=== PATIENT | female | born 1995 | race Caucasian/White ===

== ENCOUNTER 2023-04-12 12:22 | Outpatient (OUT) | payer OTHER, SELFPAY ==
[2023-04-12 13:41] LABS: Glucose 1 Hour 122 mg/dL
== END 2023-04-12 12:23 ==
LOC: LAB 12:27
PROVIDERS: Visit Provider Obstetrics & Gynecology
DX: Z13.1 Encounter for screening for diabetes mellitus (principal)
CPT/HCPCS: 36415; 82950

== ENCOUNTER 2023-05-11 09:24 | Outpatient (OUT) | payer OTHER, SELFPAY ==
--- NOTE | 2023-05-11 10:13 | US_ITS ---
[address] [address] Patient Name: BERNADINE DEAN MRN: [id number] date: 1995 Sex: F Assigned Patient Location: US Current Patient Location: US Accession/Order Number: [id number] Exam Date: 05/11/2023 10:15 Report Date: 05/11/2023 16:38 At the request of: MIKAYLA TRAN Procedure: US OB anatomy EXAMINATION: US OB anatomy, US OB cervical length HISTORY: Second Trimester Z34.92 COMPARISON: No relevant comparison available. TECHNIQUE: Transabdominal sonographic examination was performed for obstetrical and evaluation. FINDINGS: Number: 1 Heart Rate: 135.7 bpm H.B. /min Amniotic Fluid Volume: Subjectively normal Placental Location: POSTERIOR , grade 0, placental edge 0.4 cm from cervical os Cervix Length: 5.5 cm, closed position: Breech presentation, variable lie Normal anatomy: Lateral ventricles, cerebellum, posterior fossa, nose/lips, orbits, four-chamber heart, RVOT, LVOT, diaphragm, stomach, kidneys, abdominal cord insertion, bladder, umbilical cord arteries, three-vessel cord, spine, extremities BIOMETRY: BPD: 4.5 cm 19 weeks 4 days , 15% HC: 17.0 cm 19 weeks 4 days, 8% AC: 14.8 cm 20 weeks 1 days, 28% FL: 3.4 cm 20 weeks 4 days , 42% EFW:340.4 grams; 12 oz, 27% FL/AC: 22.8 FL/BPD: 74.8 HC/AC: 1.1 GESTATIONAL AGE: Age by EDC: 20 weeks 4 days MARITZA by EDC: 09/24/23 Age by current US: 20 weeks 0 days MARITZA by current US: 09/28/23 IMPRESSION: Marginal placenta previa Otherwise normal anatomy scan *Reference: [facility] Practice Guideline for the performance of Obstetric Ultrasound Examinations, August 12, 2007. Electronically authenticated by: GARLAND HEATH Date: 05/11/2023 16:38
--- NOTE | 2023-05-11 10:13 | US_ITS ---
[address] [address] Patient Name: BERNADINE DEAN MRN: [id number] date: 1995 Sex: F Assigned Patient Location: US Current Patient Location: US Accession/Order Number: [id number] Exam Date: 05/11/2023 10:15 Report Date: 05/11/2023 16:38 At the request of: MIKAYLA TRAN Procedure: US OB cervical length EXAMINATION: US OB anatomy, US OB cervical length HISTORY: Second Trimester Z34.92 COMPARISON: No relevant comparison available. TECHNIQUE: Transabdominal sonographic examination was performed for obstetrical and evaluation. FINDINGS: Number: 1 Heart Rate: 135.7 bpm H.B. /min Amniotic Fluid Volume: Subjectively normal Placental Location: POSTERIOR , grade 0, placental edge 0.4 cm from cervical os Cervix Length: 5.5 cm, closed position: Breech presentation, variable lie Normal anatomy: Lateral ventricles, cerebellum, posterior fossa, nose/lips, orbits, four-chamber heart, RVOT, LVOT, diaphragm, stomach, kidneys, abdominal cord insertion, bladder, umbilical cord arteries, three-vessel cord, spine, extremities BIOMETRY: BPD: 4.5 cm 19 weeks 4 days , 15% HC: 17.0 cm 19 weeks 4 days, 8% AC: 14.8 cm 20 weeks 1 days, 28% FL: 3.4 cm 20 weeks 4 days , 42% EFW:340.4 grams; 12 oz, 27% FL/AC: 22.8 FL/BPD: 74.8 HC/AC: 1.1 GESTATIONAL AGE: Age by EDC: 20 weeks 4 days MARITZA by EDC: 09/24/23 Age by current US: 20 weeks 0 days MARITZA by current US: 09/28/23 IMPRESSION: Marginal placenta previa Otherwise normal anatomy scan *Reference: [facility] Practice Guideline for the performance of Obstetric Ultrasound Examinations, August 12, 2007. Electronically authenticated by: GARLAND HEATH Date: 05/11/2023 16:38
[2023-05-13 00:06] LABS: AFP Value 34.7 ng/mL (.); Gest. Age on Collection Date 20.4 weeks (.); Gestat. Age Based On Ultrasound (.); Insulin Dep Diabetes No (.); Maternal Age At EDD 27.4 yr (.); OSBR Risk 1 IN 10000 (.); Results Report (.)
== END 2023-05-11 09:25 | disposition home or self-care (01) ==
LOC: US 09:24
PROVIDERS: Visit Provider Physician Assistant
DX: O44.22 Partial placenta previa NOS or without hemorrhage, second trimester (principal); Z3A.20 20 weeks gestation of pregnancy
CPT/HCPCS: 36415; 76805; 76817; 82105

== ENCOUNTER 2023-06-14 16:56 | Emergency (ER) | payer OTHER, SELFPAY ==
[2023-06-14 17:01] VITALS: BP 150/82; PULSE 100; RESP 20; TEMP 37.2; O2SAT 98; BMI 43.9
--- NOTE | 2023-06-14 17:10 | ED_ITS ---
HPI - General Adult General Chief complaint: Weakness Stated complaint: Hypotension, N/V, 25-wks : ER per [facility]BC Time Seen by Provider: 06/14/23 17:07 Source: patient Mode of arrival: walk-in Limitations: no limitations History of Present Illness HPI narrative: [age] year old female who is about 25 weeks presents for feeling dizzy. She's been having nausea and vomiting for the past two days with some diarrhea. No vaginal bleeding. She checked her blood pressure and it was low.symptoms started two days ago. No fever cough chest pain or shortness of breath. Related Data Home Medications Medication Instructions Recorded Confirmed aspirin 81 mg capsule 81 mg PO DAILY 06/14/23 06/14/23 folic acid 20 mg capsule 20 mg PO DAILY 06/14/23 06/14/23 Allergies Allergy/AdvReac Type Severity Reaction Status Date / Time No Known Drug Allergies Allergy Verified 06/14/23 17:03 Review of Systems ROS Narrative A ten point review of systems is negative except as noted above. Exam Narrative Exam Narrative: Nurses note and vital signs reviewed and patient is not hypoxic. General: The patient appears well and in no apparent distress. Patient is resting comfortably on cart. Skin: Warm, dry, no pallor noted. There is no rash noted. Head: Normocephalic, atraumatic Eye: Normal conjunctiva, no drainage Ears, Nose, Mouth, and Throat: oral mucosa is moist. Cardiovascular: Regular Rate and Rhythm Respiratory: Patient is in no distress, no accessory muscle use, lungs are clear to auscultation, no wheezing, rales or rhonchi Back: non-tender GI: no tenderness to palpation, no masses appreciated. No rebound, guarding, or rigidity noted. Musculoskeletal: The patient has no evidence of calf tenderness, no pitting edema, symmetrical pulses noted bilaterally Neurological: A&O, normal speech Psychiatric: Cooperative Constitutional Vital Signs, click to edit/add: Last Vital Signs Temp 98.9 F 06/14/23 17:01 Pulse 100 H 06/14/23 17:01 Resp 20 06/14/23 17:01 BP 150/82 H 06/14/23 17:01 Pulse Ox 98 06/14/23 17:01 O2 Del Method Room Air 06/14/23 17:01 Course Vital Signs Vital signs: Vital Signs Temperature 98.9 F 06/14/23 17:01 Pulse Rate 100 H 06/14/23 17:01 Respiratory Rate 20 06/14/23 17:01 Blood Pressure 150/82 H 06/14/23 17:01 Pulse Oximetry 98 06/14/23 17:01 Oxygen Delivery Method Room Air 06/14/23 17:01 Temperature 98.9 F 06/14/23 17:01 Pulse Rate 100 H 06/14/23 17:01 Respiratory Rate 20 06/14/23 17:01 Blood Pressure 150/82 H 06/14/23 17:01 Pulse Oximetry 98 06/14/23 17:01 Oxygen Delivery Method Room Air 06/14/23 17:01 Medical Decision Making MDM Narrative Medical decision making narrative: Blood work is essentially normal. BUN is 2.0. She was given IV fluids and seems to be feeling improved social be discharged home. Treatment diagnosis and follow-up were discussed with the patient. Differential Diagnosis Differential Diagnosis: bacterial gastroenteritis, viral gastroenteritis Lab Data Lab results reviewed: Yes I reviewed the patient's lab results Labs: Lab Results 06/14/23 Range/Units 17:20 WBC 9.3 (4.0-11.0) 10^3/uL RBC 3.77 L (4.20-5.40) 10^6/uL Hgb 11.0 L (12.0-16.0) g/dL Hct 32.9 L (36.0-48.0) % MCV 87.3 (81.0-99.0) fL MCH 29.2 (26.7-34.0) pg MCHC 33.4 (29.9-35.2) g/dL RDW 13.6 (11.0-15.0) % Plt Count 205 (150-450) 10^3/uL MPV 10.5 (9.5-13.5) fL Neut % (Auto) 84.8 H (43.0-75.0) % Lymph % (Auto) 10.5 L (20.5-60.0) % [place] % (Auto) 3.9 (1.7-12.0) % Eos % (Auto) 0.2 L (0.9-7.0) % Baso % (Auto) 0.1 L (0.2-2.0) % Neut # (Auto) 7.8 H (1.4-6.5) 10^3/uL Lymph # (Auto) 1.0 L (1.2-3.8) 10^3/uL [place] # (Auto) 0.4 (0.3-0.8) 10^3/uL Eos # (Auto) 0.0 (0.0-0.7) 10^3/uL Baso # (Auto) 0.0 (0.0-0.1) 10^3/uL Abs Immat Gran (auto) 0.05 H (0.00-0.03) 10^3/uL Imm/Tot Granulo (auto) 0.5 (0.0-0.5) % Sodium 133 L (136-145) mmol/L Potassium 3.7 (3.5-5.1) mmol/L Chloride 103 (98-107) mmol/L Carbon Dioxide 20.9 L (21.0-32.0) mmol/L Anion Gap 12.8 BUN 2.0 L (7.0-18.0) mg/dL Creatinine 0.41 L (0.55-1.02) mg/dL Est GFR ( Amer) >60 (>=60) Est GFR (Non-Af Amer) >60 (>=60) BUN/Creatinine Ratio 4.9 Glucose 102 (74-106) mg/dL Calcium 8.8 (8.5-10.1) mg/dL Urine Color Lt. yellow (YELLOW) Urine Clarity Clear (CLEAR) Urine pH 6.5 (5.0-9.0) Ur Specific [place] <=1.005 A (1.005-1.025) Urine Protein Negative (NEG/TRACE) mg/dL Urine Glucose (UA) Negative (NEGATIVE) mg/dL Urine Ketones Negative (NEGATIVE) mg/dL Urine Occult Blood Negative (NEGATIVE) Urine Nitrite Negative (NEGATIVE) Urine Bilirubin Negative (NEGATIVE) Urine Urobilinogen 0.2 (0.2-1.0) EU/dL Ur Leukocyte Esterase Negative (NEGATIVE) Discharge Plan Discharge Chief Complaint: Weakness Clinical Impression: Nausea vomiting and diarrhea Patient Disposition: Home, Self-Care Time of Disposition Decision: 18:27 Condition: Good Mode of Transportation: Private Vehicle Prescriptions / Home Meds: No Action aspirin 81 mg capsule 81 mg PO DAILY folic acid 20 mg capsule 20 mg PO DAILY Instructions: Nausea and Vomiting in (ED), Gastroenteritis (ED), Acute Nausea and Vomiting (DC) Stand Alone Forms: Portal Instructions Referrals: Physician,Non-Staff, MD [Primary Care Provider] - 1 week
[2023-06-14] MEDS: 0.9 % SODIUM CHLORIDE 1,000 ML 1000 ML IV (17:24)
[2023-06-14] MEDS: ONDANSETRON PF 4 MG/2 ML VIAL IV (17:24)
[2023-06-14 17:36] LABS: Bilirubin Urine NEGATIVE (NEGATIVE); Blood Urine NEGATIVE (NEGATIVE); Clarity Urine CLEAR (CLEAR); Color Urine LT. YELLOW (YELLOW); Glucose Urine UA NEGATIVE (NEGATIVE); Ketones Urine NEGATIVE (NEGATIVE); Leukocyte Esterase Urine NEGATIVE (NEGATIVE); Nitrite Urine NEGATIVE (NEGATIVE); Protein Urine NEGATIVE (NEG/TRACE); Specific Gravity Urine <=1.005 (1.005-1.025); Urine Microscopic Indicated NO; Urobilinogen Urine 0.2 EU/dL (0.2-1.0); pH Urine 6.5 (5.0-9.0)
[2023-06-14 17:37] LABS: Basophils Percent Auto 0.1 % (0.2-2.0); Eosinophils Percent Auto 0.2 % (0.9-7.0); Hematocrit 32.9 % (36.0-48.0); Immature Granulocytes Abs Auto 0.05 10^3/uL (0.00-0.03); Immature Granulocytes Pct Auto 0.5 % (0.0-0.5); Lymphocytes Percent Auto 10.5 % (20.5-60.0); Mean Corpuscular HGB Conc 33.4 g/dL (29.9-35.2); Mean Corpuscular Hemoglobin 29.2 pg (26.7-34.0); Mean Corpuscular Volume 87.3 fL (81.0-99.0); Mean Platelet Volume 10.5 fL (9.5-13.5); Monocytes Absolute Auto 0.4 10^3/uL (0.3-0.8); Monocytes Percent Auto 3.9 % (1.7-12.0); Neutrophils Absolute Auto 7.8 10^3/uL (1.4-6.5); Neutrophils Percent Auto 84.8 % (43.0-75.0); Platelet Count 205 10^3/uL (150-450); Red Blood Count 3.77 10^6/uL (4.20-5.40); Red Cell Distribution Width 13.6 % (11.0-15.0); White Blood Count 9.3 10^3/uL (4.0-11.0)
[2023-06-14 17:40] LABS: Anion Gap 12.8; BUN Creatinine Ratio 4.9; Calcium 8.8 mg/dL (8.5-10.1); Carbon Dioxide 20.9 mmol/L (21.0-32.0); Chloride 103 mmol/L (98-107); Estimated GFR (African America >60 (>=60); Estimated GFR (Non-African Ame >60 (>=60); Glucose 102 mg/dL (74-106); Potassium 3.7 mmol/L (3.5-5.1); Sodium 133 mmol/L (136-145)
== END 2023-06-14 18:43 | disposition home or self-care (01) ==
PROVIDERS: Emergency Provider Emergency Medicine
DX: O26.892 Other specified pregnancy related conditions, second trimester (principal); R11.2 Nausea with vomiting, unspecified; R19.7 Diarrhea, unspecified; Z3A.25 25 weeks gestation of pregnancy; Z79.82 Long term (current) use of aspirin; Z79.899 Other long term (current) drug therapy
CPT/HCPCS: 36415; 80048; 81003; 85025; 96361; 96374; 99285

== ENCOUNTER 2023-06-20 08:21 | Outpatient (OUT) | payer OTHER, SELFPAY ==
--- NOTE | 2023-06-20 | US_ITS ---
[place] [id number] Patient Name: BERNADINE DEAN MRN: [id number] date: 1995 Sex: F Assigned Patient Location: US Current Patient Location: LAB Accession/Order Number: [id number] Exam Date: 06/20/2023 08:27 Report Date: 06/20/2023 15:28 At the request of: ARMIN MARTINEZ Procedure: US OB cervical length EXAMINATION: US OB placenta, US OB cervical length HISTORY: MARGINAL PREVIA COMPARISON: Ultrasound OB anatomy 05/11/2023 FINDINGS: PLACENTA: Posterior with lower margin 5.4 cm from os. CERVIX LENGTH: 4.8 cm; closed. HEART RATE: 144 bpm OTHER: None. GA: 26 weeks 1 day MARITZA: 09/25/2023 US/US OB cervical length IMPRESSION: 1. Single live intrauterine . 2. Posterior placenta which is no longer low-lying. Electronically authenticated by: ANT PHILLIPS Date: 06/20/2023 15:28
--- NOTE | 2023-06-20 | US_ITS ---
[place] [id number] Patient Name: BERNADINE DEAN MRN: [id number] date: 1995 Sex: F Assigned Patient Location: US Current Patient Location: LAB Accession/Order Number: [id number] Exam Date: 06/20/2023 08:27 Report Date: 06/20/2023 15:28 At the request of: ARMIN MARTINEZ Procedure: US OB placenta EXAMINATION: US OB placenta, US OB cervical length HISTORY: MARGINAL PREVIA COMPARISON: Ultrasound OB anatomy 05/11/2023 FINDINGS: PLACENTA: Posterior with lower margin 5.4 cm from os. CERVIX LENGTH: 4.8 cm; closed. HEART RATE: 144 bpm OTHER: None. GA: 26 weeks 1 day MARITZA: 09/25/2023 US/US OB placenta IMPRESSION: 1. Single live intrauterine . 2. Posterior placenta which is no longer low-lying. Electronically authenticated by: ANT PHILLIPS Date: 06/20/2023 15:28
== END 2023-06-20 08:22 | disposition home or self-care (01) ==
LOC: US 08:21
PROVIDERS: Visit Provider Obstetrics & Gynecology
DX: O44.22 Partial placenta previa NOS or without hemorrhage, second trimester (principal); Z3A.26 26 weeks gestation of pregnancy
CPT/HCPCS: 36415; 76815; 76817; 82950; 85025

== ENCOUNTER 2023-06-20 09:41 | Outpatient (OUT) | payer OTHER, SELFPAY ==
[2023-06-20 10:49] LABS: Basophils Percent Auto 0.1 % (0.2-2.0); Eosinophils Absolute Auto 0.1 10^3/uL (0.0-0.7); Eosinophils Percent Auto 0.5 % (0.9-7.0); Hematocrit 33.8 % (36.0-48.0); Immature Granulocytes Abs Auto 0.05 10^3/uL (0.00-0.03); Immature Granulocytes Pct Auto 0.5 % (0.0-0.5); Lymphocytes Absolute Auto 1.6 10^3/uL (1.2-3.8); Lymphocytes Percent Auto 17.7 % (20.5-60.0); Mean Corpuscular HGB Conc 32.5 g/dL (29.9-35.2); Mean Corpuscular Hemoglobin 29.3 pg (26.7-34.0); Mean Corpuscular Volume 89.9 fL (81.0-99.0); Mean Platelet Volume 10.3 fL (9.5-13.5); Monocytes Absolute Auto 0.2 10^3/uL (0.3-0.8); Monocytes Percent Auto 2.6 % (1.7-12.0); Neutrophils Absolute Auto 7.2 10^3/uL (1.4-6.5); Neutrophils Percent Auto 78.6 % (43.0-75.0); Platelet Count 184 10^3/uL (150-450); Red Blood Count 3.76 10^6/uL (4.20-5.40); Red Cell Distribution Width 13.8 % (11.0-15.0); White Blood Count 9.1 10^3/uL (4.0-11.0)
[2023-06-20 12:35] LABS: Glucose 1 Hour 118 mg/dL
== END 2023-06-20 09:42 | disposition home or self-care (01) ==
LOC: LAB 09:42
PROVIDERS: Visit Provider Obstetrics & Gynecology
DX: Z34.92 Encounter for supervision of normal pregnancy, unspecified, second trimester (principal)
CPT/HCPCS: 36415; 82950; 85025

== ENCOUNTER 2023-07-23 08:00 | Outpatient (OUT) | payer OTHER, SELFPAY ==
--- NOTE | 2023-07-23 08:04 | US_ITS ---
[place] [id number] Patient Name: BERNADINE DEAN MRN: [facility]:[id number] date: 1995 Sex: F Assigned Patient Location: US Current Patient Location: US Accession/Order Number: [id number] Exam Date: 07/23/2023 08:04 Report Date: 07/23/2023 17:07 At the request of: ARMIN MARTINEZ Procedure: US OB growth EXAMINATION: US OB growth HISTORY: SIZE INCONSISTENT WITH DATES COMPARISON: No relevant comparison available. FINDINGS: Heart Rate: 127.0 bpm Amniotic Fluid Volume: 16.5 cm Number: 1.0 Position: Cephalic presentation, longitudinal lie Maximum Vertical Pocket: 5.6 cm cm 3.3 cm cm 3.8 cm cm 3.8 cm cm BIOMETRY: BPD: 7.9 cm cm; 31 weeks 6 days; 68% HC: 29.4 cmcm; 32 weeks 3 days, 60% AC: 26.2 cm cm; 30 weeks 3 days, 31% FL: 6.0 cm cm; 31 weeks 2 days; 48.9 % % EFW: 1678.0 grams, 3 lbs. 11 oz., 42% FL/AC: 23.0 FL/BPD: 76.0 HC/AC: 1.1 GESTATIONAL AGE: Age by EDC: 30 weeks 6 days MARITZA by EDC: 09/25/2023 Age by US: 31 weeks 4 days MARITZA by US: 09/20/2023 US/US OB growth IMPRESSION: Normal interval growth Electronically authenticated by: GARLAND HEATH Date: 07/23/2023 17:07
== END 2023-07-23 08:01 | disposition home or self-care (01) ==
LOC: US 08:01
PROVIDERS: Visit Provider Obstetrics & Gynecology
DX: O26.843 Uterine size-date discrepancy, third trimester (principal); Z3A.30 30 weeks gestation of pregnancy
CPT/HCPCS: 76816

== ENCOUNTER 2023-08-28 09:56 | Outpatient (OUT) | payer OTHER, SELFPAY ==
--- NOTE | 2023-08-28 09:57 | US_ITS ---
[address] [address] Patient Name: BERNADINE DEAN MRN: [id number] date: 1995 Sex: F Assigned Patient Location: US Current Patient Location: US Accession/Order Number: [id number] Exam Date: 08/28/2023 09:58 Report Date: 08/28/2023 12:25 At the request of: ARMIN MARTINEZ Procedure: US OB growth EXAMINATION: US OB growth HISTORY: SIZE INCONSISTENT WITH DATES COMPARISON: No relevant comparison available. FINDINGS: Heart Rate: 138.0 bpm Amniotic Fluid Volume: 20.1 cm Number: 1.0 Position: Cephalic presentation, longitudinal lie Maximum Vertical Pocket: 7.1 cm cm 4.0 cm cm 4.9 cm cm 4.1 cm cm BIOMETRY: BPD: 9.2 cm cm; 37 weeks 3 days; 90% HC: 33.5 cmcm; 38 weeks 2 days, 75% AC: 32.8 cm cm; 36 weeks 5 days, 79% FL: 7.1 cm cm; 36 weeks 3 days; 55.9 % % EFW: 3060.8 grams, 6 lbs. 12 oz., 76% FL/AC: 21.6 FL/BPD: 77.0 HC/AC: 1.0 GESTATIONAL AGE: Age by EDC: 36 weeks 0 days MARITZA by EDC: 09/25/2023 Age by US: 37 weeks 2 days MARITZA by US: 09/16/2023 US/US OB growth IMPRESSION: Normal interval growth Electronically authenticated by: GARLAND HEATH Date: 08/28/2023 12:25
== END 2023-08-28 09:57 | disposition home or self-care (01) ==
LOC: US 09:56
PROVIDERS: Visit Provider Obstetrics & Gynecology
DX: O26.843 Uterine size-date discrepancy, third trimester (principal); Z3A.36 36 weeks gestation of pregnancy
CPT/HCPCS: 76816; 87081; 87150

== ENCOUNTER 2023-08-28 20:03 | Outpatient (REF) | payer OTHER, SELFPAY | END 2023-08-28 20:04 | disposition home or self-care (01) | LOC: LAB 20:03 | PROVIDERS: Visit Provider Obstetrics & Gynecology | DX: Z34.93 Encounter for supervision of normal pregnancy, unspecified, third trimester (principal) | CPT/HCPCS: 87081; 87150 ==

== ENCOUNTER 2023-08-31 13:00 | Outpatient (OUT) | payer OTHER, SELFPAY ==
[2023-08-31 13:29] VITALS: BP 113/77; PULSE 96
[2023-08-31 13:42] LABS: Bilirubin Urine NEGATIVE (NEGATIVE); Blood Urine NEGATIVE (NEGATIVE); Clarity Urine CLEAR (CLEAR); Color Urine LT. YELLOW (YELLOW); Glucose Urine UA NEGATIVE (NEGATIVE); Ketones Urine 15 mg/dL (NEGATIVE); Leukocyte Esterase Urine NEGATIVE (NEGATIVE); Nitrite Urine NEGATIVE (NEGATIVE); Protein Urine NEGATIVE (NEG/TRACE); Urobilinogen Urine 0.2 EU/dL (0.2-1.0)
[2023-08-31 13:43] LABS: Urine Microscopic Indicated NO
[2023-08-31 13:56] VITALS: BP 120/77; PULSE 82
[2023-08-31 14:11] VITALS: BP 119/78; PULSE 85
[2023-08-31 14:26] VITALS: BP 115/70; PULSE 88
--- NOTE | 2023-08-31 14:41 | PC.NURSE ---
1310-arrives to [facility] with mom. ambulates to room 255 for assessment. Pt reports swelling in lower extremities, a 10# weight gain last week in Dr. Todd's office. Denies MALLOY, blurry vision or epigastric pain. Reports +FM, denies LOF or bleeding. To BR to change in to gown and obtain a UA. 1320-EFM initated. DTR/s 1+upper and lower. 1-2+ non pitting edema noted to lower extremities. Plan of care reviewed. Verbalizes understanding. 1420-Dr. Cuellar notified of above and VS and ua. D/c orders received and f/u as scheduled with Dr. Todd on . review s/s of pih. 1430-d/c instructions given and verbalizes understanding. d/c to home in stable condition.
== END 2023-08-31 14:52 | disposition home or self-care (01) ==
LOC: FBCO 13:03 → FBC 13:06
PROVIDERS: Visit Provider Obstetrics & Gynecology
DX: O26.899 Other specified pregnancy related conditions, unspecified trimester (principal); Z3A.00 Weeks of gestation of pregnancy not specified
CPT/HCPCS: 59025; 81003

== ENCOUNTER 2023-09-18 09:24 | Outpatient (OUT) | payer OTHER, SELFPAY ==
--- NOTE | 2023-09-18 09:17 | US_ITS ---
[place] [id number] Patient Name: BERNADINE DEAN MRN: [facility]:[id number] date: 1995 Sex: F Assigned Patient Location: [facility] Current Patient Location: [facility] Accession/Order Number: [id number] Exam Date: 09/18/2023 09:20 Report Date: 09/18/2023 10:08 At the request of: ARMIN MARTINEZ Procedure: US OB BPP wo non-stress US MORE THAN 14 WEEKS INDICATION: Scheduled for induction. COMPARISON: Obstetrical ultrasound 08/28/2023, 07/23/2023. TECHNIQUE: Grayscale, color and M-mode Doppler evaluation of the gravid uterus using transabdominal technique. FINDINGS: EGA: 39 weeks 0 days MARITZA: 09/25/2023 Single intrauterine gestation with cephalic presentation. LG: 19.8 cm, MVP: 6.9 cm FHR: 134 bpm Biophysical profile: Movement: 2 Tone: 2 Breathin Amniotic Fluid: 2 BPP score: 8/8 US/US OB BPP wo non-stress IMPRESSION: 1. Single viable intrauterine gestation with cephalic presentation. 2. Biophysical profile score 8/8 Electronically authenticated by: SHELLY MONTILLA Date: 09/18/2023 10:08
[2023-09-18 09:58] VITALS: BP 138/88; PULSE 78
[2023-09-18 10:52] VITALS: BP 136/90
== END 2023-09-18 11:05 | disposition home or self-care (01) ==
LOC: FBCO 09:25 → FBC 09:25
PROVIDERS: Visit Provider Obstetrics & Gynecology
DX: O16.3 Unspecified maternal hypertension, third trimester (principal); Z3A.39 39 weeks gestation of pregnancy
CPT/HCPCS: 76819

== ENCOUNTER 2023-09-20 19:48 | Outpatient (OUT) | payer OTHER, SELFPAY ==
[2023-09-20 20:34] VITALS: BP 126/67; PULSE 79
[2023-09-20 21:22] LABS: Creatinine Urine Random 52.57 mg/dL (20.00-300.00); Protein Creatinine Ratio Urine 0.11; Total Protein Urine Random <6.0 mg/dL (<=11.9)
[2023-09-20] MEDS: ACETAMINOPHEN 500 MG TABLET 1000 MG PO (21:29)
== END 2023-09-20 22:00 | disposition home or self-care (01) ==
LOC: FBCO 19:49 → FBC 19:53
PROVIDERS: Visit Provider Obstetrics & Gynecology
DX: O16.9 Unspecified maternal hypertension, unspecified trimester (principal); Z3A.00 Weeks of gestation of pregnancy not specified
CPT/HCPCS: 59025; 82570; 84156

== ENCOUNTER 2023-09-24 16:14 | Inpatient (IN) | payer OTHER, SELFPAY ==
[2023-09-24] VITALS (14 sets, daily range): BP systolic 115–143; BP diastolic 57–73; PULSE 70–86; RESP 16; TEMP 36.6–36.8
[2023-09-24 17:08] LABS: Hemoglobin 10.2 g/dL (12.0-16.0); Mean Corpuscular HGB Conc 32.9 g/dL (29.9-35.2); Mean Corpuscular Hemoglobin 29.1 pg (26.7-34.0); Mean Corpuscular Volume 88.6 fL (81.0-99.0); Mean Platelet Volume 11.5 fL (9.5-13.5); Platelet Count 184 10^3/uL (150-450); Red Cell Distribution Width 14.3 % (11.0-15.0); White Blood Count 9.5 10^3/uL (4.0-11.0)
[2023-09-24 17:21] LABS: Amphetamine Screen Urine NEGATIVE (NEGATIVE); Benzodiazepines Screen Urine NEGATIVE (NEGATIVE); Cannabinoid Screen Urine NEGATIVE (NEGATIVE); Cocaine Screen Urine NEGATIVE (NEGATIVE); Methamphetamines Screen Urine NEGATIVE (NEGATIVE); Opiate Screen Urine NEGATIVE (NEGATIVE); Phencyclidine Screen Urine NEGATIVE (NEGATIVE)
[2023-09-24 17:22] LABS: Barbiturates Screen Urine NEGATIVE (NEGATIVE); Buprenorphine Screen Urine NEGATIVE (NEGATIVE); Methadone Screen Urine NEGATIVE (NEGATIVE); Oxycodone Screen Urine NEGATIVE (NEGATIVE); Tricyclic Antidepressant Urine NEGATIVE (NEGATIVE)
[2023-09-24] MEDS: DINOPROSTONE 10 MG VAG INSERT.ER VAGINAL (17:24)
[2023-09-25] VITALS (73 sets, daily range): BP systolic 86–185; BP diastolic 50–111; PULSE 59–164; RESP 16–21; TEMP 36.3–37.6; O2SAT 99–100
[2023-09-25] MEDS: AMPICILLIN SODIUM 2,000 MG in 0.9 % SODIUM CHLORIDE 100 ML 200 MG IV (06:40)
[2023-09-25] MEDS: 0.9 % SODIUM CHLORIDE 1,000 ML 125 ML IV ×3 (06:40→20:23)
[2023-09-25] MEDS: OXYTOCIN/0.9 % SODIUM CHLORIDE 10 UNITS/500 ML PLAST..BAG 6 UNIT IV (06:40)
--- NOTE | 2023-09-25 07:17 | W.PC.ACHO ---
Registration Status: ADM IN Primary Language: Ukrainian Preferred Language: Ukrainian Active Medications Generic Name Dose Route Start Last Admin Trade Name Clemencia PRN Reason Stop Dose Admin Carboprost Tromethamine 250 mcg 09/24/23 16:27 Carboprost Tromethamine 250 Mcg/Ml 1 Ml Vial IM 09/26/23 16:27 Q15M PRN Bleeding Sodium Chloride 1,000 mls @ 125 mls/hr 09/24/23 16:30 09/25/23 06:40 Sodium Chloride 0.9% 1,000 Ml IV 125 mls/hr .Q8H NATASHA Administration Oxytocin/Sodium Chloride 10 units in 500 mls @ 6 mls/hr 09/25/23 06:30 09/25/23 06:40 Pitocin 10 Unit/500 Ml-Ns IV 2 milliunit/min CONT NATASHA 6 mls/hr Administration Protocol 2 MILLIUNIT/MIN Ampicillin 1,000 mg/ Sodium 50 mls @ 100 mls/hr 09/25/23 10:30 Chloride IV Q4H NATASHA Lidocaine 5 ml 09/24/23 16:27 Lidocaine Viscous 2% 15 Ml Solution TOPICAL ONCE PRN Pain Lidocaine 1 ml 09/24/23 16:27 Lidocaine Hcl 1% 200 Mg/20 Ml Mdv INJ ONCE PRN Pain Methylergonovine Maleate 0.2 mg 09/24/23 16:27 Methylergonovine Maleate 0.2 Mg/Ml Ampule IM 09/26/23 16:27 ONCE PRN Uterine Contractility/Contract Methylergonovine Maleate 0.2 mg 09/24/23 16:27 Methylergonovine Maleate 0.2 Mg Tablet PO 09/26/23 16:27 Q4H PRN Uterine Contractility/Contract Misoprostol 600 mcg 09/24/23 16:27 Misoprostol 100 Mcg Tablet PO 09/26/23 16:27 ONCE PRN Uterine Bleeding Misoprostol 800 mcg 09/24/23 16:27 Misoprostol 100 Mcg Tablet SL 09/26/23 16:27 ONCE PRN Uterine Bleeding Misoprostol 1,000 mcg 09/24/23 16:27 Misoprostol 100 Mcg Tablet MS 09/26/23 16:27 ONCE PRN Uterine Bleeding Ondansetron HCl 4 mg 09/24/23 16:27 Ondansetron Pf 4 Mg/2 Ml Vial IV Q6H PRN Nausea And Vomiting Ondansetron HCl 4 mg 09/24/23 16:27 Ondansetron 4 Mg Rapdis Tablet SL Q6H PRN Nausea And Vomiting Oxytocin 10 unit 09/24/23 16:27 Oxytocin 10 Unit/Ml Vial IM 09/26/23 16:27 ONCE PRN excessive bleeding Diet Category Date Time Status Regular Consistency Diet Diet 09/24/23 16:28 Active IV Insertion/Site Date of IV Line Insertion [ 09/24/23 Short PIV (<1.75 in) 20g right Hand] IV Insertion Time [Short PIV ( 16:54 <1.75 in) 20g right Hand] Neurology Patient orientation (short person,place,time,situation list)
--- NOTE | 2023-09-25 08:40 | PC.NURSE ---
0751 portable monitor applied, patient up to rocking chair. reports increased comfort
[2023-09-25] MEDS: AMPICILLIN SODIUM 1,000 MG in 0.9 % SODIUM CHLORIDE 50 ML 100 MG IV ×3 (10:45→18:30)
[2023-09-25] MEDS: FENTANYL CITRATE/PF 100 MCG/2 ML VIAL EPIDURAL (11:52)
[2023-09-25] MEDS: ROPIVACAINE HCL/PF 400 MG/200 ML PREMIX 6 MG EPIDURAL (11:53)
--- NOTE | 2023-09-25 19:22 | W.PC.ACHO ---
Registration Status: ADM IN Primary Language: Uruguayan Preferred Language: Uruguayan plan of care discussed with bedside report to Les DUMONT Active Medications Generic Name Dose Route Start Last Admin Trade Name Clemencia PRN Reason Stop Dose Admin Carboprost Tromethamine 250 mcg 09/24/23 16:27 Carboprost Tromethamine 250 Mcg/Ml 1 Ml Vial IM 09/26/23 16:27 Q15M PRN Bleeding Fentanyl Citrate 100 mcg 09/25/23 10:32 09/25/23 11:52 Fentanyl Citrate/Pf 100 Mcg/2 Ml Vial EPIDURAL 100 mcg ONCE PRN Administration epidural Oxytocin/Sodium Chloride 10 units in 500 mls @ 6 mls/hr 09/25/23 06:30 09/25/23 17:00 Pitocin 10 Unit/500 Ml-Ns IV 20 milliunit/min CONT NATASHA 60 mls/hr Infusion Protocol 2 MILLIUNIT/MIN Ampicillin 1,000 mg/ Sodium 50 mls @ 100 mls/hr 09/25/23 10:30 09/25/23 18:30 Chloride IV 100 mls/hr Q4H NATASHA Administration Ropivacaine/Sodium Chloride 400 mg in 200 mls @ 6 mls/hr 09/25/23 10:45 09/25/23 11:53 Naropin 0.2% 400 Mg/200 Ml Bag EPIDURAL 6 mls/hr Q24H NATASHA Administration Sodium Chloride 1,000 mls @ 125 mls/hr 09/25/23 12:20 09/25/23 12:20 Sodium Chloride 0.9% 1,000 Ml IV 125 mls/hr .Q8H NATASHA Administration Lidocaine 5 ml 09/24/23 16:27 Lidocaine Viscous 2% 15 Ml Solution TOPICAL ONCE PRN Pain Lidocaine 1 ml 09/24/23 16:27 Lidocaine Hcl 1% 200 Mg/20 Ml Mdv INJ ONCE PRN Pain Methylergonovine Maleate 0.2 mg 09/24/23 16:27 Methylergonovine Maleate 0.2 Mg/Ml Ampule IM 09/26/23 16:27 ONCE PRN Uterine Contractility/Contract Methylergonovine Maleate 0.2 mg 09/24/23 16:27 Methylergonovine Maleate 0.2 Mg Tablet PO 09/26/23 16:27 Q4H PRN Uterine Contractility/Contract Misoprostol 600 mcg 09/24/23 16:27 Misoprostol 100 Mcg Tablet PO 09/26/23 16:27 ONCE PRN Uterine Bleeding Misoprostol 800 mcg 09/24/23 16:27 Misoprostol 100 Mcg Tablet SL 09/26/23 16:27 ONCE PRN Uterine Bleeding Misoprostol 1,000 mcg 09/24/23 16:27 Misoprostol 100 Mcg Tablet FL 09/26/23 16:27 ONCE PRN Uterine Bleeding Ondansetron HCl 4 mg 09/24/23 16:27 Ondansetron Pf 4 Mg/2 Ml Vial IV Q6H PRN Nausea And Vomiting Ondansetron HCl 4 mg 09/24/23 16:27 Ondansetron 4 Mg Rapdis Tablet SL Q6H PRN Nausea And Vomiting Oxytocin 10 unit 09/24/23 16:27 Oxytocin 10 Unit/Ml Vial IM 09/26/23 16:27 ONCE PRN excessive bleeding
[2023-09-25] MEDS: OXYTOCIN/0.9 % SODIUM CHLORIDE 10 UNITS/500 ML PLAST..BAG 60 UNIT IV (19:26)
[2023-09-25] MEDS: CEFAZOLIN SODIUM/DEXTROSE,ISO 2 GM/50 ML PIGGYBACK IV (22:25)
[2023-09-25] MEDS: LACTATED RINGER'S SOLUTION 1,000 ML 50 ML IV (23:09)
--- NOTE | 2023-09-25 23:16 | P.OBPRC_ITS ---
Procedure Pre-op/Post-op diagnoses: Pre-Op/Post-Op Diagnoses Operation Date: 09/25/23 22:25 <No data on this case meets the specified criteria> Procedure: Procedures Operation Date: 09/25/23 22:25 Actual Procedure Side Surgeon p Not Applicable Freedom Todd DO Entry Level Financial Analyst: Lanny Chapman Estimated blood loss (mL): 575 Disposition: floor Anesthesia type: Epidural
--- NOTE | 2023-09-25 23:16 | PM.ONB ---
Brief Operative Note Date of procedure: 09/25/23 Pre-op diagnosis: iup at 39wks, failure to descend, failure to dilate Post-op diagnosis: same as pre-op Procedure: NAME OF PROCEDURE: [ section ] PROCEDURE: Patient was taken back to the Operating Room where she was given a spinal anesthesia with Duramorph without difficulty. She was prepped and draped in the normal sterile fashion. A Pfannenstiel skin incision was then made 2 cm above the symphysis pubis and carried down to underlying rectus fascia using a Bovie. The fascia was incised in the midline and extended laterally using Holliday scissors. Two Laron clamps were placed on the superior aspect of the fascia and dissected off the underlying rectus muscles. The same was performed on the inferior aspect as well. The muscles were then in the midline. Peritoneum was identified and entered bluntly. The peritoneum was then extended superiorly and inferiorly with good visualization of the bladder. The bladder blade was inserted. A low transverse incision was made on the patient's uterus and extended laterally digitally. The infant was then delivered atraumatically after the bladder blade was removed in the cephalic position. The cord was clamped and cut. Cord blood was obtained. The was handed off to awaiting team. The patient's placenta was spontaneously delivered. The uterus was then exteriorized. The uterus was cleared of all clots and debris. The bladder blade was reinserted. The patient's uterine incision was closed using #0 Vicryl in a running lock fashion. Excellent hemostasis was assured. The uterus was then returned to the patient's abdomen. The patient's abdomen was copiously irrigated using warm saline. Peritoneal gutters were cleared of all clots and debris. Again excellent hemostasis was assured. The patient's peritoneum was closed using 3-0 Vicryl in a running fashion. The patient's fascia was closed using #0 Vicryl in a running fashion. The patient's skin was closed using 4-0 Vicryl subcuticularly. The patient tolerated the procedure well. Sponge, lap, and needle counts were correct x2. The patient was taken to the Recovery Room in stable condition. Anesthesia: epidural Surgeon: Freedom Todd Wire Drawing Die Maker: Lanny Chapman Estimated blood loss (mL): 575 Pathology: other (placenta) Condition: stable Disposition: floor
[2023-09-26] VITALS (43 sets, daily range): BP systolic 116–159; BP diastolic 64–95; PULSE 67–150; RESP 1–40; TEMP 36.6–37.1; O2SAT 93–99
[2023-09-26] MEDS: OXYTOCIN/0.9 % SODIUM CHLORIDE 20 UNITS/1,000 ML PLAST..BAG 200 UNIT IV
[2023-09-26] MEDS: KETOROLAC TROMETHAMINE 30 MG/ML VIAL IVP ×4 (01:34→21:04)
[2023-09-26] MEDS: CEFAZOLIN SODIUM/DEXTROSE,ISO 2 GM/50 ML PIGGYBACK IV (04:30)
[2023-09-26 06:33] LABS: Basophils Percent Auto 0.2 % (0.2-2.0); Eosinophils Percent Auto 0.1 % (0.9-7.0); Hemoglobin 8.8 g/dL (12.0-16.0); Immature Granulocytes Abs Auto 0.06 10^3/uL (0.00-0.03); Immature Granulocytes Pct Auto 0.5 % (0.0-0.5); Lymphocytes Absolute Auto 1.7 10^3/uL (1.2-3.8); Lymphocytes Percent Auto 13.3 % (20.5-60.0); Mean Corpuscular HGB Conc 32.6 g/dL (29.9-35.2); Mean Corpuscular Hemoglobin 29.1 pg (26.7-34.0); Mean Corpuscular Volume 89.4 fL (81.0-99.0); Mean Platelet Volume 11.2 fL (9.5-13.5); Monocytes Absolute Auto 0.5 10^3/uL (0.3-0.8); Monocytes Percent Auto 4.2 % (1.7-12.0); Neutrophils Absolute Auto 10.3 10^3/uL (1.4-6.5); Neutrophils Percent Auto 81.7 % (43.0-75.0); Platelet Count 153 10^3/uL (150-450); Red Blood Count 3.02 10^6/uL (4.20-5.40); Red Cell Distribution Width 14.5 % (11.0-15.0); White Blood Count 12.6 10^3/uL (4.0-11.0)
--- NOTE | 2023-09-26 07:27 | W.PC.ACHO ---
Registration Status: ADM IN Primary Language: [place] Preferred Language: [place] Report given to Seun Pratt RN. Active Medications Generic Name Dose Route Start Last Admin Trade Name Freq PRN Reason Stop Dose Admin Al Hydroxide/Mg Hydroxide 2,400 mg 09/25/23 23:18 Magnesium Hydroxide 2,400 Mg/10 Ml Oral.Susp PO Q6H PRN Dyspepsia Carboprost Tromethamine 250 mcg 09/24/23 16:27 Carboprost Tromethamine 250 Mcg/Ml 1 Ml Vial IM 09/26/23 16:27 Q15M PRN Bleeding Diphenhydramine HCl 25 mg 09/25/23 23:18 Diphenhydramine Hcl 50 Mg/Ml (1ml) Vial IV 09/26/23 23:20 Q6H PRN Itching Docusate Sodium 100 mg 09/26/23 09:00 Docusate Sodium 100 Mg Capsule PO BID NATASHA Enoxaparin Sodium 40 mg 09/26/23 11:00 Enoxaparin Sodium 40 Mg/0.4 Ml Syringe SUBQ Q24H NATASHA Fentanyl Citrate 100 mcg 09/25/23 10:32 09/25/23 11:52 Fentanyl Citrate/Pf 100 Mcg/2 Ml Vial EPIDURAL 100 mcg ONCE PRN Administration epidural Oxytocin/Sodium Chloride 10 units in 500 mls @ 6 mls/hr 09/25/23 06:30 09/25/23 19:26 Pitocin 10 Unit/500 Ml-Ns IV 20 milliunit/min CONT NATASHA 60 mls/hr Administration Protocol 2 MILLIUNIT/MIN Ropivacaine/Sodium Chloride 400 mg in 200 mls @ 6 mls/hr 09/25/23 10:45 09/25/23 11:53 Naropin 0.2% 400 Mg/200 Ml Bag EPIDURAL 6 mls/hr Q24H NATASHA Administration Sodium Chloride 1,000 mls @ 125 mls/hr 09/25/23 12:20 09/25/23 20:23 Sodium Chloride 0.9% 1,000 Ml IV 125 mls/hr .Q8H NATASHA Administration Lactated Ringer's 1,000 mls @ 50 mls/hr 09/25/23 23:15 09/25/23 23:09 Lactated Ringers IV 50 mls/hr .Q20H NATASHA Administration Sodium Chloride 1,000 mls @ 125 mls/hr 09/25/23 23:30 Sodium Chloride 0.9% 1,000 Ml IV .Q8H NATASHA Cefazolin Sodium/Dextrose 2 gm in 50 mls @ 100 mls/hr 09/26/23 04:30 09/26/23 04:30 Ancef IV 100 mls/hr ONCE NATASHA Administration Ibuprofen 800 mg 09/25/23 23:18 Ibuprofen 400 Mg Tablet PO Q8H PRN Pain Ketorolac Tromethamine 30 mg 09/25/23 23:18 09/26/23 01:34 Ketorolac Tromethamine 30 Mg/Ml Vial IVP 09/27/23 23:19 30 mg Q6H PRN Administration Pain Lidocaine 5 ml 09/24/23 16:27 Lidocaine Viscous 2% 15 Ml Solution TOPICAL ONCE PRN Pain Lidocaine 1 ml 09/24/23 16:27 Lidocaine Hcl 1% 200 Mg/20 Ml Mdv INJ ONCE PRN Pain Methylergonovine Maleate 0.2 mg 09/24/23 16:27 Methylergonovine Maleate 0.2 Mg/Ml Ampule IM 09/26/23 16:27 ONCE PRN Uterine Contractility/Contract Methylergonovine Maleate 0.2 mg 09/24/23 16:27 Methylergonovine Maleate 0.2 Mg Tablet PO 09/26/23 16:27 Q4H PRN Uterine Contractility/Contract Misoprostol 600 mcg 09/24/23 16:27 Misoprostol 100 Mcg Tablet PO 09/26/23 16:27 ONCE PRN Uterine Bleeding Misoprostol 800 mcg 09/24/23 16:27 Misoprostol 100 Mcg Tablet SL 09/26/23 16:27 ONCE PRN Uterine Bleeding Misoprostol 1,000 mcg 09/24/23 16:27 Misoprostol 100 Mcg Tablet ND 09/26/23 16:27 ONCE PRN Uterine Bleeding Ondansetron HCl 4 mg 09/24/23 16:27 Ondansetron Pf 4 Mg/2 Ml Vial IV Q6H PRN Nausea And Vomiting Ondansetron HCl 4 mg 09/24/23 16:27 Ondansetron 4 Mg Rapdis Tablet SL Q6H PRN Nausea And Vomiting Ondansetron HCl 4 mg 09/25/23 23:18 Ondansetron Pf 4 Mg/2 Ml Vial IV Q6H PRN Nausea And Vomiting Ondansetron HCl 4 mg 09/25/23 23:18 Ondansetron 4 Mg Rapdis Tablet PO Q6H PRN Nausea And Vomiting Oxycodone/Acetaminophen 1 tab 09/25/23 23:18 Oxycodone Hcl/Acetaminophen 5mg/325mg PO Q4H PRN Pain Scale 4-6 Oxycodone/Acetaminophen 2 tab 09/25/23 23:18 Oxycodone Hcl/Acetaminophen 5mg/325mg PO Q4H PRN Pain Scale 7-10 Oxytocin 10 unit 09/24/23 16:27 Oxytocin 10 Unit/Ml Vial IM 09/26/23 16:27 ONCE PRN excessive bleeding Senna 17.2 mg 09/25/23 20:00 Sennosides 8.6 Mg Tablet PO QHS PRN Constipation Simethicone 80 mg 09/25/23 23:18 Simethicone 80 Mg Tab.Chew PO QID PRN Abdominal Distention Diet Category Date Time Status Regular Consistency Diet Diet 09/25/23 23:18 Active Neurology [place] coma scale total score 15 Respiratory Lung sounds [Bilateral Upper clear Lobe] Lung sounds [Bilateral Upper clear Lobe] Lung sounds [Bilateral Upper clear Lobe] Pulse Oximetry 93 Pulse Oximetry 95 Pulse Oximetry 96 Pulse Oximetry 96 Pulse Oximetry 96 Pulse Oximetry 96 Pulse Oximetry 97 Pulse Oximetry 96 Pulse Oximetry 97 Pulse Oximetry 96 Pulse Oximetry 96 Pulse Oximetry 96 Pulse Oximetry 96 Pulse Oximetry 96 Pulse Oximetry 96 Pulse Oximetry 96 Pulse Oximetry 97 Pulse Oximetry 96 Pulse Oximetry 97 Pulse Oximetry 96 Pulse Oximetry 97 Pulse Oximetry 98 Pulse Oximetry 98 Pulse Oximetry 99 Pulse Oximetry 99 Pulse Oximetry 100 Pulse Oximetry 99 Pulse Oximetry 99 Oxygen Delivery Method Room Air Oxygen Delivery Method Room Air Oxygen Delivery Method Room Air
--- NOTE | 2023-09-26 10:10 | PC.NURSE ---
0910 Discussed feeding options with patient and significant other. Patient desires to pump and feed and supplement with formula as needed. Patient expresses concern with latching baby due to latch issues overnight. Offered to assist with feeds as needed, per patient request. Reassurance and education provided. Patient will pump today, bottle feed as needed for infant comfort.
[2023-09-26] MEDS: ENOXAPARIN SODIUM 40 MG/0.4 ML SYRINGE SUBQ (12:26)
[2023-09-26] MEDS: DOCUSATE SODIUM 100 MG CAPSULE PO ×2 (12:26→21:06)
--- NOTE | 2023-09-26 20:34 | W.PC.ACHO ---
Registration Status: ADM IN Primary Language: Cypriot Preferred Language: [place]riot Report received from Cyndee DUMONT. Active Medications Generic Name Dose Route Start Last Admin Trade Name Freq PRN Reason Stop Dose Admin Al Hydroxide/Mg Hydroxide 2,400 mg 09/25/23 23:18 Magnesium Hydroxide 2,400 Mg/10 Ml Oral.Susp PO Q6H PRN Dyspepsia Carboprost Tromethamine 250 mcg 09/24/23 16:27 Carboprost Tromethamine 250 Mcg/Ml 1 Ml Vial IM 09/26/23 23:00 Q15M PRN Bleeding Diphenhydramine HCl 25 mg 09/25/23 23:18 Diphenhydramine Hcl 50 Mg/Ml (1ml) Vial IV 09/26/23 23:20 Q6H PRN Itching Docusate Sodium 100 mg 09/26/23 09:00 09/26/23 12:26 Docusate Sodium 100 Mg Capsule PO 100 mg BID NATASHA Administration Enoxaparin Sodium 40 mg 09/26/23 11:00 09/26/23 12:26 Enoxaparin Sodium 40 Mg/0.4 Ml Syringe SUBQ 40 mg Q24H NATASHA Administration Sodium Chloride 1,000 mls @ 125 mls/hr 09/25/23 12:20 09/25/23 20:23 Sodium Chloride 0.9% 1,000 Ml IV 125 mls/hr .Q8H NATASHA Administration Ibuprofen 800 mg 09/25/23 23:18 Ibuprofen 400 Mg Tablet PO Q8H PRN Pain Ketorolac Tromethamine 30 mg 09/25/23 23:18 09/26/23 14:29 Ketorolac Tromethamine 30 Mg/Ml Vial IVP 09/27/23 23:19 30 mg Q6H PRN Administration Pain Methylergonovine Maleate 0.2 mg 09/24/23 16:27 Methylergonovine Maleate 0.2 Mg/Ml Ampule IM 09/26/23 23:00 ONCE PRN Uterine Contractility/Contract Methylergonovine Maleate 0.2 mg 09/24/23 16:27 Methylergonovine Maleate 0.2 Mg Tablet PO 09/26/23 23:00 Q4H PRN Uterine Contractility/Contract Misoprostol 600 mcg 09/24/23 16:27 Misoprostol 100 Mcg Tablet PO 09/26/23 23:00 ONCE PRN Uterine Bleeding Misoprostol 800 mcg 09/24/23 16:27 Misoprostol 100 Mcg Tablet SL 09/26/23 23:00 ONCE PRN Uterine Bleeding Misoprostol 1,000 mcg 09/24/23 16:27 Misoprostol 100 Mcg Tablet NC 09/26/23 23:00 ONCE PRN Uterine Bleeding Ondansetron HCl 4 mg 09/24/23 16:27 Ondansetron Pf 4 Mg/2 Ml Vial IV Q6H PRN Nausea And Vomiting Ondansetron HCl 4 mg 09/24/23 16:27 Ondansetron 4 Mg Rapdis Tablet SL Q6H PRN Nausea And Vomiting Oxycodone/Acetaminophen 2 tab 09/25/23 23:18 Oxycodone Hcl/Acetaminophen 5mg/325mg PO Q4H PRN Pain Scale 7-10 Oxycodone/Acetaminophen 1 tab 09/26/23 07:33 Oxycodone Hcl/Acetaminophen 5mg/325mg PO Q4H PRN Pain Scale 4-6 Senna 17.2 mg 09/25/23 20:00 Sennosides 8.6 Mg Tablet PO QHS PRN Constipation Simethicone 80 mg 09/25/23 23:18 Simethicone 80 Mg Tab.Chew PO QID PRN Abdominal Distention Diet Category Date Time Status Regular Consistency Diet Diet 09/25/23 23:18 Active Neurology [place] coma scale total score 15 Respiratory Lung sounds [Bilateral Upper clear Lobe] Lung sounds [Bilateral Upper clear Lobe] Lung sounds [Bilateral Upper clear Lobe] Pulse Oximetry 98 Pulse Oximetry 98 Pulse Oximetry 98 Pulse Oximetry 99 Pulse Oximetry 98 Pulse Oximetry 97 Pulse Oximetry 93 Pulse Oximetry 95 Pulse Oximetry 96 Pulse Oximetry 96 Pulse Oximetry 96 Pulse Oximetry 96 Pulse Oximetry 97 Pulse Oximetry 96 Pulse Oximetry 97 Pulse Oximetry 96 Pulse Oximetry 96 Pulse Oximetry 96 Pulse Oximetry 96 Pulse Oximetry 96 Pulse Oximetry 96 Pulse Oximetry 96 Pulse Oximetry 97 Pulse Oximetry 96 Pulse Oximetry 97 Pulse Oximetry 96 Pulse Oximetry 97 Pulse Oximetry 98 Pulse Oximetry 98 Pulse Oximetry 99 Pulse Oximetry 99 Pulse Oximetry 100 Pulse Oximetry 99 Pulse Oximetry 99 Oxygen Delivery Method Room Air Oxygen Delivery Method Room Air Oxygen Delivery Method Room Air Oxygen Delivery Method Room Air Oxygen Delivery Method Room Air Oxygen Delivery Method Room Air Cardiology Heart Sounds Strong,Regular Renal Bladder Pattern Continent
[2023-09-27] MEDS: KETOROLAC TROMETHAMINE 30 MG/ML VIAL IVP ×3 (04:50→18:19)
[2023-09-27 04:55] VITALS: BP 130/75; PULSE 82
[2023-09-27 07:55] VITALS: BP 134/67; PULSE 85; RESP 16; TEMP 36.6
[2023-09-27] MEDS: DOCUSATE SODIUM 100 MG CAPSULE PO ×2 (08:01→21:25)
--- NOTE | 2023-09-27 08:15 | P.OBPN_ITS ---
OB - PN: Subj Subjective Patient comments: no complaints and pain well controlled [place] status: doing well Exam Constitutional Vital Signs, click to edit/add: Last Vital Signs Temp 98.3 F 09/26/23 16:56 Pulse 85 09/27/23 07:55 Resp 18 09/26/23 20:50 BP 134/67 09/27/23 07:55 Pulse Ox 98 09/26/23 16:56 O2 Del Method Room Air 09/26/23 20:50 Documenting provider has reviewed patient's vital signs: yes Common normals: no apparent distress Respiratory Common normals: normal respiratory effort and clear to auscultation bilaterally Cardio Common normals: regular rate and regular rhythm GI Common normals: Normal to inspection, nondistended, normoactive bowel sounds present Extremity Common normals: normal to inspection and no clubbing, cyanosis or edema OB - PN: A/P Plan - day: 2 Plan: routine postop care Time Spent with Patient Time: Total time spent is greater than 50% in coordination of care (as documented) at patient's floor/unit and/or counseling patient: Total time spent with greater than 50% in coordination of care (as documented) at patient's floor/unit and/or counseling patient: less than 15 minutes
[2023-09-27] MEDS: ENOXAPARIN SODIUM 40 MG/0.4 ML SYRINGE SUBQ (11:23)
[2023-09-27 16:00] VITALS: RESP 14; RESP 16; TEMP 36.8
[2023-09-27 16:01] VITALS: BP 104/50; PULSE 83
--- NOTE | 2023-09-27 19:03 | W.PC.ACHO ---
Registration Status: ADM IN Primary Language: Irish Preferred Language: Irish Active Medications Generic Name Dose Route Start Last Admin Trade Name Freq PRN Reason Stop Dose Admin Al Hydroxide/Mg Hydroxide 2,400 mg 09/25/23 23:18 Magnesium Hydroxide 2,400 Mg/10 Ml Oral.Susp PO Q6H PRN Dyspepsia Docusate Sodium 100 mg 09/26/23 09:00 09/27/23 08:01 Docusate Sodium 100 Mg Capsule PO 100 mg BID NATASHA Administration Enoxaparin Sodium 40 mg 09/26/23 11:00 09/27/23 11:23 Enoxaparin Sodium 40 Mg/0.4 Ml Syringe SUBQ 40 mg Q24H NATASHA Administration Sodium Chloride 1,000 mls @ 125 mls/hr 09/25/23 12:20 09/25/23 20:23 Sodium Chloride 0.9% 1,000 Ml IV 125 mls/hr .Q8H NATASHA Administration Ibuprofen 800 mg 09/25/23 23:18 Ibuprofen 400 Mg Tablet PO Q8H PRN Pain Ketorolac Tromethamine 30 mg 09/25/23 23:18 09/27/23 18:19 Ketorolac Tromethamine 30 Mg/Ml Vial IVP 09/27/23 23:19 30 mg Q6H PRN Administration Pain Ondansetron HCl 4 mg 09/24/23 16:27 Ondansetron Pf 4 Mg/2 Ml Vial IV Q6H PRN Nausea And Vomiting Ondansetron HCl 4 mg 09/24/23 16:27 Ondansetron 4 Mg Rapdis Tablet SL Q6H PRN Nausea And Vomiting Oxycodone/Acetaminophen 2 tab 09/25/23 23:18 Oxycodone Hcl/Acetaminophen 5mg/325mg PO Q4H PRN Pain Scale 7-10 Oxycodone/Acetaminophen 1 tab 09/26/23 07:33 Oxycodone Hcl/Acetaminophen 5mg/325mg PO Q4H PRN Pain Scale 4-6 Senna 17.2 mg 09/25/23 20:00 Sennosides 8.6 Mg Tablet PO QHS PRN Constipation Simethicone 80 mg 09/25/23 23:18 Simethicone 80 Mg Tab.Chew PO QID PRN Abdominal Distention Respiratory Oxygen Delivery Method Room Air Oxygen Delivery Method Room Air Oxygen Delivery Method Room Air Oxygen Delivery Method Room Air Oxygen Delivery Method Room Air Cardiology Heart Sounds Strong,Regular Heart Sounds Strong,Regular Bowels Bowel Pattern No Bowel Movement Bowel Pattern No Bowel Movement Renal Bladder Pattern Continent Bladder Pattern Continent Bladder Pattern Continent
[2023-09-27 23:39] VITALS: RESP 20; TEMP 37.2
[2023-09-27 23:40] VITALS: BP 137/63; PULSE 76
[2023-09-28] MEDS: IBUPROFEN 400 MG TABLET 800 MG PO (05:01)
--- NOTE | 2023-09-28 07:46 | P.OBPN_ITS ---
OB - PN: Subj Subjective Patient comments: no complaints and pain well controlled [place] status: doing well Exam Constitutional Vital Signs, click to edit/add: Last Vital Signs Temp 98.9 F 09/27/23 23:39 Pulse 76 09/27/23 23:40 Resp 20 09/27/23 23:39 BP 137/63 09/27/23 23:40 Pulse Ox 98 09/26/23 16:56 O2 Del Method Room Air 09/27/23 16:00 Documenting provider has reviewed patient's vital signs: yes Common normals: no apparent distress Respiratory Common normals: normal respiratory effort and clear to auscultation bilaterally Cardio Common normals: regular rate and regular rhythm GI Common normals: Normal to inspection, nondistended, normoactive bowel sounds present Extremity Common normals: normal to inspection and no calf tenderness OB - PN: A/P Plan - day: 3 Plan: routine postop care, discharge home and follow up 6 weeks Time Spent with Patient Time: Total time spent is greater than 50% in coordination of care (as documented) at patient's floor/unit and/or counseling patient: Total time spent with greater than 50% in coordination of care (as documented) at patient's floor/unit and/or counseling patient: less than 15 minutes
--- NOTE | 2023-09-28 07:56 | PM.OBPN ---
OB - PN: Subj Subjective Interval history: this is note for 09/26/2023 Patient comments: no complaints and pain well controlled infant status: doing well Exam Constitutional Vital Signs, click to edit/add: Last Vital Signs Temp 98.9 F 09/27/23 23:39 Pulse 76 09/27/23 23:40 Resp 20 09/27/23 23:39 BP 137/63 09/27/23 23:40 Pulse Ox 98 09/26/23 16:56 O2 Del Method Room Air 09/27/23 16:00 Documenting provider has reviewed patient's vital signs: yes Common normals: no apparent distress Respiratory Common normals: normal respiratory effort and clear to auscultation bilaterally Cardio Common normals: regular rate and regular rhythm GI Common normals: Normal to inspection, nondistended, normoactive bowel sounds present Extremity Common normals: no calf tenderness OB - PN: A/P Plan - day: 1 Plan: routine postop care Time Spent with Patient Time: Total time spent is greater than 50% in coordination of care (as documented) at patient's floor/unit and/or counseling patient: Total time spent with greater than 50% in coordination of care (as documented) at patient's floor/unit and/or counseling patient: less than 15 minutes
[2023-09-28 08:49] VITALS: BP 135/72; PULSE 77; RESP 18; TEMP 36.8
[2023-09-28] MEDS: ENOXAPARIN SODIUM 40 MG/0.4 ML SYRINGE SUBQ (08:54)
[2023-09-28] MEDS: DOCUSATE SODIUM 100 MG CAPSULE PO (08:54)
--- NOTE | 2023-10-09 | DS_ITS ---
DISCHARGE DATE: ??10/09/2023 PRIMARY DIAGNOSES: 1.? Intrauterine at 39 weeks. 2.? Failure to descend. 3.? Failure to dilate. PROCEDURE:? section. HOSPITAL COURSE:? As expected.? Please see chart for full details.? LABORATORY DATA:? Please see chart. COMPLICATIONS:? None. DISCHARGE CONDITION:? Stable. CONSULTATION:? Anesthesia. DISCHARGE INSTRUCTIONS: 1.? Diet:? Regular. 2.? Medications: a.? Percocet 5/325 one to two p.o. every 4-6 hours p.r.n. pain. b.? Motrin 800 one p.o. every 8 hours p.r.n. pain. 3.? Followup in one week. Restrictions:? Pelvic rest for 6 weeks.? No heavy lifting.? May drive when pain free and no longer on narcotics. MTDD
== END 2023-09-28 11:45 | disposition home or self-care (01) | DRG 788 ==
PROVIDERS: Admitting Provider Obstetrics & Gynecology; Visit Provider Obstetrics & Gynecology
PROC: 10D00Z1 Extraction of Products of Conception, Low, Open Approach (ICD-10-PCS; CPT 59514; principal; 2023-09-25 22:25)
DX: O99.824 Streptococcus B carrier state complicating childbirth (principal); O62.0 Primary inadequate contractions; O61.0 Failed medical induction of labor; O32.4XX0 Maternal care for high head at term, not applicable or unspecified; O99.214 Obesity complicating childbirth; E66.01 Morbid (severe) obesity due to excess calories; O99.284 Endocrine, nutritional and metabolic diseases complicating childbirth; E28.2 Polycystic ovarian syndrome; Z3A.39 39 weeks gestation of pregnancy; Z37.0 Single live birth; Z79.82 Long term (current) use of aspirin; Z79.84 Long term (current) use of oral hypoglycemic drugs; Z23 Encounter for immunization
CPT/HCPCS: 36415; 51702; 59050; 80307; 85025; 85027; 86850; 86900; 86901; 88307; 94667; 94668; 96365; 96366; 96368; 96372; 96375; 96376

== ENCOUNTER 2023-10-01 20:50 | Observation (INO) | payer OTHER, SELFPAY ==
[2023-10-01] VITALS (9 sets, daily range): BP systolic 124–176; BP diastolic 55–79; PULSE 57–63; RESP 20; TEMP 36.3
--- NOTE | 2023-10-01 21:28 | PC.NURSE ---
pt arrives after being seen in [place] [facility]. IV present and wrapped in [place] to rt hand. pt went to ER with s/s preeclampsia. Pt states she had a terrible headache that Tylenol didn't help and her left arm went numb with chest pain and pressure. Pt bilateral upper and lower reflexes +0, bilateral clonus absent. pt rates headache 1/10. BP obtained, lungs to upper anterior lobes have crackles, lungs posterior upper clear and posterior lower lobes have crackles noted. Pt denies being ill or any SOB. respirations easy at 20 pt pink warm and dry but tearful. pt does have bilateral +2 pedal edema present.
--- NOTE | 2023-10-01 21:33 | PC.NURSE ---
Dr Todd called for orders at 2114. notified of assessment findings, pt having no complaints other than headache /10 and chest pressure, pt denies any other symptoms. Notified of pts BP. Dr Todd orders Magnesium Sulfate infusion bolus 2gm, then 2gm/ hr maintenance infusion, Orders po Labetalol 200mg BID , NS infusion at 50ml/hr and IV fluids to not exceed 100ml/hr total.Repeat [facility] labs at 0600 tomorrow.
[2023-10-01] MEDS: LABETALOL HCL 200 MG TABLET PO (22:11)
[2023-10-01] MEDS: 0.9 % SODIUM CHLORIDE 1,000 ML 50 ML IV (22:39)
[2023-10-01] MEDS: MAGNESIUM SULFATE IN WATER 2 GM/50 ML PREMIX IV (22:43)
[2023-10-01] MEDS: MAGNESIUM SULFATE IN WATER 40 GM/1,000 ML IV.SOLN IV (23:00)
[2023-10-02] VITALS (13 sets, daily range): BP systolic 117–149; BP diastolic 57–71; PULSE 60–77; RESP 14–18; TEMP 36.2–36.7
--- NOTE | 2023-10-02 00:04 | PC.NURSE ---
Magnesium Infusion and assessment on Magnesium Flowsheet paper on Chart. Pt educated on use of magnesium prior to start of bolus and questions answered. pt states that she saw INVESTIGATOR FRAUD at Dr Todd's office today and was started on Keflex 500mg PO BID for incision infection. Incision area to where c/s was performed on 09/25/23 red around incision, edges approximated no drainage noted. Pts lungs clearing as patient takes deep breaths for nurse.
[2023-10-02 06:59] LABS: Basophils Percent Auto 0.2 % (0.2-2.0); Eosinophils Absolute Auto 0.1 10^3/uL (0.0-0.7); Eosinophils Percent Auto 1.1 % (0.9-7.0); Hematocrit 27.8 % (36.0-48.0); Hemoglobin 8.7 g/dL (12.0-16.0); Immature Granulocytes Abs Auto 0.04 10^3/uL (0.00-0.03); Immature Granulocytes Pct Auto 0.7 % (0.0-0.5); Lymphocytes Absolute Auto 1.9 10^3/uL (1.2-3.8); Lymphocytes Percent Auto 30.7 % (20.5-60.0); Mean Corpuscular HGB Conc 31.3 g/dL (29.9-35.2); Mean Corpuscular Hemoglobin 28.9 pg (26.7-34.0); Mean Corpuscular Volume 92.4 fL (81.0-99.0); Mean Platelet Volume 10.2 fL (9.5-13.5); Monocytes Absolute Auto 0.4 10^3/uL (0.3-0.8); Monocytes Percent Auto 6.5 % (1.7-12.0); Neutrophils Absolute Auto 3.7 10^3/uL (1.4-6.5); Neutrophils Percent Auto 60.8 % (43.0-75.0); Platelet Count 244 10^3/uL (150-450); Red Blood Count 3.01 10^6/uL (4.20-5.40); Red Cell Distribution Width 14.3 % (11.0-15.0); White Blood Count 6.2 10^3/uL (4.0-11.0)
[2023-10-02 07:06] LABS: Partial Thromboplastin Time 28.4 sec (22.3-36.2)
[2023-10-02 07:11] LABS: Alanine Aminotransferase 22 U/L (14-59); Aspartate Amino Transferase 14 U/L (15-37); Estimated GFR (African America >60 (>=60); Estimated GFR (Non-African Ame >60 (>=60)
--- NOTE | 2023-10-02 07:55 | PM.OBPN ---
OB - PN: Subj Subjective Patient comments: pain well controlled Exam Constitutional Vital Signs, click to edit/add: Last Vital Signs Temp 97.3 F L 10/01/23 21:11 Pulse 75 10/02/23 05:04 Resp 20 10/01/23 21:11 BP 134/64 10/02/23 05:04 Results Labs Labs: Short CBC 10/02/23 Range/Units 06:26 WBC 6.2 (4.0-11.0) 10^3/uL Hgb 8.7 L (12.0-16.0) g/dL Hct 27.8 L (36.0-48.0) % Plt Count 244 (150-450) 10^3/uL BMP 10/02/23 06:26 BUN 5.0 L Creatinine 0.68 Liver Function 10/02/23 Range/Units 06:26 AST 14 L (15-37) U/L ALT 22 (14-59) U/L OB - PN: A/P Time Spent with Patient Time: Total time spent is greater than 50% in coordination of care (as documented) at patient's floor/unit and/or counseling patient:
[2023-10-02] MEDS: LABETALOL HCL 200 MG TABLET PO ×2 (09:54→21:02)
--- NOTE | 2023-10-02 14:36 | PC.NURSE ---
LC into room, offers support as mom continues to pump and feed while re admitted for elevated blood pressures. Denies needs currently, supportive, baby being held and bottle fed by mom.
--- NOTE | 2023-10-02 14:55 | PM.OBPN ---
OB - PN: Subj Subjective Interval history: patient readmitted due to elevated blood pressure I assessed patient at 0800 this morning and the note is not in her chart. Progress note to follow Patient comments: no complaints Exam Constitutional Vital Signs, click to edit/add: Last Vital Signs Temp 97.2 F L 10/02/23 13:10 Pulse 77 10/02/23 13:11 Resp 14 10/02/23 13:10 BP 131/68 10/02/23 13:11 O2 Del Method Room Air 10/02/23 13:10 Documenting provider has reviewed patient's vital signs: yes Common normals: no apparent distress and oriented x3 HENMT Common normals: normocephalic Chest Common normals: inspection of chest normal Respiratory Common normals: normal respiratory effort, no use of accessory muscles and clear to auscultation bilaterally (wheeze noted on right upper base on inspiration,clears with clearing throat) Effort & inspection: able to speak in complete sentences Cardio Common normals: no JVD, regular rate, regular rhythm and no murmurs Rate: regular rate Rhythm: regular rhythm Back & Pelvis Common normals: no CVA tenderness Extremity Common normals: normal to inspection and full ROM Results Labs Labs: Short CBC 10/02/23 Range/Units 06:26 WBC 6.2 (4.0-11.0) 10^3/uL Hgb 8.7 L (12.0-16.0) g/dL Hct 27.8 L (36.0-48.0) % Plt Count 244 (150-450) 10^3/uL BMP 10/02/23 06:26 BUN 5.0 L Creatinine 0.68 Liver Function 10/02/23 Range/Units 06:26 AST 14 L (15-37) U/L ALT 22 (14-59) U/L OB - PN: A/P Assessment and Plan (1) Elevated blood pressure reading with diagnosis of hypertension: Plan updated report to Dr Todd this morning on lung sounds. No new orders Plan - day: 7 Plan: routine postop care Time Spent with Patient Time: Total time spent is greater than 50% in coordination of care (as documented) at patient's floor/unit and/or counseling patient: Total time spent with greater than 50% in coordination of care (as documented) at patient's floor/unit and/or counseling patient: less than 15 minutes
[2023-10-02] MEDS: 0.9 % SODIUM CHLORIDE 1,000 ML 50 ML IV (16:56)
[2023-10-02] MEDS: MAGNESIUM SULFATE IN WATER 40 GM/1,000 ML IV.SOLN IV (18:39)
--- NOTE | 2023-10-02 19:22 | W.PC.ACHO ---
Registration Status: ADM BOBBI Primary Language: Preferred Language: Active Medications Generic Name Dose Route Start Last Admin Trade Name Freq PRN Reason Stop Dose Admin Calcium Gluconate 1,000 mg 10/01/23 21:24 Calcium Gluconate 1,000 Mg/10 Ml Vial IVP ONCE PRN magnesium toxicity Sodium Chloride 1,000 mls @ 50 mls/hr 10/01/23 21:30 10/02/23 16:56 Sodium Chloride 0.9% 1,000 Ml IV 50 mls/hr .Q20H NATASHA Administration Magnesium Sulfate 40 gm in 1,000 mls @ 50 mls/hr 10/01/23 21:30 10/02/23 18:39 Magnesium Sulf 40 G/1,000 Ml IV 50 mls/hr Q13H NATASHA Administration Labetalol HCl 200 mg 10/02/23 10:00 10/02/23 09:54 Labetalol Hcl 200 Mg Tablet PO 200 mg BID NATASHA Administration Diet Category Date Time Status Regular Consistency Diet Diet 10/01/23 21:24 Active IV Insertion/Site Date of IV Line Insertion [ 10/01/23 Short PIV (<1.75 in) 22g left Antecubital] IV Insertion Time [Short PIV ( 22:29 <1.75 in) 22g left Antecubital ] Respiratory Oxygen Delivery Method Room Air Oxygen Delivery Method Room Air Oxygen Delivery Method Room Air
[2023-10-03 05:25] VITALS: BP 140/71; PULSE 62
[2023-10-03 05:30] VITALS: RESP 14
--- NOTE | 2023-10-03 07:25 | W.PC.ACHO ---
Registration Status: ADM BOBBI Primary Language: Preferred Language: report given to Piyush Cyr RN. Active Medications Generic Name Dose Route Start Last Admin Trade Name Freq PRN Reason Stop Dose Admin Calcium Gluconate 1,000 mg 10/01/23 21:24 Calcium Gluconate 1,000 Mg/10 Ml Vial IVP ONCE PRN magnesium toxicity Sodium Chloride 1,000 mls @ 50 mls/hr 10/01/23 21:30 10/02/23 23:00 Sodium Chloride 0.9% 1,000 Ml IV 0 mls/hr .Q20H NATASHA Infusion Magnesium Sulfate 40 gm in 1,000 mls @ 50 mls/hr 10/01/23 21:30 10/02/23 23:00 Magnesium Sulf 40 G/1,000 Ml IV 0 mls/hr Q13H NATASHA Infusion Labetalol HCl 200 mg 10/02/23 10:00 10/02/23 21:02 Labetalol Hcl 200 Mg Tablet PO 200 mg BID NATASHA Administration Respiratory Oxygen Delivery Method Room Air Oxygen Delivery Method Room Air Oxygen Delivery Method Room Air
--- NOTE | 2023-10-03 09:06 | PM.OBPN ---
OB - PN: Subj Subjective Interval history: patient readmitted due to elevated blood pressure I assessed patient at 0800 this morning and the note is not in her chart. Progress note to follow Patient comments: no complaints status: doing well Exam Constitutional Vital Signs, click to edit/add: Last Vital Signs Temp 97.4 F L 10/02/23 16:55 Pulse 62 10/03/23 05:25 Resp 14 10/03/23 05:30 BP 140/71 10/03/23 05:25 O2 Del Method Room Air 10/02/23 16:55 Documenting provider has reviewed patient's vital signs: yes Common normals: no apparent distress Respiratory Common normals: normal respiratory effort and clear to auscultation bilaterally Cardio Common normals: regular rate and regular rhythm GI Common normals: Normal to inspection, nondistended, normoactive bowel sounds present Extremity Common normals: no calf tenderness OB - PN: A/P Assessment and Plan (1) Elevated blood pressure reading with diagnosis of hypertension: Plan - day: 8 Plan: discharge home and other (fu 1wk) Comment: pt has no symptoms, precautions given, cont bp meds Time Spent with Patient Time: Total time spent is greater than 50% in coordination of care (as documented) at patient's floor/unit and/or counseling patient: Total time spent with greater than 50% in coordination of care (as documented) at patient's floor/unit and/or counseling patient: less than 15 minutes
[2023-10-03] MEDS: LABETALOL HCL 200 MG TABLET PO (09:19)
[2023-10-03 09:21] VITALS: BP 134/71; PULSE 70
== END 2023-10-03 09:45 | disposition home or self-care (01) ==
PROVIDERS: Admitting Provider Obstetrics & Gynecology; Visit Provider Obstetrics & Gynecology
DX: O16.5 Unspecified maternal hypertension, complicating the puerperium (principal)
CPT/HCPCS: 36415; 82565; 84450; 84460; 84520; 84550; 85025; 85384; 85610; 85730; 96365; 96366; 96376; G0378; G0379

== ENCOUNTER 2024-08-26 12:29 | Outpatient (OUT) | payer OTHER, SELFPAY ==
--- OUTSIDE RECORDS SUMMARY | 2024-08-26 12:39 | XMS_ITS | CCD ---
Author Organization [facility] Care Team Providers Care Sports Physiologist Name Role Phone Chey Abdi Primary Care Provider DAVID PEREZ Referring Unavailable CHEY ABDI Primary Care Unavailable DAVID PEREZ Referring Unavailable CHEY ABDI Primary Care Unavailable DAVID PEREZ Referring Unavailable CHEY ABDI Primary Care Unavailable Chey Abdi MD Primary Care Provider Unknown, Referring Provider Unavailable Unav ailable Unavailable Unavailable Chey Abdi MD Primary Care Provider Chey Abdi MD Primary Care Provider UNKNOWN, PCP Primary Care Unavailable Kim Hawthorne Attending Unavailable UNKNOWN, PCP Primary Care Unavailable Jeannie Abdi Attending Unavailable UNKNOWN, PCP Primary Care Unavailable Jeannie Abdi Attending Unavailable MD BOBBI FLOOD Attending Un available UNKNOWN, PCP Primary Care Unavailable Jeannie Abdi Attending Unavailable UNKNOWN, PCP Primary Care Unavailable Jeannie Adbi Attending Unavailable UNKNOWN, PCP Primary Care Unavailable Jeannie Abdi Referring Unavailable UNKNOWN, PCP Primary Care Unavailable Garland Sherman Attending Unavailable UNKNOWN, PCP Primary Care Unavailable MD BOBBI FLOOD Attending Un available IAN COVARRUBIAS Attending Unavailabl e UNKNOWN, PCP Primary Care Unavailable UNKNOWN, PCP Primary Care Unavailable Jeannie Abdi Attending Unavailable UNKNOWN, PCP Primary Care Unavailable Dr. Matias Proctor Attending Unava ilable UNKNOWN, PCP Primary Care Unavailable Dr. Matias Proctor Attending Unava ilable UNKNOWN, PCP Primary Care Unavailable Jeannie Abdi Attending Unavailable MICEHLLE ., DR FUNEZ Admitting Unavailable MISC, DR MCLEOD Consulting Unavailable MICHELLE ., DR FUNEZ Attending Unavailable MICHELLE ., DR FUNEZ Consulting Unavailable MICHELLE ., DR FUNEZ Consulting Unavailable REQUEST, DR NONE LISTED Primary Care Unavaila ble MICHELLE ., DR FUNEZ Attending Unavailable MICHELLE ., DR FUNEZ Admitting Unavailable MICHELLE ., DR FUNEZ Consulting Unavailable REQUEST, DR NONE LISTED Primary Care Unavaila ble MICHELLE ., DR FUNEZ Attending Unavailable MICHELLE ., DR FUNEZ Admitting Unavailable MICHELLE ., DR FUNEZ Admitting Unavailable MICHELLE ., DR FUNEZ Consulting Unavailable MICHELLE ., DR FUNEZ Attending Unavailable MICHELLE ., DR FUNEZ Admitting Unavailable MEREDITH, DR GARLAND German Consulting Unavailable MICHELLE ., DR FUNEZ Attending Unavailable MICHELLE ., DR FUNEZ Consulting Unavailable PATRICIA, CHEY Padron Primary Care Unavailable PATRICIA, JEANNIE Referring Unavailable PATRICIA, CHEY Padron Primary Care Unavailable JEANNIE ABDI Referring Unavailable PATRICIA, CHEY Padron Primary Care Unavailable AUGUSTUS SALAZAR Attending Unavailable PATRICIA, CHEY Padron Primary Care Unavailable JEANNIE ABDI Referring Unavailable MIKAYLA TRAN Attending Unavailable MICHELLE, ARMIN Attending Unavailable MICHELLE, ARMIN Attending Unavailable MICHELLE, ARMIN Attending Unavailable MICHELLE, ARMIN Attending Unavailable Medications Current Medications Medication Drug Class(es) Dates Sig (Normalized) Sig (Original) clomiPHENE citrate 50 mg oral tablet (7 sources) Estrogen Agonist/Antagonist Start: 10-04-2021 clomiPHENE (CLOMID) 50 MG tablet Indications: PCOS (polycystic ovarian syndrome) Take 3 tablets daily on days 5-9 of cycle 15 tablet 3 10/04/2021 Active Start: 08-22-2021 clomiPHENE (CL OTILIO) 50 MG tablet Indications: PCOS (polycystic ovarian syndrome) Take 3 tablets daily on days 5-9 of cycle 15 tablet 3 08/22/2021 Active Start: 08-04-2021 clomiPHENE (CL OTILIO) 50 MG tablet Indications: PCOS (polycystic ovarian syndrome) Take 2 tablets orally daily on day 5 through 9 of the cycle 10 tablet 3 08/04/2021 Active diphenhydrAMINE hydrochloride 50 mg oral capsule (9 sources) Histamine-1 Receptor Antagonist Start: 07-28-2014 take 1 capsule by mouth every six hours as needed diphenhydrAMINE (BENADRYL) 50 MG capsule Take 1 capsule by mouth every 6 hours as needed for Itching (hives) for up to 12 doses. 12 capsule 0 07/28/2014 Active esomeprazole 20 mg / naproxen 500 mg delayed release oral tablet (7 sources) Proton Pump Inhibitor, Nonsteroidal Anti-inflammatory Drug Start: 07-24-2022 naproxen-esomeprazol e 500-20 MG TBEC Indications: PCOS (polycystic ovarian syndrome) take 1 tablet before meals twice a day 60 tablet 5 07/24/2022 Active Start: 02-13-2022 naproxen-esome prazole 500-20 MG TBEC Indications: PCOS (polycystic ovarian syndrome) take 1 tablet before meals twice a day 60 tablet 0 02/13/2022 Active Start: 10-04-2021 naproxen-esome prazole 500-20 MG TBEC Indications: PCOS (polycystic ovarian syndrome) take 1 tablet before meals twice a day 60 tablet 0 10/04/2021 Active Start: 08-04-2021 naproxen-esome prazole 500-20 MG TBEC Indications: PCOS (polycystic ovarian syndrome) take 1 tablet before meals twice a day 60 tablet 0 08/04/2021 Active metFORMIN hydrochloride 500 mg oral tablet (20 sources) Biguanide Start: 09-22-2022 End: 01-20-2023 take 1 tablet by mouth three times daily metFORMIN (GLUCOPHAGE) 500 MG tablet Indications: PCOS (polycystic ovarian syndrome) Take 1 tablet by mouth three times daily 90 tablet 5 09/22/2022 01/20/2023 Active Start: 06-12-2022 take 1 tablet by luz th three times daily metFORMIN HCl ER 500 MG Oral Tablet Extended Release 24 Hour TAKE 1 TABLET 3 times daily Quantity: 0 Refills: 0 Ordered: 03-Jul-2022 Christina Adamson Start : 12-Jun-2022 Active Start: 06-12-2022 take 1 tablet by luz th once daily metFORMIN HCl ER 500 MG Oral Tablet Extended Release 24 Hour Take 1 tablet daily Quantity: 0 Refills: 0 Ordered: 12-Jun-2022 Jeannie Jimenez Start : 12-Jun-2022 Active Start: 08-04-2021 End: 02-01-2022 take 1 tablet by mouth twice daily at mealtime metFORMIN (GLUCOPHAGE) 500 MG tablet Indications: PCOS (polycystic ovarian syndrome) Take 1 tablet by mouth 2 times daily (with meals) 60 tablet 0 10/04/2021 02/01/2022 Active take 1 tablet by luz twice daily at mealtime metFORMIN (GLUCOPHAGE) 500 MG tablet Take 500 mg by mouth 2 times daily (with meals). 0 Active phentermine hydrochloride 37.5 mg oral tablet (2 sources) Sympathomimetic Amine Anorectic Start: 03-19-2020 End: 04-18-2020 take 1 tablet by mouth once daily before breakfast phentermine (ADIPEX-P) 37.5 MG tablet Indications: BMI 50.0-59.9, adult (HCC) Take 1 tablet by mouth every morning (before breakfast) for 30 days. 30 tablet 0 03/19/2020 04/18/2020 Active Completed/Discontinued Medications Medication Drug Class(es) Dates Sig (Normalized) Sig (Original) 0.5 ml choriogonadotropin david 0.5 mg/ml prefilled syringe (20 sources) Gonadotropin Start: 09-11-2022 Ovidrel 250 MCG/0.5ML Subcutaneous Injectable INJECT SUBCUTANEOUSLY DIRECTED. Quantity: 1 Refills: 2 Ordered: 15-Sep-2022 Jeannie Jimenez Start : 11-Sep-2022 Active doxycycline hyclate 100 mg oral capsule (2 sources) Tetracycline-clas s Drug Start: 07-03-2022 take 1 capsule by mouth once daily Doxycycline Hyclate 100 MG Oral Capsule TAKE 1 CAPSULE EVERY 12 HOURS DAILY. Quantity: 10 Refills: 0 Ordered: 03-Jul-2022 Christina Adamson Start : 03-Jul-2022 Active doxylamine succinate 10 mg / pyridoxine hydrochloride 10 mg delayed release oral tablet (3 sources) Start: 02-05-2023 take 1 tablet by mouth at bedtime Doxylamine-Pyridox ine 10-10 MG Oral Tablet Delayed Release TAKE 1 TABLET Bedtime one tablet daily at bedtime if no relief increase to one tablet BID if no relief increase to one table TID Quantity: 30 Refills: 0 Ordered: 05-Feb-2023 Jeannie Jimenez Start : 05-Feb-2023 Active letrozole 2.5 mg oral tablet (20 sources) Aromatase Inhibitor Start: 10-31-2021 Letrozole 2.5 MG Oral Tablet TAKE 2 TABLET Daily for cycle days 3-7 and must have negative urine test prior to starting Quantity: 10 Refills: 1 Ordered: 14-Dec-2022 Jeannie Jimenez Start : 11-Aug-2022 Active progesterone 100 mg oral capsule (20 sources) Progesterone Start: 09-11-2022 take 1 capsule by mouth twice daily Progesterone 100 MG Oral Capsule TAKE 1 CAPSULE Twice daily insert vaginally starting 3 days post IUI Quantity: 60 Refills: 2 Ordered: 13-Sep-2022 Jeannie Jimenez Start : 11-Sep-2022 Active Problems Active Problems Problem Classification Problem Date Documented Da te Episodic/Chronic Abdominal pain (1 source) Pain in female pelvis; Translations: [Pelvic pain in female] Episodic Contraceptive and procreative management (3 sources) Encounter for other procreative management; Translations: [Encounter for fertility testing] Onset: 07-03-2022 Episodic Female infertility (20 sources) Female infertility associated with anovulation; Translations: [Infertility, female, associated with anovulation] Onset: 01-01-2023 Chronic Hypertension complicating ; childbirth and the puerperium (1 source) Unspecified pre-eclampsia, complicating the puerperium; Translations: [Unspecified pre-eclampsia, complicating the puerperium] Onset: 10-01-2023 Episodic Immunizations and screening for infectious disease (20 sources) Patient encounter status; Translations: [Screening examination for venereal disease] Onset: 07-03-2022 Episodic Menstrual disorders (20 sources) Irregular periods; Translations: [Irregular menstrual cycle] Onset: 07-03-2022 Chronic Other complications of (3 sources) Nausea and vomiting; Translations: [Unspecified vomiting of , unspecified as to episode of care or not applicable] Episodic Other complications of (1 source) with inconclusive viability, not applicable or unspecified; Translations: [ w inconclusive viability, unsp] Onset: 02-05-2023 Episodic Other endocrine disorders (3 sources) Polycystic ovary syndrome; Translations: [Polycystic ovarian syndrome] Chronic Other nutritional; endocrine; and metabolic disorders (1 source) Body mass index 40+ - severely obese; Translations: [BMI 50.0-59.9, adult (HCC)] Chronic Other nutritional; endocrine; and metabolic disorders (20 sources) Severe obesity; Translations: [Morbid obesity] Chronic Other nutritional; endocrine; and metabolic disorders (1 source) Morbid (severe) obesity due to excess calories; Translations: [Morbid (severe) obesity due to excess calories] Onset: 07-03-2022 Chronic Other nutritional; endocrine; and metabolic disorders (1 source) Body mass index (BMI) 45.0-49.9, adult; Translations: [Body mass index [BMI] 45.0-49.9, adult] Onset: 06-12-2022 Chronic Other screening for suspected conditions (not mental disorders or infectious disease) (20 sources) Radiology result abnormal; Translations: [Other nonspecific (abnormal) findings on radiological and other examinations of body structure] Chronic Other screening for suspected conditions (not mental disorders or infectious disease) (8 sources) Encounter for screening for other suspected endocrine disorder; Translations: [Encounter for screening for diabetes mellitus] Onset: 07-03-2022 Episodic Unclassified (1 source) Patient encounter status; Translations: [Routine Papanicolaou smear] Past or Other Problems Problem Classification Problem Date Documented Da te Episodic/Chronic Other and delivery including normal (20 sources) Urine test positive; Translations: [ examination or test, positive result] Onset: 01-25-2023 Episodic Results Test Name Value Interpretation Reference Range Facility CBC with Diffon 10-01-2023 Abs. Basophil 0.01 k/uL Normal 0.00-0.20 [facility] Comment on above: Performed By: #### T VANESSA POE CDP #### [facility] [address] [place] [address] Boiler Room Operator: Garland Ji MD Abs.Imm.Granulocyte 0.01 k/uL Normal 0.00-0.30 [facility] Comment on above: Performed By: #### T VANESSA POE CDP #### [facility] [address] [facility] [place] [address] Boiler Room Operator: Garland Ji MD Abs.Neutrophil (Seg) 4.63 k/uL Normal 2.5-7.0 [facility] Comment on above: Performed By: #### T VANESSA POE, CDP #### [facility] [address] [place] [phone] Boiler Room Operator: Garland Ji MD Basophils/100 WBC (Bld) 0 % Normal 0-2 [facility] Comment on above: Performed By: #### Nia POE CP, CDP #### [facility] [address] [place] [phone] Boiler Room Operator: Garland Ji MD Eosinophils (Bld) [#/Vol] 0.07 10*3/uL Normal 0.00-0.40 [facility] Comment on above: Performed By: #### Nia POE CP, CDP #### [facility] [address] [place] [address] Boiler Room Operator: Garland Ji MD Eosinophils/100 WBC (Bld) 1 % Normal 0-5 [facility] Comment on above: Performed By: #### Nia POE CP, CDP #### [facility] [address] [place] [address] Boiler Room Operator: Garland Ji MD Erythrocyte distribution width (RBC) [Ratio] 14.2 % Normal 12.1-15.2 [facility] Comment on above: Performed By: #### Nia POE CP, CDP #### [facility] [address] [place] [address] Boiler Room Operator: Garland Ji MD Hematocrit (Bld) [Volume fraction] 27.3 % Low 36.0-46.0 [facility] Comment on above: Performed By: #### Nia POE CP, CDP #### [facility] [address] [place] [phone] Boiler Room Operator: Garland Ji MD Hemoglobin (Bld) [Mass/Vol] 8.9 g/dL Low 12.0-16.0 [facility] Comment on above: Performed By: #### Nia POE CP, CDP #### [facility] [address] [place] [address] Boiler Room Operator: Garland Ji MD Immature granulocytes/100 WBC (Bld) 0 % Normal 0-5 [facility] Comment on above: Performed By: #### Nia POE CP, CDP #### [facility] [address] [place] [phone] Boiler Room Operator: Garland Ji MD Lymphocytes (Bld) [#/Vol] 1.52 10*3/uL Normal 1.00-4.80 [facility] Comment on above: Performed By: #### Nia POE CP, CDP #### [facility] [address] [place] [address] Boiler Room Operator: Garland Ji MD Lymphocytes/100 WBC (Bld) 23 % Normal 15-40 [facility] Comment on above: Performed By: #### Nia POE CP, CDP #### [facility] [address] [place] [phone] Boiler Room Operator: Garland Ji MD MCH (RBC) [Entitic mass] 28.4 pg Normal 26.0-34.0 [facility] Comment on above: Performed By: #### Nia POE CP, CDP #### [facility] [address] [place] [address] Boiler Room Operator: Garland Ji MD MCHC (RBC) [Mass/Vol] 32.6 g/dL Normal 31.0-37.0 [facility] Comment on above: Performed By: #### Nia POE CP, CDP #### [facility] [address] [place] [address] Boiler Room Operator: Garland Ji MD MCV (RBC) [Entitic vol] 87.2 fL Normal 80.0-100.0 [facility] Comment on above: Performed By: #### Nia POE CP, CDP #### [facility] [address] [place] [address] Boiler Room Operator: Garland Ji MD Monocytes (Bld) [#/Vol] 0.39 10*3/uL Normal 0.00-1.00 [facility] Comment on above: Performed By: #### Nia POE CP, CDP #### [facility] [address] [place] [address] Boiler Room Operator: Garland Ji MD Monocytes/100 WBC (Bld) 6 % Normal 4-8 [facility] Comment on above: Performed By: #### Nia POE CP, CDP #### [facility] [address] [place] [address] Boiler Room Operator: Garland Ji MD Neutrophil (Seg) 70 % Normal 47-75 [facility] Comment on above: Performed By: #### Nia POE CP, CDP #### [facility] [address] [place] [address] Boiler Room Operator: Garland Ji MD Platelet mean volume (Bld) [Entitic vol] 10.5 fL Normal 6.0-12.0 [facility] Comment on above: Performed By: #### Nia POE CP, CDP #### [facility] [address] [place] [address] Boiler Room Operator: Garland Ji MD Platelets (Bld) [#/Vol] 271 10*3/uL Normal 140-450 [facility] Comment on above: Performed By: #### Nia POE CP, CDP #### [facility] [address] [place] [address] Boiler Room Operator: Garland Ji MD RBC (Bld) [#/Vol] 3.13 10*6/uL Low 4.00-5.20 [facility] Comment on above: Performed By: #### Nia POE CP, CDP #### [facility] [address] [place] [address] Boiler Room Operator: Garland Ji MD WBC (Bld) [#/Vol] 6.6 10*3/uL Normal 3.5-11.0 [facility] Comment on above: Performed By: #### T VANESSA POE CDP #### [facility] [address] [place], [place] [phone] Boiler Room Operator: Garland Ji MD CT HEAD WO CONTRASTon 2022 CT HEAD WO CONTRAST EXAMINATION: CT HEAD WO CONTRAST HISTORY: Left arm numbness and weakness COMPARISON: None. TECHNIQUE: CT examination of the head without IV contrast. Dose reduction techniques were achieved by using automated exposure control and/or adjustment of mA and/or kV according to patient size and/or use of iterative reconstruction technique. FINDINGS: Normal ventricles and sulci with no bleed, mass, midline shift or extra-axial fluid collection. The bone windows are normal. The coronal and sagittal multiplanar reconstructions show no additional abnormality. IMPRESSION: Negative. Interpreted by: Jeyson Garcia Jr., MD Signed by: Jeyson Garcia Jr., MD 10/01/23 Final result Normal [facility] Comp Metabolic Profon 2022 Albumin [Mass/Vol] 3.5 g/dL Normal 3.5-5.2 [facility] Comment on above: Performed By: #### T VANESSA POE CDP #### [facility] [address] [place], [place] [phone] Boiler Room Operator: Garland Ji MD Alkaline Phos 97 U/L Normal 35-104 [facility] Comment on above: Performed By: #### T VANESSA POE CDP #### [facility] [address] [place], [place] [phone] Boiler Room Operator: Garland Ji MD ALT [Catalytic activity/Vol] 15 U/L Normal 5-33 [facility] Comment on above: Performed By: #### T VANESSA POE CDP #### [facility] [address] [place], [place] [phone] Boiler Room Operator: Garland Ji MD Anion gap [Moles/Vol] 10 mmol/L Normal 9-17 [facility] Comment on above: Performed By: #### Nia POE CP, CDP #### [facility] [address] [place], [place] [phone] Boiler Room Operator: Garland Ji MD AST [Catalytic activity/Vol] 16 U/L Normal <32 [facility] Comment on above: Performed By: #### Nia POE CP, CDP #### [facility] [address] [place], [place] [phone] Boiler Room Operator: Garland Ji MD Bilirubin [Mass/Vol] 0.2 mg/dL Low 0.3-1.2 [facility] Comment on above: Performed By: #### Nia POE CP, CDP #### [facility] [address] [place], [place] [phone] Boiler Room Operator: Garland Ji MD BUN/CRE Ratio 13 Normal 9-20 [facility] Comment on above: Performed By: #### Nia POE CP, CDP #### [facility] [address] [place], [place] [phone] Boiler Room Operator: Garland Ji MD Calcium [Mass/Vol] 9.2 mg/dL Normal 8.6-10.4 [facility] Comment on above: Performed By: #### Nia POE CP, CDP #### [facility] [address] [place], [place] [phone] Boiler Room Operator: Garland Ji MD Chloride [Moles/Vol] 103 mmol/L Normal 98-107 [facility] Comment on above: Performed By: #### Nia POE CP, CDP #### [facility] [address] [place], [place] [phone] Boiler Room Operator: Garland Ji MD CO2 [Moles/Vol] 25 mmol/L Normal 20-31 [facility] Comment on above: Performed By: #### Nia POE CP CDP #### [facility] [address] [place], [place] [phone] Boiler Room Operator: Garland Ji MD Creatinine [Mass/Vol] 0.6 mg/dL Normal 0.5-0.9 [facility] Comment on above: Performed By: #### Nia POE CP, CDP #### [facility] [address] [place], [place] [phone] Boiler Room Operator: Garland Ji MD GFR/1.73 sq M.predicted among non-blacks MDRD (S/P/Bld) [Vol rate/Area] mL/min/{1.73_m2} Normal >60 [facility] Comment on above: Result Comment: These results are not intended for use in patients <18 years of age. eGFR results are calculated without a race factor using the 2020 CKD-EPI equation. Careful clinical correlation is recommended, particularly when comparing to results calculated using previous equations. The CKD-EPI equation is less accurate in patients with extremes of muscle mass, extra-renal metabolism of creatine, excessive creatine ingestion, or following therapy that affects renal tubular secretion. Performed By: #### Nia POE CP CDP #### [facility] [address] [place], [place] [phone] Boiler Room Operator: Garland Ji MD Glucose [Mass/Vol] 100 mg/dL High 70-99 [facility] Comment on above: Performed By: #### Nia POE CP CDP #### [facility] [address] [place], [place] [phone] Boiler Room Operator: Garland Ji MD Potassium [Moles/Vol] 3.9 mmol/L Normal 3.7-5.3 [facility] Comment on above: Performed By: #### Nia POE CP CDP #### [facility] [address] [place], [place] [phone] Boiler Room Operator: Garland Ji MD Protein [Mass/Vol] 6.4 g/dL Normal 6.4-8.3 [facility] Comment on above: Performed By: #### Nia POE CP, CDP #### [facility] [address] [place], [place] [phone] Boiler Room Operator: Garland Ji MD Sodium [Moles/Vol] 138 mmol/L Normal 135-144 [facility] Comment on above: Performed By: #### Nia POE CP, CDP #### [facility] [address] [place], [place] [phone] Boiler Room Operator: Garland Ji MD Urea nitrogen [Mass/Vol] 8 mg/dL Normal 6-20 [facility] Comment on above: Performed By: #### Nia POE CP, CDP #### [facility] [address] [place], [place] [phone] Boiler Room Operator: Garland Ji MD Troponinon 10-01-2023 Troponin, High Sens <6 Normal 0-14 [facility] Comment on above: Result Comment: High Sensitivity Troponin values cannot be compared with other Troponin methodologies. Performed By: #### Nia POE CP, CDP #### [facility] [address] [place], [place] [phone] Boiler Room Operator: Garland Ji MD Urinalysis, Routineon 2022 Bilirubin, SemiQt,Ur Negative Normal NEG [facility] Comment on above: Performed By: #### U MAINE UA #### [facility] [address] [place], [place] [phone] Boiler Room Operator: Garland Ji MD Blood, Urine TRACE Abnormal NEG [facility] Comment on above: Performed By: #### U MAINE UA #### [facility] [address] [place], [place] [phone] Boiler Room Operator: Garland Ji MD Clarity (U) Clear Normal CLEAR [facility] Comment on above: Performed By: #### U MAINE UA #### [facility] [address] [place], [place] [phone] Boiler Room Operator: Garland Ji MD Color (U) Yellow Normal YEL [facility] Comment on above: Performed By: #### U MICAO, UA #### [facility] [address] [place] [address] Boiler Room Operator: Garland Ji MD Comment Normal [facility] Comment on above: Performed By: #### U MICAO, UA #### [facility] [address] [place], [place] [phone] Boiler Room Operator: Garland Ji MD Glucose Ql (U) Negative Normal NEG [facility] Comment on above: Performed By: #### U MICAO, UA #### [facility] [address] [place], [place] [phone] Boiler Room Operator: Garland Ji MD Ketones Ql (U) Negative Normal NEG [facility] Comment on above: Performed By: #### U MICAO, UA #### [facility] [address] [place], [place] [id number] Boiler Room Operator: Garland Ji MD Leukocyte esterase Test strip Ql (U) Negative Normal NEG [facility] Comment on above: Performed By: #### U MICAO, UA #### [facility] [address] [place], [place] [phone] Boiler Room Operator: Garland Ji MD Nitrite,Ur Negative Normal NEG [facility] Comment on above: Performed By: #### U MICAO, UA #### [facility] [address] [place], [place] [phone] Boiler Room Operator: Garland Ji MD PH,Ur 6.5 Normal 5.0-8.0 [facility] Comment on above: Performed By: #### U MICAO, UA #### [facility] [address] [place], [place] [phone] Boiler Room Operator: Garland Ji MD Protein Ql (U) TRACE Abnormal NEG [facility] Comment on above: Performed By: #### U MICAO, UA #### [facility] [address] [place] [phone] Boiler Room Operator: Garland Ji MD Spec. Sumner,Ur 1.015 Normal 1.005-1.030 [facility] Comment on above: Performed By: #### U MICAO, UA #### [facility] [address] [place] [address] Boiler Room Operator: Garland Ji MD Urobilinogen,Ur Normal Normal 0.0-1.0 [facility] Comment on above: Performed By: #### U MICAO, UA #### [facility] [address] [place] [address] Boiler Room Operator: Garland Ji MD Urinalysis,Microon 3 ----- Normal [facility] Comment on above: Performed By: #### U MICAO, UA #### [facility] [address] [place], [place] [phone] Boiler Room Operator: Garland Ji MD Epithelial cells LM Ql (Urine sed) 0 TO 2 Normal [facility] Comment on above: Performed By: #### U MICAO, UA #### [facility] [address] [place] [phone] Boiler Room Operator: Garland Ji MD Urine RBC's 0 TO 2 Normal 0-2 [facility] Comment on above: Performed By: #### U MICAO, UA #### [facility] [address] [place], [place] [phone] Boiler Room Operator: Garland Ji MD Urine WBC's NONE SEEN Normal 0 [facility] Comment on above: Performed By: #### U MICAO, UA #### [facility] [address] [place] [address] Boiler Room Operator: Garland Ji MD BOX TEST SENT OUTon 03-28-20 SENT TO REF LAB 03/28/23 Normal [facility] Comment on above: Performed By: #### B OX #### [facility] [address] [place] [address] Dr. Gaye Durand BOX TEST SENT OUTon 03-15-20 SENT TO REF LAB 03/15/2023 Normal [facility] Comment on above: Performed By: #### R PRQ #### [facility] [address] [place] [address] Dr. Gaye Durand US PREG <14 WKSon 03-03-2023 US PREG <14 WKS EXAMINATION: US PREG <14 WKS HISTORY: Irregular periods COMPARISON: No relevant comparison available. FINDINGS: Ware intrauterine gestation Gestational sac: 4.06 cm, 9 weeks 3 days CRL: 4.0 cm, 10 weeks 6 days Yolk sac: 3.8 mm Heart rate: 175 bpm Cervix: Closed, 4.2 cm The ovaries are normal in appearance. Right ovarian corpus luteal cyst. Clinical age: 10 weeks 4 days Clinical MARITZA: 09/25/2023 Ultrasound age: 10 weeks 6 days Ultrasound MARITZA: 09/23/2023 IMPRESSION: Viable ware intrauterine gestation measuring 10 weeks 6 days Electronically authenticated by: GARLAND HEATH Date: 2023-03-03 13:53 Normal [facility] HEP B SURFACE ANTIGEN SCREEN on 02-27-2023 HBsAg Screen Negative Normal Negative [facility] Comment on above: Performed By: #### H BSANS #### [facility] [address] [place] [address] Dr. Gaye Durand HEPATITIS C VIRUS AB W/ REFL EX QUANTon 02-27-2023 HCV AB Non-Reactive Normal Non Reactive [facility] Comment on above: Performed By: #### H CVPCRR #### [facility] [address] [place] [address] Dr. Gaye Durand Interpretation: Comment Normal [facility] Comment on above: Result Comment: Not infected with HCV unless early or acute infection is suspected (which may be delayed in an immunocompromised individual), or other evidence exists to indicate HCV infection. Performed By: #### H CVPCRR #### [facility] [address] [place] [address] Dr. Gaye Durand HIV 1 AND 2 WITH REFLEXon HIV Screen 4th Generation wRfx Non-Reactive Normal Non Reactive [facility] Comment on above: Result Comment: HIV Negative HIV-1/HIV-2 antibodies and HIV-1 p24 antigen were NOT detected. There is no laboratory evidence of HIV infection. Performed By: #### H IV12 #### [facility] [address] [place] [address] Dr. Gaye Durand RPR QUANTon 02-27-2023 Rapid Plasma Reagin, Quant Non-Reactive Normal NonRea<1:1 [facility] Comment on above: Result Comment: Plea se Note: This test does not meet current guidelines for screening and diagnosis of syphilis. This test is intended for following treatment response in patients being treated for syphilis infection. To screen for syphilis infection, a reflex cascade that includes both RPR and a treponema-specific assay should be utilized, such as Treponema pallidum (Syphilis) Screening Antelope (107598) or Rapid Plasma Reagin (RPR) Test With Reflex to Quantitative RPR and Confirmatory Treponema pallidum Antibodies (890078). Performed By: #### R PRQ #### [facility] [address] [place] [address] Dr. Gaye Durand RUBELLA AB IGGon 02-27-2023 Rubella Antibodies, IgG 5.32 index Normal Immune >0.99 [facility] Comment on above: Result Comment: Non- immune <0.90 Equivocal 0.90 - 0.99 Immune >0.99 Performed By: #### R UBIGG #### [facility] [address] [place] [address] Dr. Gaye Durand BOX TEST SENT OUTon 02-27-20 SENT TO REF LAB 02/26/2023 Normal [facility] Comment on above: Performed By: #### B OX #### [facility] [address] [place] [address] Dr. Gaye Durand CBC AUTO DIFFon 02-26-2023 BASO # 0.0 103/ul Normal 0.0-0.1 [facility] Comment on above: Performed By: #### C BC #### [facility] [address] [place] [address] Dr. Gaye Durand Basophils/100 WBC (Bld) 0.3 % Normal 0.2-2.0 [facility] Comment on above: Performed By: #### C BC #### [facility] [address] [place] [address] Dr. Gaye Durand EO # 0.1 103/ul Normal 0.0-0.7 [facility] Comment on above: Performed By: #### C BC #### [facility] [address] [place] [address] Dr. Gaye Durand Eosinophils/100 WBC (Bld) 0.8 % Critically low 0.9-7.0 [facility] Comment on above: Performed By: #### C BC #### [facility] [address] [place] [address] Dr. Gaye Durand Erythrocyte distribution width (RBC) [Ratio] 13.3 % Normal 11.0-15.0 [facility] Comment on above: Performed By: #### C BC #### [facility] [address] [place] [address] Dr. Gaye Durand Hematocrit (Bld) [Volume fraction] 35.8 % Critically low 36.0-48.0 [facility] Comment on above: Performed By: #### C BC #### [facility] [address] [place] [address] Dr. Gaye Durand Hemoglobin (Bld) [Mass/Vol] 12.0 g/dL Normal 12.0-16.0 [facility] Comment on above: Performed By: #### C BC #### [facility] [address] [place] [address] Dr. Gaye Durand IG # 0.02 10e3/ul Normal 0.00-0.03 [facility] Comment on above: Performed By: #### C BC #### [facility] [address] [place] [address] Dr. Gaye Durand IG % 0.3 % Normal 0.0-0.5 [facility] Comment on above: Performed By: #### C BC #### [facility] [address] [place] [address] Dr. Gaye Durand LYMPH # 1.8 103/ul Normal 1.2-3.8 [facility] Comment on above: Performed By: #### C BC #### [facility] [address] [place] [address] Dr. Gaye Durand Lymphocytes/100 WBC (Bld) 24.3 % Normal 20.5-60.0 [facility] Comment on above: Performed By: #### C BC #### [facility] [address] [place] [address] Dr. Gaye Durand MANUAL DIFF REQ NO Normal [facility] Comment on above: Performed By: #### C BC #### [facility] [address] [place] [address] Dr. Gaye Durand MCH (RBC) [Entitic mass] 29.2 pg Normal 26.7-34.0 [facility] Comment on above: Performed By: #### C BC #### [facility] [address] [place] [address] Dr. Gaye Durand MCHC (RBC) [Mass/Vol] 33.5 g/dL Normal 29.9-35.2 [facility] Comment on above: Performed By: #### C BC #### [facility] [address] [place] [address] Dr. Gaye Durand MCV (RBC) [Entitic vol] 87.1 fL Normal 81.0-99.0 [facility] Comment on above: Performed By: #### C BC #### [facility] [address] [place] [address] Dr. Gaye Durand MONO # 0.3 103/ul Normal 0.3-0.8 [facility] Comment on above: Performed By: #### C BC #### [facility] [address] [place] [address] Dr. Gaye Durand Monocytes/100 WBC (Bld) 4.2 % Normal 1.7-12.0 [facility] Comment on above: Performed By: #### C BC #### [facility] [address] [place] [address] Dr. Gaye Durand NEUT # 5.2 103/ul Normal 1.4-6.5 [facility] Comment on above: Performed By: #### C BC #### [facility] [address] [place] [address] Dr. Gaye Durand Neutrophils/100 WBC (Bld) 70.1 % Normal 43.0-75.0 [facility] Comment on above: Performed By: #### C BC #### [facility] [address] [place] [address] Dr. Gaye Durand Platelet mean volume (Bld) [Entitic vol] 9.8 fL Normal 9.5-13.5 [facility] Comment on above: Performed By: #### C BC #### [facility] [address] [place] [address] Dr. Gaye Durand PLT 246 103/ul Normal 150-450 [facility] Comment on above: Performed By: #### C BC #### [facility] [address] [place] [address] Dr. Gaye Durand RBC 4.11 106/ul Critically low 4.20-5.40 [facility] Comment on above: Performed By: #### C BC #### [facility] [address] [place] [address] Dr. Gaye Durand WBC 7.4 103/ul Normal 4.0-11.0 [facility] Comment on above: Performed By: #### C BC #### [facility] [address] [place] [address] Dr. Gaye Durand CULTURE URINEon 02-26-2023 CULTURE URINE Culture Observations : MODERATE GROWTH OF MIXED GENITAL GIGI. NO POTENTIAL PATHOGENS SEEN. Normal [facility] Comment on above: Performed By: #### R PRQ #### [facility] [address] [place] [address] Dr. Gaye Durand GLYCOHEMOGLOBIN A1Con 2022 ADA RECOMMENDATION SEE BELOW Normal [facility] Comment on above: Result Comment: ADA RECOMMENDED LIMIT 4.0 - 6.0 ADA THERAPEUTIC TARGET < 7.0 ACTION SUGGESTED > 7.0 Performed By: #### A 1C #### [facility] [address] [place] [address] Dr. Gaye Durand Glucose [Mass/Vol] 100 mg/dL Normal [facility] Comment on above: Performed By: #### A 1C #### [facility] [address] [place] [address] [id number] [address] Gaye Durand HbA1c (Bld) [Mass fraction] 5.1 % Normal 4.5-6.2 [facility] Comment on above: Performed By: #### A 1C #### [facility] [address] [place] [address] Dr. Gaye Durand TSHon 02-26-2023 TSH 1.490 uIU/mL Normal 0.358-3.740 [facility] Comment on above: Performed By: #### T SH #### [facility] [address] [place] [address] Dr. Gaye Durand TYPE AND SCREENon 02-26-2023 TYPE AND SCREEN Negative Normal [facility] Comment on above: Performed By: #### R PRQ #### [facility] [address] [place] [address] Dr. Gaye Durand No Panel Informationon 02-05 Normal [facility] 310 IVF Work Phone: OB US Transvaginalon 023 OB US Transvaginal Indication ======== Inconclusive Viability ========= Ware . Number of embryos: 1 Dating ====== Conception on: 01/02/2023 Conception: IUI GA by conception 6 w + 6 d MARITZA by conception: 09/25/2023 Ultrasound examination on: 02/05/2023 GA by U/S based upon: CRL GA by U/S 6 w + 6 d MARITZA by U/S: 09/25/2023 Assigned: based on the conception date (IUI), selected on 02/05/2023 Assigned GA 6 w + 6 d Assigned MARITZA: 09/25/2023 Impression ========= Early single intrauterine with cardiac activity present. Assessment Gestational sac: visualized Location: intrauterine Yolk sac: visualized YS 2.8 mm -/- 3% Papaioannou Embryo: visualized CRL 7.3 mm 6w 6d 56% Pexsters Cardiac activity: present FHR 125 bpm Maternal Structures Uterus / Cervix Uterus: Visualized Uterus position: anteverted Cervix: Visualized Ovaries / Tubes / Adnexa Rt ovary: Visualized Rt ovary details: Normal Rt ovary D1 16.0 mm Rt ovary D2 21.5 mm Rt ovary D3 36.1 mm Rt ovary Vol 6.5 cm? Lt ovary: Visualized Lt ovary details: Normal Lt ovary D1 34.4 mm Lt ovary D2 18.6 mm Lt ovary D3 29.5 mm Lt ovary Vol 9.9 cm? Lt ovarian corpus luteum: hemorrhagic Cul de Sac / Bladder / Kidneys / Other Cul de Sac: Visualized Free fluid: No free fluid visualized Method ====== Transvaginal ultrasound examination. View: Sufficient Electronically signed by: BOBBI FLOOD MD [facility] ADVERTISING ACCOUNT REPRESENTATIVE - Office Visiton 01-11 ADVERTISING ACCOUNT REPRESENTATIVE - Office Visit Diagnoses/Problems Assessed Nausea and vomiting in (643.90) (O21.9) Orders Start: Doxylamine-Pyridoxine 10-10 MG Oral Tablet Delayed Release (Diclegis); TAKE 1 TABLET Bedtime one tablet daily at bedtime if no relief increase to one tablet BID if no relief increase to one table TID Patient Discussion/Summary Ectopic risk factor: No PGTA/PGTM: No Blood type: A+ antibody negative Reviewed results from OB ultrasound today and results reviewed with pt as follows: Conception 01/02/2023 Conception: IUI 6 w + 6 d 09/25/2023 U/S 02/05/2023 based upon CRL 6 w + 6 d 09/25/2023 Assigned dating based on the conception date (IUI), selected on 02/05/2023 6 w + 6 d 09/25/2023 Impression Early single intrauterine with cardiac activity present. Assessment Gestational sac: visualized. Location: intrauterine Yolk sac: visualized Embryo: visualized Cardiac activity: present YS 2.8 mm -/- 3% Papaioannou CRL 7.3 mm 6w 6d 56% Pexsters FHR 125 bpm Detailed discussion with patient about her scan results, , and next steps: Plan: -Reviewed medications in detail. She will continue PNV. -Reviewed supplemental progesterone, route and dose, reviewed dates of cessation 10.6 wga. -Discussed with patient any concerns and discussed establishing care with an OB. Will provide recommendations if she desires. -Advised to call with bleeding, pain or concerns. I personally spent 15 minutes with this patient in face to face discussion, more than half of which was spent in counseling regarding her condition and treatment options/plans. Provider Impressions 27 year old female conceived via Letrozole 5 mg and partner IUI for OB ultrasound to assess for viability Ectopic risk factor: No PGTA/PGTM: No Blood type: A+ antibody negative Reviewed results from OB ultrasound today and results reviewed with pt as follows: Conception 01/02/2023 Conception: IUI 6 w + 6 d 09/25/2023 U/S 02/05/2023 based upon CRL 6 w + 6 d 09/25/2023 Assigned dating based on the conception date (IUI), selected on 02/05/2023 6 w + 6 d 09/25/2023 Impression Early single intrauterine with cardiac activity present. Assessment Gestational sac: visualized. Location: intrauterine Yolk sac: visualized Embryo: visualized Cardiac activity: present YS 2.8 mm -/- 3% Papaioannou CRL 7.3 mm 6w 6d 56% Pexsters FHR 125 bpm Detailed discussion with patient about her scan results, , and next steps: Discussed nausea and vomiting in , recommend eating small meals throughout day, dirk or peppermint, motion sickness bands, reschedule PNV to nighttime. 1 Plan: -Reviewed medications in detail. She will continue PNV. -Reviewed supplemental progesterone, route and dose, reviewed dates of cessation 10.6 wga. -Discussed with patient any concerns and discussed establishing care with an OB. Will provide recommendations if she desires. -Advised to call with bleeding, pain or concerns. -Discussed nausea and vomiting in , Rx for Diclegis sent to pharmacy 1 I personally spent 15 minutes with this patient in face to face discussion, more than half of which was spent in counseling regarding her condition and treatment options/plans. Ultrasound results and Plan of care reviewed with Dr. Jas Abdi, IAN 02/05/2023 20:49 1 Amended By: Jeannie Abdi; Feb 05 2023 8:51 PM ESTChief Complaint A telephone visit (audio only) between the patient (at the originating site) and the provider (at the distant site) was utilized to provide this telehealth service. Verbal consent was requested and obtained from SANDRA VICENTE on this date, 02/05/2023 09:30 AM , for a telehealth visit. pt presents for OB ultrasound History of Present IllnessPt is a 27 year old female conceived via Letrozole 5 mg and partner IUI presenting today for OB ultrasound to assess for viability LMP 12/19/22 IUI 01/02/23 Pt denies pelvic pain or vaginal bleeding Active Problems Problems Abnormal radiograph (793.99) (R93.89) Class 3 severe obesity without serious comorbidity with body mass index (BMI) of 45.0 to 49.9 in adult, unspecified obesity type (278.01,V85.42) (E66.01,Z68.42) Encounter for blood typing (V72.86) (Z01.83) Encounter for preconception consultation (V26.49) (Z31.69) Encounter to determine viability of , single or unspecified fetus (V23.87) (O36.80X0) Female infertility associated with anovulation (628.0) (N97.0) Fertility testing (V26.21) (Z31.41) Irregular menstrual cycle (626.4) (N92.6) Nausea and vomiting in (643.90) (O21.9) Positive blood test (V72.42) (Z32.01) Positive urine test (V72.42) (Z32.01) Routine screening for STI (sexually transmitted infection) (V74.5) (Z11.3) Screening for diabetes mellitus (V77.1) (Z13.1) Screening for thyroid disorder (V77.0) (Z13.29) Social History Problems Never a (more content not included)... Normal [facility] HCG, Quanton 01-25-2023 HCG, Quant 1895 mIU/mL High <5 [facility] Comment on above: Result Comment: Non-preg premeno <=5 Postmeno <=8 Male <=3 If HCG results do not concur with clinical observations, additional testing to confirm results is recommended. Performed By: #### B HCG #### [facility] [address] [place] [address] Boiler Room Operator: Garland Ji MD HCG, Quantitative, on 01-25-2023 hCG Quant 1895 High [facility] Comment on above: Non-preg premeno <=5 Postmeno <=8 Male <=3 If HCG results do not concur with clinical observations, additional testing to confirm results is recommended. Interpretation and review of laboratory results Abnormal [facility] HCG, Quanton 01-18-2023 HCG, Quant 108 mIU/mL High <5 [facility] Comment on above: Result Comment: Non-preg premeno <=5 Postmeno <=8 Male <=3 If HCG results do not concur with clinical observations, additional testing to confirm results is recommended. Performed By: #### B HCG #### [facility] [address] [place] [address] Boiler Room Operator: Garland Ji MD HCG, Quantitative, on 01-18-2023 hCG Quant 108 High [facility] Comment on above: Non-preg premeno <=5 Postmeno <=8 Male <=3 If HCG results do not concur with clinical observations, additional testing to confirm results is recommended. Interpretation and review of laboratory results Abnormal [facility] HCG, [place]on 01-16-2023 HCG, Quant 37 mIU/mL High <5 [facility] Comment on above: Result Comment: Non-preg premeno <=5 Postmeno <=8 Male <=3 If HCG results do not concur with clinical observations, additional testing to confirm results is recommended. Performed By: #### B HCG #### [facility] [address] [place] [address] Boiler Room Operator: Garland Ji MD HCG, Quantitative, on 01-16-2023 hCG Quant 37 High [facility] Comment on above: Non-preg premeno <=5 Postmeno <=8 Male <=3 If HCG results do not concur with clinical observations, additional testing to confirm results is recommended. Interpretation and review of laboratory results Abnormal [facility] ADVERTISING ACCOUNT REPRESENTATIVE - Procedure Visiton 0 01-02-2023 ADVERTISING ACCOUNT REPRESENTATIVE - Procedure Visit Chief Complaint IUI-H Active Problems Problems Abnormal radiograph (793.99) (R93.89) Class 3 severe obesity without serious comorbidity with body mass index (BMI) of 45.0 to 49.9 in adult, unspecified obesity type (278.01,V85.42) (E66.01,Z68.42) Encounter for blood typing (V72.86) (Z01.83) Encounter for preconception consultation (V26.49) (Z31.69) Female infertility associated with anovulation (628.0) (N97.0) Fertility testing (V26.21) (Z31.41) Irregular menstrual cycle (626.4) (N92.6) Routine screening for STI (sexually transmitted infection) (V74.5) (Z11.3) Screening for diabetes mellitus (V77.1) (Z13.1) Screening for thyroid disorder (V77.0) (Z13.29) Social History 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 Progesterone 100 MG Oral Capsule (Prometrium)TAKE 1 CAPSULE Twice daily insert vaginally starting 3 days post IUI Procedure .IUI IUI Procedure note: The patient presented today for IUI. Consent signed by patient, IUI sample identified by patient, and Final Verification performed with patient via electronic system MOLDER HAND prior to insemination. All patient's questions were discussed and answered. Hot Car Charger offered to pt for intimate exam: [X] Pt Declined simulation software engineer [] Pt requested simulation software engineer; Name of simulation software engineer Patient was placed in dorsal lithotomy position and speculum was inserted into vagina. Cervical os was visualized and prepared sample was inserted into uterus. Insemination was performed without difficulty. Patient tolerated procedure well. TMS: 31.9 mil Additional notes: advised to make a follow up with Piyush Abdi CNP Patient was advised to call office if she develops fever, chills, pelvic pain, or heavy bleeding. Progesterone and post-IUI teaching completed. Will start Progesterone three days after IUI and continue twice daily. Pt will do a home test two weeks from IUI date. If home test positive, patient will continue Progesterone and call office to schedule BHCG. If home test negative, patient will discontinue Progesterone, and was advised to call office with start of menses; will proceed with another cycle if appropriate. Patient verbalized understanding of plan. 01/02/2023 Signatures Electronically signed by : ROSIBEL Nolan; Jan 02 2023 11:39AM EST (Author) Normal [facility] ESTRADIOLon 01-01-2023 ESTRADIOL 88 pg/mL Normal [facility] Comment on above: Result Comment: Estr adiol measurement is performed using the [employer] Access Estradiol Immunoassay. Estradiol testing is performed using a different test methodology at [facility] than other [facility]. Direct result comparison should only be made within the same method. REF VALUES FOLLICULAR PHASE 20-144 MID CYCLE 64-357 LUTEAL PHASE 56-214 POSTMENOPAUSE < 32 PREPUBERTY < 20 FEMALE 10-18Y 8-110 MALE 10-18Y < 20 ADULT MALE < 40 Performed By: #### D HE #### [facility] [address] [place] [address] Estradiol, Serumon 3 E2 [Mass/Vol] 88 pg/mL MG-OBGYN-Ri sman 310 IVF Work Phone: Comment on above: Estradiol measuremen t is performed using the Art[employer] Access Estradiol Immunoassay. Estradiol testing is performed using a different test methodology at [facility] than other [facility]. Direct result comparison should only be made within the same method.REF VALUESFOLLICULAR PHASE 20-144MID CYCLE 64-357LUTEAL PHASE 56-214POSTMENOPAUSE < 32PREPUBERTY < 20FEMALE 10-18Y 8-110MALE 10-18Y < 20ADULT MALE < 40 Follicle Endometrium Scanon 01-01-2023 Follicle Endometrium Scan Indication ======== Follicle Monitoring Impression ========= Follicle scan performed with measurements as detailed in report. Uterus ====== Uterus: Visualized Uterus position: anteverted Description of uterine malformations: none Myometrium: normal Endometrium: trilaminar Cervix details: normal Endometrial thickness, total 9.6 mm Right Ovary ========= Rt ovary: Visualized Rt ovarian follicle(s): Follicles identified Rt ovarian follicles other findings: Antral Follicles 10+ < 10mm Left Ovary ======== Lt ovary: Visualized Lt ovarian follicle(s): Follicles identified Lt ovarian follicle D1 25.6 mm Lt ovarian follicle D2 21.7 mm Lt ovarian follicle mean 23.6 mm Lt ovarian follicle vol 6.295 cm? Lt ovarian follicles other findings: Antral Follicles 10+ < 10mm [place] ========= Visualized. No free fluid visualized Method ====== Transvaginal ultrasound examination. View: Sufficient Electronically signed by: BOBBI FLOOD MD Normal [facility] LUTEINIZING HORMONEon 2022 LUTEINIZING HORMONE 80.8 IU/L Normal [facility] Comment on above: Result Comment: Lute inizing Hormone [LH] is performed using the Arturo Rosi Access Immunoassay. LH testing is performed using a different test methodology at [facility] than other [facility]. Direct result comparison should only be made within the same method. REF VALUES FOLLICULAR PHASE 1.5-10.0 MID-CYCLE 13.0-72.0 LUTEAL PHASE 0.5-13.0 MENOPAUSE 15.0-65.0 PREPUBERTY 0- 3.0 CHILDREN 0- 6.0 ADULT MALE 1.0- 9.0 Performed By: #### D HEMOISES #### [facility] [address] [place] [address] Luteinizing Hormone, Serumon 01-01-2023 Lutropin Qn 80.8 {IU/L} MG-OBGYN-Ri sman 310 IVF Work Phone: Comment on above: Luteinizing Hormone [LH] is performed using the Arturo Rosi Access Immunoassay. LH testing is performed using a different test methodology at [facility] than other [facility]. Direct result comparison should only be made within the same method.REF VALUESFOLLICULAR PHASE 1.5-10.0MID-CYCLE 13.0-72.0LUTEAL PHASE 0.5-13.0MENOPAUSE 15.0-65.0PREPUBERTY 0- 3.0CHILDREN 0- 6.0ADULT MALE 1.0- 9.0 No Panel Informationon 01-01 Normal [facility] Work Phone: ADVERTISING ACCOUNT REPRESENTATIVE - Procedure Visiton 1 12-28-2021 ADVERTISING ACCOUNT REPRESENTATIVE - Procedure Visit Chief Complaint patient presents for an IUI-H # 2 Active Problems Problems Abnormal radiograph (793.99) (R93.89) Class 3 severe obesity without serious comorbidity with body mass index (BMI) of 45.0 to 49.9 in adult, unspecified obesity type (278.01,V85.42) (E66.01,Z68.42) Encounter for blood typing (V72.86) (Z01.83) Encounter for preconception consultation (V26.49) (Z31.69) Female infertility associated with anovulation (628.0) (N97.0) Fertility testing (V26.21) (Z31.41) Irregular menstrual cycle (626.4) (N92.6) Routine screening for STI (sexually transmitted infection) (V74.5) (Z11.3) Screening for diabetes mellitus (V77.1) (Z13.1) Screening for thyroid disorder (V77.0) (Z13.29) Social History 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 Progesterone 100 MG Oral CapsuleTAKE 1 CAPSULE Twice daily insert vaginally starting 3 days post IUI Procedure IUI Procedure note: The patient presented today for IUI. Consent signed by patient, IUI sample identified by patient, and Final Verification performed with patient via electronic system MOLDER HAND prior to insemination. All patient's questions were discussed and answered. Hot Car Charger offered to pt for intimate exam: [X] Pt Declined simulation software engineer [] Pt requested simulation software engineer; Name of simulation software engineer Patient was placed in dorsal lithotomy position and speculum was inserted into vagina. Cervical os was visualized and prepared sample was inserted into uterus. Insemination was performed without difficulty. Patient tolerated procedure well. TMS: 11.7 million Additional notes: Patient was advised to call office if she develops fever, chills, pelvic pain, or heavy bleeding. Progesterone and post-IUI teaching completed. Will start Progesterone three days after IUI and continue twice daily. Pt will do a home test two weeks from IUI date. If home test positive, patient will continue Progesterone and call office to schedule BHCG. If home test negative, patient will discontinue Progesterone, and was advised to call office with start of menses; will proceed with another cycle if appropriate. Patient verbalized understanding of plan. Christina Leung CNP [facility] [address] [place] [address] [address] [place] [phone] - [phone] Attending Note Comments/Additional Findings: Attestation statement: I was present and readily available in the clinic during this procedure. I agree with the procedure note as seen above. Matias Proctor MD Reproductive Endocrinology and Infertility 10/27/2022 10:12 . Signatures Electronically signed by : ROSIBEL Sher; Oct 27 2022 9:46AM EST (Author) Electronically signed by : Matias Proctor MD; Oct 28 2022 10:12AM EST (Author) Normal [employer] ESTRADIOLon 10-24-2022 ESTRADIOL 77 pg/mL Normal [facility] Comment on above: Result Comment: Estr adiol measurement is performed using the Arturo [employer] Access Estradiol Immunoassay. Estradiol testing is performed using a different test methodology at [facility] than other [facility]. Direct result comparison should only be made within the same method. REF VALUES FOLLICULAR PHASE 20-144 MID CYCLE 64-357 LUTEAL PHASE 56-214 POSTMENOPAUSE < 32 PREPUBERTY < 20 FEMALE 10-18Y 8-110 MALE 10-18Y < 20 ADULT MALE < 40 Performed By: #### D LEE #### [facility] [address] [place] [address] Estradiol, Serumon E2 [Mass/Vol] 77 pg/mL MG-OBGYN-Cr ocker 206A IVF Work Phone: Comment on above: Estradiol measuremen t is performed using the [employer] Access Estradiol Immunoassay. Estradiol testing is performed using a different test methodology at [facility] than other [facility]. Direct result comparison should only be made within the same method.REF VALUESFOLLICULAR PHASE 20-144MID CYCLE 64-357LUTEAL PHASE 56-214POSTMENOPAUSE < 32PREPUBERTY < 20FEMALE 10-18Y 8-110MALE 10-18Y < 20ADULT MALE < 40 Follicle Endometrium Scanon 10-24-2022 Follicle Endometrium Scan Indication ======== Baseline Follicle Scan Impression ========= Follicle scan performed with measurements as detailed in report. Follow-up ======== Follow up for repeat assessment per clinical team Uterus ====== Uterus: Visualized Uterus position: anteverted Description of uterine malformations: none Myometrium: normal Endometrium: trilaminar Cervix details: normal Endometrial thickness, total 6.8 mm Right Ovary ========= Rt ovary: Visualized Rt ovary D1 37.8 mm Rt ovary D2 23.2 mm Rt ovary D3 21.8 mm Rt ovary Vol 10.0 cm? Rt ovarian follicle(s): Follicles identified Rt ovarian follicle D1 13.9 mm Rt ovarian follicle D2 10.0 mm Rt ovarian follicle mean 12.0 mm Rt ovarian follicle vol 0.728 cm? Rt ovarian follicles other findings: Antral Follicles, 10+ < 10mm Left Ovary ======== Lt ovary: Visualized Lt ovary D1 43.5 mm Lt ovary D2 24.4 mm Lt ovary D3 20.2 mm Lt ovary Vol 11.2 cm? Lt ovarian follicle(s): Follicles identified Lt ovarian follicle D1 19.4 mm Lt ovarian follicle D2 19.0 mm Lt ovarian follicle mean 19.2 mm Lt ovarian follicle vol 3.660 cm? Lt ovarian follicles other findings: Antral Follicles 10 < 10mm [place] ========= Visualized. No free fluid visualized Method ====== Transvaginal ultrasound examination. View: Sufficient Electronically signed by: KIM HAWTHORNE MD Normal [facility] LUTEINIZING HORMONEon 2021 LUTEINIZING HORMONE 10.8 IU/L Normal [facility] Comment on above: Result Comment: Lute inizing Hormone [LH] is performed using the Arturo Derby Access Immunoassay. LH testing is performed using a different test methodology at [facility] than other [facility]. Direct result comparison should only be made within the same method. REF VALUES FOLLICULAR PHASE 1.5-10.0 MID-CYCLE 13.0-72.0 LUTEAL PHASE 0.5-13.0 MENOPAUSE 15.0-65.0 PREPUBERTY 0- 3.0 CHILDREN 0- 6.0 ADULT MALE 1.0- 9.0 Performed By: #### T [facility] #### [facility] [address] [place] [address] Luteinizing Hormone, Serumon 10-24-2022 Lutropin Qn 10.8 {IU/L} MG-OBGYN-Cr ocker 206A IVF Work Phone: Comment on above: Luteinizing Hormone [LH] is performed using the Arturo Derby Access Immunoassay. LH testing is performed using a different test methodology at [facility] than other [facility]. Direct result comparison should only be made within the same method.REF VALUESFOLLICULAR PHASE 1.5-10.0MID-CYCLE 13.0-72.0LUTEAL PHASE 0.5-13.0MENOPAUSE 15.0-65.0PREPUBERTY 0- 3.0CHILDREN 0- 6.0ADULT MALE 1.0- 9.0 No Panel Informationon 10-24 Normal MG-OBGYN-Cr ocker 206A IVF Work Phone: ADVERTISING ACCOUNT REPRESENTATIVE - Procedure Visiton 1 11-24-2021 ADVERTISING ACCOUNT REPRESENTATIVE - Procedure Visit Chief Complaint Sandra is here for partner IUI #1 Active Problems Problems Abnormal radiograph (793.99) (R93.89) Class 3 severe obesity without serious comorbidity with body mass index (BMI) of 45.0 to 49.9 in adult, unspecified obesity type (278.01,V85.42) (E66.01,Z68.42) Encounter for blood typing (V72.86) (Z01.83) Encounter for preconception consultation (V26.49) (Z31.69) Female infertility associated with anovulation (628.0) (N97.0) Fertility testing (V26.21) (Z31.41) Irregular menstrual cycle (626.4) (N92.6) Routine screening for STI (sexually transmitted infection) (V74.5) (Z11.3) Screening for diabetes mellitus (V77.1) (Z13.1) Screening for thyroid disorder (V77.0) (Z13.29) Social History 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 Progesterone 100 MG Oral CapsuleTAKE 1 CAPSULE Twice daily insert vaginally starting 3 days post IUI Procedure IUI Procedure note: The patient presented today for IUI. Consent signed by patient, IUI sample identified by patient, and Final Verification performed with patient prior to insemination. All patient's questions were discussed and answered. See chart for full details and signed documentation. Patient was placed in dorsal lithotomy position and speculum was inserted into vagina. Cervical os was visualized and prepared sample was inserted into uterus. Insemination was performed without difficulty. Patient tolerated procedure well. TMS: 10.9 Additional notes: uncomplicated IUI, curved catheter used Patient was advised to call office if she develops fever, chills, pelvic pain, or heavy bleeding. Progesterone and post-IUI teaching completed. Will start Progesterone three days after IUI and continue twice daily. Pt will do a home test two weeks from IUI date. If home test positive, patient will continue Progesterone and call office to schedule BHCG. If home test negative, patient will discontinue Progesterone, and was advised to call office with start of menses; will proceed with another cycle if appropriate. Patient verbalized understanding of plan. Signatures Electronically signed by : Kayla Easton MD; Sep 24 2022 10:41AM EST (Author) Electronically signed by : Kim Hawthorne MD; Sep 26 2022 3:23PM EST (Author) Normal [employer] ESTRADIOLon 09-22-2022 ESTRADIOL 98 pg/mL Normal [facility] Comment on above: Result Comment: Estr adiol measurement is performed using the Arturo Derby Access Estradiol Immunoassay. Estradiol testing is performed using a different test methodology at [facility] than other [facility]. Direct result comparison should only be made within the same method. REF VALUES FOLLICULAR PHASE 20-144 MID CYCLE 64-357 LUTEAL PHASE 56-214 POSTMENOPAUSE < 32 PREPUBERTY < 20 FEMALE 10-18Y 8-110 MALE 10-18Y < 20 ADULT MALE < 40 Performed By: #### E STRA #### [facility] [address] [place] [address] Estradiol, Serumon E2 [Mass/Vol] 98 pg/mL MG-OBGYN-Cr ocker 206A IVF Work Phone: Comment on above: Estradiol measuremen t is performed using the Arturo Rosi Access Estradiol Immunoassay. Estradiol testing is performed using a different test methodology at [facility] than other [facility]. Direct result comparison should only be made within the same method.REF VALUESFOLLICULAR PHASE 20-144MID CYCLE 64-357LUTEAL PHASE 56-214POSTMENOPAUSE < 32PREPUBERTY < 20FEMALE 10-18Y 8-110MALE 10-18Y < 20ADULT MALE < 40 Follicle Endometrium Scanon 09-22-2022 Follicle Endometrium Scan Indication ======== Follicle Monitoring Impression ========= Follicle scan performed with measurements as detailed in report. Uterus ====== Uterus: Visualized Uterus position: anteverted Description of uterine malformations: none Myometrium: normal Endometrium: trilaminar Cervix details: normal Endometrial thickness, total 7.9 mm Right Ovary ========= Rt ovary: Visualized Rt ovarian follicle(s): Follicles identified Rt ovarian follicle D1 23.7 mm Rt ovarian follicle D2 17.1 mm Rt ovarian follicle mean 20.4 mm Rt ovarian follicle vol 3.609 cm? Rt ovarian follicles other findings: Antral Follicles 10+ < 10mm Left Ovary ======== Lt ovary: Visualized Lt ovarian follicle(s): Follicles identified Lt ovarian follicle D1 13.7 mm Lt ovarian follicle D2 8.2 mm Lt ovarian follicle mean 10.9 mm Lt ovarian follicle vol 0.480 cm? Lt ovarian follicles other findings: Antral Follicles 10<10mm [place] ========= Visualized. No free fluid visualized Method ====== Transvaginal ultrasound examination. View: Sufficient Electronically signed by: MATIAS PROCTOR MD Normal [facility] LUTEINIZING HORMONEon 2021 LUTEINIZING HORMONE 18.0 IU/L Normal [facility] Comment on above: Result Comment: Lute inizing Hormone [LH] is performed using the Arturo Derby Access Immunoassay. LH testing is performed using a different test methodology at [facility] than other [facility]. Direct result comparison should only be made within the same method. REF VALUES FOLLICULAR PHASE 1.5-10.0 MID-CYCLE 13.0-72.0 LUTEAL PHASE 0.5-13.0 MENOPAUSE 15.0-65.0 PREPUBERTY 0- 3.0 CHILDREN 0- 6.0 ADULT MALE 1.0- 9.0 Performed By: #### L #### [facility] [address] [place] [address] Luteinizing Hormone, Serumon 09-22-2022 Lutropin Qn 18.0 {IU/L} MG-OBGYN-Cr ocker 206A IVF Work Phone: Comment on above: Luteinizing Hormone [LH] is performed using the Arturo Derby Access Immunoassay. LH testing is performed using a different test methodology at [facility] than other [facility]. Direct result comparison should only be made within the same method.REF VALUESFOLLICULAR PHASE 1.5-10.0MID-CYCLE 13.0-72.0LUTEAL PHASE 0.5-13.0MENOPAUSE 15.0-65.0PREPUBERTY 0- 3.0CHILDREN 0- 6.0ADULT MALE 1.0- 9.0 No Panel Informationon 09-22 Normal MG-OBGYN-Cr ocker 206A IVF Work Phone: Follicle Endometrium Scanon 09-19-2022 Follicle Endometrium Scan Indication ======== Baseline Follicle Scan Impression ========= Follicle scan performed with measurements as detailed in report. Follow-up ======== Follow up for repeat assessment per clinical team Uterus ====== Uterus: Visualized Uterus position: anteverted Description of uterine malformations: none Myometrium: normal Endometrium: trilaminar Cervix details: cystic lesions identified suggesting superficial Nabothian cysts, normal Endometrial thickness, total 6.0 mm Right Ovary ========= Rt ovary: Visualized Rt ovary D1 36.1 mm Rt ovary D2 27.5 mm Rt ovary D3 26.7 mm Rt ovary Vol 13.9 cm? Rt ovarian follicle(s): Follicles identified Rt ovarian follicle D1 15.8 mm Rt ovarian follicle D2 12.9 mm Rt ovarian follicle mean 14.4 mm Rt ovarian follicle vol 1.380 cm? Rt ovarian follicles other findings: Antral Follicles 10+ < 10mm Left Ovary ======== Lt ovary: Visualized Lt ovary D1 37.2 mm Lt ovary D2 30.8 mm Lt ovary D3 22.8 mm Lt ovary Vol 13.7 cm? Lt ovarian follicle(s): Follicles identified Lt ovarian follicle D1 12.1 mm Lt ovarian follicle D2 8.4 mm Lt ovarian follicle mean 10.2 mm Lt ovarian follicle vol 0.442 cm? Lt ovarian follicle D1 12.0 mm Lt ovarian follicle D2 8.2 mm Lt ovarian follicle mean 10.1 mm Lt ovarian follicle vol 0.420 cm? Lt ovarian follicles other findings: Antral Follicles 10+ < 10mm [place] ========= Visualized. No free fluid visualized Method ====== Transvaginal ultrasound examination. View: Sufficient Electronically signed by: KIM HAWTHORNE MD Normal [facility] No Panel Informationon 09-19 Normal MG-OBGYN-Ri sman 310 IVF Work Phone: Pharm D Noteon 09-13-2022 Pharm D Note Reason For Visit Medication ordered for upcoming IUI cycle Active Problems Problems Abnormal radiograph (793.99) (R93.89) Class 3 severe obesity without serious comorbidity with body mass index (BMI) of 45.0 to 49.9 in adult, unspecified obesity type (278.01,V85.42) (E66.01,Z68.42) Encounter for blood typing (V72.86) (Z01.83) Encounter for preconception consultation (V26.49) (Z31.69) Female infertility associated with anovulation (628.0) (N97.0) Fertility testing (V26.21) (Z31.41) Irregular menstrual cycle (626.4) (N92.6) Routine screening for STI (sexually transmitted infection) (V74.5) (Z11.3) Screening for diabetes mellitus (V77.1) (Z13.1) Screening for thyroid disorder (V77.0) (Z13.29) Allergies Medication No Known Drug Allergies Recorded By: Sonu Omer; 06/12/2022 9:04:52 AM Current Meds Medication NameInstructionReason metFORMIN HCl ER 500 MG Oral Tablet Extended Release 24 HourTAKE 1 TABLET 3 times dailyClass 3 severe obesity without serious comorbidity with body mass index (BMI) of 45.0 to 49.9 in adult, unspecified obesity type Letrozole 2.5 MG Oral TabletTAKE 2 TABLET Daily for cycle days 3-7 and must have negative urine test prior to startingFemale infertility associated with anovulation Ovidrel 250 MCG/0.5ML Subcutaneous InjectableINJECT SUBCUTANEOUSLY DIRECTED.Female infertility associated with anovulation Progesterone 100 MG Oral Capsule (Prometrium)TAKE 1 CAPSULE Twice daily insert vaginally starting 3 days post IUIFemale infertility associated with anovulation Progress Note Patient is being seen by the Fertility clinic for the following: Treatment plan: Boarding pass reviewed with Bobbi Martinez RN. Pt is cleared to proceed with OI/partner IUI. Letrozole 5 mg CD 3-7 with u/s monitoring and hcg trigger and partner IUI. Patient and partner declined [employer] genetic screening waiver was signed. [facility] clearance on file. Jeannie Abdi CNP 08/11/2022 16:36 The following medications were [facility] on 09/13/22 for the above treatment: Ovidrel 250mcg/0.5mL syringe for trigger Karoline Gonsalves PharmD, [facility] Clinical Pharmacist with [facility] Current Orders Class 3 severe obesity without serious comorbidity with body mass index (BMI) of 45.0 to 49.9 in adult, unspecified obesity type Comprehensive Weight Loss Referral (Diet/exercise/meds with [facility]. Surgical counseling if needed, gateway to all programs) Evaluation and Treatment Evaluate AND Treat Requested for: 12Jun2022 Maternal Medicine Referral Evaluation and Treatment Evaluate AND Treat Requested for: 12Jun2022 Pt scheduled for virtual MFM preconception consult with Dr. Garland Sherman on Sun07/26/22 Encounter for blood typing Type and Screen; Requested for:04Jul2022; Female infertility associated with anovulation Estradiol, Serum; Requested for:19Sep2022; Luteinizing Hormone, Serum; Requested for:19Sep2022; Fertility testing Follicle Endometrium Scan; Requested for:19Sep2022; Radiologist to Determine Optimal Study : Y What are the patient's signs and symptoms? : testing Signatures Electronically signed by : Karoline Gonsalves PharmD; Sep 18 2022 12:19PM EST (Author) Normal [employer] ADVERTISING ACCOUNT REPRESENTATIVE - Office Visiton 07-13 ADVERTISING ACCOUNT REPRESENTATIVE - Office Visit Patient Discussion/Summary Partner was going to have bariatric surgery, but per pt complications arose and they were unable to proceed with surgery. Pt and partner working on weight loss together. Letrozole is used for ovulation inductions. Letrozole is NOT FDA approved for the treatment of infertility and may be associated with a higher risk of congenital defects, although this was not found in a recent large study of patients taking letrozole for unexplained infertility. Letrozole is also teratogenic and therefore patients must take a urine test and document that it is negative, prior to starting letrozole. We also discussed that there is an increased risk of multiple gestation with letrozole approximately 9-10%. PLAN - Take vitamins, vitamin D 2000 IUs daily [ ] Genetic Screen patient or Waiver, fully discussed, pt and partner declined will need to sign waiver - MFM consult, indication: BMI 48 - Weight loss consult with OFFICE SPEC -Plan: Once above complete will plan Letrozole 5 mg cd 3-7 with us monitoring hcg trigger and partner IUI with LP prometrium (if no conception within 3 cycles recommend FUV) Provider Impressions 27 year old G0 female with a previous diagnosis to PCOS and 12 months of treatment with OI meds and TIC without conception. Pt also with dysmenorrhea. Comorbidities: pt with BMI 48 Partner with normal male factor [facility] on [place] 260 million. Partner was going to have bariatric surgery, but per pt complications arose and they were unable to proceed with surgery. Pt and partner working on weight loss together. Letrozole is used for ovulation inductions. Letrozole is NOT FDA approved for the treatment of infertility and may be associated with a higher risk of congenital defects, although this was not found in a recent large study of patients taking letrozole for unexplained infertility. Letrozole is also teratogenic and therefore patients must take a urine test and document that it is negative, prior to starting letrozole. We also discussed that there is an increased risk of multiple gestation with letrozole approximately 9-10%. PLAN - Take vitamins, vitamin D 2000 IUs daily [ ] Genetic Screen patient or Waiver, fully discussed, pt and partner declined will need to sign waiver - MFM consult, indication: BMI 48 - Weight loss consult with OFFICE SPEC -Plan: Once above complete will plan Letrozole 5 mg cd 3-7 with us monitoring hcg trigger and partner IUI with LP prometrium (if no conception within 3 cycles recommend FUV) 25 minutes spent with pt with >50% time spent counseling/coordinating care Jeannie Abdi CNP 06/12/2022 22:13 Chief Complaint An interactive audio and video telecommunication system which permits real time communications between the patient (at the originating site) and provider (at the distant site) was utilized to provide this telehealth service. Verbal consent was requested and obtained from SANDRA VICENTE on this date, 07/24/2022 09:30 AM , for a telehealth visit. The patient is being seen today for a Follow Up Visit to review testing results. History of Present IllnessPatient is a 27 year old female with primary infertility presenting today for follow up visit. Diagnosis to date: primary infertility Treatment to date: Dr. David JACKSON at [facility] in [place], [place] (progesterone levels positive on letrozole negative on clomid) Clomid 100 mg x 4 cycles, pt reports was getting regular menses on this dose, with TIC without conception Letrozole 5 mg X 6 cycles, pt reports was getting regular menses on this dose, with TIC without conception Testing to date: Labs (June 2022) CBC: wnl CMP: wnl Lipid Panel: wnl TSH: 1.66 DHEAs: 233 Prolactin: 10.5 HgbA1C: 5.4% STI screening (HepB, HepC, HIV, Syphilis, Gc/chl) negative Rubella: Immune Varicella:Immune 17 OHP: 28 Testosterone: 23 Free total: 6.1 AMH: 4.71 Labs: 2019 Gc/chl neg Hgba1c 5.6 tsh 2.55 prolactin 13 OTHER: HSG (June 2022) Normal uterine contour without filling defects, bilateral tubal patency with mild loculations [employer] Pelvic Ultrasound (07/03/22) Impression Anteverted, retroflexed uterus with a trilaminar endometrial lining that measures as below. The ovaries are normal in appearance bilaterally, combined AFC > 20. Uterus Visualized. Size 77.1 mm x 43.0 mm x 42.4 mm Position: anteverted Myometrium: normal Endometrium: trilaminar. Endometrial thickness, total 7.3 mm Cervix details: normal Right Ovary Visualized. Morphology: normal. Size 38.1 mm x 26.2 mm x 22.7 mm. Vol 11.9 cm Follicle(s) Antral Follicles 10+<10mm Left Ovary Visualized. Morphology: normal. Size 33.0 mm x 20.9 mm x 20.2 mm. 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 Normal [employer] Tobacco Screening.on 022 Fall risk assessment a) No falls within the last year [facility]i sman 320 Work Phone: Last menstrual period start date 23Jun2022 [facility] sman 320 Work Phone: Tobacco use status CPHS b) No [facility]-OBGYN-Ri sman 320 Work Phone: 17-HYDROXYPROGESTERONEon 17-HYDROXYPROGESTERO NE 28 ng/dL Normal [facility] Comment on above: Result Comment: Unable to flag abnormal result(s), please refer to reference range(s) below: Adult Female Reference Ranges for 17-Hydroxyprogesterone: Pre-Menopausal Mid Follicular: 23 - 102 ng/dL Pre-Menopausal Surge: 67 - 349 ng/dL Pre-Menopausal Mid Luteal: 139 - 431 ng/dL Postmenopausal Phase: < or = 45 ng/dL Female Amador Stages: II - III Females: 18 - 220 ng/dL IV - V Females: 36 - 200 ng/dL Includes data from J Clin Endocrinol Metab. 1991;73:674-686; J Clin Endocrinol Metab. 1989;69;6371-4320; J Clin Endocrinol Metab. 1994;78:226-270. Pediatr Res 1988;23:525-529. MedLinePlus (accessed 04/27/14). This test was developed and its analytical performance characteristics have been determined by [place] It has not been cleared or approved by the U.S. Food and Drug Administration. This assay has been validated pursuant to the CLIA regulations and is used for clinical purposes. Performed By: #### 1 7OHP #### [facility] [address] TESTOST,FREE AND TOTALon TESTOSTERONE TOT.LC/MS/MS 23 ng/dL Normal 2-45 [facility] Comment on above: Result Comment: For additional information, please refer to http://education.[employer]/faq/ [email or web address] (This link is being provided for informational/ educational purposes only.) This test was developed and its analytical performance characteristics have been determined by [facility] [place], [place]. It has not been cleared or approved by the U.S. Food and Drug Administration. This assay has been validated pursuant to the CLIA regulations and is used for clinical purposes. Performed By: #### T ESFT #### [facility] [place] [id number] [place], [place] TESTOSTERONE,FREE 6.1 pg/mL Normal 0.1-6.4 [facility] Comment on above: Result Comment: This test was developed and its analytical performance characteristics have been determined by [employer] [place], [place]. It has not been cleared or approved by the U.S. Food and Drug Administration. This assay has been validated pursuant to the CLIA regulations and is used for clinical purposes. Performed By: #### T ESFT #### [facility] [address] [place], [place] ANTI MULLERIAN HORMONEon ANTI MULLERIAN HORMONE 4.71 ng/mL Normal [facility] Comment on above: Result Comment: For assays employing antibodies, the possibility exists for interference by heterophile antibodies in the samples.1 1.Lyle Gu Interferences in Immunoassays - still a threat. Clin. Chem. 2000; 46: 9075-6971. This test was developed and its performance characteristics determined by [employer]. It has not been cleared or approved by the Food and Drug Administration. Reference Range: Females 26 - 30y: 1.03 - 11.10 Median 4.20 AMH concentrations of >= 1.06 ng/mL is correlated with a better response to ovarian stimulation, produced more retrievable oocytes and higher odds of live according to Gleicher et al. Fertility and Sterility. 2010: 94:7549-2000. The current AMH test method correlates with the study method with a slope of 0.94. Females at risk of ovarian hyperstimulation syndrome or polycystic ovarian syndrome (PCOS) may exhibit elevated serum AMH concentrations. AMH levels from PCOS patients may be 2 to 5 fold higher than age-appropriate reference interval values. Granulosa cell tumors of the ovary may secrete AMH along with other tumor markers. Elevated AMH is not specific for malignancy, and the assay should not be used exclusively to diagnose or exclude an AMH-secreting ovarian tumor. Performed By: #### D HEAS #### [facility] [address] [place] [address] Lab Reportson 07-05-2022 Lab Reports [id number] Normal [facility] GC + CHLAMYDIA BY AMPLIFIED DETECTIONon 07-04-2022 CHLAMYDIA TRACH.,AMPLIFIED Negative Normal Negative [facility] Comment on above: Result Comment: The APTIMA Combo 2 assay is FDA-approved for Chlamydia trachomatis and Neisseria gonorrhoeae testing on female endocervical and vaginal swabs, ThinPrep liquid pap samples, male urine samples and urethral swabs. Performance characteristics for Chlamydia trachomatis and Neisseria gonorrhoeae testing on specific alj-ECE-maimasdu sample types (female urine samples) have been validated by [facility]. This laboratory is certified by CLIA to perform high complexity testing. Samples from all other sites are not validated for this method. Performed By: #### G [facility] #### [facility] [address] [place] [address] N.GONORRHEA,AMPLIFIE D Negative Normal Negative [facility] Comment on above: Result Comment: The APTIMA Combo 2 assay is FDA-approved for Chlamydia trachomatis and Neisseria gonorrhoeae testing on female endocervical and vaginal swabs, ThinPrep liquid pap samples, male urine samples and urethral swabs. Performance characteristics for Chlamydia trachomatis and Neisseria gonorrhoeae testing on specific snz-PYD-oqxjsunb sample types (female urine samples) have been validated by [facility]. This laboratory is certified by CLIA to perform high complexity testing. Samples from all other sites are not validated for this method. Performed By: #### G [facility] #### [facility] [address] [place] [address] HEMOGLOBIN A1Con 07-04-2022 Glucose [Mass/Vol] 108 mg/dL Normal [facility] Comment on above: Performed By: #### Murray [facility] #### [facility] [address] [place] [address] HbA1c (Bld) [Mass fraction] 5.4 % Normal [facility] Comment on above: Result Comment: Diag nosis of Diabetes-Adults Non-Diabetic: < or = 5.6% Increased risk for developing diabetes: 5.7-6.4% Diagnostic of diabetes: > or = 6.5% . Monitoring of Diabetes Age (y) Therapeutic Goal (%) Adults: >18 <7.0 Pediatrics: 13-18 <7.5 7-12 <8.0 0- 6 7.5-8.5 Canadian Diabetes Association. Diabetes Care 33(S1), Nov 2009. Performed By: #### D HEAS #### [facility] [address] [place] [address] HEPATITIS B SURFACE AGon HEP.B SURFACE AG Non-Reactive Normal NONREACTIVE [facility] Comment on above: Result Comment: Biot in interference may cause falsely decreased results. Patients taking a Biotin dose of up to 5 mg/day should refrain from taking Biotin for 24 hours before sample collection. Providers may contact their local laboratory for further information. Performed By: #### H BSAG #### [facility] [address] [place] [address] HEPATITIS C ABon 07-04-2022 HEPATITIS C AB Non-Reactive Normal NONREACTIVE [facility] Comment on above: Result Comment: Resu lts from patients taking biotin supplements or receiving high-dose biotin therapy should be interpreted with caution due to possible interference with this test. Providers may contact their local laboratory for further information. Performed By: #### T CECES #### [facility] [address] [place] [address] HIV 1/2 ANTIGEN/ANTIBODY SCR EEN WITH REFLEX TO CONFIRMATIONon 07-04-2022 HIV 1/2 AG/AB SCREEN Non-Reactive Normal NONREACTIVE [facility] Comment on above: Result Comment: HIV Ag/Ab screen is performed using the Siemens InSkin MediallCommitChange HIV Ag/Ab Combo assay which detects the presence of HIV p24 antigen as well as antibodies to HIV-1 (Group M and O) and HIV-2. . No laboratory evidence of HIV infection. If acute HIV infection is suspected, consider testing for HIV RNA by PCR (viral load). Performed By: #### T HYDS #### [facility] [address] [place] [address] RUBELLA IGG ABon 07-04-2022 RUBELLA IGG AB Positive Normal [facility] Comment on above: Result Comment: INTE RPRETATIVE COMMENT NEGATIVE: No IgG antibodies specific to Rubella detected. It is likely that the patient has not had a previous exposure to Rubella through infection or vaccination. Alternatively, the patient may have been exposed to Rubella but a failure to respond may indicate immunodeficiency. EQUIVOCAL:Equivocal results; obtain additional sample for retesting. POSITIVE: IgG antibody to Rubella detected. This may indicate that the patient was exposed to Rubella through infection or vaccination. The interpretation of serological tests should take into account the immunological status of the patient. Test results for patients, including immunocompromised patients, neonates, and pediatric patients, reflect their capacity to respond immunologically to the virus as well as their exposure to the pathogen. Patients treated with IVIG may demonstrate altered results in serological assays. Performed By: #### T [facility] #### [facility] [address] [place] [address] SYPHILIS SCREENING WITH REFL EXon 07-04-2022 SYPHILIS TOTAL AB Non-Reactive Normal NONREACTIVE [facility] Comment on above: Result Comment: No s ignificant level of Treponema pallidum antibody detected. Repeat testing in 2 to 4 weeks may be considered if early infection or incubating syphilis infection is suspected. Performed By: #### D HEAS #### [facility] [address] [place] [address] TYPE AND SCREENon 07-04-2022 ABO/Rh Positive [facility] Arm Band Number HIDE [facility] [employer] Expiration Date 07/07/2022,2359 [facility] VARICELLA ZOSTER IGG ABon VARICELLA ZOSTER IGG AB Positive Normal NEGATIVE [facility] Comment on above: Result Comment: INTE RPRETATIVE COMMENT NEGATIVE: No IgG antibodies specific to VZV detected. It is likely that the patient has not had a previous exposure to VZV through infection or vaccination. Alternatively, the patient may have been exposed to VZV but a failure to respond may indicate immunodeficiency. EQUIVOCAL:Equivocal results; obtain additional sample for retesting. POSITIVE: IgG antibody to VZV detected. This may indicate that the patient was exposed to VZV through infection or vaccination. The interpretation of serological tests should take into account the immunological status of the patient. Test results for patients, including immunocompromised patients, neonates, and pediatric patients, reflect their capacity to respond immunologically to the virus as well as their exposure to the pathogen. Patients treated with IVIG may demonstrate altered results in serological assays. Performed By: #### V ARZG #### [facility] [address] [place] [address] 17-Hydroxyprogesterone, Seru mon 07-03-2022 17-Hydroxyprogestero ne [Mass/Vol] 28 ng/dL [facility]OB[facility]-Ri sman 320 Work Phone: Comment on above: Unable to flag a bnormal result(s), please refer to reference range(s) below: Adult Female Reference Ranges for 17-Hydroxyprogesterone: Pre-Menopausal Mid Follicular: 23 - 102 ng/dL Pre-Menopausal Surge: 67 - 349 ng/dL Pre-Menopausal Mid Luteal: 139 - 431 ng/dL Postmenopausal Phase: < or = 45 ng/dL Female Amador Stages: II - III Females: 18 - 220 ng/dL IV - V Females: 36 - 200 ng/dL Includes data from J Clin Endocrinol Metab. 1991;73:674-686; J Clin Endocrinol Metab. 1989;69;5804-1066; J Clin Endocrinol Metab. 1994;78:226-270. Pediatr Res 1988;23:525-529. MedLinePlus (accessed 04/27/14). This test was developed and its analytical performancecharacteristics have been determined by [employer] [place], [place]. It hasnot been cleared or approved by the U.S. Food and DrugAdministration. This assay has been validated pursuantto the CLIA regulations and is used for clinicalpurposes. CBCon 07-03-2022 Erythrocyte distribution width (RBC) [Ratio] 12.8 % Normal 11.5 - 14.5 [facility] Comment on above: Performed By: #### D HEAS #### [facility] [address] [place] [address] Hematocrit (Bld) [Volume fraction] 37.8 % Normal 36.0 - 46.0 [facility] Comment on above: Performed By: #### D HEAS #### [facility] [address] [place] [address] Hemoglobin (Bld) [Mass/Vol] 12.8 g/dL Normal 12.0 - 16.0 [facility] Comment on above: Performed By: #### D HEAS #### [facility] [address] [place] [address] MCHC (RBC) [Mass/Vol] 33.9 g/dL Normal 32.0 - 36.0 [facility] Comment on above: Performed By: #### Murray HOWARD #### [facility] [address] [place] [address] MCV (RBC) [Entitic vol] 86 fL Normal 80 - 100 [facility] Comment on above: Performed By: #### Murray HOWARD #### [facility] [address] [place] [address] Platelets (Bld) [#/Vol] 283 10*3/uL Normal 150 - 450 [facility] Comment on above: Performed By: #### Murray HOWARD #### [facility] [address] [place] [address] RBC 4.41 x10E12/L Normal 4.00 - 5.20 [facility] Comment on above: Performed By: #### Murray HOWARD #### [facility] [address] [place] [address] WBC (Bld) [#/Vol] 7.5 10*3/uL Normal 4.4 - 11.3 [facility] Comment on above: Performed By: #### Murray HOWARD #### [facility] [address] [place] [address] COMPREHENSIVE PANELon 2021 Albumin [Mass/Vol] 4.7 g/dL Normal 3.4 - 5.0 [facility] Comment on above: Performed By: #### Murray HOWARD #### [facility] [address] [place] [address] ALP [Catalytic activity/Vol] 46 U/L Normal 33 - 110 [facility] Comment on above: Performed By: #### Murray HOWARD #### [facility] [address] [place] [address] ALT [Catalytic activity/Vol] 28 U/L Normal 7 - 45 [facility] Comment on above: Result Comment: Michelle ents treated with Sulfasalazine may generate falsely decreased results for ALT. Performed By: #### Murray HOWARD #### [facility] [address] [place] [address] Anion gap [Moles/Vol] 13 mmol/L Normal 10 - 20 [facility] Comment on above: Performed By: #### Murray HOWARD #### [facility] [address] [place] [address] AST [Catalytic activity/Vol] 18 U/L Normal 9 - 39 [facility] Comment on above: Performed By: #### Murray HOWARD #### [facility] [address] [place] [address] Bilirubin [Mass/Vol] 0.4 mg/dL Normal 0.0 - 1.2 [facility] Comment on above: Performed By: #### Murray HOWARD #### [facility] [address] [place] [address] Calcium [Mass/Vol] 9.5 mg/dL Normal 8.6 - 10.3 [facility] Comment on above: Performed By: #### Murray HOWARD #### [facility] [address] [place] [address] Chloride [Moles/Vol] 103 mmol/L Normal 98 - 107 [facility] Comment on above: Performed By: #### Murray HOWARD #### [facility] [address] [place] [address] Creatinine [Mass/Vol] 0.62 mg/dL Normal 0.50 - 1.05 [facility] Comment on above: Performed By: #### Murray HOWARD #### [facility] [address] [place] [address] eGFR FEMALE >90 Normal >90 [facility] Comment on above: Result Comment: CALC ULATIONS OF ESTIMATED GFR ARE PERFORMED USING THE 2020 CKD-EPI STUDY REFIT EQUATION WITHOUT THE RACE VARIABLE FOR THE IDMS-TRACEABLE CREATININE METHODS. https://jasn.asnjournals.org/content/early//ASN.4365459 988 Performed By: #### Murray HOWARD #### [facility] [address] [place] [address] Glucose [Mass/Vol] 82 mg/dL Normal 74 - 99 [facility] Comment on above: Performed By: #### Murray HOWARD #### [facility] [address] [place] [address] HCO3 (Bld) [Moles/Vol] 25 mmol/L Normal 21 - 32 [facility] Comment on above: Performed By: #### Murray HOWARD #### [facility] [address] [place] [address] Potassium [Moles/Vol] 3.9 mmol/L Normal 3.5 - 5.3 [facility] Comment on above: Performed By: #### Murray HOWARD #### [facility] [address] [place] [address] Protein [Mass/Vol] 7.5 g/dL Normal 6.4 - 8.2 [facility] Comment on above: Performed By: #### Murray HOWARD #### [facility] [address] [place] [address] Sodium [Moles/Vol] 137 mmol/L Normal 136 - 145 [facility] Comment on above: Performed By: #### Murray HOWARD #### [facility] [address] [place] [address] Urea nitrogen [Mass/Vol] 11 mg/dL Normal 6 - 23 [facility] Comment on above: Performed By: #### Murray HOWARD #### [facility] [address] [place] [address] DHEA SULFATEon 07-03-2022 DHEA SULFATE 233 ug/dL Normal 65 - 395 [facility] Comment on above: Result Comment: [facility] SOLANO-BASED REFERENCE RANGES: PUBERTAL (AMADOR) STAGE MALE FEMALE I 5 - 265 5 - 125 II 15 - 380 15 - 150 III 60 - 505 20 - 535 IV 65 - 560 35 - 485 V 165 - 500 75 - 530 Biotin interference may cause falsely elevated results. Patients taking a Biotin dose of up to 5 mg/day should refrain from taking Biotin for 24 hours before sample collection. Providers may contact their local laboratory for further information. Performed By: #### Murray HOWARD #### [facility] [address] [place], [place] Lab Specimen Source Normal [facility] Comment on above: Performed By: #### D HEAS #### [facility] [address] [place], [place] Performed By: #### H BSAG #### [facility] [address] [place], [place] Performed By: #### T [facility]ENTER[facility] #### [facility] [address] [place] [id number] DHEA Sulfate, Serumon 2021 DHEA-S [Mass/Vol] 233 ug/dL 65 - 395 MG-OBGY N-Ri sman 310 IVF Work Phone: Comment on above: SOURCE: [facility] ED REFERENCE RANGES: PUBERTAL (AMADOR) STAGE MALE FEMALE I 5 - 265 5 - 125 II 15 - 380 15 - 150 III 60 - 505 20 - 535 IV 65 - 560 35 - 485 V 165 - 500 75 - 530 Biotin interference may cause falsely elevated results. Patients taking a Biotin dose of up to 5 mg/day should refrain from taking Biotin for 24 hours before sample collection. Providers may contact their local laboratoryfor further information. GC + CHLAMYDIA BY AMPLIFIED DETECTIONon 07-03-2022 Lab Specimen Source Urine Normal [facility] Comment on above: Performed By: #### G CCHA #### [facility] [address] [place], [place] GC + Chlamydia By Amplified Detectionon 07-03-2022 C. trachomatis rRNA RONALD+probe Ql (Unsp spec) Negative Negative [facility]-OB[facility]N-Ri sman 310 IVF Work Phone: Comment on above: The APTIMA Combo 2 a ssay is FDA-approved for Chlamydia trachomatis and Neisseria gonorrhoeae testing on female endocervical and vaginal swabs, ThinPrep liquid pap samples, male urine samples and urethral swabs. Performance characteristics for Chlamydia trachomatis and Neisseria gonorrhoeae testing on specific vwt-UPB-hnnzahen sample types (female urine samples) have been validated by [facility]. This laboratory is certified by CLIA to perform high complexity testing. Samples from all other sites are not validated for this method. N. gonorrhoeae rRNA RONALD+probe Ql (Unsp spec) Negative Negative MG-OBGYN-Ri sman 310 IVF Work Phone: Comment on above: SOURCE: Urine The AP DANIELE Combo 2 assay is FDA-approved for Chlamydia trachomatis and Neisseria gonorrhoeae testing on female endocervical and vaginal swabs, ThinPrep liquid pap samples, male urine samples and urethral swabs. Performance characteristics for Chlamydia trachomatis and Neisseria gonorrhoeae testing on specific zzn-PAX-ilxpiouk sample types (female urine samples) have been validated by [facility]. This laboratory is certified by CLIA to perform high complexity testing. Samples from all other sites are not validated for this method. HIV 1/2 ANTIGEN/ANTIBODY SCR EEN WITH REFLEX TO CONFIRMATIONon 07-03-2022 HIV 1+2 Ab Qn (S) Non-Reactive See Below MG-CHILD CARE GIVER-Ri sman 310 IVF Work Phone: Comment on above: SOURCE: Reference Ra nge: NONREACTIVE HIV Ag/Ab screen is performed using the Siemens InSkin MediallCommitChange HIV Ag/Ab Combo assay which detects the presence of HIV p24 antigen as well as antibodies to HIV-1 (Group M and O) and HIV-2..No laboratory evidence of HIV infection. If acute HIV infection is suspected, consider testing for HIV RNA by PCR (viral load). Hemoglobin A1Con 07-03-2022 Glucose [Mass/Vol] 108 mg/dL MG-OBG YN-Ri sman 310 IVF Work Phone: HbA1c (Bld) [Mass fraction] 5.4 % [facility] Work Phone: Comment on above: Diagnosis of Diabete s-Adults Non-Diabetic: < or = 5.6% Increased risk for developing diabetes: 5.7-6.4% Diagnostic of diabetes: > or = 6.5%. Monitoring of Diabetes Age (y) Therapeutic Goal (%) Adults: >18 <7.0 Pediatrics: 13-18 <7.5 7-12 <8.0 0- 6 7.5-8.5 [employer]. Diabetes Care 33(S1), Nov 2009. Hepatitis B Surface Antigeno n 07-03-2022 Hepatitis B Surface Antigen Non-Reactive See Below Nathan Diaz IV[facility] Work Phone: Comment on above: SOURCE: Reference Ra nge: NONREACTIVE Biotin interference may cause falsely decreased results. Patients taking a Biotin dose of up to 5 mg/day should refrain from taking Biotin for 24 hours before sample collection. Providers may contact their local laboratory for further information. SOURCE: Reference Ra nge: NONREACTIVE Results from patients taking biotin supplements or receiving high-dose biotin therapy should be interpreted with caution due to possible interference with this test. Providers may contact their local laboratory for further information. LIPID PANEL (CORONARY RISK 2 )on 07-03-2022 Cholesterol [Mass/Vol] 145 mg/dL Normal 0 - 199 [facility] Comment on above: Result Comment: . AGE DESIRABLE BORDERLINE HIGH HIGH 0-19 Y 0 - 169 170 - 199 >/= 200 20-24 Y 0 - 189 190 - 224 >/= 225 >24 Y 0 - 199 200 - 239 >/= 240 All ranges are based on fasting samples. Specific therapeutic targets will vary based on patient-specific cardiac risk. . Pediatric guidelines reference:Pediatrics 2011, 128(S5). Adult guidelines reference: NCEP ATPIII Guidelines, MICHAEL 2001, 258:2486-97 . Venipuncture immediately after or during the administration of Metamizole may lead to falsely low results. Testing should be performed immediately prior to Metamizole dosing. Performed By: #### L IPID #### [facility] [address] [place] [address] Cholesterol in HDL [Mass/Vol] 46.2 mg/dL Normal [facility] Comment on above: Result Comment: . AGE VERY LOW LOW NORMAL HIGH 0-19 Y < 35 < 40 40-45 ---- 20-24 Y ---- < 40 >45 ---- >24 Y ---- < 40 40-60 >60 . Performed By: #### L IPID #### [facility] [address] [place] [address] Cholesterol in LDL [Mass/Vol] 70 mg/dL Normal 0 - 99 [facility] Comment on above: Result Comment: . NEAR BORD AGE DESIRABLE OPTIMAL HIGH HIGH VERY HIGH 0-19 Y 0 - 109 --- 110-129 >/= 130 ---- 20-24 Y 0 - 119 --- 120-159 >/= 160 ---- >24 Y 0 - 99 100-129 130-159 160-189 >/=190 . Performed By: #### L IPID #### [facility] [address] [place] [address] Cholesterol in VLDL [Mass/Vol] 29 mg/dL Normal 0 - 40 [facility] Comment on above: Performed By: #### L IPID #### [facility] [address] [place] [address] Cholesterol.total/Ch olesterol in HDL [Mass ratio] 3.1 {ratio} Normal [facility] Comment on above: Result Comment: REF VALUES DESIRABLE < 3.4 HIGH RISK > 5.0 Performed By: #### L IPID #### [facility] [address] [place] [address] Triglyceride [Mass/Vol] 144 mg/dL Normal 0 - 149 [facility] Comment on above: Result Comment: . AGE DESIRABLE BORDERLINE HIGH HIGH VERY HIGH 0 D-90 D 19 - 174 ---- ---- ---- 91 D- 9 Y 0 - 74 75 - 99 >/= 100 ---- 10-19 Y 0 - 89 90 - 129 >/= 130 ---- 20-24 Y 0 - 114 115 - 149 >/= 150 ---- >24 Y 0 - 149 150 - 199 200- 499 >/= 500 . Venipuncture immediately after or during the administration of Metamizole may lead to falsely low results. Testing should be performed immediately prior to Metamizole dosing. Performed By: #### L IPID #### [facility] [address] [place] [address] Laboratory - Blood bankon ABO group Nom (Bld) Canceled [facility]-CHILD CARE GIVER-Ri sman 310 IVF Work Phone: Comment on above: NO PHLEB ID NOTIFIED BOBBI DUMONT AT DR SLAUGHTER OFFICE, 07/04/2022 09:19 Blood group antibody screen Ql Canceled [facility]OB[facility]N-[facility] sman 310 IVF Work Phone: [phone] Comment on above: NO PHLEB ID NOTIFIED BOBBI DUMONT AT DR SLAUGHTER OFFICE, 07/04/2022 09:19 Rh immune globulin screen (Bld) [Interp] Canceled [facility] sman 310 IVF Work Phone: [phone] Comment on above: NO PHLEB ID NOTIFIED BOBBI DUMONT AT DR SLAUGHTER OFFICE, 07/04/2022 09:19 Laboratory - Chemistry and C hemistry - challengeon 07-03-2022 Albumin BCP dye [Mass/Vol] 4.7 g/dL 3.4 - 5.0 [facility]an 310 IVF Work Phone: [phone] ALP [Catalytic activity/Vol] 46 U/L 33 - 110 [facility] 310 IVF Work Phone: [phone] ALT With P-5'-P [Catalytic activity/Vol] 28 U/L 7 - 45 [facility] 310 IVF Work Phone: [phone] Comment on above: Patients treated wit h Sulfasalazine may generate falsely decreased results for ALT. Anion gap [Moles/Vol] 13 mmol/L 10 - 20 [facility] 310 IVF Work Phone: [phone] AST With P-5'-P [Catalytic activity/Vol] 18 U/L 9 - 39 [facility] sman 310 IVF Work Phone: [phone] Bilirubin [Mass/Vol] 0.4 mg/dL 0.0 - 1.2 MG-O BGYN-Ri sman 310 IVF Work Phone: [phone] Calcium [Mass/Vol] 9.5 mg/dL 8.6 - 10.3 MG-OBG YN-Ri sman 310 IVF Work Phone: [phone] Chloride [Moles/Vol] 103 mmol/L 98 - 107 MG-O BGYN-Ri sman 310 IVF Work Phone: [phone] CO2 [Moles/Vol] 25 mmol/L 21 - 32 MG-OBGYN- Ri sman 310 IVF Work Phone: [phone] Creatinine [Mass/Vol] 0.62 mg/dL See Below [facility]OB[facility]N-[facility]i sman 310 IVF Work Phone: [phone] Comment on above: Reference Range: 0.5 0 - 1.05 Glucose [Mass/Vol] 82 mg/dL 74 - 99 [facility]OBG YN-Ri sman 310 IVF Work Phone: [phone] Mullerian inhibiting substance [Mass/Vol] 4.71 ng/mL [facility]-OBGYN-Ri sman 320 Work Phone: [phone] Comment on above: For assays employing antibodies, the possibility exists forinterference by heterophile antibodies in the samples.11.Lyle Gu Interferences in Immunoassays - still a threat. Clin. Chem. 2000; 46: 5301-6261.This test was developed and its performance characteristicsdetermined by [employer]. It has not been cleared or approvedby the Food and Drug Administration.Reference Range:Females 26 - 30y: 1.03 - 11.10Median 4.20AMH concentrations of >= 1.06 ng/mL is correlated with abetter response to ovarian stimulation, produced moreretrievable oocytes and higher odds of live accordingto Helener et al. Fertility and Sterility. 2010:94:1289-6426. The current AMH test method correlates withthe study method with a slope of 0.94.Females at risk of ovarian hyperstimulation syndrome orpolycystic ovarian syndrome (PCOS) may exhibit elevatedserum AMH concentrations. AMH levels from PCOS patientsmay be 2 to 5 fold higher than age-appropriate referenceinterval values.Granulosa cell tumors of the ovary may secrete AMH alongwith other tumor markers. Elevated AMH is not specific formalignancy, and the assay should not be used exclusively todiagnose or exclude an AMH-secreting ovarian tumor. Potassium [Moles/Vol] 3.9 mmol/L 3.5 - 5.3 [facility]OB[facility]N-[facility]i sman 310 IVF Work Phone: [phone] Protein [Mass/Vol] 7.5 g/dL 6.4 - 8.2 [facility] Work Phone: [phone] Sodium [Moles/Vol] 137 mmol/L 136 - 145 [facility]-OBG YN-Ri sman 310 IVF Work Phone: Testosterone [Mass/Vol] 23 ng/dL 2-45 [facility]OB[facility]N-[facility]i sman 320 Work Phone: Comment on above: For additional infor jung, please refer tohttp://education.[employer]/faq/TotalTestosteroneLCMS [email or web address](This link is being provided for informational/educational purposes only.) This test was developed and its analytical performancecharacteristics have been determined by [facility] [place], [place]. It hasnot been cleared or approved by the U.S. Food and DrugAdministration. This assay has been validated pursuantto the CLIA regulations and is used for clinicalpurposes. Testosterone Free [Mass/Vol] 6.1 pg/mL 0.1-6.4 [facility]-OBGYN-Ri sman 320 Work Phone: Comment on above: This test was develo ped and its analytical performancecharacteristics have been determined by [facility] [place], [place]. It hasnot been cleared or approved by the U.S. Food and DrugAdministration. This assay has been validated pursuantto the CLIA regulations and is used for clinicalpurposes. TSH Qn 1.66 m[IU]/L See Below [facility]OBGYN-Ri sman 310 IVF Work Phone: Comment on above: Reference Range: 0.4 4 - 3.98 TSH testing is performed using different testing methodology at [facility] than at other [facility]. Direct result comparisons should only be made within the same method. Urea nitrogen [Mass/Vol] 11 mg/dL 6 - 23 [facility]OBGYN-Ri sman 310 IVF Work Phone: Laboratory - Hematology and Cell countson 07-03-2022 Erythrocyte distribution width (RBC) [Ratio] 12.8 % See Below [facility]OBGYN-Ri sman 310 IVF Work Phone: Comment on above: Reference Range: 11. 5 - 14.5 Hematocrit (Bld) [Volume fraction] 37.8 % See Below [facility]OBGYN-Ri sman 310 IVF Work Phone: [phone] Comment on above: Reference Range: 36. 0 - 46.0 Hemoglobin (Bld) [Mass/Vol] 12.8 g/dL See Below [facility]-OBGYN-Ri sman 310 IVF Work Phone: [phone] Comment on above: Reference Range: 12. 0 - 16.0 MCHC (RBC) [Mass/Vol] 33.9 g/dL See Below [facility]OBGYN-Ri sman 310 IVF Work Phone: [phone] Comment on above: Reference Range: 32. 0 - 36.0 MCV (RBC) [Entitic vol] 86 fL 80 - 100 [facility]OB[facility]N-[facility]i sman 310 IVF Work Phone: [phone] Platelets (Bld) [#/Vol] 283 10*3/uL 150 - 450 [facility]OBGYN-Ri sman 310 IVF Work Phone: [phone] RBC (Bld) [#/Vol] 4.41 {x10E12/L} See Below MG -OBGYN-Ri sman 310 IVF Work Phone: [phone] Comment on above: Reference Range: 4.0 0 - 5.20 WBC (Bld) [#/Vol] 7.5 10*3/uL 4.4 - 11.3 MG-OBG YN-Ri sman 310 IVF Work Phone: [phone] Lipid Panelon 07-03-2022 Cholesterol [Mass/Vol] 145 mg/dL 0 - 199 [facility]N-[facility] sman 310 IVF Work Phone: [phone] Comment on above: . AGE DESIRABLE BORD JENNIFER HIGH HIGH 0-19 Y 0 - 169 170 - 199 >/= 200 20-24 Y 0 - 189 190 - 224 >/= 225 >24 Y 0 - 199 200 - 239 >/= 240 All ranges are based on fasting samples. Specific therapeutic targets will vary based on patient-specific cardiac risk.. Pediatric guidelines reference:Pediatrics 2011, 128(S5). Adult guidelines reference: NCEP ATPIII Guidelines, MICHAEL 2001, 258:2486-97. Venipuncture immediately after or during the administration of Metamizole may lead to falsely low results. Testing should be performed immediately prior to Metamizole dosing. Cholesterol in HDL [Mass/Vol] 46.2 mg/dL MG-OBGYN-Ri sman 310 IVF Work Phone: Comment on above: . AGE VERY LOW LOW N ORMAL HIGH 0-19 Y < 35 < 40 40-45 ---- 20- 24 Y ---- < 40 >45 ---- >24 Y ---- < 40 40-60 >60. Cholesterol in LDL [Mass/Vol] 70 mg/dL 0 - 99 [facility]OB[facility]N-Ri sman 310 IVF Work Phone: Comment on above: . NEAR BORD AGE PJ RABLE OPTIMAL HIGH HIGH VERY HIGH 0-19 Y 0 - 109 --- 110-129 >/= 130 ---- 20-24 Y 0 - 119 --- 120-159 >/= 160 ---- >24 Y 0 - 99 100-129 130-159 160-189 >/=190. Cholesterol.total/Ch olesterol in HDL [Mass ratio] 3.1 {ratio} [facility]-OBGYN-Ri sman 310 IVF Work Phone: Comment on above: REF VALUESDESIRABLE < 3.4HIGH RISK > 5.0 Triglyceride [Mass/Vol] 144 mg/dL 0 - 149 [facility]OBGYN-Ri sman 310 IVF Work Phone: Comment on above: . AGE DESIRABLE BORD JENNIFER HIGH HIGH VERY HIGH 0 D-90 D 19 - 174 ---- ---- ----91 D- 9 Y 0 - 74 75 - 99 >/= 100 ---- 10-19 Y 0 - 89 90 - 129 >/= 130 ---- 20-24 Y 0 - 114 115 - 149 >/= 150 ---- >24 Y 0 - 149 150 - 199 200- 499 >/= 500. Venipuncture immediately after or during the administration of Metamizole may lead to falsely low results. Testing should be performed immediately prior to Metamizole dosing. Lipid Panel 29 mg/dL 0 - 40 [facility]OBGYN-Ri sman 310 IVF Work Phone: No Panel Informationon 07-03 Please click on the link to view the study images Normal MG-OBGYN-Ri sman 310 IVF Work Phone: >90 >90 MG-OBGYN-Ri sman 310 IVF Work Phone: Comment on above: CALCULATIONS OF BOLIVAR MATED GFR ARE PERFORMED USING THE 2020 CKD-EPI STUDY REFIT EQUATION WITHOUT THE RACE VARIABLE FOR THE IDMS-TRACEABLE CREATININE METHODS.https://jasn.asnjournals.org/content/early/ASN .0875434052 ADVERTISING ACCOUNT REPRESENTATIVE - Procedure Visiton 0 07-03-2022 ADVERTISING ACCOUNT REPRESENTATIVE - Procedure Visit Diagnoses/Problems Abnormal radiograph (793.99) (R93.89) Orders Abnormal radiograph Start: Doxycycline Hyclate 100 MG Oral Capsule; TAKE 1 CAPSULE EVERY 12 HOURS DAILY Patient Discussion/Summary Findings: Uterus - normal contour without filling defects Tubes- bilateral patency with normal architecture. Mild loculation midsection noted bilaterally with free spill bilaterally into pelvis [] No further follow up required [X] Further follow up required - chart forwarded to primary DR. Esthela MONSALVE Images reviewed by DR. Proctor The patient was counseled re the above findings and shown pictures at the time of the exam. Patient to start Doxycycline 100 mg 1 BID x 5 days due to fluid loculation noted bilateral right/left tubes per Dr. Proctor. Juanita Leung CNP Reproductive Endocrinology and Infertility 07-03-2022 @ 1413 Provider Impressions Findings: Normal SIS Uterus - normal contour without filling defects Tubes- bilateral patency with normal architecture. Mild loculation midsection noted bilaterally with free spill bilaterally into pelvis [X] No further follow up required [] Further follow up required - chart forwarded to primary DR. Esthela MONSALVE Images reviewed by DR. Proctor The patient was counseled re the above findings and shown pictures at the time of the exam. Patient to start Doxycycline 100 mg 1 BID x 5 days due to fluid loculation noted bilateral right/left tubes per Dr. Proctor. Juanita Leung [facility] Reproductive Endocrinology and Infertility 07-03-2022 @ 1413 Chief Complaint patient presents for an HSG Active Problems Problems Class 3 severe obesity without serious comorbidity with body mass index (BMI) of 45.0 to 49.9 in adult, unspecified obesity type (278.01,V85.42) (E66.01,Z68.42) Encounter for blood typing (V72.86) (Z01.83) Encounter for preconception consultation (V26.49) (Z31.69) Fertility testing (V26.21) (Z31.41) Irregular menstrual cycle (626.4) (N92.6) Routine screening for STI (sexually transmitted infection) (V74.5) (Z11.3) Screening for diabetes mellitus (V77.1) (Z13.1) Screening for thyroid disorder (V77.0) (Z13.29) Social History Problems 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 Procedural time out Done in room where procedure done: YES Done just before starting procedure: YES All members of procedural team involved in time-out: YES Active communication used: YES All team members agreed on procedure: YES Patient correctly identified by two identifiers: YES Correct side and site identified YES All needed special equipment/instruments available: YES Prior to the start of the procedure a time out was taken and the following were verified: the identity of the patient using two patient identifiers. Urine test was performed and was negative. Risks, benefits, and alternatives of the procedure were explained to the patient and informed consent was obtained. The patient was placed in the dorsal lithotomy position and a sterile speculum was placed in the vagina. The cervix was sterilized with Betadine x 3. The anterior lip of the cervix was grasped with a single-tooth tenaculum. The acorn cannula was then placed in the cervix and secured to the tenaculum. The patient was positioned and images were taken with fluoroscopy as dye was inserted through the cannula. All instruments were then removed. The patient tolerated the procedure well and was discharged home the same day without complications. Findings: Uterus - normal contour without filling defects Tubes- bilateral patency with normal architecture. Mild loculation midsection noted bilaterally with free spill bilaterally into pelvis [X] No further follow up required [] Further follow up required - chart forwarded to primary MD, DR. Proctor Images reviewed by DR. Proctor The patient was counseled re the above findings and shown pictures at the time of the exam. Patient to start Doxycycline 100 mg 1 BID x 5 days due to fluid loculation noted bilateral right/left tubes per Dr. Proctor. Juanita Leung CNP Reproductive Endocrinology and Infertility 07-03-2022 @ 1413 Attending Note Attendee role: I saw and evaluated the patient. I personally obtained the gomes and critical portions of the history and physical exam or was physically present for gomes and critical portions performed by the trainee. I reviewed the trainee's documentation and discussed the patient with the trainee. I agree with the trainee's medical decision making, as documented on the trainee's note. Procedure Note Attestation I supervised the entire procedure . (more content not included)... [facility] PROGESTERONEon 07-03-2022 PROGESTERONE 0.4 ng/mL Normal [facility] Comment on above: Result Comment: Prog esterone is performed using the [employer] Access Immunoassay. Progesterone testing is performed using a different test methodology at [facility] than other [facility]. Direct result comparison should only be made within the same method. REF VALUES MALE <0.2-0.8 FOLLICULAR PHASE <0.2-1.5 LUTEAL PHASE 7.4-15.4 POSTMENOPAUSAL <0.2-0.2 1ST TRIMESTER 12.0-84.0 2ND TRIMESTER 10.2-58.8 3RD TRIMESTER 46.5-160 Performed By: #### T HYDS #### [facility] [address] [place] [address] PROLACTINon 07-03-2022 PROLACTIN 10.5 ug/L Normal 3.0 - 20.0 [facility] Comment on above: Performed By: #### D HEAS #### [facility] [address] [place] [address] Progesterone, Serumon 2021 Progesterone [Mass/Vol] 0.4 ng/mL MG-OBGYN-Ri sman 310 IVF Work Phone: Comment on above: Progesterone is perf ormed using the [employer] Access Immunoassay. Progesterone testing is performed using a different test methodology at [facility] than other [facility]. Direct result comparison should only be made within the same method.REF VALUESMALE <0.2-0.8 FOLLICULAR PHASE <0.2-1.5 LUTEAL PHASE 7.4-15.4 POSTMENOPAUSAL <0.2-0.2 1ST TRIMESTER 12.0-84.0 2ND TRIMESTER 10.2-58.8 3RD TRIMESTER 46.5-160 Prolactin, Serumon 2 Prolactin [Mass/Vol] 10.5 ug/L 3.0 - 20.0 MG-O BGYN-Ri sman 310 IVF Work Phone: Comment on above: SOURCE: Rubella IgG Antibodyon 07-03 Rubella virus IgG IA Ql Positive [facility]-OBGYN-Ri sman 310 IVF Work Phone: Comment on above: INTERPRETATIVE COMME NT NEGATIVE: No IgG antibodies specific to Rubella detected. It is likely that the patient has not had a previous exposure to Rubella through infection or vaccination. Alternatively, the patient may have been exposed to Rubella but a failure to respond may indicate immunodeficiency. EQUIVOCAL:Equivocal results; obtain additional sample for retesting. POSITIVE: IgG antibody to Rubella detected. This may indicate that the patient was exposed to Rubella through infection or vaccination.The interpretation of serological tests should take into accountthe immunological status of the patient. Test results forpatients, including immunocompromised patients, neonates, andpediatric patients, reflect their capacity to respondimmunologically to the virus as well as their exposure to thepathogen. Patients treated with IVIG may demonstrate alteredresults in serological assays. SYPHILIS SCREENING WITH REFL EXon 07-03-2022 T. pallidum IgG+IgM IA Ql (S) Non-Reactive See Below [facility]N-[facility]i sman 310 IVF Work Phone: Comment on above: SOURCE: Reference Ra nge: NONREACTIVENo significant level of Treponema pallidum antibody detected. Repeat testing in 2 to 4 weeks may be considered if early infection or incubating syphilis infection is suspected. TSH WITH REFLEX TO FREE T4 I F ABNORMALon 07-03-2022 TSH Qn 1.66 m[IU]/L Normal 0.44 - 3.98 [facility] Comment on above: Result Comment: TSH testing is performed using different testing methodology at [facility] than at other [facility]. Direct result comparisons should only be made within the same method. Performed By: #### T EMMETT #### [facility] [address] [place] [address] TYPE + SCREENon 07-03-2022 ABO TYPE Canceled Normal [facility] Comment on above: Order Comment: NO PH LEB ID NOTIFIED BOBBI DUMONT AT DR SLAUGHTER OFFICE, 07/04/2022 09:19TEST TYPE + SCREEN WAS CANCELLED, 07/03/2022 21:17 no phleb id. Result Comment: NO P HLEB ID NOTIFIED BOBBI DUMONT AT DR SLAUGHTER OFFICE, 07/04/2022 09:19 Performed By: #### D LEE #### [facility] [address] [place] [address] RH TYPE Canceled Normal [facility] Comment on above: Order Comment: NO PH LEB ID NOTIFIED BOBBI DUMONT AT DR SLAUGHTER OFFICE, 07/04/2022 09:19TEST TYPE + SCREEN WAS CANCELLED, 07/03/2022 21:17 no phleb id. Result Comment: NO P HLEB ID NOTIFIED BOBBI DUMONT AT DR SLAUGHTER OFFICE, 07/04/2022 09:19 Performed By: #### D HEAS #### [facility] [address] [place] [address] Varicella Zoster IgG Antibod yon 07-03-2022 VZV IgG IA Ql (S) Positive NEGATIVE MG-OBGY N-Ri sman 310 IVF Work Phone: Comment on above: INTERPRETATIVE COMME NT NEGATIVE: No IgG antibodies specific to VZV detected. It is likely that the patient has not had a previous exposure to VZV through infection or vaccination. Alternatively, the patient may have been exposed to VZV but a failure to respond may indicate immunodeficiency. EQUIVOCAL:Equivocal results; obtain additional sample for retesting. POSITIVE: IgG antibody to VZV detected. This may indicate that the patient was exposed to VZV through infection or vaccination.The interpretation of serological tests should take into accountthe immunological status of the patient. Test results forpatients, including immunocompromised patients, neonates, andpediatric patients, reflect their capacity to respondimmunologically to the virus as well as their exposure to thepathogen. Patients treated with IVIG may demonstrate alteredresults in serological assays. ADVERTISING ACCOUNT REPRESENTATIVE - Office Visiton 08-0 ADVERTISING ACCOUNT REPRESENTATIVE - Office Visit Diagnoses/Problems Assessed Routine screening for STI (sexually transmitted infection) (V74.5) (Z11.3) Irregular menstrual cycle (626.4) (N92.6) Screening for thyroid disorder (V77.0) (Z13.29) Fertility testing (V26.21) (Z31.41) Encounter for preconception consultation (V26.49) (Z31.69) Encounter for blood typing (V72.86) (Z01.83) Screening for diabetes mellitus (V77.1) (Z13.1) Class 3 severe obesity without serious comorbidity with body mass index (BMI) of 45.0 to 49.9 in adult, unspecified obesity type (278.01,V85.42) (E66.01,Z68.42) Orders Complete Blood Count; Status:Active; Requested for:[id number]; Comprehensive Metabolic Panel; Status:Active; Requested for:[id number]; Lipid Panel; Status:Active; Requested for:[id number]; Type and Screen; Status:Active; Requested for:[id number]; Rubella IgG Antibody; Status:Active; Requested for:[id number]; Varicella Zoster IgG Antibody; Status:Active; Requested for:[id number]; Anti Mullerian Hormone; Status:Active; Requested for:[id number]; Xray Hysterosalpingogram; Status:Hold For - Scheduling; Requested for:[id number]; Radiologist to Determine Optimal Study : Y What are the patient's signs and symptoms? : fertility testing r/o PCOS IO Ultrasound, pelvic complete; Status:Hold For - Scheduling; Requested for:[id number]; Radiologist to Determine Optimal Study : Y What are the patient's signs and symptoms? : fertility testing r/o PCOS Progesterone, Serum; Status:Active; Requested for:[id number]; 17-Hydroxyprogesterone, Serum; Status:Active; Requested for:[id number]; DHEA Sulfate, Serum; Status:Active; Requested for:[id number]; Prolactin, Serum; Status:Active; Requested for:[id number]; Testosterone Free + Total; Status:Active; Requested for:12Jun2022; GC + Chlamydia By Amplified Detection; Status:Active; Requested for:12Jun2022; Hepatitis B Surface Antigen; Status:Active; Requested for:12Jun2022; Hepatitis C Antibody Test; Status:Active; Requested for:12Jun2022; HIV 1/2 ANTIGEN/ANTIBODY SCREEN WITH REFLEX TO CONFIRMATION; Status:Active; Requested for:12Jun2022; SYPHILIS SCREENING WITH REFLEX; Status:Active; Requested for:12Jun2022; Hemoglobin A1C; Status:Active; Requested for:12Jun2022; TSH WITH REFLEX TO FREE T4 IF ABNORMAL; Status:Active; Requested for:12Jun2022; Tobacco Use Screening; Status:Complete; Done: 12Jun2022 Patient Discussion/Summary Partner is scheduled to have bariatric surgery next week, Partner prefers to have SA prior to surgery next week r/t hx of testosterone use would like to know now if he needs consult with Dr. Renee. Discussed with pt that while her partner is recovering from bariatric surgery it could be a good opportunity for her to seek treatment with our Comprehensive weight loss team, pt agreeable. We discussed causes of infertility including hormonal, egg quality issues, structural problems such as endometriosis, adhesions, or tubal problems, uterine factors such as polyps or fibroids, and sperm issues. Reviewed evaluation of such as well. We discussed methods for achieving in some detail including superovulation and IVF. We discussed the impact of obesity on fertility and outcomes, including increased risk of miscarriage, gestational diabetes, preeclampsia, IUGR, and still . We discussed the importance of weight loss for optimizing fertility and outcomes. PLAN IMAGING [X ] Pelvic US with antral follicle count [X ] HSG: call with next period to schedule LABS [X] AMH [X] TSH [X] Prolactin [X ] Testosterone, DHEAS, 17 OHP, progesterone [X ] HgA1C [X] CBC, CMP, Lipid Panel PRECONCEPTION [X ] Preconceptual screening including Rubella,Varicella, Blood type, STD screening [ ] Genetic Screen patient or Waiver, fully discussed pt declined today but may consider if her insurance covers PARTNER [X ] Semen analysis, STD screening [ ] Genetic Screen partner or Waiver, fully discussed pt declined today but may consider if her insurance covers FOLLOW UP [X ] MFM consult, indication: BMI 48 [X] Weight loss consult with OFFICE SPEC [X] New infertility/PCOS packet [X ] Engaged MD modules [X] Treatment authorization provided to patient [X ] Take vitamins, vitamin D 2000 IUs daily Provider Impressions 27 year old G0 female with a previous diagnosis to PCOS and 12 months of treatment with OI meds and TIC without conception. Pt also with dysmenorrhea. Comorbidities: pt with BMI 48 Partner is scheduled to have bariatric surgery next week, no male evaluation to date, history of testosterone use > 1 year ago. Partner is scheduled to have bariatric surgery next week, Partner prefers to have SA prior to surgery next week r/t hx of testosterone use would like to know now if he needs consult with Dr. Renee. Discussed with pt that while her partner is recovering from bariatric surgery it could be a good opportunity for her to seek treatment with our Comprehensive weight loss team, pt ag (more content not included)... Normal [employer] Tobacco Screening.on Fall risk assessment a) No falls within the last year MG-OBGYN-Ri sman 320 Work Phone: Last menstrual period start date [id number] [facility]-OBGYN-Ri sman 320 Work Phone: Tobacco use status CPHS b) No MG-OBGYN-Ri sman 320 Work Phone: Progesteroneon 10-23-2021 Progesterone 3.76 ng/mL [employer] Comment on above: FEMALE (healthy): Follicular phase 0.06-0.89 Ovulation phase 0.12-12.00 Luteal phase 1.83-23.90 Postmenopausal <0.13 [employer] Progesteroneon 09-21-2021 Progesterone 4.48 ng/mL [employer] Comment on above: FEMALE (healthy): Follicular phase 0.06-0.89 Ovulation phase 0.12-12.00 Luteal phase 1.83-23.90 Postmenopausal <0.13 [employer] Family Medicine Video Visit - Telehealthon 09-08-2021 Family Medicine Video Visit - Telehealth Chief Complaint pt having video visit via amwell c/o nasal congestion, prod cough of white phlegm, itchy throat, minor SOB. sx's started 09/05/21. denies fevers, kent's or chills, no loss of taste or smell, n/v/d. tested pos for covid 09/06/21. History of Present Illness Patient presents for a telehealth video visit. Generally very good health but was exposed to her grandfather who tested positive for Covid in the last couple days. She has had mild symptoms of nasal congestion cough with white phlegm scratchy throat for about 4 days. She tested +09/06. 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 Her is home quarantine also but he is asymptomatic. He had the disease process last fall. She has mild shortness of breath with walking around but feels this is more related to her obesity. Not having any vomiting or diarrhea minimal headache no taste or smell disturbance. She does use Metformin for polycystic ovaries. Does not have any hypertension Review of Systems ROS - Provider Constitutional: no fever, chills,sweats or weakness. HEENT: See HPI Respiratory: See HPI. Cough is worse at night Cardiovascular: no palpitations,edema,syncope or chest pain. Gastrointestinal: no nausea/vomiting, diarrhea/bowel change. no acute reflux or anorexia Genitourinary: Deferred. Endocrinologic: No acute weight change Neuropsych: Negligible headache Musculoskeletal: Denies arthralgias or myalgias Integumentary: Denies any rash Physical Exam Vitals & Measurements HT: 170.0 cm HT: 170 cm WT: 129.9 kg WT: 129.9 kg BMI: 44.95 Constitutional: Nontoxic appearance. Well-groomed adequately hydrated HEENT: Grossly normal hearing. Conjunctive are clear. Reports no palpable adenopathy in the neck. Oropharynx appears pink and moist. Moderate nasal congestion Cardiothoracic: No cyanosis. Respiratory: Does have a harsh dry cough no respiratory distress no conversational dyspnea Abdomen/GI: Overweight Genitourinary: Deferred Musculoskeletal: Well-developed. Moving all limbs ambulatory in the house Neurologic: No acute neurologic deficits or tremors Integument: Skin is pale no visible rash Psychiatric: Pleasant cooperative insightful Assessment/Plan 1. COVID-19 viremia (U07.1: COVID-19) We discussed anticipated course. She has negligible risk factors other than obesity. Suggesting lying prone to coughing secretions. Suggest baby aspirin as well as vitamin D 1000 units daily. She should maintain fluids activity to tolerance, continue quarantine for 10 days. Needs first to seek emergent care including acute shortness of breath or chest pain reviewed. 2. Shortness of breath (R06.02: Shortness of breath) See problem #1 3. Cough (R05: Cough) See problem #1 4. Morbid obesity (E66.01: Morbid (severe) obesity due to excess calories) Calorie restriction along with routine aerobic exercises discussed in order to avoid hypertension, osteoarthritis, metabolic syndrome and/or worsening of chronic underlying disease states. 5. BMI 40.0-44.9, adult (Z68.41: Body mass index [BMI] 40.0-44.9, adult) See #4 Patient or Guardian reported vitals: Temp: _ Wt: _ Ht: _ BP: _ HR: _ Sp02: _See the flowsheet This visit was conducted via two-way, real-time interactive video communications from my office using [employer] due to the restrictions of the COVID-19 pandemic. No physical exam was conducted other than those areas of the body visible to telecommunications with the patient located at [address] [place] [address] [address] [place] [phone], with spouse in attendance. If it is determined that the patient should be evaluated in the clinic, the patient will be directed to the appropriate clinic or venue. The patient or their guardian verbally consented to this visit. Total time spent preparing the chart, conducting the encounter with the patient and family, and time spent documenting, reviewing, and ordering tests was 10 minutes. Follow-up No qualifying data available Patient Education COVID-19 Frequently Asked Questions Problem List/Past Medical History Ongoing Blood pressure elevated without history of HTN BMI 40.0-44.9, adult Cough COVID-19 viremia High risk medication use Morbid obesity PCOS (polycystic ovarian syndrome) Shortness of breath Historical Migraines Procedure/Surgical History Tonsillectomy and adenoidectomy. Medications clomiPHENE, See Instructions metformin 500 mg Tab, 500 mg= 1 tab(s), Oral, BID Allergies No Known Allergies Social History Alcohol - Denies Alcohol Use, 07/29/2014 Substance Abuse - Denies Substance Abuse, 07/29/2014 Tobacco - Denies Tobacco Use, 07/29/2014 Never (less than 100 in lifetime) Tobacco Use:. Never Smokeless Tobacco Use:., 09/08/2021 Family History Alcoholism: Father. Asthma: Brother. Migraine: Mother and Brother. Immunizations Vaccine Date Status Comments influenza virus vaccine, inactivated - Not Given Patient Refuses SARS-CoV-2 (COVID-19) Ad26 vaccine - Not Given (more content not included)... Normal [facility] Comment on above: Result Comment: Elec tronically Signed By: PATRICIA MONSALVE, Chey\.br\Date and Time Signed: 09/08/21 17:24 EDT ProgesteroneOrdered By: Olamide Perez on 08-18-2021 Progesterone 2.71 ng/mL [employer] Phone: Comment on above: FEMALE (healthy): Follicular phase 0.06-0.89 Ovulation phase 0.12-12.00 Luteal phase 1.83-23.90 Postmenopausal <0.13 [employer] Phone: Progesteroneon 08-23-2020 Progesterone 5.78 ng/mL [facility] Comment on above: Result Comment: FEMALE (healthy): Follicular phase 0.06-0.89 Ovulation phase 0.12-12.00 Luteal phase 1.83-23.90 Postmenopausal <0.13 Performed By: #### P ANICETO #### [employer] [address] [place], [place] [id number] Boiler Room Operator: Tyron Golden MD Chlamydia/GC DNA, TPon 03-23 Chlamydia Probe, TP Negative Normal NEG [facility] Comment on above: Result Comment: CHLA MYDIA TRACHOMATIS DNA not detected by nucleic acid amplification. This test is intended for medical purposes only and is not valid for the evaluation of suspected sexual abuse or for other forensic purposes. In certain contexts, culture may be required to meet applicable laws and regulations for diagnosis of C. trachomatis and N. gonorrhoeae infections. Per 2014 CDC recommendations, this test does not include confirmation of positive results by an alternative nucleic acid target. Performed By: #### C YTCGP #### [employer] [address] [place], [place] [id number] Boiler Room Operator: Tyron Golden MD Gonorrhea Probe, TP Negative Normal NEG [facility] Comment on above: Result Comment: NEIS SERIA GONORRHOEAE DNA not detected by nucleic acid amplification. This test is intended for medical purposes only and is not valid for the evaluation of suspected sexual abuse or for other forensic purposes. In certain contexts, culture may be required to meet applicable laws and regulations for diagnosis of C. trachomatis and N. gonorrhoeae infections. Per 2014 CDC recommendations, this test does not include confirmation of positive results by an alternative nucleic acid target. Performed By: #### C YTCGP #### [employer] [address] [place] [address] [phone] Boiler Room Operator: Tyron Golden MD Cytologyon 03-19-2020 Cytology (NOTE) INTERPRETATION Cervical material, (ThinPrep vial, Imaging-assisted review): Specimen Adequacy: Satisfactory for evaluation. - Endocervical/transformation zone component present. Descriptive Diagnosis: Negative for intraepithelial lesion or malignancy. Reactive cellular changes associated with inflammation. Door To Door Selling Distributor: DEAN Samson M.D. Electronically Signed Out rdd/03/23/2020 Source: 1: Cervical material, (ThinPrep vial, Imaging-assisted review) Clinical History Z12.4 Encounter for screening for malignant neoplasm of cervix High Risk HPV DNA testing is requested if the diagnosis is ASC-US LMP: 11/19/2019 GYNECOLOGIC CYTOLOGY REPORT Patient Name: SANDRA BYRD [facility] Rec: [id number] Path Number: [id number] [facility] ANATOMIC PATHOLOGY [address] [place] [address]. [place], [place] [address] Normal [facility] Comment on above: Performed By: #### P PPVP #### [employer] [address] [place] [address] [id number] Boiler Room Operator: Tyron Golden MD Follicle Stim. Hormon 2019 Follicle Stim. Horm 6.0 U/L Normal 1.7-21.5 [facility] Comment on above: Result Comment: Refe rence Range: Male: 1.5-12.4 Ovulating Female: Follicular Phase 3.5-12.5 Ovulation Phase 4.7-21.5 Luteal Phase 1.7-7.7 Postmenopausal Female: 25.8-134.8 Performed By: #### G LYHGB #### [address] [place], [place] [phone] Boiler Room Operator: Bridger Samson MD #### FSH, LH, PROL #### [place] [address] [place], [place] [id number] Boiler Room Operator: Tyron Golden MD Follicle Stimulating Hormone on 03-19-2020 FSH 6 U/L 1.7 - 21.5 U/L [place], [place] Comment on above: Reference Range: Male: 1.5-12.4 Ovulating Female: Follicular Phase 3.5-12.5 Ovulation Phase 4.7-21.5 Luteal Phase 1.7-7.7 Postmenopausal Female: 25.8-134.8 Hemoglobin A1Con 03-19-2020 HbA1c (Bld) [Mass fraction] 5.6 % Normal 4.8-5.9 [facility] Comment on above: Performed By: #### G LYHGB #### [address] [place] [id number] Boiler Room Operator: Bridger Samson MD #### FSH, LH, PROL #### [place] [place], [place] [id number] Boiler Room Operator: Tyron Golden MD HbA1c (Bld) [Mass fraction] 114 mg/dL Normal [facility] Comment on above: Result Comment: The ADA and AACC recommend providing the estimated average glucose result to permit better patient understanding of their HBA1c result. Performed By: #### G LYHGB #### [address] [place] [address] Boiler Room Operator: Bridger Samson MD #### FSH, LH, PROL #### [facility] [address] [place], [place] [phone] Boiler Room Operator: Tyron Golden MD Glucose [Mass/Vol] 114 mg/dL [place], [place] Comment on above: The ADA and AACC rec ommend providing the estimated average glucose result to permit better patient understanding of their HBA1c result. HbA1c (Bld) [Mass fraction] 5.6 % 4.8 - 5.9 % [place], [place] Luteinizing Hormoneon 2019 Luteinizing Hormone 12.4 U/L Normal 1.0-95.6 [facility] Comment on above: Result Comment: Refe rence Range: Male: 1.7-8.6 Ovulating Female: Follicular Phase 2.4-12.6 Ovulation Phase 14.0-95.6 Luteal Phase 1.0-11.4 Postmenopausal Female: 7.7-58.5 Performed By: #### G LYHGB #### [address] [place] [address] Boiler Room Operator: Bridger Samson MD #### FSH, LH, PROL #### [facility] [address] [place] [address] Boiler Room Operator: Tyron Golden MD LH 12.4 U/L 1 - 95.6 U/L [place], [place] Comment on above: Reference Range: Male: 1.7-8.6 Ovulating Female: Follicular Phase 2.4-12.6 Ovulation Phase 14.0-95.6 Luteal Phase 1.0-11.4 Postmenopausal Female: 7.7-58.5 Prolactinon 03-19-2020 Prolactin 13.01 ug/L Normal 4.79-23.30 [facility] Comment on above: Result Comment: The presence of macroprolactin may cause interference in female patients with various endocrinological diseases or during . Performed By: #### G LYHGB #### [facility] [place] [facility] [address] [place] [address] [place] [address] Boiler Room Operator: Bridger Samson MD #### FSH, LH, PROL #### [facility] [address] [place] [address] Boiler Room Operator: Tyron Golden MD Prolactin 13.01 ug/L 4.79 - 23.3 ug/L [place], [place] Comment on above: The presence of macr oprolactin may cause interference in female patients with various endocrinological diseases or during . TSH w/reflex to FT4on 2019 TSH Qn 2.55 m[IU]/L Normal 0.30-5.00 [facility] Comment on above: Performed By: #### T SHX #### [facility] [place] [facility] [address] [place] [address] Boiler Room Operator: Bridger Samson MD TSH with Reflexon 03-19-2020 TSH Qn 2.55 m[IU]/L [facility] [place], [place] Vital Signs Date Time Vital Sign Value Performing Clinician Lunai magy 07-24-2022 09:29-0400 Body height 170.18 cm Referring Provider Unknown UY-CXPEV-Ucpsrk 320 Work Phone: 07-24-2022 09:29-0400 Body mass index (BMI) [Ratio] 48.08 kg/m2 Referring Provider Unknown YH-DQSBR-Bulfvu 320 Work Phone: 07-24-2022 09:29-0400 Body surface area Derived from formula 2.43 m2 Referring Provider Unknown DR-NYLNF-Mffvyv 320 Work Phone: 07-24-2022 09:29-0400 Body weight 139.26 kg Referring Provider Unknown IF-RILNI-Yoxijt 320 Work Phone: 07-24-2022 09:29-0400 0 1 Referring Provider Unknown TP-GEOGO-Xuhxoc 320 Work Phone: Comment on above: GRAV PARA [employer] 06-12-2022 09:05-0400 Body height 170.18 cm Referring Provider Unknown WC-XSKTI-Hpvujb 320 Work Phone: 06-12-2022 09:05-0400 Body mass index (BMI) [Ratio] 48.08 kg/m2 Referring Provider Unknown YW-XPSSW-Aiiwsj 320 Work Phone: 06-12-2022 09:05-0400 Body surface area Derived from formula 2.43 m2 Referring Provider Unknown GK-JMNAR-Unhyxg 320 Work Phone: 06-12-2022 09:05-0400 Body weight 139.26 kg Referring Provider Unknown MU-OMJXV-Ihywim 320 Work Phone: 06-12-2022 09:05-0400 Diastolic blood pressure 83 mm[Hg] Referring Provider Unknown SH-PKUWN-Kygfvn 320 Work Phone: 06-12-2022 09:05-0400 Heart rate 76 /min Referring Provider Unknown CL-AOPME-Wisojc 320 Work Phone: 06-12-2022 09:05-0400 Systolic blood pressure 141 mm[Hg] Referring Provider Unknown UL-WKDKM-Wbfwns 320 Work Phone: 06-12-2022 09:05-0400 0 1 Referring Provider Unknown FB-RPPQM-Wuabcg 320 Work Phone: Comment on above: GRAV PARA [employer] Encounters Encounter Date Encounter Type Care Provider Facility Start: 11-06-2023 End: 11-06-2023 ambulatory ARMIN MARTINEZ Not Available Start: 10-15-2023 End: 10-15-2023 ambulatory ARMIN MARTINEZ Not Available Start: 10-08-2023 End: 10-08-2023 ambulatory ARMIN MARTINEZ Not Available Start: 10-01-2023 End: 10-01-2023 Emergency department patient visit [facility] Start: 10-01-2023 End: 10-01-2023 ambulatory MIKAYLA TRAN Not Available Start: 09-24-2023 End: 09-24-2023 ambulatory ARMIN MARTINEZ Not Available Start: 03-28-2023 End: 03-28-[address] ARMIN MARTINEZ . Facility:[facility] Start: 03-28-2023 End: 03-29-[address] ARMIN MARTINEZ . Facility:[facility] Start: 03-15-2023 End: 03-16-[address] ARMIN MARTINEZ . Facility:[facility] Start: 03-03-2023 End: 03-04-[address] ARMIN MARTINEZ . Facility:[facility] Start: 02-26-2023 End: 02-27-[address] ARMIN MARTINEZ . Facility:[facility] Start: 02-05-2023 Office outpatient vi sit 10 minutes Referring Provider Unknown BY-APJZV-Dacznu 310 IVF Work Phone: Start: 02-05-2023 Patient encounter procedure Referring Provider Unknown PB-EWSHM-Uniqqd 310 IVF Work Phone: Start: 02-05-2023 ambulatory PCP UNKNOWN Facility:[facility]an Arnold Start: 02-05-2023 ambulatory PCP UNKNOWN Facility:1 [id number] Start: 01-25-2023 AUDIT Referring Prov ider Unknown DF-VCICM-Mogqhhh 206A IVF Work Phone: Start: 01-25-2023 End: 01-26-2023 ambulatory [facility] Start: 01-25-2023 End: 01-25-2023 Subsequent hospital visit by physician Chey Abdi MD Work Phone: [facility] Start: 01-18-2023 Image Encounter Referring Prov ider Unknown PD-LFKSP-Jlfvxm 310 IVF Work Phone: Start: 01-18-2023 End: 01-19-2023 ambulatory [facility] Start: 01-18-2023 End: 01-18-2023 Subsequent hospital visit by physician Chey Abdi MD Work Phone: [facility] Start: 01-16-2023 End: 01-17-2023 [facility] Start: 01-16-2023 AUDIT Referring Prov ider Unknown ME-MJICK-Kwncme 310 IVF Work Phone: Start: 01-16-2023 End: 01-16-2023 Subsequent hospital visit by physician Chey Abdi MD Work Phone: [facility] Start: 01-02-2023 ambulatory [facility] KYLIE SANTY Fa cility:[id number] Start: 01-02-2023 INSEMIN, Provider: Elvi Covarrubias, Status: Pen, Time: 10:45 AM Referring Provider Unknown GX-YQYMA-Cetxzg 310 IVF Work Phone: Start: 01-02-2023 Patient encounter procedure Referring Provider Unknown LL-FOOPP-Zawftg 310 IVF Work Phone: Start: 01-01-2023 ambulatory PCP UNKNOWN Facility:[facility] Start: 01-01-2023 Patient encounter procedure Referring Provider Unknown UT-NUFFC-Lozchc 310 IVF Work Phone: Start: 12-14-2022 AUDIT Referring Prov ider Unknown YV-CYXRI-Ytumvgh 206A IVF Work Phone: Start: 10-27-2022 Patient encounter procedure Referring Provider Unknown FF-HXXRT-Acygew 310 IVF Work Phone: Start: 10-27-2022 ambulatory PCP UNKNOWN Facility:1 5344 Start: 10-24-2022 ambulatory PCP UNKNOWN Facility:[facility] Start: 10-24-2022 Patient encounter procedure Referring Provider Unknown MZ-RYJGE-Hlmlxlh 206A IVF Work Phone: Start: 10-16-2022 AUDIT Referring Prov ider Unknown GG-YQFEO-Jjolncu 206A IVF Work Phone: Start: 09-25-2022 Chart Update Referring Prov ider Unknown JZ-ESZDN-Kttwcgg 206A IVF Work Phone: Start: 09-24-2022 INSEMIN, Provider: ADRI SAMPSON, Status: Pen, Time: 10:00 AM Referring Provider Unknown RM-CRMEQ-Gzopryr 206A IVF Work Phone: Start: 09-24-2022 Patient encounter procedure Referring Provider Unknown KQ-GEUGG-Bkevcf 310 IVF Work Phone: Start: 09-24-2022 ambulatory PCP UNKNOWN Facility:1 5344 Start: 09-22-2022 ambulatory PCP UNKNOWN Facility:[facility] Start: 09-22-2022 Patient encounter procedure Referring Provider Unknown MT-JOKPV-Ywdrvpr 206A IVF Work Phone: Start: 09-19-2022 Chart Update Referring Prov ider Unknown UV-DROHQ-Cipmkw 310 IVF Work Phone: Start: 09-19-2022 ambulatory Jeannie Brown Facility:[facility] Start: 09-19-2022 Patient encounter procedure Referring Provider Unknown XX-ASYQB-Oevztzz 206A IVF Work Phone: Start: 09-15-2022 AUDIT Referring Prov ider Unknown GD-GYBHA-Hqdeqxk 206A IVF Work Phone: Start: 08-11-2022 Chart Update Referring Prov ider Unknown VV-SHCIG-Juyngln 206A IVF Work Phone: Start: 07-26-2022 Phys/qhp telephone evaluation 21-30 min Referring Provider Unknown FY-TCKEB-Yivywxw 1200 Work Phone: Start: 07-26-2022 CRISTINA, Provider : Garland Sherman, Status: Pen, Time: 2:00 PM Referring Provider Unknown DA-QTVSU-Hfhnne 320 Work Phone: Start: 07-26-2022 ambulatory [facility] Facility:U Start: 07-24-2022 Office outpatient vi sit 15 minutes Referring Provider Unknown PE-GXUAG-Odfignq 206A IVF Work Phone: Start: 07-24-2022 Patient encounter procedure Referring Provider Unknown NL-GHFNF-Gzzylr 320 Work Phone: Start: 07-24-2022 [facility] Facility:[facility] Arnold Start: 07-04-2022 End: 07-04-2022 Subsequent hospital visit by physician Chey Abdi MD Work Phone: [facility] Start: 07-04-2022 AUDIT Referring Prov ider Unknown TS-PHTEB-Biesob 310 IVF Work Phone: Start: 07-03-2022 Patient encounter procedure Referring Provider Unknown AS-ELJVD-Ovgbqq 310 IVF Work Phone: Start: 07-03-2022 ambulatory PCP UNKNOWN Facility:1 5344 Start: 06-12-2022 Encounter for blood typing MD BOBBI FLOOD [facility] Start: 06-12-2022 AUDIT Referring Prov ider Unknown [facility] Work Phone: Start: 06-12-2022 Patient encounter procedure Referring Provider Unknown ZZ-OHRNK-Lvqejz 320 Work Phone: Start: 06-12-2022 ambulatory MD BOBBI FLOOD Facility:[facility] Rowan Zhenger Start: 10-23-2021 End: 10-23-2021 Subsequent hospital visit by physician Chey Abdi MD Work Phone: [facility] Comment on above: PCOS (polycystic ova juliane syndrome) Start: 09-21-2021 End: 09-21-2021 Subsequent hospital visit by physician Chey Abdi MD Work Phone: [facility] Comment on above: PCOS (polycystic ova juliane syndrome) Start: 08-18-2021 End: 08-18-2021 Subsequent hospital visit by physician Chey Abdi MD Work Phone: [facility] Comment on above: PCOS (polycystic ova juliane syndrome) Start: 08-23-2020 End: 08-24-2020 Patient encounter procedure [facility] Start: 03-19-2020 End: 03-20-2020 Patient encounter procedure [facility] Start: 03-19-2020 End: 03-19-2020 Patient encounter procedure [facility] Start: 03-19-2020 End: 03-19-2020 Subsequent hospital visit by physician Chey Abdi [facility] Start: 03-19-2020 End: 03-19-2020 [facility] Comment on above: BMI 50.0-59.9, adult (HCC); Pelvic pain in female; Routine Papanicolaou smear Patient encounter status Referri ng Provider Unknown [id number] Work Phone: Procedures Date Procedure Procedure Detail Performing Clinician Start: 01-25-2023 Gonadotropin chorion ic quantitative Jeannie Abdi [facility] [employer] Work Phone: Start: 01-18-2023 Gonadotropin chorion ic quantitative Jeannie Abdi [employer] [facility] [employer] Work Phone: Start: 01-16-2023 Gonadotropin chorion ic quantitative Jeannie Abdi [employer] [facility] [employer] Work Phone: Start: 07-04-2022 Antibody screen Remigio Abdi MD Work Phone: Start: 07-04-2022 Blood typing serologic abo Chey Abdi MD Work Phone: Start: 07-03-2022 Antibody screen PCP UN[facility] NOWN Comment on above: Order Comment: NO PH LEB ID NOTIFIED BOBBI DUMONT AT DR SLAUGHTER OFFICE, 07/04/2022 09:19TEST TYPE + SCREEN WAS CANCELLED, 07/03/2022 21:17 no phleb id. Result Comment: NO P HLEB ID NOTIFIED BOBBI DUMONT AT DR SLAUGHTER OFFICE, 07/04/2022 09:19 Performed By: #### D LEE #### [facility] [address] [place] [address] Start: 10-23-2021 Assay of progesterone W vivienne Perez MD Work Phone: Start: 09-21-2021 Assay of progesterone W vivienne Perez MD Work Phone: Start: 08-18-2021 Assay of progesterone W vivienne Perez MD Work Phone: Start: 08-23-2020 Assay of progesterone Charmaine PEREZ Start: 03-19-2020 Iaad ia chlamydia trachomatis DAVID PEREZ Start: 03-19-2020 Screen pap by oseas vasquez md supv DAVID PEREZ Start: 03-19-2020 Assay of prolactin OLAMIDE PEREZ Start: 03-19-2020 Assay of thyroid stimulating hormone tsh DAVID PEREZ Start: 03-19-2020 Gonadotropin follicl e stimulating hormone DAVID PEREZ Start: 03-19-2020 Gonadotropin luteini zing hormone DAVID PEREZ Start: 03-19-2020 Hemoglobin glycosyla carol a1c DAVID PEREZ Start: 03-19-2020 Assay of prolactin Joel jesus Perez Work Phone: Start: 03-19-2020 Assay of thyroid stimulating hormone tsh David Perez Work Phone: Start: 03-19-2020 Gonadotropin follicl e stimulating hormone David Perez Work Phone: Start: 03-19-2020 Gonadotropin luteini zing hormone David Perez Work Phone: Start: 03-19-2020 Hemoglobin glycosyla carol a1c David Perez Work Phone: Start: 03-19-2020 Microscopic observat ion [Identifier] in Cervix by Cyto stain Chey Abdi MD Work Phone: Plan of Treatment Date Care Activity Detail Author Start: 10-22-2027 DTaP/Tdap/Td vaccine (7 - Td or Tdap) DTaP/Tdap/Td vaccine (7 - Td or Tdap) [facility] Start: 03-19-2023 Screening for malign ant neoplasm of cervix Pap smear [facility] Start: 02-05-2023 EUSEBIA, Provider : Jeannie Abdi, Status: Pen, Time: 9:30 AM ABDIAZIZFUVKIMBERLEYE, Provider: Jeannie Abdi, Status: Pen, Time: 9:30 AM [id number] 310 IVF Work Phone: Start: 02-05-2023 ULTRASOUND, Provider : RENETTA IVF RDMS FOREST 1,[facility], Status: Pen, Time: 9:10 AM ULTRASOUND, Provider: OBGYKathleen IVF RDMS FOREST 1,[facility] O[facility], Status: Pen, Time: 9:10 AM [id number] 310 IVF Work Phone: Start: 10-27-2022 INSEMIN, Provider: Christina Leung, Status: Pen, Time: 9:00 AM INSEMIN, Provider: Christina Leung, Status: Pen, Time: 9:00 AM [id number] 206A IVF Work Phone: Start: 10-24-2022 ULTRALAB, Provider: OBGYKathleen IVF RDMS FOREST 1,[facility], Status: Pen, Time: 7:40 AM ULTRALAB, Provider: OBGYKathleen IVF RDMS FOREST 1,[facility] OBG[facility], Status: Pen, Time: 7:40 AM [id number] 206A IVF Work Phone: Start: 09-22-2022 ULTRALAB, Provider: OBGYN IVF RDMS FOREST 1,[facility] O[facility], Status: Pen, Time: 8:00 AM ULTRALAB, Provider: OBGYN IVF RDMS FOREST 1,[facility] OBG[facility], Status: Pen, Time: 8:00 AM [id number] [id number] IVF Work Phone: Start: 09-19-2022 ULTRALAB, Provider: OBGYN IVF RDMS FOREST 1,[facility] OBG[facility], Status: Pen, Time: 7:10 AM ULTRALAB, Provider: OBGYN IVF RDMS FOREST 1,[facility] OBG[facility], Status: Pen, Time: 7:10 AM [id number] 206A IVF Work Phone: Start: 07-24-2022 VIRFUVHOME, Provider : Jeannie Abdi, Status: Pen, Time: 9:30 AM VIRFUVHOME, Provider: Jeannie Abdi, Status: Pen, Time: 9:30 AM [id number] Work Phone: Start: 07-13-2022 Influenza vaccination Flu vaccine (# 1) [facility] Start: 06-12-2022 Influenza vaccination Flu vaccine (# 1) [facility] Start: 07-13-2021 Influenza vaccination Flu vaccine (# 1) [facility] Start: 07-13-2020 Influenza vaccination Flu vacc ine (Season Ended) [place], [place] Start: 04-15-2020 End: 04-15-2020 Office Visit 04/15/2020 Office Visit Obstetrics and Gynecology Blanca Hess, [facility] - CN [address] [place] [address] [facility] Start: 2017 Screening for malign ant neoplasm of cervix Cervical cancer screen [place], [place] Start: 2015 DTaP/Tdap/Td vaccine (1 - Tdap) DTaP/Tdap/Td vaccine (1 - Tdap) [place], [place] Start: 2014 Hepatitis C screening Hepatitis C sc reen [facility] Start: 2012 Screening for Chlamy rosi trachomatis Chlamydia screen [place], [place] Start: 2011 HIV screening HIV screen [facility] Start: 2008 COVID-19 Vaccine (1) COVID-19 Vaccin e (1) [facility] Start: 2008 Depression Screen Depression Screen [facility] Start: 2007 HPV vaccine (1 - 2-d ose series) HPV vaccine (1 - 2-dose series) [place], [place] Start: 1997 Varicella vaccine (1 of 2 - 2-dose childhood series) Varicella vaccine (1 of 2 - 2-dose childhood series) [facility] Start: 1996 COVID-19 Vaccine (#1) COVID-19 Vacci ne (#1) [facility] Start: 1996 Hepatitis C [facility] End: 03-19-2020 C.trachomatis N.gonorrhoeae DNA, Thin Prep C.trachomatis N.gonorrhoeae DNA, Thin Prep Microbiology Routine Pelvic pain in female 1 Occurrences starting 03/19/2020 until 03/19/2020 [place], [place] Comment on above: 1 Occurrences starti ng 03/19/2020 until 03/19/2020 C.trachomatis N.gonorrhoeae DNA, Thin Prep C.trachomatis N.gonorrhoeae DNA, Thin Prep Microbiology Routine Pelvic pain in female 03/19/2020 11:49 AM EDT [place], [place] End: 03-19-2020 Cytopathology procedure, preparation of smear, genital source PAP SMEAR Lab Routine Routine Papanicolaou smear 1 Occurrences starting 03/19/2020 until 03/19/2020 [place], [place] Comment on above: 1 Occurrences starti ng 03/19/2020 until 03/19/2020 Payers Date Payer Category Payer Unknown [employer] [address] xxxxxxxx 2019-Present [phone] [address] [place] [address] xxxxxxxx [id number] 1996 Unknown [id number] 2.16840.1.883146.3.579.2.173 1996 Unknown [id number] 2.16.840.1.894679.3.579.2.173 1996 Unknown [id number] 2.16840.1.615584.3.579.2.173 1996 Unknown [id number] 2.16840.1.096808.3.579.2.356 1996 Unknown [id number] 2.840.1.372175.3.579.2. 1996 Unknown [id number] 2.840.1.586386.3.579.2. 1996 Unknown [id number] 2.840.1.448514.3.579.2. 1996 Unknown [id number] 2.840.1.982625.3.579.2. 1996 Unknown [id number] 2.840.1.401053.3.579.2. 1996 Unknown [id number] 2.840.1.822797.3.579.2. 1996 Unknown [id number] 2.840.1.460583.3.579.2.356 1996 Unknown [id number] 2.840.1.470151.3.579.2. 1996 Unknown [id number] 2.840.1.601478.3.579.2. 1996 Unknown [id number] 2.16840.1.538315.3.579.2.356 1996 Unknown [id number] 2.16840.1.747821.3.579.2.356 1996 Unknown [id number] 2.16.840.1.295112.3.579.2.356 1996 Unknown [id number] 2.16.840.1.643877.3.579.2.593 1996 Unknown [id number] 2.16.840.1.600617.3.579.2.593 1996 Unknown [id number] 2.16.840.1.352702.3.579.2.593 1996 Unknown [id number] 2.16.840.1.713193.3.579.2.593 1996 Unknown [id number] 2.16.840.1.395946.3.579.2.593 1996 Unknown [id number] 2.16.840.1.654476.3.579.2.174 1996 Unknown [id number] 2.16.840.1.099988.3.579.2.174 1996 Unknown [id number] 2.16.840.1.612597.3.579.2.174 1996 Unknown [id number] 2.16.840.1.871089.3.579.2.174 1996 Unknown [id number] 2.16.840.1.409532.3.579.2.1259 1996 Unknown [id number] 2.16.840.1.711097.3.579.2.1259 1996 Unknown [id number] 2.16.840.1.456525.3.579.2.1259 1996 Unknown [id number] 2.16.840.1.215556.3.579.2.1259 1996 Unknown [id number] 2.16.840.1.732312.3.579.2.1259 1959 Unknown [id number] Unknown Unknown Social History Date Type Detail Facility Start: 07-28-2014 End: 03-19-2020 Tobacco smoking status NHIS Never smoker [facility] Start: 03-19-2020 End: 10-31-2021 Alcohol intake Current non-drinker of alcohol (finding) [employer] MEYOVANNY Sex Assigned At Not on file [employer] [facility] [place] Start: 03-19-2020 End: 08-04-2021 Tobacco use and exposure Never used [employer] Start: 1996 Sex Assigned At Female M Zaarly Work Phone: [id number] Work Phone: 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 on above: Nurse; Clinical Notes 07-26-2021 to 12-19-2022 Note Date & Type Note Facility 12-19-2022 History of Present illness Narrative Pt is a 27 year old female conceived via Letrozole 5 mg and partner IUI presenting today for OB ultrasound to assess for viabilityLMP 12/19/22IUI 01/02/23Pt denies pelvic pain or vaginal bleeding [id number] IVF Work Phone: 07-26-2022 Note Diagnoses/Problems Assessed Encounter for preconception consultation (V26.49) (Z31.69) Class 3 severe obesity without serious comorbidity with body mass index (BMI) of 45.0 to 49.9 in adult, unspecified obesity type (278.01,V85.42) (E66.01,Z68.42) Provider Impressions The range of obstetric complications associated with obesity were reviewed, including gestational diabetes, pre-eclampsia and macrosomia. Both early and standard screening for gestational diabetes would be needed. Implications and treatment of gestational diabetes should it occur was reviewed. I reviewed the use of metformin in , including transplacental passage. The optimal route of delivery in obese women is vaginal, and obesity alone is not an indication for a , though the risk of surgical delivery is increased both secondary to increased weight and potentially impaired myometrial function. Should a be necessary there are increased surgical risks including wound complications. Obesity is also associated with a small increase in the risk of congenital anomalies, the detection of which can be impaired secondary to technical limitations of ultrasound secondary to increased maternal weight. In a future ultrasounds for biometry would be recommended at 30 and 36 weeks and weekly NSTs after 36 weeks. Thank you for the opportunity to participate in your patient?s care. A total of 60 minutes was spent on this consultation of which greater than 50% was [id number] counseling. There is no contraindication to conception at this time. We would be available as needed in a future though follow up consultation in would not be mandated secondary to BMI alone. Please feel free to contact us regarding any questions or concerns. Sincerely, Garland Sherman MD, MS Maternal Medicine Chief Complaint An interactive audio and video telecommunication system which permits real time communications between the patient (at the originating site) and provider (at the distant site) was utilized to provide this telehealth service. Preconception consultation requested by Jeannie Patricia for BMI >40 History of Present IllnessDear Mrs. Abdi, We had the opportunity to see your patient Matt Vicente in the office of Maternal Medicine on July 26, 2021. As you are aware she is a 27 year old G0 seeking preconception consultation secondary to BMI >40 and PCOS. She had no complaints at the time of her visit today. This consultation was conducted virtually. Mrs. Vicente denies any significant past medical history with the exception of PCOS, infertility and obesity. Specifically she denies hypertension and TIIDM and her recent HgA1c was 5.4%. She denies CHTN or TIIDM in primary family members. Her PCOS is managed by metformin. Her partner is undergoing bariatric surgery though she has decided to not peruse this option herself. She is attempting weight loss through non medical and surgical options at this time. Active Problems Problems Abnormal radiograph (793.99) (R93.89) Class 3 severe obesity without serious comorbidity with body mass index (BMI) of 45.0 to 49.9 in adult, unspecified obesity type (278.01,V85.42) (E66.01,Z68.42) Encounter for blood typing (V72.86) (Z01.83) Encounter for preconception consultation (V26.49) (Z31.69) Fertility testing (V26.21) (Z31.41) Irregular menstrual cycle (626.4) (N92.6) Routine screening for STI (sexually transmitted infection) (V74.5) (Z11.3) Screening for diabetes mellitus (V77.1) (Z13.1) Screening for thyroid disorder (V77.0) (Z13.29) Social History Problems 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 Allergies Medication No Known Drug Allergies Recorded By: Sonu Omer; 06/12/2022 9:04:52 AM Current Meds Medication NameInstruction metFORMIN HCl ER 500 MG Oral Tablet Extended Release 24 HourTAKE 1 TABLET 3 times daily Signatures Electronically signed by : Garland Sherman MD; Aug 06 2022 2:57PM EST (Author) [employer] 07-24-2022 Chief complaint Narrative - Reported An interactive audio and video telecommunication system which permits real time communications between the patient (at the originating site) and provider (at the distant site) was utilized to provide this telehealth service.Verbal consent was requested and obtained from SANDRA VICENTE on this date, 07/24/2022 09:30 AM , for a telehealth visit.The patient is being seen today for a Follow Up Visit to review testing results. Kiet 320 Work Phone: 07-24-2022 Chief complaint Narrative - Reported An interactive audio and video telecommunication system which permits real time communications between the patient (at the originating site) and provider (at the distant site) was utilized to provide this telehealth service.Verbal consent was requested and obtained from SANDRA VICENTE on this date, 07/24/2022 09:30 AM , for a telehealth visit.The patient is being seen today for a Follow Up Visit to review testing results. Dilia 206A IVF Work Phone: 09-08-2021 Note Infectious Disease COVID-19 Frequently Asked Questions COVID-19 (coronavirus disease) is an infection that is caused by a large family of viruses. Some viruses cause illness in people and others cause illness in animals like camels, cats, and bats. In some cases, the viruses that cause illness in animals can spread to humans. Where did the coronavirus come from? In October 2019, [place] told the World Health Organization (WHO) of several cases of lung disease (human respiratory illness). These cases were linked to an open seafood and livestock market in the [facility]. The link to the seafood and livestock market suggests that the virus may have spread from animals to humans. However, since that first outbreak in October, the virus has also been shown to spread from person to person. What is the name of the disease and the virus? Disease name Early on, this disease was called novel coronavirus. This is because scientists determined that the disease was caused by a new (novel) respiratory virus. The World Health Organization (WHO) has now named the disease COVID-19, or coronavirus disease. Virus name The virus that causes the disease is called severe acute respiratory syndrome coronavirus 2 (SARS-CoV-2). More information on disease and virus naming World Health Organization (WHO): www.who.int/emergencies/diseases/no hbo-yjhpnqlqaht-7209/technical-guid ance/nzkfsm-lww-tbhijvvpwds-disease -(covid-2019)-maw-ypn-obkrv-that-ca uses-it Who is at risk for complications from coronavirus disease? Some people may be at higher risk for complications from coronavirus disease. This includes older adults and people who have chronic diseases, such as heart disease, diabetes, and lung disease. If you are at higher risk for complications, take these extra precautions: ? Avoid close contact with people who are sick or have a fever or cough. Stay at least 3?6 ft (1?2 m) away from them, if possible. ? Wash your hands often with soap and water for at least 20 seconds. ? Avoid touching your face, mouth, nose, or eyes. ? Keep supplies on hand at home, such as food, medicine, and cleaning supplies. ? Stay home as much as possible. ? Avoid social gatherings and travel. How does coronavirus disease spread? The virus that causes coronavirus disease spreads easily from person to person (is contagious). There are also cases of community-spread disease. This means the disease has spread to: ? People who have no known contact with other infected people. ? People who have not traveled to areas where there are known cases. It appears to spread from one person to another through droplets from coughing or sneezing. Can I get the virus from touching surfaces or objects? There is still a lot that we do not know about the virus that causes coronavirus disease. Scientists are basing a lot of information on what they know about similar viruses, such as: ? Viruses cannot generally survive on surfaces for long. They need a human body (host) to survive. ? It is more likely that the virus is spread by close contact with people who are sick (direct contact), such as through: ? Shaking hands or hugging. ? Breathing in respiratory droplets that travel through the air. This can happen when an infected person coughs or sneezes on or near other people. ? It is less likely that the virus is spread when a person touches a surface or object that has the virus on it (indirect contact). The virus may be able to enter the body if the person touches a surface or object and then touches his or her face, eyes, nose, or mouth. Can a person spread the virus without having symptoms of the disease? It may be possible for the virus to spread before a person has symptoms of the disease, but this is most likely not the main way the virus is spreading. It is more likely for the virus to spread by being in close contact with people who are sick and breathing in the respiratory droplets of a sick person's cough or sneeze. What are the symptoms of coronavirus disease? Symptoms vary from person to person and can range from mild to severe. Symptoms may include: ? Fever. ? Cough. ? Tiredness, weakness, or fatigue. ? Fast breathing or feeling short of breath. These symptoms can appear anywhere from 2 to 14 days after you have been exposed to the virus. If you develop symptoms, call your health care provider. People with severe symptoms may need hospital care. If I am exposed to the virus, how long does it take before symptoms start? Symptoms of coronavirus disease may appear anywhere from 2 to 14 days after a person has been exposed to the virus. If you develop symptoms, call your health care provider. Should I be tested for this virus? Your health care provider will decide whether to test you based on your symptoms, history of exposure, and your risk factors. How does a health care provider test for this virus? Health care providers will collect samples to send for testing. Samples may in (more content not included)... [facility] 08-12-2021 History of Present illness Narrative New Patient FertilityReferred by[facility] , Jonel Olmos DATE OF COVID VACCINE: not vaccinated, had COVID in August 2021, fully discussed not interested in vaccinationHistory of present illness: Patient is a 27 year old female who presents withPRIOR EVALUATION / TREATMENTDr. David JACKSON at [facility] in [place], [place] (progesterone levels positive on letrozole negative on clomidClomid 100 mg x 4 cycles, pt reports was getting regular menses on this dose, with TIC without conceptionLetrozole 5 mg X 6 cycles, pt reports was getting regular menses on this dose, with TIC without conceptionLabs: 2020Gc/chl mahTqlz8c 5.6tsh 2.55prolactin 13PAP neg (reviewed results on pts electronic health komal today)RELATIONSHIP STATUS: August 2021OB Hx: G0,P0GYN HISTORY:History of STI or PID: NoLast pap smear: 2019; NormalHistory of abnormal paps: NoMammogram: No, N/ACoitus: 1 x/fertile weekPelvic pain: NoPain with intercourse, bowel movements or full bladder: pain with bowel movements when on menses otherwise noneMENSTRUAL HISTORY:LMP: 05/21/2022Menarche: 13 years oldContraception: Nexplanon and BC pills, has not used any contraception x 6 yearsCycle length: Very Irregular, pt was amenorrheic for 3 years, menses became more regular this past year on clomid/letrozole, Q30-34 daysBleeding length: 2-4 daysHeavy bleeding: No, AverageDysmenorrhea: Yes, moderate cramping on 2nd day of menses, ibuprofen/tylenol and heating pads do help someENDOCRINE/INFERTILITY HISTORY:Duration of infertility: 22 monthsCoital Activity/week: 0-1x/weekNipple Discharge: NoVision changes / headaches: yes, does get chronic headaches once per month sometimes with tunnel vision, no neurology work up to dateExcess hair growth: hairs on jawline and on middle of chestAcne/oily skin: Acne on jaw lineRecent weight change: NoExercise: NoPMH: PCOS; diagnosed in 2018MEDICATION: Metformin 500 mg ER PO dailyPSH: Tonsillectomy with Adenoidectomy: 2000 (no complications with anesthesia)PSYCH HISTORY: noneSOCIAL HISTORY: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 [employer]Smoking: NoAlcohol: social once per monthDrug use: NoPARTNER HISTORY:Name- Jonel Guillen- 12/20/1980Occupation- Maintenance ([employer])Prior fertility history: 2 children in other relationship (15 years old and 16 years old)PMH: history of AFib, history of 4 cardiac ablations, no pacemaker in place, OBESITY, History of testosterone use in 2016PSH: Cardioverted x3 in 2014, Heart ablation x 4 in 2016, Broken leg, Gastric Bypass scheduled for one week from today, Tonsillectomy and adenoidectomy in childhoodSmoking: NoAlcohol Use: social, once a yearDrug Use: NoMedications: none prescriptionInjuries /STDs: NoSA: NoneFAMILY HISTORY:Cancer history: Mother with history of Endometrial Cancer hysterectomy was curative Age 30GENETIC HISTORY:Ethnic Background:Patient: CaucasianPartner: CaucasianGenetic Disease in Family: NoBirth Defects in Family: nephew with ADHD, Schizophrenia, high functioning Autism (pt report sister had heroin drug use during )Genetic screening performed previously: [place] [facility] [address] Work Phone: 08-12-2021 History of Present illness Narrative New Patient FertilityRef[facility] , Jonel Olmos DATE OF COVID VACCINE: not vaccinated, had COVID in August 2021, fully discussed not interested in vaccination, discussed recommendation for vaccination and increased risks of being unvaccinated in pregnancyHistory of present illness: Patient is a 27 year old female who presents with primary infertility.PRIOR EVALUATION / TREATMENTDr. David JACKSON at [facility] in [place], [place] (progesterone levels positive on letrozole negative on clomid)Clomid 100 mg x 4 cycles, pt reports was getting regular menses on this dose, with TIC without conceptionLetrozole 5 mg X 6 cycles, pt reports was getting regular menses on this dose, with TIC without conceptionLabs: 2020Gc/chl tjuJyxw7k 5.6tsh 2.55prolactin 13PAP neg (reviewed results on pts electronic health komal today)RELATIONSHIP STATUS: August 2021OB Hx: G0,P0GYN HISTORY:History of STI or PID: NoLast pap smear: 2019; NormalHistory of abnormal paps: NoMammogram: No, N/ACoitus: 1 x/fertile weekPelvic pain: NoPain with intercourse, bowel movements or full bladder: pain with bowel movements when on menses otherwise noneMENSTRUAL HISTORY:LMP: 05/21/2022Menarche: 13 years oldContraception: Nexplanon and BC pills, has not used any contraception x 6 yearsCycle length: Very Irregular, pt was amenorrheic for 3 years, menses became more regular this past year on clomid/letrozole, Q30-34 daysBleeding length: 2-4 daysHeavy bleeding: No, AverageDysmenorrhea: Yes, moderate cramping on 2nd day of menses, ibuprofen/tylenol and heating pads do help someENDOCRINE/INFERTILITY HISTORY:Duration of infertility: 22 monthsCoital Activity/week: 0-1x/weekNipple Discharge: NoVision changes / headaches: yes, does get chronic headaches once per month sometimes with tunnel vision, no neurology work up to dateExcess hair growth: hairs on jawline and on middle of chestAcne/oily skin: Acne on jaw lineRecent weight change: NoExercise: NoPMH: PCOS; diagnosed in 2018MEDICATION: Metformin 500 mg ER PO dailyPSH: Tonsillectomy with Adenoidectomy: 2000 (no complications with anesthesia)PSYCH HISTORY: noneSOCIAL HISTORY: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 [facility]Smoking: NoAlcohol: social once per monthDrug use: NoPARTNER HISTORY:Name- Jonel Guillen- 12/20/1980Occupation- Maintenance ([employer])Prior fertility history: 2 children in other relationship (15 years old and 16 years old)PMH: history of AFib, history of 4 cardiac ablations, no pacemaker in place, OBESITY, History of testosterone use in 2016PSH: Cardioverted x3 in 2015, Heart ablation x 4 in 2016, Broken leg, Gastric Bypass scheduled for one week from today, Tonsillectomy and adenoidectomy in childhoodSmoking: NoAlcohol Use: social, once a yearDrug Use: NoMedications: none prescriptionInjuries /STDs: NoSA: NoneFAMILY HISTORY:Cancer history: Mother with history of Endometrial Cancer hysterectomy was curative Age 30GENETIC HISTORY:Ethnic Background:Patient: CaucasianPartner: CaucasianGenetic Disease in Family: NoBirth Defects in Family: nephew with ADHD, Schizophrenia, high functioning Autism (pt report sister had heroin drug use during )Genetic screening performed previously: No [id number] IVF Work Phone: 07-26-2021 History of Present illness Narrative Dear Mrs. Abdi,We had the opportunity to see your patient Matt Vicente in the office of Maternal Medicine on July 26, 2021. As you are aware she is a 27 year old G0 seeking preconception consultation secondary to BMI >40 and PCOS. She had no complaints at the time of her visit today. This consultation was conducted virtually.Mrs. Vicente denies any significant past medical history with the exception of PCOS, infertility and obesity. Specifically she denies hypertension and TIIDM and her recent HgA1c was 5.4%. She denies CHTN or TIIDM in primary family members. Her PCOS is managed by metformin. Her partner is undergoing bariatric surgery though she has decided to not peruse this option herself. She is attempting weight loss through non medical and surgical options at this time. [id number] 1200 Work Phone: Chief complaint Narrative - Reported The patient is being seen today for New Patient fertility Consultation. [id number] 320 Work Phone: Chief complaint Narrative - Reported The patient is being seen today for New Patient fertility Consultation. [id number] 206A IVF Work Phone: Chief complaint Narrative - Reported An interactive audio and video telecommunication system which permits real time communications between the patient (at the originating site) and provider (at the distant site) was utilized to provide this telehealth service.Preconception consultation requested by Jeannie Abdi for BMI >40 [id number] 1200 Work Phone: Evaluation note Diagnosis PCOS (polycystic ovarian syndrome) Polycystic ovaries documented in this encounter [employer] Phone: evaluation note* Diagnosis PCOS (polycystic ovarian syndrome) Polycystic ovaries documented in this encounter [employer] Phone: History of Present illness Narrative* Patient is a 27 year old female with primary infertility presenting today for follow up visit. * Diagnosis to date: primary infertility * Treatment to date: * Dr. David JACKSON at [facility] in [place], [place] (progesterone levels positive on letrozole negative on clomid) * Clomid 100 mg x 4 cycles, pt reports was getting regular menses on this dose, with TIC without conception * Letrozole 5 mg X 6 cycles, pt reports was getting regular menses on this dose, with TIC without conception * Testing to date: * Labs (June 2022) * CBC: wnl * CMP: wnl * Lipid Panel: wnl * TSH: 1.66 * DHEAs: 233 * Prolactin: 10.5 * HgbA1C: 5.4% * STI screening (HepB, HepC, HIV, Syphilis, Gc/chl) negative * Rubella: Immune * Varicella:Immune * 17 OHP: 28 * Testosterone: 23 Free total: 6.1 * AMH: 4.71 * Labs: 2019 * Gc/chl neg * Hgba1c 5.6 * tsh 2.55 * prolactin 13 * OTHER: * HSG (June 2022) * Normal uterine contour without filling defects, bilateral tubal patency with mild loculations * [employer]ENT[employer]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 * The ovaries are normal in appearance bilaterally, combined AFC > 20. * Uterus Visualized. Size 77.1 mm x 43.0 mm x 42.4 mm * Position: anteverted * Myometrium: normal * Endometrium: trilaminar. Endometrial thickness, total 7.3 mm * Cervix details: normal * Right Ovary Visualized. Morphology: normal. Size 38.1 mm x 26.2 mm x 22.7 mm. Vol 11.9 cm * Follicle(s) Antral Follicles 10+<10mm * Left Ovary Visualized. Morphology: normal. Size 33.0 mm x 20.9 mm x 20.2 mm. 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[employer]) * Prior fertility history: 2 children in other relationship (15 years old and 16 years old) * PMH: history of AFib, history of 4 cardiac ablations, no pacemaker in place, OBESITY, History of testosterone use in 2016 * PSH: Cardioverted x3 in 2015, Heart ablation x 4 in 2016, Broken leg, Gastric Bypass scheduled for one week from today, Tonsillectomy and adenoidectomy in childhood * Smoking: No * Alcohol Use: social, once a year * Drug Use: No * Medications: none prescription * Injuries /STDs: No * SA: June 2022 * Volume (ml)2.6= 1.5 ml * Concentration (mill/ml)171.60= 15 mill/ml * Total Motility (%) *58%= 40% * Progressive Motility (%)55%= 32% * Non-progressive Motility (%)4% * Total Sperm Number (mill)446.16=39mill * Total Motile Sperm Number (mill)260.49 * Round Cells (mill)2.4=5mill * WBCNEG< 1 mill/ml; 1 mill/ml * Recovery rate (%) * Morphology * % Normal4.8%=4% [id number] 206A IVF Work Phone: Assessments Diagnosis BMI 50.0-59.9, adult (HCC) Body Mass Index 50.0-59.9, adult Pelvic pain in female Unspecified symptom associated with female genital organs Routine Papanicolaou smear Screening for malignant neoplasm of the cervix Advance Directives No Advanced Directives Records FoundDocuments on File Type Date Recorded Patient Relay Telegrapher Expl anation Advance Directives and Living Will Power of Piggery Worker Documents on File Type Date Recorded Patient Relay Telegrapher Expl anation ACP-Advance Directive ACP-Power of Piggery Worker Summary Purpose Family History No Family History Records FoundNo Family History Records FoundNo Family History Records FoundNo Family History Records FoundNo Family History Records FoundNo Family History Records FoundNo Family History Records Found Chief Complaint patient presents for an HSGKylie is here for partner IUI #1Kylie is here for partner IUI #1patient presents for an IUI-H # 2patient presents for an IUI-H # 2 IUI-H* A telephone visit (audio only) between the patient (at the originating site) and the provider (at the distant site) was utilized to provide this telehealth service. * Verbal consent was requested and obtained from SANDRA VICENTE on this date, 02/05/2023 09:30 AM , for a telehealth visit. * pt presents for OB ultrasound Additional Source Comments INFORMATION SOURCE (unrecogn ized section and content) DATE CREATED AUTHOR 08/24/2020 [facility] DATE CREATED AUTHOR AUTHOR'S ORGANIZ ATION 07/08/2022 Ankur Beck [facility] DATE CREATED AUTHOR AUTHOR'S ORGANIZ ATION 02/08/2023 [facility] DATE CREATED AUTHOR AUTHOR'S ORGANIZ ATION 02/17/2023 [facility] DATE CREATED AUTHOR AUTHOR'S ORGANIZ ATION 03/29/2023 [facility] DATE CREATED AUTHOR AUTHOR'S ORGANIZ ATION 10/03/2023 [facility] DATE CREATED AUTHOR AUTHOR'S ORGANIZ ATION 11/08/2023 [facility] Specialists EPIC Care Teams (unrecognized sec tion and content) Sports Physiologist Relationship Specialty Start Date End Date Chey Abdi MD PCP - General 07/28/14 Sports Physiologist Relationship Specialty Start Date End Date Chey Abdi MD PCP - General 07/28/14 Sports Physiologist Relationship Specialty Start Date End Date Chey Abdi MD PCP - General 07/28/14 FOR RECORDS PERTAINING TO PATIENTS WHO ARE OR HAVE BEEN ENROLLED IN A CHEMICAL DEPENDENCY/SUBSTANCEABUSE PROGRAM, SOME INFORMATION MAY BE OMITTED. This clinical summary was aggregated from multiple sources. Caution should be exercised in using it in the provision of clinical care. This summary normalizes information from multiple sources, and as a consequence, information in this document may materially change the coding, format and clinical context of patient data. In addition, data may be omitted in some cases. CLINICAL DECISIONS SHOULD BE BASED ON THE PRIMARY CLINICAL RECORDS. [employer] provides no warranty or guarantee of the accuracy or completeness of information in this document.
[2024-08-26 12:48] LABS: Basophils Percent Auto 0.4 % (0.2-2.0); Eosinophils Absolute Auto 0.1 10^3/uL (0.0-0.7); Eosinophils Percent Auto 1.8 % (0.9-7.0); Hematocrit 37.7 % (36.0-48.0); Hemoglobin 12.3 g/dL (12.0-16.0); Immature Granulocytes Abs Auto 0.02 10^3/uL (0.00-0.03); Immature Granulocytes Pct Auto 0.3 % (0.0-0.5); Lymphocytes Absolute Auto 2.2 10^3/uL (1.2-3.8); Lymphocytes Percent Auto 30.7 % (20.5-60.0); Mean Corpuscular HGB Conc 32.6 g/dL (29.9-35.2); Mean Corpuscular Hemoglobin 28.8 pg (26.7-34.0); Mean Corpuscular Volume 88.3 fL (81.0-99.0); Mean Platelet Volume 9.8 fL (9.5-13.5); Monocytes Absolute Auto 0.4 10^3/uL (0.3-0.8); Neutrophils Absolute Auto 4.4 10^3/uL (1.4-6.5); Neutrophils Percent Auto 60.8 % (43.0-75.0); Platelet Count 249 10^3/uL (150-450); Red Blood Count 4.27 10^6/uL (4.20-5.40); Red Cell Distribution Width 13.3 % (11.0-15.0); White Blood Count 7.2 10^3/uL (4.0-11.0)
[2024-08-26 13:07] LABS: Estimated Average Glucose 111 mg/dL; Glycohemoglobin A1C 5.5 % (4.5-6.2)
[2024-08-26 15:18] LABS: Thyroid Stimulating Hormone 1.478 uIU/mL (0.358-3.740)
[2024-08-26 15:26] LABS: HCG Quantitative <1 mIU/mL
[2024-08-27 04:07] LABS: FSH 6.6 mIU/mL (.); Luteinizing Hormone(LH) 14.7 mIU/mL (.); Prolactin 13.7 ng/mL (4.8-33.4)
[2024-08-30 03:21] LABS: DHEA, Serum 565 ng/dL (31-701)
== END 2024-08-26 12:30 | disposition home or self-care (01) ==
LOC: LAB 12:31
PROVIDERS: Visit Provider Obstetrics & Gynecology
DX: E28.2 Polycystic ovarian syndrome (principal); N91.2 Amenorrhea, unspecified
CPT/HCPCS: 36415; 82626; 82627; 83001; 83002; 83036; 84146; 84436; 84443; 84702; 85025

== ENCOUNTER 2024-09-03 10:58 | Outpatient (OUT) | payer OTHER, SELFPAY ==
--- NOTE | 2024-09-03 11:00 | US_ITS ---
The [address] [address] Patient Name: BERNADINE DEAN MRN: [id number] date: 1995 Sex: F Assigned Patient Location: US Current Patient Location: US Accession/Order Number: [id number] Exam Date: 09/03/2024 11:01 Report Date: 09/03/2024 11:36 At the request of: ARMIN MARTINEZ Procedure: US pelvis w/ transvaginal EXAMINATION: US pelvis w/ transvaginal HISTORY: Polycystic Ovarian Syndrome COMPARISON: No relevant comparison available. TECHNIQUE: Transabdominal and/or transvaginal sonographic examination was performed as indicated by examination type. FINDINGS: UTERUS: Normal size and appearance. Uterus size: 8.9 x 3.3 x 4.7 cm ENDOMETRIUM: Normal homogeneous appearance. Endometrial thickness: 8 mm RIGHT OVARY: Normal size and appearance. Duplex Doppler demonstrates normal waveform and flow; resistive index 0.6. Ovary size: 2.9 x 3.4 x 1.5 cm LEFT OVARY: Not seen. CUL-DE-SAC: Unremarkable. No significant free fluid. BLADDER: Unremarkable. OTHER: None. US/US pelvis w/ transvaginal IMPRESSION: 1. Normal appearance of right ovary. Left ovary was not seen. No findings within right ovary to suggest polycystic ovarian syndrome. Electronically authenticated by: ANT PHILLIPS Date: 09/03/2024 11:36
--- OUTSIDE RECORDS SUMMARY | 2024-09-03 11:16 | XMS_ITS | CCD ---
Author Organization [facility] Care Team Providers Care Podiatric Technician Name Role Phone Chey Gomez Primary Care Provider DAVID PEREZ Referring Unavailable CHEY GOMEZ Primary Care Unavailable DAVID PEREZ Referring Unavailable CHEY GOMEZ Primary Care Unavailable DAVID PEREZ Referring Unavailable CHEY GOMEZ Primary Care Unavailable Chey Gomez MD Primary Care Provider [phone]( [phone] Unknown, Referring Provider Unavailable Unav ailable Unavailable Unavailable Chey Gomez MD Primary Care Provider Chey Gomez MD Primary Care Provider UNKNOWN, PCP Primary Care Unavailable Kim Hawthorne Attending Unavailable UNKNOWN, PCP Primary Care Unavailable Jeannie Gomez Attending Unavailable UNKNOWN, PCP Primary Care Unavailable Jeannie Gomez Attending Unavailable MD BOBBI FLOOD Attending Un available UNKNOWN, PCP Primary Care Unavailable Jeannie Gomez Attending Unavailable UNKNOWN, PCP Primary Care Unavailable Jeannie Gomez Attending Unavailable UNKNOWN, PCP Primary Care Unavailable Jeannie Gomez Referring Unavailable UNKNOWN, PCP Primary Care Unavailable Garland Sherman Attending Unavailable UNKNOWN, PCP Primary Care Unavailable MD BOBBI FLOOD Attending Un available IAN COVARRUBIAS Attending Unavailabl e UNKNOWN, PCP Primary Care Unavailable UNKNOWN, PCP Primary Care Unavailable Jeannie Gomez Attending Unavailable UNKNOWN, PCP Primary Care Unavailable Dr. Matias Proctor Attending Unava ilable UNKNOWN, PCP Primary Care Unavailable Dr. Matias Proctor Attending Unava ilable UNKNOWN, PCP Primary Care Unavailable Jeannie Gomez Attending Unavailable PEREZ Mcdowell, DR FUNEZ Admitting Unavailable MISC, DR MCLEOD Consulting Unavailable PEREZ ., DR FUNEZ Attending Unavailable PEREZ ., DR FUNEZ Consulting Unavailable PEREZ ., DR FUNEZ Consulting Unavailable REQUEST, DR NONE LISTED Primary Care Unavaila ble PEREZ ., DR FUNEZ Attending Unavailable PEREZ ., DR FUNEZ Admitting Unavailable PEREZ ., DR FUNEZ Consulting Unavailable REQUEST, DR NONE LISTED Primary Care Unavaila ble PEREZ ., DR FUNEZ Attending Unavailable PEREZ ., DR FUNEZ Admitting Unavailable PEREZ ., DR FUNEZ Admitting Unavailable PEREZ ., DR FUNEZ Consulting Unavailable PEREZ ., DR FUNEZ Attending Unavailable PEREZ ., DR FUNEZ Admitting Unavailable LEBANON, DR GARLAND German Consulting Unavailable PEREZ ., DR FUNEZ Attending Unavailable PEREZ ., DR FUNEZ Consulting Unavailable PATRICIA, CHEY Padron Primary Care Unavailable PATRICIA, JEANNIE Referring Unavailable PATRICIA, CHEY Padron Primary Care Unavailable PATRICIA, JEANNIE Referring Unavailable PATRICIA, CHEY Padron Primary Care Unavailable AUGUSTUS SALAZAR Attending Unavailable PATRICIA, CHEY Padron Primary Care Unavailable PATRICIA, JEANNIE Referring Unavailable MIKAYLA TRAN Attending Unavailable PEREZ, FREEDOM Attending Unavailable PEREZ, FREEDOM Attending Unavailable PEREZ, FREEDOM Attending Unavailable PEREZ, FREEDOM Attending Unavailable PEREZ, FREEDOM Attending Unavailable Unavailable Primary Care Provider Unavailabl e Medications Current Medications Medication Drug Class(es) Dates [...] a day 60 tablet 0 08/04/2021 Active medroxyPROGESTERone acetate 10 mg oral tablet (3 sources) Progestin Start: 08-26-2024 End: 08-26-2025 take 1 tablet by mouth once daily medroxyPROGESTERone (Provera) 10 MG tablet Indications: Amenorrhea Take 1 tablet (10 mg) by mouth Daily Take 1 tablet by mouth daily for 7 days beginning on day 16 of the menstrual cycle. 14 tablet 3 08/26/2024 08/26/2025 Active metFORMIN hydrochloride 500 mg oral tablet [...] 02/01/2022 Active take 1 tablet by luz th twice daily at mealtime metFORMIN (GLUCOPHAGE) 500 [...] Drug Class(es) Dates Sig (Normalized) Sig (Original) cholecalciferol 0.025 mg oral tablet (3 sources) Vitamin D End: 08-26-2024 take 1 tablet by mouth in the morning cholecalciferol (Vitamin D3) 25 MCG (1000 UT) tablet Take 1 tablet by mouth in the morning. 08/26/2024 Discontinued 0.5 ml choriogonadotropin david 0.5 mg/ml prefilled [...] take 1 tablet by mouth at bedtime Doxylamine-Pyridoxi ne 10-10 MG Oral Tablet Delayed Release TAKE 1 TABLET Bedtime one tablet daily at bedtime if no relief increase to one tablet BID if no relief increase to one table TID Quantity: 30 Refills: 0 Ordered: 05-Feb-2023 Jeannie Jimenez Start : 05-Feb-2023 Active folic acid 0.8 mg oral capsule (3 sources) End: 08-26-2024 take 1 capsule by mouth in the morning Folic Acid 0.8 MG capsule Take 1 capsule by mouth in the morning. 08/26/2024 Discontinued ibuprofen 800 mg oral tablet (3 sources) Nonsteroidal Anti-inflammatory Drug Start: 09-27-2023 End: 08-26-2024 ibuprofen 800 MG tablet Take by mouth 09/27/2023 08/26/2024 Discontinued labetalol hydrochloride 200 mg oral tablet (3 sources) beta-Adrenergic Eulalia Start: 10-03-2023 End: 08-26-2024 take 1 tablet by mouth in the morning labetalol (Normodyne) 200 MG tablet Take 1 tablet by mouth in the morning and 1 tablet before bedtime. 10/03/2023 08/26/2024 Discontinued letrozole 2.5 mg oral tablet (20 sources) Aromatase Inhibitor Start: 10-31-2021 Letrozole 2.5 MG Oral Tablet TAKE 2 TABLET Daily for cycle days 3-7 and must have negative urine test prior to starting Quantity: 10 Refills: 1 Ordered: 14-Dec-2022 Jeannie Jimenez Start : 11-Aug-2022 Active Vit-Fe Fumarate-FA ( 1+1 PO) (3 sources) End: 08-26-2024 Vit-Fe Fumarate-FA ( 1+1 PO) 08/26/2024 Discontinued Vit-Fe Fumarate-FA ( 1+1 PO) Active progesterone 100 mg oral capsule (20 sources) Progesterone Start: 09-11-2022 take 1 capsule by mouth twice daily Progesterone 100 MG Oral Capsule TAKE 1 CAPSULE Twice daily insert vaginally starting 3 days post IUI Quantity: 60 Refills: 2 Ordered: 13-Sep-2022 Patricia ROSIBELJeannie Start : 11-Sep-2022 Active Problems Active Problems [...] unsp] Onset: 02-05-2023 Episodic Other endocrine disorders (9 sources) Polycystic ovary syndrome; Translations: [Polycystic ovarian syndrome] Onset: 06-14-2023 Chronic Other nutritional; endocrine; and metabolic disorders (1 source) Body mass index 40+ - severely obese; Translations: [BMI 50.0-59.9, adult ([facility])] Chronic Other nutritional; endocrine; and metabolic disorders [...] Patient encounter status; Translations: [Routine Papanicolaou smear] Unclassified (4 sources) OB Reminders Onset: 05-12-2023 05-12-2023 Past or Other Problems Problem Classification Problem Date Documented Da te Episodic/Chronic Other and delivery including normal (20 sources) Urine test positive; Translations: [ examination or test, positive result] Onset: 01-25-2023 Episodic Results Test Name Value Interpretation Reference Range Facility ALL CBC WITH AUTO DIFFon BASOPHILS ABSOLUTE AUTO 0 [facility] Basophils/100 WBC (Bld) 0.4 % 0.2 - 2.0 % [facility] Eosinophils/100 WBC (Bld) 1.8 % 0.9 - 7.0 % [facility] Erythrocyte distribution width (RBC) [Ratio] 13.3 % 11.0 - 15.0 % [facility] Hematocrit (Bld) [Volume fraction] 37.7 % 36.0 - 48.0 % [facility] Hemoglobin (Bld) [Mass/Vol] 12.3 g/dL 12.0 - 16.0 g/dL [facility] IMMATURE GRANULOCYTES ABS AUTO 0.02 [facility] Immature granulocytes/100 WBC (Bld) 0.3 % 0.0 - 0.5 % [facility] LYMPHOCYTES ABSOLUTE AUTO 2.2 [facility] Lymphocytes/100 WBC (Bld) 30.7 % 20.5 - 60.0 % [facility] MCH (RBC) [Entitic mass] 28.8 pg 26.7 - 34.0 pg [facility] MCHC (RBC) [Mass/Vol] 32.6 g/dL 29.9 - 35.2 g/dL [facility] MCV (RBC) [Entitic vol] 88.3 fL 81.0 - 99.0 fL [facility] MONOCYTES ABSOLUTE AUTO 0.4 [facility] Monocytes/100 WBC (Bld) 6 % 1.7 - 12.0 % [facility] NEUTROPHILS ABSOLUTE AUTO 4.4 [facility] Neutrophils/100 WBC (Bld) 60.8 % 43.0 - 75.0 % [facility] Platelet mean volume (Bld) [Entitic vol] 9.8 fL 9.5 - 13.5 fL [facility] EO # 0.1 [facility] TB PLT 249 [facility] RBC 4.27 [facility] WBC 7.2 [facility] HCG ( test) Ql (U)o n 08-26-2024 Interpretation and review of laboratory results Normal [facility] Preg Test, Ur Negative [facility] CBC with Diffon 10-01-2023 Abs. Basophil 0.01 k/uL Normal 0.00-0.20 [facility] Comment on above: Performed By: #### T VANESSA POE CDP #### [facility] [address] [place] [address] Medical I D Sales: Garland Ji MD Abs.Imm.Granulocyte 0.01 k/uL Normal 0.00-0.30 [facility] Comment on above: Performed By: #### Nia POE CP, CDP #### [facility] [address] [place] [address] Medical I D Sales: Garland Ji MD Abs.Neutrophil (Seg) 4.63 k/uL Normal 2.5-7.0 [facility] Comment on above: Performed By: #### Nia POE CP, CDP #### [facility] [address] [place] [address] Medical I D Sales: Garland Ji MD Basophils/100 WBC (Bld) 0 % Normal 0-2 [facility] Comment on above: Performed By: #### Nia POE CP, CDP #### [facility] [address] [place] [address] Medical I D Sales: Garland Ji MD Eosinophils (Bld) [#/Vol] 0.07 10*3/uL Normal 0.00-0.40 [facility] Comment on above: Performed By: #### Nia POE CP, CDP #### [facility] [address] [place], [place] [id number] Medical I D Sales: Garland Ji MD Eosinophils/100 WBC (Bld) 1 % Normal 0-5 [facility] Comment on above: Performed By: #### Nia POE CP, CDP #### [facility] [address] [place] [address] Medical I D Sales: Garland Ji MD Erythrocyte distribution width (RBC) [Ratio] 14.2 % Normal 12.1-15.2 [facility] Comment on above: Performed By: #### Nia POE CP, CDP #### [facility] [address] [place] [address] Medical I D Sales: Garland Ji MD Hematocrit (Bld) [Volume fraction] 27.3 % Low 36.0-46.0 [facility] Comment on above: Performed By: #### Nia POE CP, CDP #### [facility] [address] [place] [address] Medical I D Sales: Garland Ji MD Hemoglobin (Bld) [Mass/Vol] 8.9 g/dL Low 12.0-16.0 [facility] Comment on above: Performed By: #### Nia POE CP, CDP #### [facility] [address] [place] [id number] Medical I D Sales: Garland Ji MD Immature granulocytes/100 WBC (Bld) 0 % Normal 0-5 [facility] Comment on above: Performed By: #### Nia POE CP, CDP #### [facility] [address] [place] [address] Medical I D Sales: Garland Ji MD Lymphocytes (Bld) [#/Vol] 1.52 10*3/uL Normal 1.00-4.80 [facility] Comment on above: Performed By: #### Nia POE CP, CDP #### [facility] [address] [place] [address] Medical I D Sales: Garland Ji MD Lymphocytes/100 WBC (Bld) 23 % Normal 15-40 [facility] Comment on above: Performed By: #### Nia POE CP, CDP #### [facility] [address] [place] [address] Medical I D Sales: Garland Ji MD MCH (RBC) [Entitic mass] 28.4 pg Normal 26.0-34.0 [facility] Comment on above: Performed By: #### Nia POE CP, CDP #### [facility] [address] [place] [address] Medical I D Sales: Garland Ji MD MCHC (RBC) [Mass/Vol] 32.6 g/dL Normal 31.0-37.0 [facility] Comment on above: Performed By: #### Nia POE CP, CDP #### [facility] [address] [place] [address] Medical I D Sales: Garland Ji MD MCV (RBC) [Entitic vol] 87.2 fL Normal 80.0-100.0 [facility] Comment on above: Performed By: #### Nia POE CP, CDP #### [facility] [address] [place] [address] Medical I D Sales: Garland Ji MD Monocytes (Bld) [#/Vol] 0.39 10*3/uL Normal 0.00-1.00 [facility] Comment on above: Performed By: #### Nia POE CP, CDP #### [facility] [address] [place] [address] Medical I D Sales: Garland Ji MD Monocytes/100 WBC (Bld) 6 % Normal 4-8 [facility] Comment on above: Performed By: #### Nia POE CP, CDP #### [facility] [address] [place] [address] ([phone] Medical I D Sales: Garland Ji MD Neutrophil (Seg) 70 % Normal 47-75 [facility] Comment on above: Performed By: #### Nia POE CP, CDP #### [facility] [address] [place], [place] [phone] ([phone] Medical I D Sales: Garland Ji MD Platelet mean volume (Bld) [Entitic vol] 10.5 fL Normal 6.0-12.0 [facility] Comment on above: Performed By: #### Nia POE CP, CDP #### [facility] [address] [place] [address] ([phone] Medical I D Sales: Garland Ji MD Platelets (Bld) [#/Vol] 271 10*3/uL Normal 140-450 [facility] Comment on above: Performed By: #### Nia POE CP, CDP #### [facility] [address] [place] [address] (553) Medical I D Sales: Garland Ji MD RBC (Bld) [#/Vol] 3.13 10*6/uL Low 4.00-5.20 [facility] Comment on above: Performed By: #### Nia POE CP, CDP #### [facility] [address] [place] [address] (721) Medical I D Sales: Garland Ji MD WBC (Bld) [#/Vol] 6.6 10*3/uL Normal 3.5-11.0 [facility] Comment on above: Performed By: #### Nia POE CP, CDP #### [facility] [address] [place] [address] (935) Medical I D Sales: Garland Ji MD CT HEAD WO CONTRASTon [...] Garcia Jr., MD 10/01/23 Final result Normal [facility] Comp Metabolic Profon 2022 Albumin [Mass/Vol] 3.5 g/dL Normal 3.5-5.2 [facility] Comment on above: Performed By: #### T VANESSA POE, CDP #### [facility] [address] [place] [address] Medical I D Sales: Garland Ji MD Alkaline Phos 97 U/L Normal 35-104 [facility] Comment on above: Performed By: #### T VANESSA POE CDP #### [facility] [address] [place] [address] Medical I D Sales: Garland Ji MD ALT [Catalytic activity/Vol] 15 U/L Normal 5-33 [facility] Comment on above: Performed By: #### Nia POE CP, CDP #### [facility] [address] [place] [address] Medical I D Sales: Garland Ji MD Anion gap [Moles/Vol] 10 mmol/L Normal 9-17 [facility] Comment on above: Performed By: #### Nia POE CP, CDP #### [facility] [address] [place], [place] [id number] Medical I D Sales: Garland Ji MD AST [Catalytic activity/Vol] 16 U/L Normal <32 [facility] Comment on above: Performed By: #### T VANESSA POE, CDP #### [facility] [address] [place] [address] Medical I D Sales: Garland Ji MD Bilirubin [Mass/Vol] 0.2 mg/dL Low 0.3-1.2 [facility] Comment on above: Performed By: #### T VANESSA POE, CDP #### [facility] [address] [place] [address] Medical I D Sales: Garland Ji MD BUN/CRE Ratio 13 Normal 9-20 [facility] Comment on above: Performed By: #### T VANESSA POE, CDP #### [facility] [address] [place] [address] Medical I D Sales: Garland Ji MD Calcium [Mass/Vol] 9.2 mg/dL Normal 8.6-10.4 [facility] Comment on above: Performed By: #### Nia POE CP, CDP #### [facility] [address] [place] [address] Medical I D Sales: Garland Ji MD Chloride [Moles/Vol] 103 mmol/L Normal 98-107 [facility] Comment on above: Performed By: #### Nia POE CP, CDP #### [facility] [address] [place] [address] Medical I D Sales: Garland Ji MD CO2 [Moles/Vol] 25 mmol/L Normal 20-31 [facility] Comment on above: Performed By: #### T VANESSA POE, CDP #### [facility] [address] [place], [place] [id number] Medical I D Sales: Garland Ji MD Creatinine [Mass/Vol] 0.6 mg/dL Normal 0.5-0.9 [facility] Comment on above: Performed By: #### T VANESSA POE, CDP #### [facility] [address] [place] [address] Medical I D Sales: Garland Ji MD GFR/1.73 sq M.predicted among non-blacks MDRD (S/P/Bld) [Vol rate/Area] mL/min/{1.73_m2} Normal >60 [facility] Comment on above: Result Comment: These results [...] affects renal tubular secretion. Performed By: #### T VANESSA POE, CDP #### [facility] [address] [place] [address] Medical I D Sales: Garland Ji MD Glucose [Mass/Vol] 100 mg/dL High 70-99 [facility] Comment on above: Performed By: #### Nia POE CP CDP #### [facility] [address] [place] [address] Medical I D Sales: Garland Ji MD Potassium [Moles/Vol] 3.9 mmol/L Normal 3.7-5.3 [facility] Comment on above: Performed By: #### Nia POE CP CDP #### [facility] [address] [place] [address] Medical I D Sales: Garland Ji MD Protein [Mass/Vol] 6.4 g/dL Normal 6.4-8.3 [facility] Comment on above: Performed By: #### Nia POE CP CDP #### [facility] [address] [place] [address] Medical I D Sales: Garland Ji MD Sodium [Moles/Vol] 138 mmol/L Normal 135-144 [facility] Comment on above: Performed By: #### Nia POE CP, CDP #### [facility] [address] [place], [place] [phone] Medical I D Sales: Garland Ji MD Urea nitrogen [Mass/Vol] 8 mg/dL Normal 6-20 [facility] Comment on above: Performed By: #### Nia POE CP, CDP #### [facility] [address] [place], [place] [id number] Medical I D Sales: Garland Ji MD Troponinon 10-01-2023 Troponin, High Sens <6 Normal 0-14 [facility] Comment on above: Result Comment: High Sensitivity Troponin values cannot be compared with other Troponin methodologies. Performed By: #### Nia POE CP, CDP #### [facility] [address] [place], [place] [id number] Medical I D Sales: Garland Ji MD Urinalysis, Routineon 2022 Bilirubin, SemiQt,Ur Negative Normal NEG [facility] Comment on above: Performed By: #### U MICAO, UA #### [facility] [address] [place], [place] [id number] Medical I D Sales: Garland Ji MD Blood, Urine TRACE Abnormal NEG [facility] Comment on above: Performed By: #### U MICAO, UA #### [facility] [address] [place], [place] [id number] Medical I D Sales: Garland Ji MD Clarity (U) Clear Normal CLEAR [facility] Comment on above: Performed By: #### U MICAO, UA #### [facility] [address] [facility] [place] [id number] Medical I D Sales: Garland Ji MD Color (U) Yellow Normal YEL [facility] Comment on above: Performed By: #### U MICAO, UA #### [facility] [address] [place], [place] [id number] Medical I D Sales: Garland Ji MD Comment Normal [facility] Comment on above: Performed By: #### U MICAO, UA #### [facility] [address] [place] [address] Medical I D Sales: Garland Ji MD Glucose Ql (U) Negative Normal NEG [facility] Comment on above: Performed By: #### U MICAO, UA #### [facility] [address] [place] [address] Medical I D Sales: Garland Ji MD Ketones Ql (U) Negative Normal NEG [facility] Comment on above: Performed By: #### U MICAO, UA #### [facility] [address] [place] [address] Medical I D Sales: Garland Ji MD Leukocyte esterase Test strip Ql (U) Negative Normal NEG [facility] Comment on above: Performed By: #### U BASHIRO, UA #### [facility] [address] [place] [address] Medical I D Sales: Garland Ji MD Nitrite,Ur Negative Normal NEG [facility] Comment on above: Performed By: #### U BASHIRO, UA #### [facility] [address] [place] [address] Medical I D Sales: Garland Ji MD PH,Ur 6.5 Normal 5.0-8.0 [facility] Comment on above: Performed By: #### U MICAO, UA #### [facility] [address] [place] [address] Medical I D Sales: Garland Ji MD Protein Ql (U) TRACE Abnormal NEG [facility] Comment on above: Performed By: #### U MICAO, UA #### [facility] [address] [place] [address] Medical I D Sales: Garland Ji MD Spec. [place],Ur 1.015 Normal 1.005-1.030 [facility] Comment on above: Performed By: #### U MICAO, UA #### [facility] [address] [place], [place] [id number] Medical I D Sales: Garland Ji MD Urobilinogen,Ur Normal Normal 0.0-1.0 [facility] Comment on above: Performed By: #### U MAINE UA #### [facility] [address] [place] [address] Medical I D Sales: Garland Ji MD Urinalysis,Microon 3 ----- Normal [facility] Comment on above: Performed By: #### Ludivina GROVE UA #### [facility] [address] [place], [place] [id number] Medical I D Sales: Garland Ji MD Epithelial cells LM Ql (Urine sed) 0 TO 2 Normal [facility] Comment on above: Performed By: #### Ludivina GROVE UA #### [facility] [address] [place], [place] [id number] Medical I D Sales: Garland Ji MD Urine RBC's 0 TO 2 Normal 0-2 [facility] Comment on above: Performed By: #### Ludivina GROVE UA #### [facility] [address] [place], [place] [id number] Medical I D Sales: Garland Ji MD Urine WBC's NONE SEEN Normal 0 [facility] Comment on above: Performed By: #### U MAINE UA #### [facility] [address] [place], [place] [phone] Medical I D Sales: Garland Ji MD BOX TEST SENT OUTon 03-28-20 SENT TO REF LAB 03/28/23 [facility] Comment on above: Performed By: #### B OX #### [facility] [address] [place] [address] [address] Gaye Durand BOX TEST SENT OUTon 03-15-20 SENT TO REF LAB 03/15/2023 [facility] Comment on above: Performed By: #### R PRQ #### [facility] [address] [place] [address] Dr. Gaye Durand US PREG <14 WKSon [...] by: GARLAND HEATH Date: 2023-03-03 13:53 Normal [facility] HEP B SURFACE ANTIGEN SCREEN on 02-27-2023 HBsAg Screen Negative Normal Negative [facility] Comment on above: Performed By: #### H BSANS #### [facility] [address] [place] [address] Dr. Gaye Durand HEPATITIS C VIRUS AB W/ REFL EX QUANTon 02-27-2023 HCV AB Non-Reactive Normal Non Reactive [facility] Comment on above: Performed By: #### H CVPCRR #### [facility] [address] [place] [address] Dr. Gaye Durand Interpretation: Comment Normal [facility] Comment on above: Result Comment: Not infected with HCV unless early or acute infection is suspected (which may be delayed in an immunocompromised individual), or other evidence exists to indicate HCV infection. Performed By: #### H CVPCRR #### [facility] [address] [place] [address] Dr. Gaye Durand HIV 1 AND 2 WITH REFLEXon HIV Screen 4th Generation wRfx Non-Reactive Normal Non Reactive [facility] Comment on above: Result Comment: HIV Negative HIV-1/HIV-2 antibodies and HIV-1 p24 antigen were NOT detected. There is no laboratory evidence of HIV infection. Performed By: #### H IV12 #### [facility] [address] [place] [address] Dr. Gaye Durand RPR QUANTon 02-27-2023 Rapid Plasma Reagin, Quant Non-Reactive Normal NonRea<1:1 [facility] Comment on above: Result Comment: Stephon griffiths Note: This test does not meet current guidelines for screening and diagnosis of syphilis. This test is intended for following treatment response in patients being treated for syphilis infection. To screen for syphilis infection, a reflex cascade that includes both RPR and a treponema-specific assay should be utilized, such as Treponema pallidum (Syphilis) Screening [place] (824022) or Rapid Plasma Reagin (RPR) Test With Reflex to Quantitative RPR and Confirmatory Treponema pallidum Antibodies (847032). Performed By: #### R PRQ #### [facility] [address] [place] [address] Dr. Gaye Durand RUBELLA AB IGGon 02-27-2023 Rubella Antibodies, IgG 5.32 index Normal Immune >0.99 [facility] Comment on above: Result Comment: Non- immune <0.90 Equivocal 0.90 - 0.99 Immune >0.99 Performed By: #### R UBIGG #### [facility] [facility] [address] [place] [address] Dr. Gaye Durand BOX TEST SENT OUTon 02-27-20 23 SENT TO REF LAB 02/26/2023 Normal [facility] Comment on above: Performed By: #### B OX #### [facility] [address] [place] [address] Dr. Gaye Durand CBC AUTO DIFFon 02-26-2023 BASO # 0.0 103/ul Normal 0.0-0.1 [facility] Comment on above: Performed By: #### C BC #### [facility] [address] [place] [address] Dr. Gaye Durand Basophils/100 WBC (Bld) 0.3 % Normal 0.2-2.0 [facility] Comment on above: Performed By: #### C BC #### [facility] [address] [place] [address] Dr. Gaye Durand EO # 0.1 103/ul Normal 0.0-0.7 [facility] Comment on above: Performed By: #### C BC #### [facility] [address] [place] [address] Dr. Gaye Durand Eosinophils/100 WBC (Bld) 0.8 % Critically low 0.9-7.0 [facility] Comment on above: Performed By: #### C BC #### [facility] [address] [place] [address] Dr. Gaye Durand Erythrocyte distribution width (RBC) [Ratio] 13.3 % Normal 11.0-15.0 [facility] Comment on above: Performed By: #### C BC #### [facility] [address] [place] [address] Dr. Gaye Durand Hematocrit (Bld) [Volume fraction] 35.8 % Critically low 36.0-48.0 [facility] Comment on above: Performed By: #### C BC #### [facility] [address] [place] [address] Dr. Gaye Durand Hemoglobin (Bld) [Mass/Vol] 12.0 g/dL Normal 12.0-16.0 [facility] Comment on above: Performed By: #### C BC #### [facility] [address] [place] [address] Dr. Gaye Durand IG # 0.02 10e3/ul Normal 0.00-0.03 [facility] Comment on above: Performed By: #### C BC #### [facility] [address] [place] [address] Dr. Gaye Durand IG % 0.3 % Normal 0.0-0.5 [facility] Comment on above: Performed By: #### C BC #### [facility] [address] [place] [address] Dr. Gaye Durand LYMPH # 1.8 103/ul Normal 1.2-3.8 [facility] Comment on above: Performed By: #### C BC #### [facility] [address] [place] [address] Dr. Gaye Durand Lymphocytes/100 WBC (Bld) 24.3 % Normal 20.5-60.0 [facility] Comment on above: Performed By: #### C BC #### [facility] [address] [place] [address] Dr. Gaye Durand MANUAL DIFF REQ NO Normal [facility] Comment on above: Performed By: #### C BC #### [facility] [address] [place] [address] Dr. Gaye Durand MCH (RBC) [Entitic mass] 29.2 pg Normal 26.7-34.0 [facility] Comment on above: Performed By: #### C BC #### [facility] [address] [place] [address] Dr. Gaye Durand MCHC (RBC) [Mass/Vol] 33.5 g/dL Normal 29.9-35.2 [facility] Comment on above: Performed By: #### C BC #### [facility] [address] [place] [address] Dr. Gaye Durand MCV (RBC) [Entitic vol] 87.1 fL Normal 81.0-99.0 [facility] Comment on above: Performed By: #### C BC #### [facility] [address] [place] [address] Dr. Gaye Durand MONO # 0.3 103/ul Normal 0.3-0.8 [facility] Comment on above: Performed By: #### C BC #### [facility] [address] [place] [address] Dr. Gaye Durand Monocytes/100 WBC (Bld) 4.2 % Normal 1.7-12.0 [facility] Comment on above: Performed By: #### C BC #### [facility] [address] [place] [address] Dr. Gaye Durand NEUT # 5.2 103/ul Normal 1.4-6.5 [facility] Comment on above: Performed By: #### C BC #### [facility] [address] [place] [address] Dr. Gaye Durand Neutrophils/100 WBC (Bld) 70.1 % Normal 43.0-75.0 [facility] Comment on above: Performed By: #### C BC #### [facility] [address] [address] [address] Gaye Durand Platelet mean volume (Bld) [Entitic vol] 9.8 fL Normal 9.5-13.5 [facility] Comment on above: Performed By: #### C BC #### [facility] [address] [address] [address] Gaye Durand PLT 246 103/ul Normal 150-450 [facility] Comment on above: Performed By: #### C BC #### [facility] [address] [address] [address] Gaye Durand RBC 4.11 106/ul Critically low 4.20-5.40 [facility] Comment on above: Performed By: #### C BC #### [facility] [address] [place] [address] Dr. Gaye Durand WBC 7.4 103/ul Normal 4.0-11.0 [facility] Comment on above: Performed By: #### C BC #### [facility] [address] [place] [address] Dr. Gaye Durand CULTURE URINEon 02-26-2023 CULTURE URINE Culture Observations : MODERATE GROWTH OF MIXED GENITAL GIGI. NO POTENTIAL PATHOGENS SEEN. Normal [facility] Comment on above: Performed By: #### R PRQ #### [facility] [address] [place] [address] Dr. Gaye Durand GLYCOHEMOGLOBIN A1Con 2022 ADA RECOMMENDATION SEE BELOW Normal [facility] Comment on above: Result Comment: ADA RECOMMENDED LIMIT 4.0 - 6.0 ADA THERAPEUTIC TARGET < 7.0 ACTION SUGGESTED > 7.0 Performed By: #### A 1C #### [facility] [address] [place] [address] Dr. Gaye Durand Glucose [Mass/Vol] 100 mg/dL Normal [facility] Comment on above: Performed By: #### A 1C #### [facility] [address] [place] [address] Dr. Gaye Durand HbA1c (Bld) [Mass fraction] 5.1 % Normal 4.5-6.2 [facility] Comment on above: Performed By: #### A 1C #### [facility] [address] [address] [address] Gaye Durand TSHon 02-26-2023 TSH 1.490 uIU/mL Normal 0.358-3.740 [facility] Comment on above: Performed By: #### T SH #### [facility] [address] [address] [address] Gaye Durand TYPE AND SCREENon 02-26-2023 TYPE AND SCREEN Negative Normal [facility] Comment on above: Performed By: #### R PRQ #### [facility] [address] [place] [address] Dr. Gaye Durand No Panel Informationon 02-05 [...] Electronically signed by: BOBBI FLOOD MD Normal [facility] OYSTER FISHERMAN - Office Visiton 01-11 OYSTER FISHERMAN - Office Visit Diagnoses/Problems Assessed Nausea and [...] Plan of care reviewed with Dr. Jas Gomez CNP 02/05/2023 20:49 1 Amended By: Jeannie Gomez; Feb 05 2023 8:51 PM ESTChief Complaint A telephone visit (audio only) between the patient (at the originating site) and the provider (at the distant site) was utilized to provide this telehealth service. Verbal consent was requested and obtained from SANDRA DEAN on this date, 02/05/2023 09:30 AM , [...] Never a (more content not included)... Normal [facility] HCG, [place] 01-25-2023 HCG, Quant 1895 mIU/mL High <5 [facility] Comment on above: Result Comment: Non-preg premeno <=5 Postmeno <=8 Male <=3 If HCG results do not concur with clinical observations, additional testing to confirm results is recommended. Performed By: #### B HCG #### [facility] [address] [place] [address] Medical I D Sales: Garland Ji MD HCG, Quantitative, on 01-25-2023 hCG Quant 1895 High [facility] Comment on above: Non-preg premeno <=5 Postmeno <=8 Male <=3 If HCG results do not concur with clinical observations, additional testing to confirm results is recommended. Interpretation and review of laboratory results Abnormal [facility] HCG, [place] 01-18-2023 HCG, Quant 108 mIU/mL High <5 [facility] Comment on above: Result Comment: Non-preg premeno <=5 Postmeno <=8 Male <=3 If HCG results do not concur with clinical observations, additional testing to confirm results is recommended. Performed By: #### B HCG #### [facility] [address] [place] [address] Medical I D Sales: Garland Ji MD HCG, Quantitative, on 01-18-2023 hCG Quant 108 High [facility]INF [facility] Comment on above: Non-preg premeno <=5 Postmeno <=8 Male <=3 If HCG results do not concur with clinical observations, additional testing to confirm results is recommended. Interpretation and review of laboratory results Abnormal [facility] HCG, Quanton 01-16-2023 HCG, Quant 37 mIU/mL High <5 [facility] Comment on above: Result Comment: Non-preg premeno <=5 Postmeno <=8 Male <=3 If HCG results do not concur with clinical observations, additional testing to confirm results is recommended. Performed By: #### B HCG #### [facility] [address] [place] [address] Medical I D Sales: Garland Ji MD HCG, Quantitative, on 01-16-2023 hCG Quant 37 High [facility]INF [facility] Comment on above: Non-preg premeno <=5 Postmeno <=8 Male <=3 If HCG results do not concur with clinical observations, additional testing to confirm results is recommended. Interpretation and review of laboratory results Abnormal [facility] OYSTER FISHERMAN - Procedure Visiton 0 01-02-2023 OYSTER FISHERMAN - Procedure Visit Chief Complaint IUI-H Active [...] Verification performed with patient via electronic system DIRECTOR TALENT prior to insemination. All patient's questions were discussed and answered. Sample Box Maker offered to pt for intimate exam: [X] Pt Declined commercial instructor supervisor [] Pt requested commercial instructor supervisor; Name of commercial instructor supervisor Patient was placed in dorsal lithotomy position and speculum was inserted into vagina. Cervical os was visualized and prepared sample was inserted into uterus. Insemination was performed without difficulty. Patient tolerated procedure well. TMS: 31.9 mil Additional notes: advised to make a follow up with Piyush Gomez CNP Patient was advised to call office [...] plan. 01/02/2023 Signatures Electronically signed by : Elvi Covarrubias APRN-IAN; Jan 02 2023 11:39AM EST (Author) Normal [facility] ESTRADIOLon 01-01-2023 ESTRADIOL 88 pg/mL Normal [facility] Comment on above: Result Comment: Estr adiol measurement is performed using the [facility] Access Estradiol Immunoassay. Estradiol testing is performed using a different test methodology at [facility] than other [facility]. Direct result comparison should only be made within the same method. REF VALUES FOLLICULAR PHASE 20-144 MID CYCLE 64-357 LUTEAL PHASE 56-214 POSTMENOPAUSE < 32 PREPUBERTY < 20 FEMALE 10-18Y 8-110 MALE 10-18Y < 20 ADULT MALE < 40 Performed By: #### D HE #### [facility] [address] [place] [address] Estradiol, Serumon 3 E2 [Mass/Vol] 88 pg/mL [facility]OB[facility]-Ri sman 310 IVF Work Phone: Comment on above: Estradiol measuremen t is performed using the [employer] [place] Access Estradiol Immunoassay. Estradiol testing is performed using a different test methodology at [facility] than other [facility]. Direct result comparison should only be [...] Electronically signed by: BOBBI FLOOD MD Normal [facility] LUTEINIZING HORMONEon 2022 LUTEINIZING HORMONE 80.8 IU/L Normal [facility] Comment on above: Result Comment: Lute inizing Hormone [LH] is performed using the [facility] Access Immunoassay. LH testing is performed using a different test methodology at [facility] than [facility]. Direct result comparison should only be made within the same method. REF VALUES FOLLICULAR PHASE 1.5-10.0 MID-CYCLE 13.0-72.0 LUTEAL PHASE 0.5-13.0 MENOPAUSE 15.0-65.0 PREPUBERTY 0- 3.0 CHILDREN 0- 6.0 ADULT MALE 1.0- 9.0 Performed By: #### D [facility] #### [facility] [address] [address] Luteinizing Hormone, Serumon 01-01-2023 Lutropin Qn 80.8 {IU/L} [facility]an 310 IVF Work Phone: Comment on above: Luteinizing Hormone [LH] is performed using the [employer] [place] Access Immunoassay. LH testing is performed using a different test methodology at [facility] than [facility]. Direct result comparison should only be made within the same method.REF VALUESFOLLICULAR PHASE 1.5-10.0MID-CYCLE 13.0-72.0LUTEAL PHASE 0.5-13.0MENOPAUSE 15.0-65.0PREPUBERTY 0- 3.0CHILDREN 0- 6.0ADULT MALE 1.0- 9.0 No Panel Informationon 01-01 Normal [facility] 310 IVF Work Phone: OYSTER FISHERMAN - Procedure Visiton 1 12-28-2021 OYSTER FISHERMAN - Procedure Visit Chief Complaint patient presents [...] Verification performed with patient via electronic system DIRECTOR TALENT prior to insemination. All patient's questions were discussed and answered. Sample Box Maker offered to pt for intimate exam: [X] Pt Declined commercial instructor supervisor [] Pt requested commercial instructor supervisor; Name of commercial instructor supervisor Patient was placed in dorsal lithotomy position [...] of plan. Christina Leung CNP [facility] [address] [place] [address] [address] [place] [phone] Attending Note Comments/Additional Findings: Attestation statement: I [...] [facility] ESTRADIOLon 10-24-2022 ESTRADIOL 77 pg/mL Normal [facility] Comment on above: Result Comment: Estr adiol measurement is performed using the [employer] Access Estradiol Immunoassay. Estradiol testing is performed using a different test methodology at [facility] than other [facility]. Direct result comparison should only be made within the same method. REF VALUES FOLLICULAR PHASE 20-144 MID CYCLE 64-357 LUTEAL PHASE 56-214 POSTMENOPAUSE < 32 PREPUBERTY < 20 FEMALE 10-18Y 8-110 MALE 10-18Y < 20 ADULT MALE < 40 Performed By: #### D HE #### [facility] [address] [address] Estradiol, Serumon E2 [Mass/Vol] 77 pg/mL -Venkat colmenares 206A IVF Work Phone: Comment on above: Estradiol measuremen t is performed using the [employer] [place] Access Estradiol Immunoassay. Estradiol testing is performed using a different test methodology at [facility] than other [facility]. Direct result comparison should only be made [...] Electronically signed by: KIM HAWTHORNE MD Normal [facility] LUTEINIZING HORMONEon 2021 LUTEINIZING HORMONE 10.8 IU/L Normal [facility] Comment on above: Result Comment: Lute inizing Hormone [LH] is performed using the [employer] [place] Access Immunoassay. LH testing is performed using a different test methodology at [facility] than other [facility]. Direct result comparison should only be made within the same method. REF VALUES FOLLICULAR PHASE 1.5-10.0 MID-CYCLE 13.0-72.0 LUTEAL PHASE 0.5-13.0 MENOPAUSE 15.0-65.0 PREPUBERTY 0- 3.0 CHILDREN 0- 6.0 ADULT MALE 1.0- 9.0 Performed By: #### T [facility] #### [facility] [address] [place] [address] Luteinizing Hormone, Serumon 10-24-2022 Lutropin Qn 10.8 {IU/L} [facility]OBGYN-Cr ocker 206A IVF Work Phone: Comment on above: Luteinizing Hormone [LH] is performed using the [employer] Access Immunoassay. LH testing is performed using a different test methodology at [facility] than other [facility]. Direct result comparison should only be made within the same method.REF VALUESFOLLICULAR PHASE 1.5-10.0MID-CYCLE 13.0-72.0LUTEAL PHASE 0.5-13.0MENOPAUSE 15.0-65.0PREPUBERTY 0- 3.0CHILDREN 0- 6.0ADULT MALE 1.0- 9.0 No Panel Informationon 10-24 Normal [facility] 206A IVF Work Phone: OYSTER FISHERMAN - Procedure Visiton 1 11-24-2021 OYSTER FISHERMAN - Procedure Visit Chief Complaint Sandra is [...] [facility]works ESTRADIOLon 09-22-2022 ESTRADIOL 98 pg/mL Normal [facility] Comment on above: Result Comment: Estr adiol measurement is performed using the [facility] Access Estradiol Immunoassay. Estradiol testing is performed using a different test methodology at [facility] than other [facility]. Direct result comparison should only be made within the same method. REF VALUES FOLLICULAR PHASE 20-144 MID CYCLE 64-357 LUTEAL PHASE 56-214 POSTMENOPAUSE < 32 PREPUBERTY < 20 FEMALE 10-18Y 8-110 MALE 10-18Y < 20 ADULT MALE < 40 Performed By: #### E [facility] #### [facility] [address] [place] [address] Estradiol, Serumon E2 [Mass/Vol] 98 pg/mL [facility]OBGYN-Cr [facility]cker 206A IVF Work Phone: Comment on above: Estradiol measuremen t is performed using the [employer] Access Estradiol Immunoassay. Estradiol testing is performed using a different test methodology at [facility] than other [facility]. Direct result comparison should only be [...] Electronically signed by: MATIAS PROCTOR MD Normal [facility] LUTEINIZING HORMONEon 2021 LUTEINIZING HORMONE 18.0 IU/L Normal [facility] Comment on above: Result Comment: Lute inizing Hormone [LH] is performed using the [employer] Access Immunoassay. LH testing is performed using a different test methodology at [facility] than other [facility]. Direct result comparison should only be made within the same method. REF VALUES FOLLICULAR PHASE 1.5-10.0 MID-CYCLE 13.0-72.0 LUTEAL PHASE 0.5-13.0 MENOPAUSE 15.0-65.0 PREPUBERTY 0- 3.0 CHILDREN 0- 6.0 ADULT MALE 1.0- 9.0 Performed By: #### L H #### [facility] [address] [place] [address] Luteinizing Hormone, Serumon 09-22-2022 Lutropin Qn 18.0 {IU/L} [facility]OB[facility]-Cr [facility] 206A IVF Work Phone: Comment on above: Luteinizing Hormone [LH] is performed using the [employer] Access Immunoassay. LH testing is performed using a different test methodology at [facility] than other [facility]. Direct result comparison should only be [...] Electronically signed by: KIM HAWTHORNE MD Normal [facility] No Panel Informationon 09-19 Normal [facility]OB[facility]-Ri sman [...] and partner IUI. Patient and partner declined [employer] genetic screening waiver was signed. [facility] clearance on file. Jeannie Gomez CNP 08/11/2022 16:36 The [facility]22 for the above treatment: Ovidrel 250mcg/0.5mL syringe for trigger Karoline Gonsalves, BradenD, [facility] Clinical Pharmacist with [facility] Current Orders [...] for blood typing Type and Screen; Requested for:[id number]; Female infertility associated with anovulation Estradiol, Serum; Requested for:19Sep2022; Luteinizing Hormone, Serum; Requested for:19Sep2022; Fertility testing Follicle Endometrium Scan; Requested for:19Sep2022; Radiologist to Determine Optimal Study : Y What are the patient's signs and symptoms? : testing Signatures Electronically signed by : Karoline Gonsalves PharmD; Sep 18 2022 12:19PM EST (Author) Normal [facility] OYSTER FISHERMAN - Office Visiton 07-13 OYSTER FISHERMAN - Office Visit Patient Discussion/Summary Partner was [...] BMI 48 - Weight loss consult with [employer] PERFORMANCE ENGINEER -Plan: Once above complete will plan Letrozole [...] BMI 48 - Weight loss consult with [employer] PERFORMANCE ENGINEER -Plan: Once above complete will plan Letrozole 5 mg cd 3-7 with us monitoring hcg trigger and partner IUI with LP prometrium (if no conception within 3 cycles recommend FUV) 25 minutes spent with pt with >50% time spent counseling/coordinating care Jeannie Gomez CNP 06/12/2022 22:13 Chief Complaint An interactive audio and video telecommunication system which permits real time communications between the patient (at the originating site) and provider (at the distant site) was utilized to provide this telehealth service. Verbal consent was requested and obtained from SANDRA DEAN on this date, 07/24/2022 09:30 AM , for a telehealth visit. The patient is being seen today for a Follow Up Visit to review testing results. History of Present IllnessPatient is a 27 year old female with primary infertility presenting today for follow up visit. Diagnosis to date: primary infertility Treatment to date: Dr. 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 Normal [employer] Tobacco Screening.on 022 Fall risk assessment a) No falls within the last year [facility]Ri sman 320 Work Phone: Last menstrual period start date [id number] [facility]-OBGYN-Ri sman 320 Work Phone: Tobacco use status CPHS b) No [facility]-OBGYN-Ri sman 320 Work Phone: 17-HYDROXYPROGESTERONEon 17-HYDROXYPROGESTERO NE 28 ng/dL Normal [facility] Comment on above: Result Comment: Unable to [...] Endocrinol Metab. 1991;73:674-686; J Clin Endocrinol Metab. 1989;69;9456-0857; J Clin Endocrinol Metab. 1994;78:226-270. Pediatr Res 1988;23:525-529. Med[employer]Plus (accessed 04/27/14). This test was developed and its analytical performance characteristics have been determined by [employer] [facility] [place], [place]. It has not been cleared or approved by the U.S. Food and Drug Administration. This assay has been validated pursuant to the CLIA regulations and is used for clinical purposes. Performed By: #### 1 7OHP #### [employer] [address] TESTOST,FREE AND TOTALon TESTOSTERONE TOT.LC/MS/MS 23 ng/dL Normal 2-45 [facility] Comment on above: Result Comment: For additional information, please refer to http://education.Wallflower/faq/ TganaOitycsdnjapnSMPITIHMX530 (This link is being provided for informational/ educational purposes only.) This test was developed and its analytical performance characteristics have been determined by [employer] [place], [place]. It has not been cleared or approved by the U.S. Food and Drug Administration. This assay has been validated pursuant to the CLIA regulations and is used for clinical purposes. Performed By: #### T ESFT #### [employer] [place] [id number] [place], [place] TESTOSTERONE,FREE 6.1 pg/mL Normal 0.1-6.4 [facility] Comment on above: Result Comment: This test was developed and its analytical performance characteristics have been determined by [employer] [place], [place]. It has not been cleared or approved by the U.S. Food and Drug Administration. This assay has been validated pursuant to the CLIA regulations and is used for clinical purposes. Performed By: #### T ESFT #### [employer] [place] [address] [place] [address] ANTI MULLERIAN HORMONEon ANTI MULLERIAN HORMONE 4.71 ng/mL Normal [facility] Comment on above: Result Comment: For assays employing antibodies, the possibility exists for interference by heterophile antibodies in the samples.1 1.Lyle Gu Interferences in Immunoassays - still a threat. Clin. Chem. 2000; 46: 2393-6466. This test was developed and its performance characteristics determined by [employer]. It has not been cleared or approved by the Food and Drug Administration. Reference Range: Females 26 - 30y: 1.03 - 11.10 Median 4.20 AMH concentrations of >= 1.06 ng/mL is correlated with a better response to ovarian stimulation, produced more retrievable oocytes and higher odds of live according to Kip et al. Fertility and Sterility. 2010: 94:1053-1287. The current AMH test method correlates with [...] AMH-secreting ovarian tumor. Performed By: #### D MOISES #### [facility] [address] [address] Lab Reportson 07-05-2022 Lab Reports [id number] Normal [facility] GC + CHLAMYDIA BY AMPLIFIED DETECTIONon 07-04-2022 CHLAMYDIA TRACH.,AMPLIFIED Negative Normal Negative [facility] Comment on above: Result Comment: The APTIMA Combo 2 assay is FDA-approved for Chlamydia trachomatis and Neisseria gonorrhoeae testing on female endocervical and vaginal swabs, ThinPrep liquid pap samples, male urine samples and urethral swabs. Performance characteristics for Chlamydia trachomatis and Neisseria gonorrhoeae testing on specific wih-GJD-abycoyla sample types (female urine samples) have been validated by [facility]. This laboratory is certified by CLIA to perform high complexity testing. Samples from all other sites are not validated for this method. Performed By: #### [facility] #### [facility] [address] [place] [address] N.GONORRHEA,AMPLIFIE D Negative Normal Negative [facility] Comment on above: Result Comment: The APTIMA Combo 2 assay is FDA-approved for Chlamydia trachomatis and Neisseria gonorrhoeae testing on female endocervical and vaginal swabs, ThinPrep liquid pap samples, male urine samples and urethral swabs. Performance characteristics for Chlamydia trachomatis and Neisseria gonorrhoeae testing on specific apd-GDS-rutcjkct sample types (female urine samples) have been validated by [facility]. This laboratory is certified by CLIA to perform high complexity testing. Samples from all other sites are not validated for this method. Performed By: #### [facility] #### [facility] [address] [place] [address] HEMOGLOBIN A1Con 07-04-2022 Glucose [Mass/Vol] 108 mg/dL Normal [facility] Comment on above: Performed By: #### D [facility] #### [facility] [address] [place] [address] HbA1c (Bld) [Mass fraction] 5.4 % Normal [facility] Comment on above: Result Comment: Diag nosis of Diabetes-Adults Non-Diabetic: < or = 5.6% Increased risk for developing diabetes: 5.7-6.4% Diagnostic of diabetes: > or = 6.5% . Monitoring of Diabetes Age (y) Therapeutic Goal (%) Adults: >18 <7.0 Pediatrics: 13-18 <7.5 7-12 <8.0 0- 6 7.5-8.5 [place] [employer]. Diabetes Care 33(S1), Nov 2009. Performed By: #### D AS #### [facility] [address] [place] [address] HEPATITIS B SURFACE AGon HEP.B SURFACE AG Non-Reactive Normal NONREACTIVE [facility] Comment on above: Result Comment: Biot in interference may cause falsely decreased results. Patients taking a Biotin dose of up to 5 mg/day should refrain from taking Biotin for 24 hours before sample collection. Providers may contact their local laboratory for further information. Performed By: #### H BSAG #### [facility] [address] [place] [id number] HEPATITIS C ABon 07-04-2022 HEPATITIS C AB Non-Reactive Normal NONREACTIVE [facility] Comment on above: Result Comment: Resu lts from patients taking biotin supplements or receiving high-dose biotin therapy should be interpreted with caution due to possible interference with this test. Providers may contact their local laboratory for further information. Performed By: #### T HYDS #### [facility] [address] [place] [address] HIV 1/2 ANTIGEN/ANTIBODY SCR EEN WITH REFLEX TO CONFIRMATIONon 07-04-2022 HIV 1/2 AG/AB SCREEN Non-Reactive Normal NONREACTIVE U [facility] Comment on above: Result Comment: HIV Ag/Ab screen is performed using the [employer] / T[employer] HIV Ag/Ab Combo assay which detects the presence of HIV p24 antigen as well as antibodies to HIV-1 (Group M and O) and HIV-2. . No laboratory evidence of HIV infection. If acute HIV infection is suspected, consider testing for HIV RNA by PCR (viral load). Performed By: #### T HYDS #### [facility] [address] [place] [address] RUBELLA IGG ABon 07-04-2022 RUBELLA IGG AB Positive Normal [facility] Comment on above: Result Comment: INTE RPRETATIVE [...] in serological assays. Performed By: #### T HYDS #### [facility] [address] [place] [address] SYPHILIS SCREENING WITH REFL EXon 07-04-2022 SYPHILIS TOTAL AB Non-Reactive Normal NONREACTIVE [facility] Comment on above: Result Comment: No s ignificant level of Treponema pallidum antibody detected. Repeat testing in 2 to 4 weeks may be considered if early infection or incubating syphilis infection is suspected. Performed By: #### D HEAS #### [facility] [address] [place] [address] TYPE AND SCREENon 07-04-2022 ABO/Rh Positive [facility] [employer] Arm Band Number HIDE [facility] [employer] Expiration Date 07/07/2022,2358 [facility] [employer] VARICELLA ZOSTER IGG ABon VARICELLA ZOSTER IGG AB Positive Normal NEGATIVE [facility] Comment on above: Result Comment: INTE RPRETATIVE [...] Performed By: #### V ARZG #### [facility] [address] [place] [address] 17-Hydroxyprogesterone, Seru mon 07-03-2022 17-Hydroxyprogestero ne [Mass/Vol] [...] Endocrinol Metab. 1991;73:674-686; J Clin Endocrinol Metab. 1989;69;8401-8308; J Clin Endocrinol Metab. 1994;78:226-270. Pediatr Res 1988;23:525-529. MedLinePlus (accessed 04/27/14). This test was developed and its analytical performancecharacteristics have been determined by [employer] [place], [place]. It hasnot been cleared or approved by the U.S. Food and DrugAdministration. This assay has been validated pursuantto the CLIA regulations and is used for clinicalpurposes. CBCon 07-03-2022 Erythrocyte distribution width (RBC) [Ratio] 12.8 % Normal 11.5 - 14.5 [facility] Comment on above: Performed By: #### Murray HOWARD #### [facility] [address] [place] [address] Hematocrit (Bld) [Volume fraction] 37.8 % Normal 36.0 - 46.0 [facility] Comment on above: Performed By: #### Murray HOWARD #### [facility] [address] [place] [address] Hemoglobin (Bld) [Mass/Vol] 12.8 g/dL Normal 12.0 - 16.0 [facility] Comment on above: Performed By: #### Murray HOWARD #### [facility] [address] [place] [address] MCHC (RBC) [Mass/Vol] 33.9 g/dL Normal 32.0 - 36.0 [facility] Comment on above: Performed By: #### Murray HOWARD #### [facility] [address] [place] [address] MCV (RBC) [Entitic vol] 86 fL Normal 80 - 100 [facility] Comment on above: Performed By: ###Laura HOWARD #### [facility] [address] [place] [address] Platelets (Bld) [#/Vol] 283 10*3/uL Normal 150 - 450 [facility] Comment on above: Performed By: #### Murray HOWARD #### [facility] [address] [place] [address] RBC 4.41 x10E12/L Normal 4.00 - 5.20 [facility] Comment on above: Performed By: #### Murray HOWARD #### [facility] [address] [place] [address] WBC (Bld) [#/Vol] 7.5 10*3/uL Normal 4.4 - 11.3 [facility] Comment on above: Performed By: #### Murray HOWARD #### [facility] [address] [place] [address] COMPREHENSIVE PANELon 2021 Albumin [Mass/Vol] 4.7 g/dL Normal 3.4 - 5.0 [facility] Comment on above: Performed By: #### Murray HOWARD #### [facility] [address] [place] [address] ALP [Catalytic activity/Vol] 46 U/L Normal 33 - 110 [facility] Comment on above: Performed By: ###Laura HOWARD #### [facility] [address] [place] [address] ALT [Catalytic activity/Vol] 28 U/L Normal 7 - 45 [facility] Comment on above: Result Comment: Michelle ents treated with Sulfasalazine may generate falsely decreased results for ALT. Performed By: ###Laura HOWARD #### [facility] [address] [place] [address] Anion gap [Moles/Vol] 13 mmol/L Normal 10 - 20 [facility] Comment on above: Performed By: #### Murray HOWARD #### [facility] [address] [place] [address] AST [Catalytic activity/Vol] 18 U/L Normal 9 - 39 [facility] Comment on above: Performed By: ###Laura HOWARD #### [facility] [address] [place] [address] Bilirubin [Mass/Vol] 0.4 mg/dL Normal 0.0 - 1.2 [facility] Comment on above: Performed By: #### Murray HOWARD #### [facility] [address] [place] [address] Calcium [Mass/Vol] 9.5 mg/dL Normal 8.6 - 10.3 [facility] Comment on above: Performed By: #### Murray HOWARD #### [facility] [address] [place] [address] Chloride [Moles/Vol] 103 mmol/L Normal 98 - 107 [facility] Comment on above: Performed By: #### Murray HOWARD #### [facility] [address] [place] [address] Creatinine [Mass/Vol] 0.62 mg/dL Normal 0.50 - 1.05 [facility] Comment on above: Performed By: #### Murray HOWARD #### [facility] [address] [place] [address] eGFR FEMALE >90 Normal >90 [facility] Comment on above: Result Comment: CALC ULATIONS OF ESTIMATED GFR ARE PERFORMED USING THE 2020 CKD-EPI STUDY REFIT EQUATION WITHOUT THE RACE VARIABLE FOR THE IDMS-TRACEABLE CREATININE METHODS. https://jasn.asnjournals.org/content/early/ASN.1019129 988 Performed By: #### Murray HOWARD #### [facility] [address] [place] [address] Glucose [Mass/Vol] 82 mg/dL Normal 74 - 99 [facility] Comment on above: Performed By: #### Murray HOWARD #### [facility] [address] [place] [address] HCO3 (Bld) [Moles/Vol] 25 mmol/L Normal 21 - 32 [facility] Comment on above: Performed By: #### Murray HOWARD #### [facility] [address] [place] [address] Potassium [Moles/Vol] 3.9 mmol/L Normal 3.5 - 5.3 [facility] Comment on above: Performed By: #### Murray HOWARD #### [facility] [address] [place] Protein [Mass/Vol] 7.5 g/dL Normal 6.4 - 8.2 [facility] Comment on above: Performed By: #### Murray HOWARD #### [facility] [address] [place] Sodium [Moles/Vol] 137 mmol/L Normal 136 - 145 [facility] Comment on above: Performed By: #### Murray HOWARD #### [facility] [address] [place] Urea nitrogen [Mass/Vol] 11 mg/dL Normal 6 - 23 [facility] Comment on above: Performed By: #### Murray HOWARD #### [facility] [address] [place] DHEA SULFATEon 07-03-2022 DHEA SULFATE 233 ug/dL Normal 65 - 395 [facility] Comment on above: Result Comment: MATU RITY-BASED REFERENCE RANGES: PUBERTAL (AMAODR) STAGE MALE FEMALE I 5 - 265 [...] information. Performed By: #### Murray HOWARD #### [facility] [address] [place] Lab Specimen Source Normal [facility] Comment on above: Performed By: ###Laura HOWARD #### [facility] [address] [place] Performed By: #### H BSAG #### [facility] [address] [place] Performed By: ###Laura CHRISTINE #### [facility] [address] [place] [id number] DHEA Sulfate, Serumon 2021 DHEA-S [Mass/Vol] 233 ug/dL 65 - 395 MG-OBGY N-Ri sman 310 IVF Work Phone: Comment on above: SOURCE: [facility] REFERENCE RANGES: PUBERTAL (AMADOR) STAGE [...] DETECTIONon 07-03-2022 Lab Specimen Source Urine Normal [facility] Comment on above: Performed By: #### [facility] #### [facility] [address] [address] GC + Chlamydia By Amplified Detectionon 07-03-2022 [...] trachomatis and Neisseria gonorrhoeae testing on specific zhf-RPW-wvgadcld sample types (female urine samples) have been validated by [facility]. This laboratory is certified by CLIA [...] trachomatis and Neisseria gonorrhoeae testing on specific kzi-IFI-kzgcbpxw sample types (female urine samples) have been validated by [facility]. This laboratory is certified by CLIA to perform high complexity testing. Samples from all other sites are not validated for this method. HIV 1/2 ANTIGEN/ANTIBODY SCR EEN WITH REFLEX TO CONFIRMATIONon 07-03-2022 HIV 1+2 Ab Qn (S) Non-Reactive See Below MG-SUPERVISOR RECLAMATION-Ri sman 310 IVF Work Phone: Comment on above: SOURCE: Reference Ra nge: NONREACTIVE HIV Ag/Ab screen is performed using the [employer] HIV Ag/Ab Combo assay which detects the [...] HbA1c (Bld) [Mass fraction] 5.4 % MG-OBGYN-Ri Independan 310 IVF Work Phone: Comment on above: Diagnosis of Diabete s-Adults Non-Diabetic: < or = 5.6% Increased risk for developing diabetes: 5.7-6.4% Diagnostic of diabetes: > or = 6.5%. Monitoring of Diabetes Age (y) Therapeutic Goal (%) Adults: >18 <7.0 Pediatrics: 13-18 <7.5 7-12 <8.0 0- 6 7.5-8.5 [employer]. Diabetes Care 33(S1), Nov 2009. Hepatitis B Surface Antigeno n 07-03-2022 Hepatitis B Surface Antigen Non-Reactive See Below MG-OBGYN-Ri sman 310 IVF Work Phone: Comment on above: SOURCE: Reference Ra nge: NONREACTIVE Biotin interference may cause falsely decreased results. Patients taking a Biotin dose of up to 5 mg/day should refrain from taking Biotin for 24 hours before sample collection. Providers may contact their local laboratory for further information. SOURCE: Reference Ra marcose: NONREACTIVE Results from patients taking biotin supplements or receiving high-dose biotin therapy should be interpreted with caution due to possible interference with this test. Providers may contact their local laboratory for further information. LIPID PANEL (CORONARY RISK 2 )on 07-03-2022 Cholesterol [Mass/Vol] 145 mg/dL Normal 0 - 199 [facility] Comment on above: Result Comment: . AGE [...] dosing. Performed By: #### L IPID #### [facility] [address] [place] [address] Cholesterol in HDL [Mass/Vol] 46.2 mg/dL Normal [facility] Comment on above: Result Comment: . AGE VERY LOW LOW NORMAL HIGH 0-19 Y < 35 < 40 40-45 ---- 20-24 Y ---- < 40 >45 ---- >24 Y ---- < 40 40-60 >60 . Performed By: #### L IPID #### [facility] [address] [place] [address] Cholesterol in LDL [Mass/Vol] 70 mg/dL Normal 0 - 99 [facility] Comment on above: Result Comment: . NEAR BORD AGE DESIRABLE OPTIMAL HIGH HIGH VERY HIGH 0-19 Y 0 - 109 --- 110-129 >/= 130 ---- 20-24 Y 0 - 119 --- 120-159 >/= 160 ---- >24 Y 0 - 99 100-129 130-159 160-189 >/=190 . Performed By: #### L IPID #### [facility] [address] [place] [address] Cholesterol in VLDL [Mass/Vol] 29 mg/dL Normal 0 - 40 [facility] Comment on above: Performed By: #### L IPID #### [facility] [address] [place] [address] Cholesterol.total/Ch olesterol in HDL [Mass ratio] 3.1 {ratio} Normal [facility] Comment on above: Result Comment: REF VALUES DESIRABLE < 3.4 HIGH RISK > 5.0 Performed By: #### L IPID #### [facility] [address] [place] [address] Triglyceride [Mass/Vol] 144 mg/dL Normal 0 - 149 [facility] Comment on above: Result Comment: . AGE [...] dosing. Performed By: #### L IPID #### [facility] [address] [place] [address] Laboratory - Blood bankon ABO group Nom (Bld) Canceled MG-SUPERVISOR RECLAMATION-Ri sman 310 IVF Work Phone: Comment on above: NO PHLEB ID NOTIFIED BOBBI DUMONT AT DR SLAUGHTER OFFICE, 07/04/2022 09:19 Blood group antibody screen Ql Canceled MG-OBGYN-Ri sman 310 IVF Work Phone: Comment on above: NO PHLEB ID NOTIFIED BOBBI DUMONT AT DR SLAUGHTER OFFICE, 07/04/2022 09:19 Rh immune globulin screen (Bld) [Interp] Canceled MG-OBGYN-Ri sman 310 IVF Work Phone: Comment on above: NO PHLEB ID NOTIFIED BOBBI DUMONT AT DR SLAUGHTER OFFICE, 07/04/2022 09:19 Laboratory - Chemistry and C hemistry - challengeon 07-03-2022 Albumin BCP dye [Mass/Vol] 4.7 g/dL 3.4 - 5.0 MG-OBGYN-Ri sman [address] IVF Work Phone: [phone] ALP [Catalytic activity/Vol] 46 U/L 33 - 110 [facility]-Ri sman 310 IVF Work Phone: [phone] ALT With P-5'-P [Catalytic activity/Vol] 28 U/L 7 - 45 [facility]-OB[facility]N-Ri sman 310 IVF Work Phone: [phone] Comment on above: Patients treated wit h Sulfasalazine may generate falsely decreased results for ALT. Anion gap [Moles/Vol] 13 mmol/L 10 - 20 [facility]-OBGYN-Ri sman 310 IVF Work Phone: [phone] AST With P-5'-P [Catalytic activity/Vol] 18 U/L 9 - 39 MG-OBGYN-Ri sman 310 IVF Work Phone: [phone] Bilirubin [Mass/Vol] 0.4 mg/dL 0.0 - 1.2 MG-O BGYN-Ri sman 310 IVF Work Phone: [phone] Calcium [Mass/Vol] 9.5 mg/dL 8.6 - 10.3 MG-OBG YN-Ri sman 310 IVF Work Phone: [phone] Chloride [Moles/Vol] 103 mmol/L 98 - 107 MG-O BGYN-Ri sman 310 IVF Work Phone: [phone] CO2 [Moles/Vol] 25 mmol/L 21 - 32 MG-OBGYN- Ri sman 310 IVF Work Phone: [phone] Creatinine [Mass/Vol] 0.62 mg/dL See Below MG-OBGYN-Ri sman 310 IVF Work Phone: [phone] Comment on above: Reference Range: 0.5 0 - 1.05 Glucose [Mass/Vol] 82 mg/dL 74 - 99 MG-OBG YN-Ri sman 310 IVF Work Phone: [phone] Mullerian inhibiting substance [Mass/Vol] 4.71 ng/mL MG-OBGYN-Ri sman 320 Work Phone: [phone] Comment on above: For assays employing antibodies, the possibility exists forinterference by heterophile antibodies in the samples.11.Lyle Gu Interferences in Immunoassays - still a threat. Clin. Chem. 2000; 46: 2502-3328.This test was developed and its performance characteristicsdetermined by [employer]. It has not been cleared or approvedby the Food and Drug Administration.Reference Range:Females 26 - 30y: 1.03 - 11.10Median 4.20AMH concentrations of >= 1.06 ng/mL is correlated with abetter response to ovarian stimulation, produced moreretrievable oocytes and higher odds of live accordingto Kip summers al. Fertility and Sterility. 2010:94:3585-3159. The current AMH test method correlates withthe [...] 5.3 MG-OBGYN-Ri sman 310 IVF Work Phone: [phone] Protein [Mass/Vol] 7.5 g/dL 6.4 - 8.2 MG-OBG YN-Ri sman 310 IVF Work Phone: [phone] Sodium [Moles/Vol] 137 mmol/L 136 - 145 MG-OBG YN-Ri sman 310 IVF Work Phone: [phone] Testosterone [Mass/Vol] 23 ng/dL 2-45 MG-OBGYN-Ri sman 320 Work Phone: [phone] Comment on above: For additional infor jung, please refer tohttp://education.Wallflower/faq/TotalTestosteroneMS [email or web address](This link is being provided for informational/educational purposes only.) This test was developed and its analytical performancecharacteristics have been determined by [employer] [place], [place]. It hasnot been cleared or approved by the U.S. Food and DrugAdministration. This assay has been validated pursuantto the CLIA regulations and is used for clinicalpurposes. Testosterone Free [Mass/Vol] 6.1 pg/mL 0.1-6.4 MG-OBGYN-Ri sman 320 Work Phone: Comment on above: This test was develo ped and its analytical performancecharacteristics have been determined by [facility] [facility] [place] It hasnot been cleared or approved by the U.S. Food and DrugAdministration. This assay has been validated pursuantto the CLIA regulations and is used for clinicalpurposes. TSH Qn 1.66 m[IU]/L See Below MG-OBGYN-Ri sman 310 IVF Work Phone: Comment on above: Reference Range: 0.4 4 - 3.98 TSH testing is performed using different testing methodology at [facility] than at other [facility]. Direct result comparisons should only be [...] Work Phone: Comment on above: Reference Range: 36. 0 - 46.0 Hemoglobin (Bld) [Mass/Vol] 12.8 g/dL See Below MG-OBGYN-Ri sman 310 IVF Work Phone: Comment on above: Reference Range: 12. 0 - 16.0 MCHC (RBC) [Mass/Vol] 33.9 g/dL See Below MG-OBGYN-Ri sman 310 IVF Work Phone: [phone] Comment on above: Reference Range: 32. 0 - 36.0 MCV (RBC) [Entitic vol] 86 fL 80 - 100 MG-OBGYN-Ri sman 310 IVF Work Phone: [phone] Platelets (Bld) [#/Vol] 283 10*3/uL 150 - 450 MG-OBGYN-Ri sman 310 IVF Work Phone: [phone] RBC (Bld) [#/Vol] 4.41 {x10E12/L} See Below MG -OBGYN-Ri sman 310 IVF Work Phone: [phone] Comment on above: Reference Range: 4.0 0 - 5.20 WBC (Bld) [#/Vol] 7.5 10*3/uL 4.4 - 11.3 MG-OBG YN-Ri sman 310 IVF Work Phone: [phone] Lipid Panelon 07-03-2022 Cholesterol [Mass/Vol] 145 mg/dL 0 - 199 MG-OBGYN-Ri sman 310 IVF Work Phone: [phone] Comment on above: . AGE DESIRABLE BORD [...] mg/dL MG-OBGYN-Ri sman 310 IVF Work Phone: [phone] Comment on above: . AGE VERY LOW [...] THE RACE VARIABLE FOR THE IDMS-TRACEABLE CREATININE METHODS.https://jasn.asnjournals.org/content//ASN .6200702738 OYSTER FISHERMAN - Procedure Visiton 0 07-03-2022 OYSTER FISHERMAN - Procedure Visit Diagnoses/Problems Abnormal radiograph (793.99) [...] bilateral right/left tubes per Dr. Proctor. Juanita Leung, IAN Reproductive Endocrinology and Infertility 07-03-2022 @ 1413 [...] bilateral right/left tubes per Dr. Proctor. Juanita Leung, [facility] Reproductive Endocrinology and Infertility 07-03-2022 @ 1413 [...] up required - chart forwarded to primary MDDR. Proctor Images reviewed by DR. Proctor The [...] procedure . (more content not included)... Normal [employer] PROGESTERONEon 07-03-2022 PROGESTERONE 0.4 ng/mL Normal [facility] Comment on above: Result Comment: Prog esterone is performed using the [facility] Access Immunoassay. Progesterone testing is performed using a different test methodology at [facility] than [facility]. Direct result comparison should only be made within the same method. REF VALUES MALE <0.2-0.8 FOLLICULAR PHASE <0.2-1.5 LUTEAL PHASE 7.4-15.4 POSTMENOPAUSAL <0.2-0.2 1ST TRIMESTER 12.0-84.0 2ND TRIMESTER 10.2-58.8 3RD TRIMESTER 46.5-160 Performed By: #### T HYDS #### [facility] [address] [place] [address] PROLACTINon 07-03-2022 PROLACTIN 10.5 ug/L Normal 3.0 - 20.0 [facility] Comment on above: Performed By: #### D HE #### [facility] [address] [address] Progesterone, Serumon 2021 Progesterone [Mass/Vol] 0.4 ng/mL MG-OBGYN-Ri sman 310 IVF Work Phone: Comment on above: Progesterone is perf ormed using the [facility] Access Immunoassay. Progesterone testing is performed using a different test methodology at [facility] than other [facility]. Direct result comparison should only be [...] IA Ql (S) Non-Reactive See Below [facility] Work Phone: Comment on above: SOURCE: Reference Ra nge: NONREACTIVENo significant level of Treponema pallidum antibody detected. Repeat testing in 2 to 4 weeks may be considered if early infection or incubating syphilis infection is suspected. TSH WITH REFLEX TO FREE T4 I F ABNORMALon 07-03-2022 TSH Qn 1.66 m[IU]/L Normal 0.44 - 3.98 [facility] Comment on above: Result Comment: TSH testing is performed using different testing methodology at [facility] than at other [facility]. Direct result comparisons should only be made within the same method. Performed By: #### T EMMETT #### [facility] [address] [place] [address] TYPE + SCREENon 07-03-2022 ABO TYPE Canceled Normal [facility] Comment on above: Order Comment: NO PH LEB ID NOTIFIED BOBBI DUMONT AT DR SLAUGHTER OFFICE, 07/04/2022 09:19TEST TYPE + SCREEN WAS CANCELLED, 07/03/2022 21:17 no phleb id. Result Comment: NO P HLEB ID NOTIFIED BOBBI DUMONT AT DR SLAUGHTER OFFICE, 07/04/2022 09:19 Performed By: #### D HEAS #### [facility] [id number] [place] [address] RH TYPE Canceled Normal [facility] Comment on above: Order Comment: NO PH LEB ID NOTIFIED BOBBI DUMONT AT DR SLAUGHTER OFFICE, 07/04/2022 09:19TEST TYPE + SCREEN WAS CANCELLED, 07/03/2022 21:17 no phleb id. Result Comment: NO P HLEB ID NOTIFIED BOBBI DUMONT AT DR SLAUGHTER OFFICE, 07/04/2022 09:19 Performed By: #### D HEAS #### [facility] [address] [place] [address] Varicella Zoster IgG Antibod yon 07-03-2022 VZV [...] IVIG may demonstrate alteredresults in serological assays. OYSTER FISHERMAN - Office Visiton OYSTER FISHERMAN - Office Visit Diagnoses/Problems Assessed Routine screening [...] (E66.01,Z68.42) Orders Complete Blood Count; Status:Active; Requested for:12Jun2022; Comprehensive Metabolic Panel; Status:Active; Requested for:12Jun2022; Lipid Panel; Status:Active; Requested for:12Jun2022; Type and Screen; Status:Active; Requested for:12Jun2022; Rubella IgG Antibody; Status:Active; Requested for:12Jun2022; Varicella Zoster IgG Antibody; Status:Active; Requested for:12Jun2022; Anti Mullerian Hormone; Status:Active; Requested for:12Jun2022; Xray Hysterosalpingogram; Status:Hold For - Scheduling; Requested for:12Jun2022; Radiologist to Determine Optimal Study : Y What are the patient's signs and symptoms? : fertility testing r/o PCOS IO Ultrasound, pelvic complete; Status:Hold For - Scheduling; Requested for:12Jun2022; Radiologist to Determine Optimal Study : Y What are the patient's signs and symptoms? : fertility testing r/o PCOS Progesterone, Serum; Status:Active; Requested for:12Jun2022; 17-Hydroxyprogesterone, Serum; Status:Active; Requested for:12Jun2022; DHEA Sulfate, Serum; Status:Active; Requested for:12Jun2022; Prolactin, Serum; Status:Active; Requested for:12Jun2022; Testosterone Free + Total; Status:Active; Requested for:12Jun2022; [...] BMI 48 [X] Weight loss consult with [employer] ENGINEER [X] New infertility/PCOS packet [X ] Engaged [...] pt ag (more content not included)... Normal [employer] Tobacco Screening.on 022 Fall risk assessment a) No falls within the last year MG-OBGYN-Ri sman 320 Work Phone: Last menstrual period start date [id number] MG-OBGYN-Ri sman 320 Work Phone: Tobacco use status CPHS b) No MG-OBGYN-Ri sman 320 Work Phone: Progesteroneon 10-23-2021 Progesterone 3.76 ng/mL [employer] Comment on above: FEMALE (healthy): Follicular phase 0.06-0.89 Ovulation phase 0.12-12.00 Luteal phase 1.83-23.90 Postmenopausal <0.13 [employer] Progesteroneon 09-21-2021 Progesterone 4.48 ng/mL [employer] Comment on above: FEMALE (healthy): Follicular phase 0.06-0.89 Ovulation phase 0.12-12.00 Luteal phase 1.83-23.90 Postmenopausal <0.13 [employer] Family Medicine Video Visit - Telehealthon 09-08-2021 Family Medicine Video Visit - Telehealth Chief Complaint pt having video [facility] c/o nasal congestion, prod cough of white [...] She tested +09/06. She works in the [employer]-way system and is now quarantined for 10 [...] interactive video communications from my office using [employer] due to the restrictions of the COVID-19 pandemic. No physical exam was conducted other than those areas of the body visible to telecommunications with the patient located at [address] [place] [address] [address] [place] [phone], with spouse in attendance. If it is [...] Not Given (more content not included)... Normal [facility] Comment on above: Result Comment: Elec tronically Signed By: PATRICIA MONSALVE, Chey\.br\Date and Time Signed: 09/08/21 17:24 EDT ProgesteroneOrdered By: Gaviota Perez on 08-18-2021 Progesterone 2.71 ng/mL [employer] Phone: Comment on above: FEMALE (healthy): Follicular phase 0.06-0.89 Ovulation phase 0.12-12.00 Luteal phase 1.83-23.90 Postmenopausal <0.13 [employer] Phone: Progesteroneon 08-23-2020 Progesterone 5.78 ng/mL Normal [facility] [place] [facility] Comment on above: Result Comment: FEMALE (healthy): Follicular phase 0.06-0.89 Ovulation phase 0.12-12.00 Luteal phase 1.83-23.90 Postmenopausal <0.13 Performed By: #### P ANICETO #### [employer] [address] [place] [address] [id number] Medical I D Sales: Tyron Golden MD [facility] Pro[facility], TP Negative Normal NEG [facility] [place] [facility] Comment on above: Result Comment: CHLA [...] target. Performed By: #### C YTCGP #### [employer] [address] [place] [address] [id number] Medical I D Sales: Tyron Golden MD Gonorrhea Probe, TP Negative Normal NEG [facility] [place] [facility] Comment on above: Result Comment: NEIS [...] target. Performed By: #### C YTCGP #### [employer] [address] [place] [address] [id number] Medical I D Sales: Tyron Golden MD Cytologyon 03-19-2020 Cytology (NOTE) INTERPRETATION Cervical material, (ThinPrep vial, Imaging-assisted review): Specimen Adequacy: Satisfactory for evaluation. - Endocervical/transformation zone component present. Descriptive Diagnosis: Negative for intraepithelial lesion or malignancy. Reactive cellular changes associated with inflammation. Stringed Instrument Repairer: DEAN Samson M.D. Electronically Signed Out rdd/03/23/2020 Source: 1: Cervical material, (ThinPrep vial, Imaging-assisted review) Clinical History Z12.4 Encounter for screening for malignant neoplasm of cervix High Risk HPV DNA testing is requested if the diagnosis is ASC-US LMP: 11/19/2019 GYNECOLOGIC CYTOLOGY REPORT Patient Name: SANDRA BYRD [facility] Rec: [id number] Path Number: [id number] [facility] CONSULTING PATHOLOGISTS [facility] ANATOMIC PATHOLOGY [address] [place] [address]. [place], [place] [address] Normal [facility] Comment on above: Performed By: #### P PPVP #### [facility] [address] [place], [place] [phone] Medical I D Sales: Tyron Golden MD Follicle Stim. Hormon 2019 Follicle Stim. Horm 6.0 U/L Normal 1.7-21.5 [facility] Comment on above: Result Comment: Refe rence Range: Male: 1.5-12.4 Ovulating Female: Follicular Phase 3.5-12.5 Ovulation Phase 4.7-21.5 Luteal Phase 1.7-7.7 Postmenopausal Female: 25.8-134.8 Performed By: #### G LYHGB #### [facility] [address] [place] [address] Medical I D Sales: Bridger Samson MD #### FSH, LH, PROL #### [facility] [employer] [address] [place], [place] [phone] Medical I D Sales: Tyron Golden MD Follicle Stimulating Hormone on 03-19-2020 FSH 6 U/L 1.7 - 21.5 U/L [place], [place] Comment on above: Reference Range: Male: 1.5-12.4 Ovulating Female: Follicular Phase 3.5-12.5 Ovulation Phase 4.7-21.5 Luteal Phase 1.7-7.7 Postmenopausal Female: 25.8-134.8 Hemoglobin A1Con 03-19-2020 HbA1c (Bld) [Mass fraction] 5.6 % Normal 4.8-5.9 [facility] Comment on above: Performed By: #### G LYHGB #### [facility] [address] [place] [address] [address] [place], [place] [id number] Medical I D Sales: Bridger Samson MD #### FSH, LH, PROL #### [facility] [employer] [address] [place], [place] [phone] Medical I D Sales: Tyron Golden MD HbA1c (Bld) [Mass fraction] 114 mg/dL Normal [facility] Comment on above: Result Comment: The ADA and AACC recommend providing the estimated average glucose result to permit better patient understanding of their HBA1c result. Performed By: #### G LYHGB #### [facility] [address] [place], [place] [phone] Medical I D Sales: Bridger Samson MD #### FSH, LH, PROL #### [facility] [address] [place], [place] [phone] Medical I D Sales: Tyron Golden MD Glucose [Mass/Vol] 114 mg/dL [place], [place] Comment on above: The ADA and AACC rec ommend providing the estimated average glucose result to permit better patient understanding of their HBA1c result. HbA1c (Bld) [Mass fraction] 5.6 % 4.8 - 5.9 % [place], [place] Luteinizing Hormoneon 2019 Luteinizing Hormone 12.4 U/L Normal 1.0-95.6 [facility] Comment on above: Result Comment: Refe rence Range: Male: 1.7-8.6 Ovulating Female: Follicular Phase 2.4-12.6 Ovulation Phase 14.0-95.6 Luteal Phase 1.0-11.4 Postmenopausal Female: 7.7-58.5 Performed By: #### G LYHGB #### [facility] [address] [place] [address] Medical I D Sales: Bridger Samson MD #### FSH, LH, PROL #### [facility] [address] [place], [place] [phone] Medical I D Sales: Tyron Golden MD LH 12.4 U/L 1 - 95.6 U/L [place], [place] Comment on above: Reference Range: Male: 1.7-8.6 Ovulating Female: Follicular Phase 2.4-12.6 Ovulation Phase 14.0-95.6 Luteal Phase 1.0-11.4 Postmenopausal Female: 7.7-58.5 Prolactinon 03-19-2020 Prolactin 13.01 ug/L Normal 4.79-23.30 [facility] [place] [facility] Comment on above: Result Comment: The presence of macroprolactin may cause interference in female patients with various endocrinological diseases or during . Performed By: #### G LYHGB #### [facility] [address] [place] [address] [place] [address] Medical I D Sales: Bridger Samson MD #### FSH, LH, PROL #### [facility] [id number] [place], [place] [id number] Medical I D Sales: Tyron Golden MD Prolactin 13.01 ug/L 4.79 - 23.3 ug/L [place], [place] Comment on above: The presence of macr oprolactin may cause interference in female patients with various endocrinological diseases or during . TSH w/reflex to FT4on 2019 TSH Qn 2.55 m[IU]/L Normal 0.30-5.00 [facility] [place] [facility] Comment on above: Performed By: #### T SHX #### [facility] [address] [place] [address] Medical I D Sales: Bridger Samson MD TSH with Reflexon 03-19-2020 TSH Qn 2.55 m[IU]/L [place], [place] Vital Signs Date Time Vital Sign Value Performing Clinician Facility 08-26-2024 11:57-0400 Body mass index (BMI) [Ratio] 46.74 kg/m2 Freedom Perez DO Work Phone: [facility] 08-26-2024 11:57-0400 Body weight 135.35 kg Freedom Perez DO Work Phone: [facility] 08-26-2024 11:57-0400 Diastolic blood pressure 80 mm[Hg] Freedom Perez DO Work Phone: [facility] 08-26-2024 11:57-0400 Systolic blood pressure 138 mm[Hg] Freedom Perez DO Work Phone: [facility] 07-24-2022 09:29-0400 Body height 170.18 cm Referring Provider Unknown MG-UYWYU-Ntlcnk 320 Work Phone: 07-24-2022 09:29-0400 Body mass index (BMI) [Ratio] 48.08 kg/m2 Referring Provider Unknown TB-CATGE-Nfuhde 320 Work Phone: 07-24-2022 09:29-0400 Body surface area Derived from formula 2.43 m2 Referring Provider Unknown YC-CKTLU-Ruqzjs 320 Work Phone: 07-24-2022 09:29-0400 Body weight 139.26 kg Referring Provider Unknown VE-VUQCU-Szfwsz 320 Work Phone: 07-24-2022 09:29-0400 0 1 Referring Provider Unknown WS-GBLKJ-Xsetiy 320 Work Phone: Comment on above: GRAV PARA [employer] 06-12-2022 09:05-0400 Body height 170.18 cm Referring Provider Unknown PA-ALJJD-Miaxlv 320 Work Phone: 06-12-2022 09:05-0400 Body mass index (BMI) [Ratio] 48.08 kg/m2 Referring Provider Unknown DA-TKQKN-Udgtkm 320 Work Phone: 06-12-2022 09:05-0400 Body surface area Derived from formula 2.43 m2 Referring Provider Unknown PS-GHINI-Wvwxfw 320 Work Phone: 06-12-2022 09:05-0400 Body weight 139.26 kg Referring Provider Unknown ZU-NWDQH-Gteqvq 320 Work Phone: 06-12-2022 09:05-0400 Diastolic blood pressure 83 mm[Hg] Referring Provider Unknown MW-EGFPE-Hnswji 320 Work Phone: 06-12-2022 09:05-0400 Heart rate 76 /min Referring Provider Unknown QX-HMSAG-Isfxrg 320 Work Phone: 06-12-2022 09:05-0400 Systolic blood pressure 141 mm[Hg] Referring Provider Unknown PY-YRXTY-Pidmvp 320 Work Phone: 06-12-2022 09:05-0400 0 1 Referring Provider Unknown AK-EQGVP-Lmplis 320 Work Phone: Comment on above: GRAV PARA [employer] Encounters Encounter Date Encounter Type Care Provider Facility Start: 08-26-2024 End: 08-26-2024 Bamboo flowsheet Freedom Perez DO Work Phone: [facility] Start: 08-26-2024 End: 08-26-2024 Bamboo flowsheet Freedom Perez DO Work Phone: [facility] Start: 08-26-2024 End: 08-26-2024 Clinisync Result Encounter Freedom Perez DO Work Phone: [facility] External Department Unsolicited Start: 08-26-2024 End: 08-26-2024 ambulatory FREEDOM PEREZ Not Available Start: 08-26-2024 End: 08-26-2024 Office outpatient visit 15 minutes Freedom Perez DO Work Phone: [facility] Comment on above: Amenorrhea; PCOS (polycystic ovarian syndrome) Start: 11-06-2023 End: 11-06-2023 ambulatory FREEDOM PEREZ Not Available Start: 10-15-2023 End: 10-15-2023 ambulatory FREEDOM PEREZ Not Available Start: 10-08-2023 End: 10-08-2023 ambulatory FREEDOM TODD Not Available Start: 10-01-2023 End: 10-01-2023 Emergency department patient visit CHEY GOMEZ [facility] Start: 10-01-2023 End: 10-01-2023 ambulatory MIKAYLA TRAN Not Available Start: 09-24-2023 End: 09-24-2023 ambulatory FREEDOM TODD Not Available Start: 03-28-2023 End: 03-28-[address] FREEDOM TODD . Facility:[facility] Start: 03-28-2023 End: 03-29-[address] FREEDOM TODD . Facility:[facility] Start: 03-15-2023 End: 03-16-[address] FREEDOM TODD . Facility: Start: 03-03-2023 End: 03-04-[address] FREEDOM TODD . Facility: Start: 02-26-2023 End: 02-27-[address] FREEDOM TODD . Facility: Start: 02-05-2023 Office outpatient vi sit 10 minutes Referring Provider Unknown MM-HULXO-Fxrfkr 310 IVF Work Phone: Start: 02-05-2023 Patient encounter procedure Referring Provider Unknown QL-SLIMM-Adhpgz 310 IVF Work Phone: Start: 02-05-2023 ambulatory PCP UNKNOWN Facility:[facility] [place] Start: 02-05-2023 ambulatory PCP UNKNOWN Facility:1 5344 Start: 01-25-2023 AUDIT Referring Prov ider Unknown AG-FFHIH-Unodtlz 206A IVF Work Phone: Start: 01-25-2023 End: 01-26-2023 ambulatory CHEY Padron PATRICIA [facility] Start: 01-25-2023 End: 01-25-2023 Subsequent hospital visit by physician Chey Gomez MD Work Phone: [facility] Start: 01-18-2023 Image Encounter Referring Prov ider Unknown SF-YWEGQ-Zdhvya 310 IVF Work Phone: Start: 01-18-2023 End: 01-19-2023 ambulatory [facility]OMEZ [facility] Start: 01-18-2023 End: 01-18-2023 Subsequent hospital visit by physician Chey Gomez MD Work Phone: [facility] Start: 01-16-2023 End: 01-17-2023 ambulatory CHEY Mares [facility] Start: 01-16-2023 AUDIT Referring Prov ider Unknown EW-NWVOJ-Oynhiv 310 IVF Work Phone: Start: 01-16-2023 End: 01-16-2023 Subsequent hospital visit by physician Chey Gomez MD Work Phone: [facility] Start: 01-02-2023 ambulatory YACHT MASTER ELVI COVARRUBIAS Fa cility:[id number] Start: 01-02-2023 INSEMIN, Provider: Elvi Covarrubias, Status: Pen, Time: 10:45 AM Referring Provider Unknown CI-UUPDG-Jqzqmr 310 IVF Work Phone: Start: 01-02-2023 Patient encounter procedure Referring Provider Unknown FD-VEHNI-Brudlz 310 IVF Work Phone: Start: 01-01-2023 ambulatory PCP UNKNOWN Facility:[facility] Start: 01-01-2023 Patient encounter procedure Referring Provider Unknown FA-DZMOA-Nhnzxd 310 IVF Work Phone: Start: 12-14-2022 AUDIT Referring Prov ider Unknown CT-FVRVU-Manocjh 206A IVF Work Phone: Start: 10-27-2022 Patient encounter procedure Referring Provider Unknown MK-GTRMX-Adiffk 310 IVF Work Phone: Start: 10-27-2022 ambulatory PCP UNKNOWN Facility:1 5344 Start: 10-24-2022 ambulatory PCP UNKNOWN Facility:[facility] Start: 10-24-2022 Patient encounter procedure Referring Provider Unknown PN-XZCPL-Zyxhdmr 206A IVF Work Phone: Start: 10-16-2022 AUDIT Referring Prov ider Unknown WN-MRHLL-Vzwfsnc 206A IVF Work Phone: Start: 09-25-2022 Chart Update Referring Prov ider Unknown LR-WDHFH-Iixrapb 206A IVF Work Phone: Start: 09-24-2022 INSEMIN, Provider: Liu BOSWELL NURSE ADRI SOTOMAYOR, Status: Pen, Time: 10:00 AM Referring Provider Unknown PA-JWTPQ-Itkpzgy 206A IVF Work Phone: Start: 09-24-2022 Patient encounter procedure Referring Provider Unknown TC-YGBKC-Fckokn 310 IVF Work Phone: Start: 09-24-2022 ambulatory PCP UNKNOWN Facility: [id number] Start: 09-22-2022 ambulatory PCP UNKNOWN Facility:[facility] Start: 09-22-2022 Patient encounter procedure Referring Provider Unknown KJ-KSATI-Yavvhap 206A IVF Work Phone: Start: 09-19-2022 Chart Update Referring Prov ider Unknown KV-HUOJA-Xmexhx 310 IVF Work Phone: Start: 09-19-2022 ambulatory [facility] Facility:[facility] Start: 09-19-2022 Patient encounter procedure Referring Provider Unknown VC-LBWMX-Sdmoxsk 206A IVF Work Phone: Start: 09-15-2022 AUDIT Referring Prov ider Unknown MK-RZKSL-Tiffewb 206A IVF Work Phone: Start: 08-11-2022 Chart Update Referring Prov ider Unknown NK-NPJYH-Tjmezwk 206A IVF Work Phone: Start: 07-26-2022 Phys/qhp telephone evaluation 21-30 min Referring Provider Unknown YO-PXCPT-Lidvoqr 1200 Work Phone: Start: 07-26-2022 CRISTINA, Provider : Garland Sherman, Status: Leo, Time: 2:00 PM Referring Provider Unknown OP-EGPCK-Dpgdyy 320 Work Phone: Start: 07-26-2022 ambulatory [facility] Facility:U Start: 07-24-2022 Office outpatient vi sit 15 minutes Referring Provider Unknown DH-TRDOJ-Ocaitsy 206A IVF Work Phone: Start: 07-24-2022 Patient encounter procedure Referring Provider Unknown YE-EEGUQ-Lcfojn 320 Work Phone: Start: 07-24-2022 ambulatory [facility] Facility:[facility] Start: 07-04-2022 End: 07-04-2022 Subsequent hospital visit by physician Chey Gomez MD Work Phone: [facility] Start: 07-04-2022 AUDIT Referring Prov ider Unknown DU-ZSITP-Oavgzd 310 IVF Work Phone: Start: 07-03-2022 Patient encounter procedure Referring Provider Unknown HS-YMVQI-Hnyfdy 310 IVF Work Phone: Start: 07-03-2022 ambulatory PCP UNKNOWN Facility:1 5344 Start: 06-12-2022 Encounter for blood typing MD BOBBI FLOOD [facility] Start: 06-12-2022 AUDIT Referring Prov ider Unknown [facility] Work Phone: Start: 06-12-2022 Patient encounter procedure Referring Provider Unknown DY-YEGSP-Wycqkg 320 Work Phone: Start: 06-12-2022 ambulatory MD BOBBI FLOOD Facility:[facility] Start: 10-23-2021 End: 10-23-2021 Subsequent hospital visit by physician Chey Gomez MD Work Phone: [facility] Comment on above: PCOS (polycystic ova juliane syndrome) Start: 09-21-2021 End: 09-21-2021 Subsequent hospital visit by physician Chey Gomez MD Work Phone: [facility] Comment on above: PCOS (polycystic ova juliane syndrome) Start: 08-18-2021 End: 08-18-2021 Subsequent hospital visit by physician Chey Gomez MD Work Phone: [facility] Comment on above: PCOS (polycystic ova juliane syndrome) Start: 08-23-2020 End: 08-24-2020 Patient encounter procedure [facility] Start: 03-19-2020 End: 03-20-2020 Patient encounter procedure [facility] Start: 03-19-2020 End: 03-19-2020 Patient encounter procedure [facility] Start: 03-19-2020 End: 03-19-2020 Subsequent hospital visit by physician Chey Gomez [facility] Start: 03-19-2020 End: 03-19-2020 [facility] Comment on above: BMI 50.0-59.9, adult (HCC); Pelvic pain in female; Routine Papanicolaou smear Patient encounter status Referring Provider Unknown [employer] 320 Work Phone: Procedures Date Procedure Procedure Detail Performing Clinician Start: 08-26-2024 ALL CBC WITH AUTO DIFF Freedom Perez DO Work Phone: Start: 08-26-2024 Urine test visual color cmprsn meths Freedom Perez DO Work Phone: Start: 01-25-2023 Gonadotropin chorion ic quantitative Jeannie Gomez CONE EXAMINER - YACHT MASTER Work Phone: Start: 01-18-2023 Gonadotropin chorion ic quantitative Jeannie Gomez CONE EXAMINER - YACHT MASTER Work Phone: Start: 01-16-2023 Gonadotropin chorion ic quantitative Jeannie Gomez CONE EXAMINER - YACHT MASTER Work Phone: Start: 07-04-2022 Antibody screen Remigio Gomez MD Work Phone: Start: 07-04-2022 Blood typing serologic abo Chey Gomez MD Work Phone: Start: 07-03-2022 Antibody screen PCP UNK NOWN Comment on above: Order Comment: NO PH LEB ID NOTIFIED BOBBI DUMONT AT DR SLAUGHTER OFFICE, 07/04/2022 09:19TEST TYPE + SCREEN WAS CANCELLED, 07/03/2022 21:17 no phleb id. Result Comment: NO P HLEB ID NOTIFIED BOBBI DUMONT AT DR SLAUGHTER OFFICE, 07/04/2022 09:19 Performed By: #### D MOISES #### [facility] [address] [place], [place] [id number] Start: 10-23-2021 Assay of progesterone W vivienne Perez MD Work Phone: Start: 09-21-2021 Assay of progesterone W vivienne Perez MD Work Phone: Start: 08-18-2021 Assay of progesterone W vivienne Perez MD Work Phone: Start: 08-23-2020 Assay of progesterone W VIVIENNE PEREZ Start: 03-19-2020 Iaad ia chlamydia trachomatis DAVIDJANICE PEREZ Start: 03-19-2020 Screen pap by oseas vasquez md supv DAVID PEREZ Start: 03-19-2020 Assay of prolactin EMMANUELL JESUS PEREZ Start: 03-19-2020 Assay of thyroid stimulating hormone tsh DAVIDJANICE PEREZ Start: 03-19-2020 Gonadotropin follicl e stimulating hormone DAVID JUAN MANUELBrittney Start: 03-19-2020 Gonadotropin luteini zing hormone DAVID ALVESBrittney Start: 03-19-2020 Hemoglobin glycosyla carol a1c DAVID ALVESBrittney Start: 03-19-2020 Assay of prolactin Emmanuell jesus Alvesbrittney Work Phone: Start: 03-19-2020 Assay of thyroid stimulating hormone tsh David Perez Work Phone: Start: 03-19-2020 Gonadotropin follicl e stimulating hormone David Perez Work Phone: Start: 03-19-2020 Gonadotropin luteini zing hormone David Perez Work Phone: Start: 03-19-2020 Hemoglobin glycosyla carol a1c David Perez Work Phone: Start: 03-19-2020 Microscopic observat ion [Identifier] in Cervix by Cyto stain Chey Gomez MD Work Phone: Plan of Treatment Date Care Activity Detail Author Start: 10-22-2027 DTaP/Tdap/Td vaccine (7 - Td or Tdap) DTaP/Tdap/Td vaccine (7 - Td or Tdap) [facility] Start: 08-26-2024 End: 08-26-2025 DHEA DHEA Lab Routine PCOS (polycystic ovarian syndrome) Expected: 08/26/2024 (Approximate), Expires: 08/26/2025 [facility] Comment on above: Expected: 08/26/2024 (Approximate), Expires: 08/26/2025 Start: 08-26-2024 End: 08-26-2025 US for US PELVIS-TRANSVAG IF INDICATED Imaging Routine PCOS (polycystic ovarian syndrome) Expected: 08/26/2024 (Approximate), Expires: 08/26/2025 [facility] Comment on above: Expected: 08/26/2024 (Approximate), Expires: 08/26/2025 Start: 03-19-2023 Screening for malign ant neoplasm of cervix Pap smear [facility] Start: 02-05-2023 EUSEBIA, Provider : Jeannie Gomez, Status: Pen, Time: 9:30 AM VIRFUVHOME, Provider: Jeannie Gomez, Status: Pen, Time: 9:30 AM [id number] 310 IVF Work Phone: Start: 02-05-2023 ULTRASOUND, Provider : RENETTA IVF RDMS [facility], Status: Pen, Time: 9:10 AM ULTRASOUND, Provider: OBGYKathleen IVF RDMS FOREST 1,[facility] O[facility], Status: Pen, Time: 9:10 AM [id number] 310 IVF Work Phone: Start: 10-27-2022 INSEMIN, Provider: Christina Leung, Status: Pen, Time: 9:00 AM INSEMIN, Provider: Christina Leung, Status: Pen, Time: 9:00 AM [id number] 206A IVF Work Phone: Start: 10-24-2022 ULTRALAB, Provider: OBGYKathleen IVF RDMS [facility] 1,[facility], Status: Pen, Time: 7:40 AM ULTRALAB, Provider: OBGYKathleen IVF RDMS FOR[facility] 1,[facility] OBG[facility], Status: Pen, Time: 7:40 AM [id number] 206A IVF Work Phone: Start: 09-22-2022 ULTRALAB, Provider: OBGYN IVF RDMS FOR[facility] 1,[facility] OBG[facility], Status: Pen, Time: 8:00 AM ULTRALAB, Provider: OBGYN IVF RDMS FOREST 1,[facility] OBG[facility], Status: Pen, Time: 8:00 AM [id number] 206A IVF Work Phone: Start: 09-19-2022 ULTRALAB, Provider: OBGYN IVF RDMS FOREST 1,[facility] OBG[facility], Status: Pen, Time: 7:10 AM ULTRALAB, Provider: OBGYN IVF RDMS FOREST 1,[facility] OBGYN, Status: Pen, Time: 7:10 AM [id number] [id number] IVF Work Phone: Start: 07-24-2022 VIRFUVHOME, Provider : Jeannie Gomez, Status: Pen, Time: 9:30 AM VIRFUVHOME, Provider: Jeannie Gomez, Status: Pen, Time: 9:30 AM [id number] 320 Work Phone: Start: 07-13-2022 Influenza vaccination Flu vaccine (# 1) [facility] Start: 06-12-2022 Influenza vaccination Flu vaccine (# 1) [facility] Start: 07-13-2021 Influenza vaccination Flu vaccine (# 1) [facility] Start: 07-13-2020 Influenza vaccination Flu vacc ine (Season Ended) [place], [place] Start: 04-15-2020 End: 04-15-2020 Office Visit 04/15/2020 Office Visit Obstetrics and Gynecology Blanca Hess, CONE EXAMINER - CN [address] [place], [place] [id number] [facility] Start: 2017 Screening for malign ant neoplasm of cervix Cervical cancer screen [place], [place] Start: 2015 DTaP/Tdap/Td vaccine (1 - Tdap) DTaP/Tdap/Td vaccine (1 - Tdap) [place] Start: 2014 Hepatitis C screening Hepatitis C sc reen [facility] Start: 2012 Screening for Chlamy rosi trachomatis Chlamydia screen [place], [place] Start: 2011 HIV screening HIV screen [facility] Start: 2008 COVID-19 Vaccine (1) COVID-19 Vaccin e (1) [facility] Start: 2008 Depression Screen Depression Screen [facility] Start: 2007 HPV vaccine (1 - 2-d ose series) HPV vaccine (1 - 2-dose series) [place], [place] Start: 1997 Varicella vaccine (1 of 2 - 2-dose childhood series) Varicella vaccine (1 of 2 - 2-dose childhood series) [facility] Start: 1996 COVID-19 Vaccine (#1) COVID-19 Vacci ne (#1) [facility] Start: 1996 Hepatitis C screening Hepatitis C [facility] End: 03-19-2020 C.trachomatis N.gonorrhoeae DNA, Thin Prep C.trachomatis N.gonorrhoeae DNA, Thin Prep Microbiology Routine Pelvic pain in female 1 Occurrences starting 03/19/2020 until 03/19/2020 [place], [place] Comment on above: 1 Occurrences starti ng 03/19/2020 until 03/19/2020 C.trachomatis N.gonorrhoeae DNA, Thin Prep C.trachomatis N.gonorrhoeae DNA, Thin Prep Microbiology Routine Pelvic pain in female 03/19/2020 11:49 AM EDT [place], [place] CBC W Auto Different ial panel - Blood CBC and differential Lab Routine PCOS (polycystic ovarian syndrome) Ordered: 08/26/2024 [facility] Comment on above: Ordered: 08/26/2024 End: 03-19-2020 Cytopathology procedure, preparation of smear, genital source PAP SMEAR Lab Routine Routine Papanicolaou smear 1 Occurrences starting 03/19/2020 until 03/19/2020 [place] Comment on above: 1 Occurrences starti ng 03/19/2020 until 03/19/2020 DHEA-sulfate DHEA-sulfate Lab Routine PCOS (polycystic ovarian syndrome) Ordered: 08/26/2024 [facility] Comment on above: Ordered: 08/26/2024 Follicle stimulating hormone Follicle stimulating hormone Lab Routine PCOS (polycystic ovarian syndrome) Ordered: 08/26/2024 [facility] Comment on above: Ordered: 08/26/2024 hCG, quantitative, hCG, quantitative, Lab Routine PCOS (polycystic ovarian syndrome) Ordered: 08/26/2024 [facility] Work Phone: Comment on above: Ordered: 08/26/2024 Hemoglobin A1c/Hemoglobin.total in Blood Hemoglobin A1c Lab Routine Amenorrhea Ordered: 08/26/2024 [facility] Comment on above: Ordered: 08/26/2024 Luteinizing hormone Luteinizing hormone Lab Routine PCOS (polycystic ovarian syndrome) Ordered: 08/26/2024 [facility] Comment on above: Ordered: 08/26/2024 Prolactin Prolactin Lab Ro utine Amenorrhea Ordered: 08/26/2024 [facility] Comment on above: Ordered: 08/26/2024 Thyrotropin [Units/volume] in Serum or Plasma TSH Lab Routine PCOS (polycystic ovarian syndrome) Ordered: 08/26/2024 [facility] Comment on above: Ordered: 08/26/2024 Thyroxine (T4) free [Mass/volume] in Serum or Plasma T4, free Lab Routine PCOS (polycystic ovarian syndrome) Ordered: 08/26/2024 [facility] Comment on above: Ordered: 08/26/2024 Payers Date Payer Category Payer Private Health Insurance [employer] [id number] 2019 Unknown [employer] [address] xxxxxxxx 2019-Present [phone] [address] [place] [address] xxxxxxxx [id number] 1996 Unknown [id number] 2.16840.1.899392.3.579. 2.173 1996 Unknown [id number] 2.16840.1.156004.3.579. 2.173 1996 Unknown [id number] 2.16840.1.223213.3.579. 2.173 1996 Unknown [id number] 2.16840.1.617584.3.579. 2.356 1996 Unknown [id number] 2.840.1.647910.3.579. 2.356 1996 Unknown [id number] 2.16840.1.902887.3.579. 2.356 1996 Unknown [id number] 2.840.1.018428.3.579. 2.356 1996 Unknown [id number] 2.16840.1.646102.3.579. 2.356 1996 Unknown [id number] 2.840.1.894545.3.579. 2.356 1996 Unknown [id number] 2.840.1.200070.3.579. 2.356 1996 Unknown [id number] 2.840.1.183258.3.579. 2.356 1996 Unknown [id number] 2.16840.1.499523.3.579. 2.356 1996 Unknown [id number] 2.16840.1.290182.3.579. 2.356 1996 Unknown [id number] 2.16840.1.381870.3.579. 2.356 1996 Unknown [id number] 2.16840.1.798471.3.579. 2.356 1996 Unknown [id number] 2.16.840.1.033089.3.579. 2.356 1996 Unknown [id number] 2.16.840.1.413389.3.579. 2.593 1996 Unknown [id number] 2.16.840.1.083875.3.579. 2.593 1996 Unknown [id number] 2.16.840.1.968790.3.579. 2.593 1996 Unknown [id number] 2.16.840.1.517403.3.579. 2.593 1996 Unknown [id number] 2.16.840.1.956960.3.579. 2.593 1996 Unknown [id number] 2.16.840.1.357673.3.579. 2.174 1996 Unknown [id number] 2.16.840.1.185351.3.579. 2.174 1996 Unknown [id number] 2.16.840.1.696245.3.579. 2.174 1996 Unknown [id number] 2.16.840.1.226344.3.579. 2.174 1996 Unknown [id number] 2.16.840.1.908113.3.579. 2.1259 1996 Unknown [id number] 2.16.840.1.710961.3.579. 2.1259 1996 Unknown [id number] 2.16.840.1.737731.3.579. 2.1259 1996 Unknown [id number] 2.16.840.1.692790.3.579. 2.1259 1996 Unknown [id number] 2.16.840.1.585579.3.579. 2.1259 1996 Unknown [id number] 2.16.840.1.514319.3.579. 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 female who presents for Amenorrhea Patient presents today for Fertility Follow Up appointment. MEDICATIONS No current outpatient medications ALLERGIES No Known Allergies PROBLEMS Active Ambulatory Problems Diagnosis Date Noted PCOS (polycystic ovarian syndrome) 06/14/2023 Resolved Ambulatory Problems Diagnosis Date Noted No Resolved Ambulatory Problems Past Medical History: Diagnosis Date Infertility, female 01/02/2023 HISTORY PAST MEDICAL HISTORY SOCIAL HISTORY Past Medical History: Diagnosis Date Infertility, female 01/02/2023 IUI PCOS (polycystic ovarian syndrome) Social History Tobacco Use Smoking status: Not on file Smokeless tobacco: Not on file Substance Use Topics Alcohol use: Not on file Drug use: Not on file FAMILY HISTORY Family History Family history unknown: Yes SURGICAL HISTORY Past Surgical History: Procedure Laterality Date SECTION, LOW TRANSVERSE 09/25/2023 REVIEW OF SYSTEMS Review of Systems: Review of Systems Constitutional: Negative. HENT: Negative. Eyes: Negative. Respiratory: Negative. Cardiovascular: Negative. Gastrointestinal: Negative. Genitourinary: Negative. Musculoskeletal: Negative. Skin: Negative. Neurological: Negative. All other systems reviewed and are negative. Hematological: Negative. Endocrine: Negative. Allergic/Immunologic: Negative. OBJECTIVE Objective: Physical Exam Constitutional: Appearance: Normal appearance. She is well-developed. Cardiovascular: Rate and Rhythm: Normal rate and regular rhythm. Pulmonary: Effort: Pulmonary effort is normal. Breath sounds: Normal breath sounds. Abdominal: General: Bowel sounds are normal. There is no distension. Palpations: Abdomen is soft. Tenderness: There is no abdominal tenderness. There is no guarding or rebound. Musculoskeletal: General: No swelling. Normal range of motion. Right lower leg: No edema. Left lower leg: No edema. Neurological: Mental Status: She is alert and oriented to person, place, and time. Skin: General: Skin is warm and dry. Psychiatric: Mood and Affect: Mood normal. Behavior: Behavior normal. Vitals and nursing note reviewed. Exam conducted with a commercial instructor supervisor present. Vitals: Estimated body mass index is 46.74 kg/m as calculated from the following: Height as of 10/15/23: 5' 7 . Weight as of this encounter: 298 lb 6.4 oz. BP: 138/80 No LMP recorded. ASSESSMENT & PLAN ICD-10-CM 1. Amenorrhea N91.2 Patient presents today to discuss fertility. Patient was given a standing lab order and ultrasound to have obtained. Patient was instructed to call the office once menstrual cycle begins so femara can be called into patients pharmacy. Patient has been instructed to take Femara on days 3-7 of cycle. On day 21 of cycle patient is to have progesterone labs drawn. Patient was advised to have intercourse on days 12, 14, 16, 18, and 20 of cycle. We will do three rounds of Femara and if patient has not conceived by then, we will perform HSG. Patient has voiced understanding and will call our office for any further questions/concerns. Orders Placed This Encounter Procedures US PELVIS-TRANSVAG IF INDICATED hCG, quantitative, TSH T4, free CBC and differential Follicle stimulating hormone Luteinizing hormone Hemoglobin A1c DHEA-sulfate DHEA Prolactin Follow Up: As needed Documented by Anabel Van LPN on behalf of: Freedom Todd DO documented in this encounter [facility] 12-19-2022 History of Present illness Narrative Pt is a 27 year old female conceived via Letrozole 5 mg and partner IUI presenting today for OB ultrasound to assess for viabilityLMP 12/19/22IUI 01/02/23Pt denies pelvic pain or vaginal bleeding [id number] 310 IVF Work Phone: 07-26-2022 Note Diagnoses/Problems [...] consultation of which greater than 50% was iytp-mb-gppk counseling. There is no contraindication to conception [...] telehealth service. Preconception consultation requested by Jeannie Gomez for BMI >40 History of Present IllnessDear Mrs. Brown, We had the opportunity to see your patient Matt Dean in the office of Maternal Medicine on July 26, 2021. As you are aware she is a 27 year old G0 seeking preconception consultation secondary to BMI >40 and PCOS. She had no complaints at the time of her visit today. This consultation was conducted virtually. Mrs. Dean denies any significant past medical history with [...] MD; Aug 06 2022 2:57PM EST (Author) [facility] 07-24-2022 Chief complaint Narrative - Reported An interactive audio and video telecommunication system which permits real time communications between the patient (at the originating site) and provider (at the distant site) was utilized to provide this telehealth service.Verbal consent was requested and obtained from SANDRA DIANNE on this date, 07/24/2022 09:30 AM , [...] consent was requested and obtained from SANDRA PRADHANCHRISTINE on this date, 07/24/2022 09:30 AM , [...] the coronavirus come from? In October 2019, [place] told the World Health Organization (WHO) of several cases of lung disease (human respiratory illness). These cases were linked to an open seafood and livestock market in the city of [facility]. The link to the seafood and [...] virus naming World Health Organization (WHO): www.who.int/emergencies/diseases/no cqe-spytnfzecwr-2479/technical-guid ance/suuwop-niu-wlkttfyjqop-disease -(covid-2019)-yql-eiy-eohcp-that-fl uses-it Who is at risk for complications [...] Samples may in (more content not included)... [facility] 08-12-2021 History of Present illness Narrative New Patient FertilityRef[facility] , Jonel Olmos DATE OF COVID VACCINE: not vaccinated, had COVID in August 2021, fully discussed not interested in vaccinationHistory of present illness: Patient is a 27 year old female who presents withPRIOR EVALUATION / TREATMENTDr. 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: , Jonel Olmos DATE OF COVID VACCINE: not vaccinated, had COVID in August 2021, fully discussed not interested in vaccination, discussed recommendation for vaccination and increased risks of being unvaccinated in pregnancyHistory of present illness: Patient is a 27 year old female who presents with primary infertility.PRIOR EVALUATION / TREATMENTDrJeremias JACKSON at [facility] in [place], [place] (progesterone levels positive on letrozole negative on clomid)Clomid 100 mg x 4 cycles, pt reports was getting regular menses on this dose, with TIC without conceptionLetrozole 5 mg X 6 cycles, pt reports was getting regular menses on this dose, with TIC without conceptionLabs: 2020Gc/chl [id number] 5.6tsh 2.55prolactin 13PAP neg (reviewed results on [...] complications with anesthesia)PSYCH HISTORY: noneSOCIAL HISTORY: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 at [employer] HospitalSmoking: NoAlcohol: social once per monthDrug use: NoPARTNER HISTORY:Name- Jonel Guillen- 12/20/1980Occupation- Maintenance ([employer])Prior fertility history: 2 children in other relationship (15 years old and 16 years old)PMH: history of AFib, history of 4 cardiac ablations, no pacemaker in place, OBESITY, History of testosterone use in 2016PSH: Cardioverted x3 in 2014, Heart ablation x 4 in 2015, Broken leg, Gastric Bypass scheduled for one [...] use during )Genetic screening performed previously: [facility] Work Phone: 07-26-2021 History of Present illness Narrative Dear Mrs. Gomez,We had the opportunity to see your patient Matt Dean in the office of Maternal Medicine on July 26, 2021. As you are aware she is a 27 year old G0 seeking preconception consultation secondary to BMI >40 and PCOS. She had no complaints at the time of her visit today. This consultation was conducted virtually.Mrs. Dean denies any significant past medical history with [...] medical and surgical options at this time. [id number] 1200 Work Phone: Chief complaint Narrative - Reported The patient is being seen today for New Patient fertility Consultation. [id number] 320 Work Phone: Chief complaint Narrative - Reported The patient is being seen today for New Patient fertility Consultation. [id number] 206A IVF Work Phone: Chief complaint Narrative - Reported An interactive audio and video telecommunication system which permits real time communications between the patient (at the originating site) and provider (at the distant site) was utilized to provide this telehealth service.Preconception consultation requested by Jeannie Gomez for BMI >40 [id number] 1200 Work Phone: Evaluation note Diagnosis PCOS (polycystic ovarian syndrome) Polycystic ovaries documented in this encounter [facility] Phone: evaluation note* Diagnosis PCOS (polycystic ovarian syndrome) Polycystic ovaries documented in this encounter [facility] Phone: evaluation note* Diagnosis Amenorrhea Absence of menstruation PCOS (polycystic ovarian syndrome) Polycystic ovaries [facility]* Patient is a 27 year old female with primary infertility presenting today for follow up visit. * Diagnosis to date: primary infertility * Treatment to date: * Dr. 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[employer]) * Prior fertility history: 2 children in other relationship (15 years old and 16 years old) * PMH: history of AFib, history of 4 cardiac ablations, no pacemaker in place, OBESITY, History of testosterone use in 2016 * PSH: Cardioverted x3 in 2014, Heart ablation x [...] rate (%) * Morphology * % Normal4.8%=4% Dilia 206A IVF Work Phone: Assessments Diagnosis BMI 50.0-59.9, adult (HCC) Body Mass Index 50.0-59.9, adult Pelvic pain in female Unspecified symptom associated with female genital organs Routine Papanicolaou smear Screening for malignant neoplasm of the cervix Advance Directives Documents on File Type Date Recorded Patient Draw Operator Expl anation Advance Directives and Living Will Power of Hair Spring Winder Documents on File Type Date Recorded Patient Draw Operator Expl anation ACP-Advance Directive ACP-Power of Hair Spring Winder Summary Purpose Family History No Family History [...] consent was requested and obtained from SANDRA DEAN on this date, 02/05/2023 09:30 AM , for a telehealth visit. * pt presents for OB ultrasound Additional Source Comments INFORMATION SOURCE (unrecogn ized section and content) DATE CREATED AUTHOR 08/24/2020 [facility] DATE CREATED AUTHOR AUTHOR'S ORGANIZ ATION 07/08/2022 Ankur Beck [facility] DATE CREATED AUTHOR AUTHOR'S ORGANIZ ATION 02/08/2023 [employer] DATE CREATED AUTHOR AUTHOR'S ORGANIZ ATION 02/17/2023 [facility] DATE CREATED AUTHOR AUTHOR'S ORGANIZ ATION 03/29/2023 [facility] DATE CREATED AUTHOR AUTHOR'S ORGANIZ ATION 10/03/2023 [facility] DATE CREATED AUTHOR AUTHOR'S ORGANIZ ATION 08/28/2024 [facility] Specialists EPIC Care Teams (unrecognized sec tion and content) Podiatric Technician Relationship Specialty Start Date End Date Chey Gomez MD PCP - General 07/28/14 Podiatric Technician Relationship Specialty Start Date End Date Chey Gomez MD PCP - General 07/28/14 Podiatric Technician Relationship Specialty Start Date End Date Chey Gomez MD PCP - General 07/28/14 Reason for Visit (unrecogniz ed section and content) Reason Comments Amenorrhea FOR RECORDS PERTAINING TO PATIENTS WHO ARE [...] BE BASED ON THE PRIMARY CLINICAL RECORDS. [employer] provides no warranty or guarantee of the accuracy or completeness of information in this document.
== END 2024-09-03 10:59 | disposition home or self-care (01) ==
LOC: US 10:58
PROVIDERS: Visit Provider Obstetrics & Gynecology
DX: E28.2 Polycystic ovarian syndrome (principal)
CPT/HCPCS: 76830; 76856

== ENCOUNTER 2025-05-29 10:01 | Outpatient (OUT) | payer OTHER, SELFPAY ==
--- OUTSIDE RECORDS SUMMARY | 2025-05-23 18:28 | XMS_ITS | Encounter Summary ---
Author Organization [facility] Address [address] [place] [address] Care Team Providers Care Flat Bed Knitter Name Role Phone Carin Macario IAN Primary Care Provider [phone] Reason for Visit * Reason Comments Wrist Pain Left wrist pain pull ing raft up [place] a bank [place] Encounter Details Date Type Department Care Team (Late st Contact Info) Description 05/23/2025 6:28 PM EDT - 05/23/2025 8:33 PM EDT Emergency [facility] Emergency Department [address] [place] [id number] Jourdan Avila MD [address] [address] Discharge Disposition: Home Social History Tobacco Use Types Packs/Day Years Used Date Smoking Tobacco: Never Smokeless Tobacco: Never Tobacco Cessation:Counseling Given: Not Answered Comments No Sex and Gender Information Value Date Recorded Sex Assigned at Not on file Legal Sex Female 6:28 PM EDT Gender Identity Female 05/23/2025 6:32 PM EDT Sexual Orientation Straight 05/23/2025 6: 32 PM EDT documented as of this encounter Last Filed Vital Signs Vital Sign Reading Time Taken Comments Blood Pressure 154/95 05/23/2025 8:28 PM EDT Pulse 89 05/23/2025 8:28 PM EDT Temperature 36.8 C (98.2 F) 05/23/2025 6:28 PM EDT Respiratory Rate 18 05/23/2025 8:28 PM EDT Oxygen Saturation 98% 05/23/2025 8:28 PM EDT Inhaled Oxygen Concentration - - Weight 117.9 kg (260 lb) 05/23/2025 6:28 PM EDT Height 170.2 cm (5' 7 ) 05/23/2025 6:28 PM EDT Body Mass Index 40.72 05/23/2025 6:28 PM EDT documented in this encounter Discharge Instructions * Discharge Instructions* Jourdan Avila MD - 05/23/2025 8:21 PM EDT Return to the ED for worsening condition, not tolerating fluids, difficulty breathing, or any otherworrisome symptoms. Use the splint until you have seen your PCP. * Attachments The following attachments cannot be sent through Care Everywhere. * Scaphoid of the Wrist - Possible Fracture (Cuban) documented in this encounter ED Notes * Jourdan Avila MD - 05/23/2025 6:37 PM EDT ED PROVIDER NOTE [facility] EMERGENCY DEPARTMENT NAME: Sandra Vicente AGE: 30 y.o. : 1995 VISIT DATE: 05/23/2025 CSN: [id number] PCP: Carin Macario CNP Chief Complaint Patient presents with Wrist Pain Left wrist pain pulling raft up on to a bank on river 30-year-old female presenting to the emergency room with complaint of left wrist pain. The patient states that around noon she was pulling back on a raft and then slipped and fell onto her outstretched left hand backwards. It hurt some right away and by this evening it hurts much more and there is been swelling in that area. No therapeutics yet tried. No other points of pain injury or complaint. No loss of sensation or motor. She did not hit her head or lose consciousness. History reviewed. No pertinent past medical history. History reviewed. No pertinent surgical history. History reviewed. No pertinent family history. Social History [1] No current outpatient medications on file prior to encounter. Allergies[2] Review of Systems Patient Vitals for the past 24 hrs: BP Temp Temp src Pulse Resp SpO2 Height Weight 05/23/25 1828 (!) 140/90 98.2 °F (36.8 °C) Temporal 94 16 99 % 5' 7 117.9 kg (260 lb) Physical Exam Vitals and nursing note reviewed. Constitutional: General: She is not in acute distress. Appearance: Normal appearance. She is not ill-appearing. HENT: Head: Normocephalic and atraumatic. Eyes: Extraocular Movements: Extraocular movements intact. Cardiovascular: Rate and Rhythm: Normal rate. Pulses: Normal pulses. Musculoskeletal: General: No deformity. Cervical back: Normal range of motion and neck supple. No rigidity. Comments: Left upper extremity neurovascularly intact with strong radial pulse. Sensorimotor testing intact of the median, ulnar, radial nerves. Limited extension at the wrist due to pain that she isexperiencing in the distal radial area. She also has some mild scaphoid tenderness. Pulmonary: Effort: Pulmonary effort is normal. No respiratory distress. Skin: General: Skin is warm and dry. Neurological: Mental Status: She is alert and oriented to person, place, and time. Mental status is at baseline. Psychiatric: Mood and Affect: Mood normal. Behavior: Behavior normal. Laboratory & Radiographic Imaging (if done): No results found for this visit on 05/23/25. XR Wrist Left 3+ Views (Standard) Final Result No acute osseous abnormality detected. Workstation ID: [id number] Procedures Medical Decision Making *THUMB SPICA vs SUGAR TONG* 30-year-old female presenting to the emergency department with a fall onto her left wrist and pain from that. She has declined any pain medication here aside from an ice pack. Pt not willing to have her bracelet cut off overlying the left wrist Left wrist x-ray per rad: NAD per rad, same per my view Patient with mild scaphoid tenderness Suplasyn left thumb spica splint. She understands her PCP maywant to order repeat imaging in a week or so. She understands limitations of plain film x-rays. No indications for any further investigations at this time. Patient is comfortable with, and understands, the plan for discharge, return signs, outpatient follow up closely, symptomatic care, the differential considerations along with likelihoods of those considerations, and the findings of the visit today. The patient has been informed that they may have pre-hypertension or hypertension based on a blood pressure reading in the Emergency Department. I recommend that the patient call the primary care provider listed on their discharge instructions or a physician of their choice as soon as possible to arrange follow-up in the next 4 weeks for further evaluation of possible pre-hypertension or hypertension. . Clinical Impression: 1. Injury of left wrist, initial encounter ED Disposition ED Disposition Discharge Condition Stable Comment Sandra Vicente discharged to home/self care in stable condition. Follow-up Information 1. Carin Macario CNP. Specialty: Nurse Practitioner Why: Follow up within 1 week, Follow up sooner for any problems or concerns [address] [place] [id number] Contact information for after-discharge care Follow-up information has not been specified. [1] Social History Socioeconomic History Marital status: Tobacco Use Smoking status: Never Smokeless tobacco: Never Substance and Sexual Activity Drug use: Never [2] No Known Allergies Jourdan Avila MD 05/23/252021 documented in this encounter Plan of Treatment Not on file documented as of this encounter Procedures Procedure Name Priority Date/Time Associated Diagnosis Comments XR WRIST LEFT 3+ VIEWS (STANDARD) STAT 05/23/2025 6:52 PM EDT documented in this encounter Results * XR Wrist Left 3+ Views (Standard) (05/23/2025 6:52 PM EDT) Anatomical Region Laterality Modality Forearm, Wrist, Hand Digital Rad iography 05/23/2025 8:12 PM EDT Impressions 05/23/2025 8:12 PM EDT No acute osseous abnormality detected. Workstation ID: [id number] Narrative 05/23/2025 8:12 PM EDT EXAMINATION: XR WRIST LEFT 3+ VIEWS (STANDARD) 05/23/2025 HISTORY: ORDERING SYSTEM PROVIDED HISTORY: pain after injury, TECHNOLOGIST PROVIDED HISTORY: Injury/Trauma Reason for exam: lt wrist pain Cancer History: n Surgery, RadiationHistory: n Encounter Type: Initial Mechanism of injury: s/p fall. ORDERING SYSTEM PROVIDED DIAGNOSIS CODES: COMPARISON: None TECHNIQUE: 6 views of the left wrist FINDINGS: No fracture or dislocation is seen. Joint spaces are preserved. The overlying soft tissues appear unremarkable. Procedure Note Archie Farris MD - 05/23/2025 EXAMINATION: XR WRIST LEFT 3+ VIEWS (STANDARD) 05/23/2025 HISTORY: ORDERING SYSTEM PROVIDED HISTORY: pain after injury, TECHNOLOGIST PROVIDED HISTORY: Injury/Trauma Reason for exam: lt wrist pain Cancer History: n Surgery, RadiationHistory: n Encounter Type: Initial Mechanism of injury: s/p fall. ORDERING SYSTEM PROVIDED DIAGNOSIS CODES: COMPARISON: None TECHNIQUE: 6 views of the left wrist FINDINGS: No fracture or dislocation is seen. Joint spaces are preserved. Theoverlying soft tissues appear unremarkable. IMPRESSION: No acute osseous abnormality detected. Workstation ID: [id number] us Jourdan Avila MD IMG DIAGNOSTIC IMAGING ORDERABLE S Final Result documented in this encounter Visit Diagnoses Diagnosis Injury of left wrist, initial encounter- Primary documented in this encounter Care Teams Flat Bed Knitter Relationship Specialty Start Date End Date Carin Macario CNP [address] [place] [id number] PCP - General Nurse Practitioner 05/23/25 documented as of this encounter
--- OUTSIDE RECORDS SUMMARY | 2025-05-29 10:05 | XMS_ITS | Encounter Summary ---
Author Organization [facility] Address [address], [address] [place] [address] Care Team Providers Care Rn Clinical Quality Name Role Phone Gio Abdi MD Primary Care Provider [phone] Reason for Visit * Reason Onset Date Comments Medication Refill 06/23/2020 Encounter Details Date Type Department Care Team (Late st Contact Info) Description 06/23/2020 [facility] OBSTETRICS & GYNECOLOGY [address] [place] [address] [address] [place] [address] Ga Perez MD [address] [place] [address] Medication Refill Social History Tobacco Use Types Packs/Day Years Used Date Smoking Tobacco: Never Smokeless Tobacco: Never Alcohol Use Standard Drinks/Week Comments No 0 (1 standard drink = 0.6 oz pur e alcohol) PHQ-2 Answer Date Recorded PHQ-9 Total Score 0 05/20/2020 Comments No Sex and Gender Information Value Date Recorded Sex Assigned at Female 08/03/2021 12:49 PM EDT Legal Sex Female 8:49 PM EST Gender Identity Female 08/03/2021 12:49 PM EDT Sexual Orientation Not on file documented as of this encounter Plan of Treatment Not on file documented as of this encounter Visit Diagnoses Not on filedocumented in this encounter Care Teams Rn Clinical Quality Relationship Specialty Start Date End Date Gio Abdi MD PCP - General 07/28/14 documented as of this encounter
--- OUTSIDE RECORDS SUMMARY | 2025-05-29 10:05 | XMS_ITS | Clinical Summary ---
Author Organization [facility] Address [address] [place] [address] Care Team Providers Care Spectacle Truer Name Role Phone Carin Macario IAN Primary Care Provider [phone] Allergies No known active allergies Medications No known medications Encounters Date Type Department Care Team Description 05/23/2025 6:28 PM EDT - 05/23/2025 8:33 PM EDT Emergency [facility] Emergency Department [address] [place] [address] Jourdan Avila MD Discharge Disposition: Home 05/23/2025 Travel from Last 3 Months Social History Tobacco Use Types Packs/Day Years Used Date Smoking Tobacco: Never Smokeless Tobacco: Never Tobacco Cessation:Counseling Given: Not Answered Comments No Sex and Gender Information Value Date Recorded Sex Assigned at Not on file Legal Sex Female 6:28 PM EDT Gender Identity Female 05/23/2025 6:32 PM EDT Sexual Orientation Straight 05/23/2025 6: 32 PM EDT Last Filed Vital Signs Vital Sign Reading [...] Mass Index 40.72 05/23/2025 6:28 PM EDT Plan of Treatment Health Maintenance Due Date Last Done Comments Tetanus: Every 10yrs 1996 Wellness Visit 1999 Depression Screening/Follow- Up (PHQ-2/9) 2008 Hepatitis C Screening 2014 Pap Smear 03/19/2023 03/19/2020 COVID-19 Vaccine (2023-2 5 season) 2024 Influenza Vaccine (#1) 2025 HIV Screening Completed 07/03/2022 Pneumococcal Vaccine: Ped or At-Risk Aged Out No longer eligible b ased on patient's age to complete this topic Procedures Procedure Name Priority Date/Time Associated Diagnosis Comments XR WRIST LEFT 3+ VIEWS (STANDARD) STAT 05/23/2025 6:52 PM EDT from Last 3 Months Results * XR Wrist Left 3+ Views [...] IMG DIAGNOSTIC IMAGING ORDERABLE S Final Result from Last 3 Months [facility] Care Teams Spectacle Truer Relationship Specialty Start Date End Date Carin Macario CNP [address] [place] [address] PCP - General Nurse Practitioner 05/23/25
--- OUTSIDE RECORDS SUMMARY | 2025-05-29 10:05 | XMS_ITS | Clinical Summary ---
Author Organization [facility] Address [address] [place] [address] Care Team Providers Care Bottle Label Inspector Name Role Phone Unavailable Primary Care Provider Unavailabl e Allergies No known active allergies Medications medroxyPROGESTE Forrest (Provera) 10 MG tabletIndicatio ns:Amenorrhea Take 1 tablet (10 mg) by mouth Daily Take 1 tablet by mouth daily for 7 days beginning on day 16 of the menstrual cycle. 14 tablet 3 4 08/26/20 25 Active Active Problems Problem Noted Date Diagnosed Date PCOS (polycystic ovarian syndrome) 06/14/2023 Family History Relation Name Status Comments Daughter Alive Social History Tobacco Use Types Packs/Day Years Used Date Smoking Tobacco: Never Assessed Comments Unknown Sex and Gender Information Value Date Recorded Sex Assigned at Female 04/25/2023 7:30 PM EDT Legal Sex Female 12:16 PM EDT Gender Identity Female 04/25/2023 7:30 PM EDT Sexual Orientation Straight 04/25/2023 7: 30 PM EDT Last Filed Vital Signs Vital Sign Reading Time Taken Comments Blood Pressure 138/80 08/26/2024 11:57 AM EDT Pulse - - Temperature - - Respiratory Rate - - Oxygen Saturation - - Inhaled Oxygen Concentration - - Weight 135 kg (298 lb 6.4 oz) 08/26/2024 11:57 A M EDT Height 170.2 cm (5' 7 ) 10/15/2023 11:03 AM EST Body Mass Index 46.74 10/15/2023 11:03 AM EST Plan of Treatment Upcoming Encounters Date Type Department Care Team (Late st Contact Info) Description 06/10/2025 11:00 AM EDT Office Visit [facility] [address] [place] [address] Kesha Dc, INFORMATION SYSTEMS DIRECTOR [address] [place] [address] Goals Goal Patient Goal Type Associated Problems Recent Progress Patient-Stated? Author Reminders Care Plan OB Reminders No Open Scheduling, Background Additional Health Concerns Active Problems Noted Date Diagnosed Date OB Reminders 05/12/2023 Insurance [employer]
--- OUTSIDE RECORDS SUMMARY | 2025-05-29 10:05 | XMS_ITS | Encounter Summary ---
Author Organization [facility] Address [address] [place] [address] Phone Care Team Providers Care Machine Hamper Maker Name Role Phone Jeannie Abdi TRIM LINE WORKER-TEARER Unavailable [phone] Encounter Details Date Type Department Care Team (Late st Contact Info) Description 07/04/2022 Orders Only [facility] [address] [place] [address] Conversion, Onbase Social History Tobacco Use Types Packs/Day Years Used Date Smoking Tobacco: Never Assessed Comments Unknown Sex and Gender Information Value Date Recorded Sex Assigned at Not on file Legal Sex Female 4:41 PM EST Gender Identity Not on file Sexual Orientation Not on file documented as of this encounter Plan of Treatment Scheduled Orders Name Type Priority Associated Diagnoses Orde r Schedule OUTSIDE LAB SCAN Lab Ordered: 07/04/2022 documented as of this encounter Visit Diagnoses Not on filedocumented in this encounter Care Teams Machine Hamper Maker Relationship Specialty Start Date End Date Jeannie Abdi, TRIM LINE WORKER-TEARER [address] [place] [address] PCP - [facility] PCP 07/13/22 03/11/23 documented as of this encounter
--- OUTSIDE RECORDS SUMMARY | 2025-05-29 10:05 | XMS_ITS | Encounter Summary ---
Author Organization [facility] Address [address] [place] [address] Care Team Providers Care Per Diem Name Role Phone Unavailable Primary Care Provider Unavailabl e Encounter Details Date Type Department Care Team (Late st Contact Info) Description 09/03/2024 Clinisync Result Encounter [facility] External Department Unsolicited Armin Todd, DO [address] [facility] [address] [place], [facility] Social History Tobacco Use Types Packs/Day Years Used Date Smoking Tobacco: Never Assessed Comments Unknown Sex and Gender Information Value Date Recorded Sex Assigned at Female 04/25/2023 7:30 PM EDT Legal Sex Female 12:16 PM EDT Gender Identity Female 04/25/2023 7:30 PM EDT Sexual Orientation Straight 04/25/2023 7: 30 PM EDT documented as of this encounter Plan of Treatment Upcoming Encounters Date Type Department Care Team (Late Contact Info) Description 06/10/2025 11:00 AM EDT Office Visit [facility] [address] [facility] [address] Kesha Dc, EHS ENGINEER [address] [facility] [place] [address] documented as of this encounter Goals Goal Patient Goal Type Associated Problems Recent Progress Patient-Stated? Author Reminders Care Plan OB Reminders No Open Scheduling, Background documented as of this encounter Procedures Procedure Name Priority Date/Time Associated Diagnosis Comments US PELVIS W/ TRANSVAGINAL 09/03/2024 11:36 AM EDT documented in this encounter Results * US PELVIS W/ TRANSVAGINAL (09/03/2024 11:36 AM EDT) Anatomical Region Laterality Modality Other 09/03/2024 11:3 6 AM EDT Narrative 09/03/2024 11:39 [place] [address] Ultrasound Report Signed Patient: SANDRA DEAN MR#: [id number] : 1995 Acct:[id number] Age/Sex: 29 / F ADM Date: 09/03/24 Loc: US Attending Dr: Armin Todd D.O. Ordering Physician: Armin Todd D.O. Date of Service: 09/03/24 Procedure(s): US pelvis w/ transvaginal Accession Number(s): [id number] cc: Armin Todd D.O.; Physician,Non-Staff M.Juanita [address] [address] Patient Name: SANDRA DEAN MRN: [id number] date: 1995 Sex: F Assigned Patient Location: US Current Patient Location: US Accession/Order Number: [id number] Exam Date: 09/03/2024 11:01 Report Date: 09/03/2024 11:36 At the request of: ARMIN TODD Procedure: US pelvis w/ transvaginal EXAMINATION: US pelvis w/ transvaginal HISTORY: Polycystic Ovarian Syndrome COMPARISON: No relevant comparison available. TECHNIQUE: Transabdominal and/or transvaginal sonographic examination was performed as indicated by examination type. FINDINGS: UTERUS: Normal size and appearance. Uterus size: 8.9 x 3.3 x 4.7 cm ENDOMETRIUM: Normal homogeneous appearance. Endometrial thickness: 8 mm RIGHT OVARY: Normal size and appearance. Duplex Doppler demonstrates normal waveform and flow; resistive index 0.6. Ovary size: 2.9 x 3.4 x 1.5 cm LEFT OVARY: Not seen. CUL-DE-SAC: Unremarkable. No significant free fluid. BLADDER: Unremarkable. OTHER: None. US/US pelvis w/ transvaginal IMPRESSION: 1. Normal appearance of right ovary. Left ovary was not seen. No findings within right ovary to suggest polycystic ovarian syndrome. Electronically authenticated by: JOURDAN GARCIA Date: 09/03/2024 11:36 Dictated By: Jourdan Garcia M.D. Signed By: 09/03/24 1139 DD/ 1136 TD/TT: Director Religious Education: Procedure Note Radiology, Radiologist, MD - 09/03/2024 [place] [address] Ultrasound Report Signed Patient: SANDRA DEAN SMR#: [id number] : 1995Acct:[id number] Age/Sex: 29 / FADM Date: 09/03/24 Loc: US Attending Dr: Armin Todd D.O. Ordering Physician: Armin Todd D.O. Date of Service: 09/03/24 Procedure(s): US pelvis w/ transvaginal Accession Number(s): [id number] cc: Armin Todd D.O.; Physician,Non-Staff Tommy [address] [place] [address] Patient Name: SANDRA DEAN MRN: [id number] date: 1995 Sex: F Assigned Patient Location: US Current Patient Location: US Accession/Order Number: [id number] Exam Date: 09/03/2024 11:01 Report Date: 09/03/2024 11:36 At the request of: ARMIN TODD Procedure: US pelvis w/ transvaginal EXAMINATION: US pelvis w/ transvaginal HISTORY: Polycystic Ovarian Syndrome COMPARISON: No relevant comparison available. TECHNIQUE: Transabdominal and/or transvaginal sonographic examination was performed as indicated by examination type. FINDINGS: UTERUS: Normal size and appearance. Uterus size: 8.9 x 3.3 x 4.7 cm ENDOMETRIUM: Normal homogeneous appearance. Endometrial thickness: 8 mm RIGHT OVARY: Normal size and appearance. Duplex Doppler demonstratesnormal waveform and flow; resistive index 0.6. Ovary size: 2.9 x 3.4 x 1.5 cm LEFT OVARY: Not seen. CUL-DE-SAC: Unremarkable. No significant free fluid. BLADDER: Unremarkable. OTHER: None. US/US pelvis w/ transvaginal IMPRESSION: 1. Normal appearance of right ovary. Left ovary was not seen. No findings within right ovary to suggest polycystic ovarian syndrome. Electronically authenticated by: JOURDAN GARCIA Date: 09/03/2024 11:36 Dictated By: Jourdan Garcia M.D. Signed By:09/03/24 1139 DD/ 1136 TD/TT: Director Religious Education: us Armin Perez DO [facility] Final Result documented in this encounter Visit Diagnoses Not on filedocumented in this encounter Additional Health Concerns Active Problems Noted Date Diagnosed Date OB Reminders 05/12/2023 documented as of this encounter
--- OUTSIDE RECORDS SUMMARY | 2025-05-29 10:05 | XMS_ITS | Encounter Summary ---
Author Organization [facility] Address [address] [place] [address] Care Team Providers Care Technician Terminal And Repeater Name Role Phone Carin Macario CNP Primary Care Provider [phone] Encounter Details Date Type Department Care Team (Latest Contact Info) Description 05/23/2025 Travel Social History Tobacco Use Types Packs/Day Years Used Date Smoking Tobacco: Never Smokeless Tobacco: Never Comments No Sex and Gender Information Value Date Recorded Sex Assigned at Not on file Legal Sex Female 6:28 PM EDT Gender Identity Female 05/23/2025 6:32 PM EDT Sexual Orientation Straight 05/23/2025 6: 32 PM EDT documented as of this encounter Plan of Treatment Not on file documented as of this encounter Visit Diagnoses Not on filedocumented in this encounter Care Teams Technician Terminal And Repeater Relationship Specialty Start Date End Date Carin Macario CNP [address] [place] [address] PCP - General Nurse Practitioner 05/23/25 documented as of this encounter
--- OUTSIDE RECORDS SUMMARY | 2025-05-29 10:05 | XMS_ITS | Encounter Summary ---
Author Organization [facility] Address [address] [place] [address] Care Team Providers Care Senior Marketing Coordinator Name Role Phone Gio Abdi MD Primary Care Provider [phone] Reason for Visit * Reason Onset Date Comments Medication Refill 08/04/2020 Encounter Details Date Type Department Care Team (Late st Contact Info) Description 08/04/2020 Refill [facility] OBSTETRICS & GYNECOLOGY [address] [place] [address] [address] [place] [address] Ga Perez MD [address] [place] [address] Medication Refill Social History Tobacco [...] documented as of this encounter Visit Diagnoses Diagnosis PCOS (polycystic ovarian syndrome) Polycystic ovaries documented in this encounter Care Teams Senior Marketing Coordinator Relationship Specialty Start Date End Date Gio Abdi MD PCP - General 07/28/14 documented as of this encounter
--- OUTSIDE RECORDS SUMMARY | 2025-05-29 10:06 | XMS_ITS | Encounter Summary ---
Author Organization [facility] Address [address] [place] [place] [address] Care Team Providers Care Application Coordinator Name Role Phone Unavailable Primary Care Provider Unavailabl e Encounter Details Date Type Department Care Team (Late Contact Info) Description 09/18/2023 Clinisync Result Encounter [facility] External Department Unsolicited Armin Todd, DO [address] [facility] [address] Nicole [place], [facility]11 Social History Tobacco Use Types Packs/Day Years Used Date Smoking Tobacco: Never Assessed Comments Yes Sex and Gender Information Value Date Recorded Sex Assigned at Female 04/25/2023 7:30 PM EDT Legal Sex Female 12:16 PM EDT Gender Identity Female 04/25/2023 7:30 PM EDT Sexual Orientation Straight 04/25/2023 7: 30 PM EDT COVID-19 Exposure Response Date Recorded In the last 10 days, have britney u been in contact with someone who was confirmed or suspected to have Coronavirus/COVID-19? No / Unsure 09/18/2023 11:04 AM EST documented as of this encounter Plan of Treatment Upcoming Encounters Date Type Department Care Team (Late Contact Info) Description 06/10/2025 11:00 AM EDT Office Visit [facility] OB [address] [place] [address] Kesha Dc, ORGANIZATIONAL DEVELOPMENT CONSULTANT [address] [facility] [place] [id number] (work) documented as of this encounter Goals Goal Patient Goal Type Associated Problems Recent Progress Patient-Stated? Author Reminders Care Plan OB Reminders No Open Scheduling, Background documented as of this encounter Procedures Procedure Name Priority Date/Time Associated Diagnosis Comments US OB BPP WO NON-STRESS 09/18/2023 10:08 AM EST documented in this encounter Results * US OB BPP WO NON-STRESS (09/18/2023 10:08 AM EST) Anatomical Region Laterality Modality Other 09/18/2023 10:0 8 AM EST Narrative 09/18/2023 10:08 AM EST [address] [address] Ultrasound Report Signed Patient: SANDRA DEAN MR#: [id number] : 1995 Acct:[id number] Age/Sex: 28 / F ADM Date: 09/18/23 Loc: [facility] 254-[address]: Armin Todd D.O. Ordering Physician: Armin Todd D.O. Date of Service: 09/18/23 Procedure(s): US OB BPP wo non-stress Accession Number(s): [id number] cc: Armin Todd D.O.; Physician,Non-Staff M.DJeremias The [address] [address] Patient Name: SANDRA DEAN MRN: [id number] date: 1995 Sex: F Assigned Patient [place] [facility] [facility] [place] Current Patient Location: [facility] Accession/Order Number: [id number] Exam Date: 09/18/2023 09:20 Report Date: 09/18/2023 10:08 At the request of: ARMIN TODD Procedure: US OB BPP wo non-stress US MORE THAN 14 WEEKS INDICATION: Scheduled for induction. COMPARISON: Obstetrical ultrasound 08/28/2023, 07/23/2023. TECHNIQUE: Grayscale, color and M-mode Doppler evaluation of the gravid uterus using transabdominal technique. FINDINGS: EGA: 39 weeks 0 days MARITZA: 09/25/2023 Single intrauterine gestation with cephalic presentation. LG: 19.8 cm, MVP: 6.9 cm FHR: 134 bpm Biophysical profile: Movement: 2 Tone: 2 Breathin Amniotic Fluid: 2 BPP score: 8/8 US/US OB BPP wo non-stress IMPRESSION: 1. Single viable intrauterine gestation with cephalic presentation. 2. Biophysical profile score 8/8 Electronically authenticated by: SHELLY MONTILLA Date: 09/18/2023 10:08 Dictated By: Shelly Montilla M.D. Signed By: 09/18/23 1010 DD/ 1008 TD/TT: Brand Manager: Procedure Note Radiology, Radiologist, MD - 09/18/2023 [place] [address] Ultrasound Report Signed Patient: SANDRA DEAN SMR#: [id number] : 1995Acct:[id number] Age/Sex: 28 / FADM Date: 09/18/23 Loc: [facility] 254-[address]: Armin Todd D.O. Ordering Physician: Armin Todd D.O. Date of Service: 09/18/23 Procedure(s): US OB BPP wo non-stress Accession Number(s): [id number] cc: Armin Todd D.O.; Physician,Non-Staff M.DJeremias The [place] [address] Patient Name: SANDRA DEAN MRN: [id number] date: 1995 Sex: F Assigned Patient Location[place] [facility] [place] Current Patient Location: [facility] Accession/Order Number: [id number] Exam Date: 09/18/2023 09:20 Report Date: 09/18/2023 10:08 At the request of: ARMIN TODD Procedure: US OB BPP wo non-stress US MORE THAN 14 WEEKS INDICATION: Scheduled for induction. COMPARISON: Obstetrical ultrasound 08/28/2023, 07/23/2023. TECHNIQUE: Grayscale, color and M-mode Doppler evaluation of the gravid uterus using transabdominal technique. FINDINGS: EGA: 39 weeks 0 days MARITZA: 09/25/2023 Single intrauterine gestation with cephalic presentation. LG: 19.8 cm, MVP: 6.9 cm FHR: 134 bpm Biophysical profile: Movement: 2 Tone: 2 Breathin Amniotic Fluid: 2 BPP score: 8/8 US/US OB BPP wo non-stress IMPRESSION: 1. Single viable intrauterine gestation with cephalic presentation. 2. Biophysical profile score 8/8 Electronically authenticated by: SHELLY MONTILLA Date: 09/18/2023 10:08 Dictated By: Shelly Montilla M.D. Signed By:09/18/23 1010 DD/ 1008 TD/TT: Brand Manager: us Armin Perez DO [facility] Final Result documented in this encounter Visit Diagnoses Not on filedocumented in this encounter Additional Health Concerns Active Problems Noted Date Diagnosed Date OB Reminders 05/12/2023 documented as of this encounter
--- OUTSIDE RECORDS SUMMARY | 2025-05-29 10:06 | XMS_ITS | Encounter Summary ---
Author Organization [facility] Address [address] [place] [address] Care Team Providers Care Publicity Director Name Role Phone Unavailable Primary Care Provider Unavailabl e Encounter Details Date Type Department Care Team (Late Contact Info) Description 05/02/2023 Abstract [facility] OB [address] [facility] [place] [address] Freedom Todd, DO [address] [facility] [address] Nicole Chowdhury, [facility]11 Social History Tobacco Use Types Packs/Day Years Used Date Smoking Tobacco: Never Assessed Comments Yes Sex and Gender Information Value Date Recorded Sex Assigned at Female 04/25/2023 7:30 PM EDT Legal Sex Female 12:16 PM EDT Gender Identity Female 04/25/2023 7:30 PM EDT Sexual Orientation Straight 04/25/2023 7: 30 PM EDT COVID-19 Exposure Response Date Recorded In the last 10 days, have yo u been in contact with someone who was confirmed or suspected to have Coronavirus/COVID-19? No / Unsure 04/25/2023 7:43 PM EDT documented as of this encounter Plan of Treatment Upcoming Encounters Date Type Department Care Team (Late st Contact Info) Description 06/10/2025 11:00 AM EDT Office Visit [facility] OB [address] [facility] [place] [address] Kesha Dc, MATI [address] [place] [address] [place] [address] documented as of this encounter Visit Diagnoses Not on filedocumented in this encounter
--- OUTSIDE RECORDS SUMMARY | 2025-05-29 10:06 | XMS_ITS | Clinical Summary ---
Author Organization [facility] Address [address] [place] [address] Phone Care Team Providers Care Tax Analyst Name Role Phone Unavailable Primary Care Provider Unavailabl e Social History Tobacco Use Types Packs/Day Years Used Date Smoking Tobacco: Never Assessed Comments Unknown Sex and Gender Information Value Date Recorded Sex Assigned at Not on file Legal Sex Female 4:41 PM EST Gender Identity Not on file Sexual Orientation Not on file Last Filed Vital Signs Vital Sign Reading Time Taken Comments Blood Pressure 141/83 06/12/2022 9:05 AM EDT Pulse 76 06/12/2022 9:05 AM EDT Temperature - - Respiratory Rate - - Oxygen Saturation - - Inhaled Oxygen Concentration - - Weight 139 kg (307 lb) 07/24/2022 9:29 AM EDT Height 170.2 cm (5' 7 ) 07/24/2022 9:29 AM EDT Body Mass Index 48.08 07/24/2022 9:29 AM EDT Plan of Treatment Health Maintenance Due Date Last Done Comments Yearly Adult Physical 1996 MMR Vaccines (1 of 1 - Stand nichole series) 1997 Varicella Vaccines (1 of 2 - 13+ 2-dose series) 2009 Hepatitis B Vaccines (1 of 3 - 19+ 3-dose series) 2015 Cervical Cancer Screening 2017 HPV/Cotest 2017 Pap Smear 2017 DTaP/Tdap/Td Vaccines (1 - Tdap) 2018 HPV Vaccines (1 - 3-dose sta ndard series) 2023 COVID-19 Vaccine ( - 2023-2 5 season) 2024 Influenza Vaccine (#1) 2025 Lipid Panel 07/03/2027 07/03/2022 Zoster Vaccines (1 of 2) 2046 HIV Screening Completed 07/03/2022 Hepatitis C Screening Completed 07/03/2022 HIB Vaccines Aged Out No longer eligi ble based on patient's age to complete this topic Hepatitis A Vaccines Aged Out No long er eligible based on patient's age to complete this topic IPV Vaccines Aged Out No longer eligi ble based on patient's age to complete this topic Meningococcal Vaccine Aged Out No randolph lobo eligible based on patient's age to complete this topic Pneumococcal Vaccine: Pediat rics and At-Risk Adult Patients Aged Out No longer vidal gible based on patient's age to complete this topic Rotavirus Vaccines Aged Out No longer eligible based on patient's age to complete this topic Procedures Procedure Name Priority Date/Time Associated Diagnosis Comments HEPATITIS C ANTIBODY Routine 07/03/2022 11:26 AM EDT HIV 1/2 ANTIGEN/ANTIBODY SCREEN WIH REFLEX TO CONFIRMATION Routine 07/03/2022 11:26 AM EDT LIPID PANEL Routine 07/03/2022 11:26 AM EDT from Last 3 Months or Most Recently Relevant to Health Maintenance Results * Hepatitis C Antibody (07/03/2022 11:26 AM EDT) Hepatitis C Ab NONREACTIVE NONREACTIVE [facility] Comment: Results from patients taking biotin supplements or receiving high-dose biotin therapy should be interpreted with caution due to possible interference with this test. Providers may contact their local laboratory for further information. 07/03/2022 11:2 6 AM EDT 07/03/2022 9:33 PM EDT us Jeannie Abdi MARBLE CEILING INSTALLER-HUMAN CAPITAL MANAGER LAB BLOOD ORDERABLES Fin al Result [facility] [address] [place] [phone] * HIV 1/2 Antigen/Antibody Screen with Reflex to Confirmation (07/03/2022 11:26 AM EDT) HIV 1 and 2 Screen NONREACTIVE NONREACTIVE [facility] Comment: HIV Ag/Ab screen is performed using the Siemens [employer] HIV Ag/Ab Combo assay which detects the presence of HIV p24 antigen as well as antibodies to HIV-1 (Group M and O) and HIV-2. . No laboratory evidence of HIV infection. If acute HIV infection is suspected, consider testing for HIV RNA by PCR (viral load). 07/03/2022 11:2 6 AM EDT 07/03/2022 10:12 PM EDT us Jeannie Abdi MARBLE CEILING INSTALLER-HUMAN CAPITAL MANAGER LAB BLOOD ORDERABLES Fin al Result [facility] [address] [place] [phone] * Lipid Panel (07/03/2022 11:26 AM EDT) Pathologist [facility] Cholesterol 145 0 - 199 mg/dL [facility] Comment: . AGE DESIRABLE BORDERLINE HIGH HIGH [...] be performed immediately prior to Metamizole dosing. HDL 46.2 mg/dL [facility] Comment: . AGE VERY LOW LOW NORMAL HIGH 0-19 Y < 35 < 40 40-45 ---- 20-24 Y ---- < 40 >45 ---- >24 Y ---- < 40 40-60 >60 . Cholesterol/HDL Ratio 3.1 [facility] Comment: REF VALUES DESIRABLE < 3.4 HIGH RISK > 5.0 LDL 70 0 - 99 mg/dL [facility] Comment: . NEAR BORD AGE DESIRABLE OPTIMAL HIGH HIGH VERY HIGH 0-19 Y 0 - 109 --- 110-129 >/= 130 ---- 20-24 Y 0 - 119 --- 120-159 >/= 160 ---- >24 Y 0 - 99 100-129 130-159 160-189 >/=190 . VLDL 29 0 - 40 mg/dL [facility] Triglycerides 144 0 - 149 mg/dL [facility] Comment: . AGE DESIRABLE BORDERLINE HIGH HIGH [...] be performed immediately prior to Metamizole dosing. 07/03/2022 11:2 6 AM EDT 07/03/2022 12:15 PM EDT us Jeannie Abdi MARBLE CEILING INSTALLER-HUMAN CAPITAL MANAGER LAB BLOOD ORDERABLES Fin al Result [facility] [address] [place], [place] [id number] from Last 3 Months or Most Recently Relevant to Health Maintenance
--- OUTSIDE RECORDS SUMMARY | 2025-05-29 10:06 | XMS_ITS | Encounter Summary ---
Author Organization [facility] Address [address] [place] [address] Phone Care Team Providers Care Automotive Parts Person Name Role Phone Jeannie Abdi MANAGER ENT-PERSONNEL MANAGER Unavailable [phone] Encounter Details Date Type Department Care Team (Late st Contact Info) Description 01/18/2023 Orders Only [facility] [address] [place] [address] Conversion, Onbase Social History Tobacco Use Types [...] r Schedule OUTSIDE LAB SCAN Lab Ordered: 01/18/2023 documented as of this encounter Visit Diagnoses Not on filedocumented in this encounter Care Teams Automotive Parts Person Relationship Specialty Start Date End Date Jeannie Abdi, MANAGER ENT-PERSONNEL MANAGER [address] [place] [address] PCP - [facility] PCP 07/13/22 03/11/23 documented as of this encounter
--- OUTSIDE RECORDS SUMMARY | 2025-05-29 10:06 | XMS_ITS | Encounter Summary ---
Author Organization [facility] Address [address] [place] [place] [address] Care Team Providers Care Basting Cleaner Name Role Phone Unavailable Primary Care Provider Unavailabl e Encounter Details Date Type Department Care Team (Late st Contact Info) Description 04/19/2023 Abstract [facility] OB [address] [facility] [place] [address] Freedom Todd, DO [address] [facility] [place] [address] Social History Tobacco Use Types Packs/Day Years [...] EDT Office Visit [facility] OB [address] [facility] [place] [address] Kesha Dc, MATI [address] [facility] [place] [address] documented as of this encounter Visit Diagnoses Not on filedocumented in this encounter
--- OUTSIDE RECORDS SUMMARY | 2025-05-29 10:06 | XMS_ITS | Clinical Summary ---
Author Organization [facility] Address [address], [address] [place] [address] Care Team Providers Care Group Underwriter Name Role Phone Gio Abdi MD Primary Care Provider [phone] Allergies No known active allergies Medications diphenhydrAMINE (BENADRYL) 50 MG capsule Take 1 capsule by mouth every 6 hours as needed for Itching (hives) for up to 12 doses. 12 capsule 0 4 Active Additional Information Patient not taking.Reported on 06/24/2020 medroxyPROGESTE Forrest (PROVERA) 10 MG tabletIndicatio ns:PCOS (polycystic ovarian syndrome) Take 1 tablet by mouth daily for 10 days Use this medicine to initiate menses 10 tablet 0 Active clomiPHENE (CLOMID) 50 MG tabletIndicatio ns:PCOS (polycystic ovarian syndrome) Take 3 tablets daily on days 5-9 of cycle 15 tablet 3 1 Active Additional Information Patient not taking.Reported on 10/01/2023 letrozole (FEMARA) 2.5 MG tabletIndicatio ns:Anovulatory cycle Take 2 tablets daily on day 5 through 9 of the menstrual cycle 10 tablet 5 1 Active Additional Information Patient not taking.Reported on 10/01/2023 naproxen-esomep razole 500-20 MG TBECIndications :PCOS (polycystic ovarian syndrome) take 1 tablet before meals twice a day 60 tablet 5 2 Active Additional Information Patient not taking.Reported on 10/01/2023 ibuprofen (ADVIL;MOTRIN) 800 MG tablet Take by mouth 3 Active Active Problems No known active problems Family History Medical History Relation Name Comments Diabetes Maternal Grandfather Kidney Disease Maternal Grandfather Thyroid Disease Mother Heart Disease Paternal Great Grandmother Heart Surgery Paternal Great Grandmother Relation Name Status Comments Father Alive Maternal Grandfather Alive Maternal Grandmother Alive Mother Alive Paternal Grandfather Paternal Grandmother Alive Paternal Great Grandmother Social History Tobacco Use Types Packs/Day Years Used Date Smoking Tobacco: Never Smokeless Tobacco: Never Tobacco Cessation:Counseling Given: Not Answered Alcohol Use Standard Drinks/Week Comments No 0 (1 standard drink = 0.6 oz pur e alcohol) PHQ-2 Answer Date Recorded PHQ-9 Total Score 0 05/20/2020 Comments No Sex and Gender Information Value Date Recorded Sex Assigned at Female 08/03/2021 12:49 PM EDT Legal Sex Female 8:49 PM EST Gender Identity Female 08/03/2021 12:49 PM EDT Sexual Orientation Not on file Last Filed Vital Signs Vital Sign Reading Time Taken Comments Blood Pressure 173/97 10/01/2023 7:45 PM EST Pulse 71 10/01/2023 5:53 PM EST Temperature 37.1 C (98.7 F) 10/01/2023 5:53 PM EST Respiratory Rate 18 10/01/2023 5:53 PM EST Oxygen Saturation 99% 10/01/2023 7:45 PM EST Inhaled Oxygen Concentration - - Weight 130.6 kg (287 lb 14.4 oz) 10/01/2023 6:04 PM EST Height 170.2 cm (5' 7 ) 10/01/2023 6:04 PM EST Body Mass Index 45.09 10/01/2023 6:04 PM EST Plan of Treatment Health Maintenance Due Date Last Done Comments Depression Screen 2008 Varicella vaccine (1 of 2 - 13+ 2-dose series) 2009 HIV screen 2011 Hepatitis C screen 2014 Pap smear 03/19/2023 03/19/2020 COVID-19 Vaccine ( season) 2024 Flu vaccine (#1) 06/12/2025 DTaP/Tdap/Td vaccine (7 - Td or Tdap) 10/22/2027 10/22/2017, 03/16/2008, 11/30/1999, Additional history exists Hepatitis B vaccine Completed 05/30/1999, 1996, 1996 Hib vaccine Completed 05/30/1999, 09/13, 1996, Additional history exists Polio vaccine Completed 05/30/1999, 09/13, 1996, Additional history exists HPV vaccine Completed 03/02/2008, 10/12, 08/20/2007 Hepatitis A vaccine Completed 03/02/2008, 7 Meningococcal (ACWY) vaccine Aged Out 03/16/2008 No longer eligible based on patient's age to complete this topic Chlamydia/GC screen Discontinued 03/19/2020 Meningococcal B vaccine Aged Out No l onger eligible based on patient's age to complete this topic Pneumococcal 0-49 years Vaccine Aged Out No longer eligible based on patient's age to complete this topic Procedures Procedure Name Priority Date/Time Associated Diagnosis Comments C.TRACHOMATIS N.GONORRHOEAE DNA, THIN PREP Routine 03/19/2020 11:49 AM EDT Pelvic pain in female RADIOTELEPHONE OPERATOR CYTOLOGY Routine 03/19/2020 9:12 AM EDT from Last 3 Months or Most Recently Relevant to Health Maintenance Results * C.trachomatis N.gonorrhoeae DNA, Thin Prep (03/19/2020 11:49 AM EDT) Specimen Description .CERVIX 03/19/2020 11:49 AM EDT 3D Forms Chlamydia By Thin Prep NEGATIVE NEGATIVE 03/19/2020 11:49 AM EDT 3D Forms Comment: CHLAMYDIA TRACHOMATIS DNA not detected by nucleic acid [...] results by an alternative nucleic acid target. N. gonorrhoeae DNA, Thin Prep NEGATIVE NEGATIVE 03/19/2020 11:49 AM EDT 3D Forms Comment: NEISSERIA GONORRHOEAE DNA not detected by nucleic acid [...] results by an alternative nucleic acid target. CERVICAL SWAB / Unknown 03/19/2020 11:49 AM EDT 03/19/2020 11:49 AM EDT us Ga Perez MD MICROBIOLOGY - GENERAL ORDERA BLES Final Result [facility] [address] [place] [address], [facility] [phone] [phone] * RADIOTELEPHONE OPERATOR Cytology (03/19/2020 9:12 AM EDT) Cytology Report INTERPRETATION Cervical material, (ThinPrep vial, Imaging-assisted review): Specimen Adequacy: Satisfactory for evaluation. - Endocervical/trans formation zone component present. Descriptive Diagnosis: Negative for intraepithelial lesion or malignancy. Reactive cellular changes associated with inflammation. Doughnut Dough Mixer: DEAN Samson M.D. Electronically Signed Out rdd/03/23/2020 Source: 1: Cervical material, (ThinPrep vial, Imaging-assisted review) Clinical History Z12.4 Encounter for screening for malignant neoplasm of cervix High Risk HPV DNA testing is requested if the diagnosis is ASC-US LMP: 11/19/2019 GYNECOLOGIC CYTOLOGY REPORT Patient Name: SANDRA BYRD [facility] Rec: [id number] Path Number: [id number] 3D Forms [facility] ANATOMIC PATHOLOGY [address] [place] [phone] 3D Forms 03/19/2020 9:12 AM EDT 03/22/2020 9:12 AM EDT us Ga Perez MD PATHOLOGY/CYTOLOGY ORDERABLES Final Result [facility] [address] [place] [address], [facility] [phone] 3D Forms [address] [place] [address], [facility] [phone] from Last 3 Months or Most Recently Relevant to Health Maintenance [place] [address] [employer] Care Teams Group Underwriter Relationship Specialty Start Date End Date Gio Abdi MD PCP - General 07/28/14
--- OUTSIDE RECORDS SUMMARY | 2025-05-29 10:06 | XMS_ITS | Encounter Summary ---
Author Organization [facility] Address [address] [place] [address] Care Team Providers Care Electroneurodiagnostic Technician Name Role Phone Unavailable Primary Care Provider Unavailabl e Encounter Details Date Type Department Care Team (Late Contact Info) Description 04/28/2023 Abstract [facility] OB [address] [place] [address] Rosenda Puente PA [address] [place] [address] Dr [place], [facility]11 Social History Tobacco Use Types Packs/Day Years [...] 06/10/2025 11:00 AM EDT Office Visit [facility] OB [address] [place] [address] Kesha Dc, PLANNING AND ANALYSIS MANAGER [address] [place] [address] [place] [address] documented as of this encounter Visit Diagnoses Not on filedocumented in this encounter
--- OUTSIDE RECORDS SUMMARY | 2025-05-29 10:06 | XMS_ITS | Encounter Summary ---
Author Organization [facility] Address [address] [place] [address] Phone Care Team Providers Care Regional Sales Manager Name Role Phone Jeannie Abdi OPERATIONS BUSINESS PARTNER-SPINNER BOX Unavailable [phone] Encounter Details Date Type Department Care Team (Late st Contact Info) Description 02/06/2023 Orders Only [facility] [address] [place] [address] Conversion, Onbase Social History Tobacco Use Types [...] r Schedule OUTSIDE LAB SCAN Lab Ordered: 02/06/2023 documented as of this encounter Visit Diagnoses Not on filedocumented in this encounter Care Teams Regional Sales Manager Relationship Specialty Start Date End Date Jeannie Abdi, OPERATIONS BUSINESS PARTNER-[address]NER [address] [place] [address] PCP - [facility] PCP 07/13/22 03/11/23 documented as of this encounter
--- OUTSIDE RECORDS SUMMARY | 2025-05-29 10:06 | XMS_ITS | Encounter Summary ---
Author Organization [facility] Address [address] [place] [place] [address] Care Team Providers Care Crm Solution Architect Name Role Phone Unavailable Primary Care Provider Unavailabl e Encounter Details Date Type Department Care Team (Late Contact Info) Description 07/23/2023 Clinisync Result Encounter [facility] External [facility] Unsolicited Armin Todd, DO [address] [facility] [address] [place], [facility] Social History Tobacco Use Types Packs/Day Years [...] suspected to have Coronavirus/COVID-19? No / Unsure 07/20/2023 12:27 PM EDT documented as of this encounter Plan of Treatment Upcoming Encounters Date Type Department Care Team (Late Contact Info) Description 06/10/2025 11:00 AM EDT Office Visit [facility] [address] [place] [address] Kesha Dc, [employer] SAL[employer] MANAGER [address] [place] [id number] documented as of this encounter Goals Goal Patient Goal Type Associated Problems Recent Progress Patient-Stated? Author Reminders Care Plan OB Reminders No Open Scheduling, Background documented as of this encounter Procedures Procedure Name Priority Date/Time Associated Diagnosis Comments US OB GROWTH 07/23/2023 5:07 PM EDT documented in this encounter Results * US OB GROWTH (07/23/2023 5:07 PM EDT) Anatomical Region Laterality Modality Other 07/23/2023 5:07 PM EDT Narrative 07/23/2023 5:07 PM EDT [address] [address] Ultrasound Report Signed Patient: SANDRA DEAN MR#: [id number] : 1995 Acct:[id number] Age/Sex: 28 / F ADM Date: 07/23/23 Loc: US Attending Dr: Armin Todd D.O. Ordering Physician: Armin Todd D.O. Date of Service: 07/23/23 Procedure(s): US OB growth Accession Number(s): [id number] cc: Armin Todd D.O.; Physician,Non-Staff M.DJeremias The [address] [address] Patient Name: SANDRA DEAN MRN: [id number] date: 1995 Sex: F Assigned Patient Location: US Current Patient Location: US Accession/Order Number: [id number] Exam Date: 07/23/2023 08:04 Report Date: 07/23/2023 17:07 At the request of: ARMIN TODD Procedure: US OB growth EXAMINATION: US OB growth HISTORY: SIZE INCONSISTENT WITH DATES COMPARISON: No relevant comparison available. FINDINGS: Heart Rate: 127.0 bpm Amniotic Fluid Volume: 16.5 cm Number: 1.0 Position: Cephalic presentation, longitudinal lie Maximum Vertical Pocket: 5.6 cm cm 3.3 cm cm 3.8 cm cm 3.8 cm cm BIOMETRY: BPD: 7.9 cm cm; 31 weeks 6 days; 68% HC: 29.4 cmcm; 32 weeks 3 days, 60% AC: 26.2 cm cm; 30 weeks 3 days, 31% FL: 6.0 cm cm; 31 weeks 2 days; 48.9 % % EFW: 1678.0 grams, 3 lbs. 11 oz., 42% FL/AC: 23.0 FL/BPD: 76.0 HC/AC: 1.1 GESTATIONAL AGE: Age by EDC: 30 weeks 6 days MARITZA by EDC: 09/25/2023 Age by US: 31 weeks 4 days MARITZA by US: 09/20/2023 US/US OB growth IMPRESSION: Normal interval growth Electronically authenticated by: GARLAND HEATH Date: 07/23/2023 17:07 Dictated By: Garland Heath M.D. Signed By: 07/23/231709 DD/ 06 TD/TT: Sort Supervisor: Procedure Note Radiology, Radiologist, MD - 08/03/2023 [place] [address] Ultrasound Report Signed Patient: SAMI DEAN#: [id number] : 1995Acct:[id number] Age/Sex: 28 / FADM Date: 07/23/23 Loc: US Attending Dr: Armin Todd D.O. Ordering Physician: Armin Todd D.O. Date of Service: 07/23/23 Procedure(s): US OB growth Accession Number(s): [id number] cc: Armin Todd D.O.; Physician,Non-Staff Tommy The [place] [id number] Patient Name: SANDRA DEAN MRN: [id number] date: 1995 Sex: F Assigned Patient Location: US Current Patient Location: US Accession/Order Number: [id number] Exam Date: 07/23/2023 08:04 Report Date: 07/23/2023 17:07 At the request of: ARMIN MICHELLE Procedure: US OB growth EXAMINATION: US OB growth HISTORY: SIZE INCONSISTENT WITH DATES COMPARISON: No relevant comparison available. FINDINGS: Heart Rate: 127.0 bpm Amniotic Fluid Volume: 16.5 cm Number: 1.0 Position: Cephalic presentation, longitudinal lie Maximum Vertical Pocket: 5.6 cm cm 3.3 cm cm 3.8 cm cm 3.8 cm cm BIOMETRY: BPD: 7.9 cm cm; 31 weeks 6 days; 68% HC: 29.4 cmcm; 32 weeks 3 days, 60% AC: 26.2 cm cm; 30 weeks 3 days, 31% FL: 6.0 cm cm; 31 weeks 2 days; 48.9 % % EFW: 1678.0 grams, 3 lbs. 11 oz., 42% FL/AC: 23.0 FL/BPD: 76.0 HC/AC: 1.1 GESTATIONAL AGE: Age by EDC: 30 weeks 6 days MARITZA by EDC: 09/25/2023 Age by US: 31 weeks 4 days MARITZA by US: 09/20/2023 US/US OB growth IMPRESSION: Normal interval growth Electronically authenticated by: GARLAND HEATH Date: 07/23/2023 17:07 Dictated By: Garland Heath M.D. Signed By:07/23/231709 DD/ 06 TD/TT: Sort Supervisor: Armin Todd DO [facility] Final Result documented in this encounter Visit Diagnoses Not on filedocumented in this encounter Additional Health Concerns Active Problems Noted Date Diagnosed Date OB Reminders 05/12/2023 documented as of this encounter
--- NOTE | 2025-05-29 10:09 | XR_ITS ---
The [place] [id number] Patient Name: BERNADINE DEAN MRN: [id number] date: 1995 Sex: F Assigned Patient Location: [facility] Current Patient Location: [facility] Accession/Order Number: [id number] Exam Date: 05/29/2025 10:53 Report Date: 05/29/2025 10:57 At the request of: CHRISTOPH PANTOJA NP Procedure: XR wrist LT min 3V LEFT WRIST - 3 views CLINICAL DATA: Left wrist pain and swelling following a fall [place]ing [place] a river 6 days ago. COMPARISON: None Multiple AP, lateral and oblique views were obtained. Patient has a permanent bracelet which was moved up and down between images. On the lateral view, there is cortical irregularity along the dorsal aspect of the distal radial metaphysis where nondisplaced fracture is possible. The distal ulna and remaining bones within the [id number]-gaby are intact. No dislocation is seen. Dorsal soft tissue swelling is visualized. XR/XR wrist LT min 3V IMPRESSION: SUSPECTED NONDISPLACED DISTAL RADIAL FRACTURE, DESCRIBED. FOCAL CLINICAL CORRELATION IS RECOMMENDED. Impression dictated by: Anabel Casillas M.D. 05/29/2025 10:57 AM Dictation Location: [place] [address] Electronically authenticated by: [id number] Y Date: 05/29/2025 10:57
--- OUTSIDE RECORDS SUMMARY | 2025-05-29 10:24 | XMS_ITS | CCD ---
Author Organization [facility] Care Team Providers Care Pca Name Role Phone Chey Gomez Primary Care Provider DAVID PEREZ Referring Unavailable CHEY GOMEZ Primary Care Unavailable DAVID PEREZ Referring Unavailable CHEY GOMEZ Primary Care Unavailable DAVID PEREZ Referring Unavailable CHEY GOMEZ Primary Care Unavailable Chey Gomez MD Primary Care Provider Unknown, Referring Provider [...] PEREZ Mcdowell, DR FUNEZ Admitting Unavailable MISC, DOCTOR Consulting Unavailable PEREZ ., DR FUNEZ Attending [...] Unavailable PEREZ ., DR FUNEZ Admitting Unavailable WIMBLEDON, DR GARLAND German Consulting Unavailable PEREZ ., DR FUNEZ Attending Unavailable PEREZ ., DR FUNEZ Consulting Unavailable PATRICIA, CHEY Padron Primary Care Unavailable PATRICIA, JEANNIE Referring Unavailable PATRICIA, RUFINAER R Primary Care Unavailable PATRICIA, JEANNIE Referring Unavailable PATRICIA, CHEY Padron Primary Care Unavailable AUGUSTUS SALAZAR Attending Unavailable PATRICIA, CHEY Padron Primary Care Unavailable PATRICIA, JEANNIE Referring Unavailable MIKAYLA TRAN Attending Unavailable PEREZ, FREEDOM Attending Unavailable PEREZ, FREEDOM Attending Unavailable PEREZ, FREEDOM Attending Unavailable PEREZ, FREEDOM Attending Unavailable PEREZ, FREEDOM Attending Unavailable Unavailable Primary Care Provider Unavailabl Chey Winn Primary Care Physician Rosendo, SVITLANA Fernandes Attending Unavailable Rosendo, CARPENTRY TEACHER Filemon Fernandes Attending Unavailable Rosendo, SVITLANA Fernandes Attending Unavailable Rosendo, CARPENTRY TEACHER Filemon Fernandes Attending Unavailable Rosendo, CARPENTRY TEACHER Filemon Fernandes Attending Unavailable Rosendo, CARPENTRY TEACHER Filemon Fernandes Attending Unavailable NISREENANT MOORE Attending U navailable ROSENDO, FILEMON SWIFT Primary Care Unavailable Medications Current Medications Medication Drug Class(es) Dates Sig (Normalized) Sig (Original) 24 hr amphetamine aspartate 2.5 mg / amphetamine sulfate 2.5 mg / dextroamphetamine saccharate 2.5 mg / dextroamphetamine sulfate 2.5 mg extended release oral capsule (1 source) Central Nervous System Stimulant Start: 12-17-2024 take 1 capsule by mouth once daily in the morning Adderall XR 10 mg Cap-ER 10 mg = 1 cap(s), Oral, qAM, # 30 cap(s), Refills(s) 0, Pharmacy: [facility], 888.4, cm, 12/17/24 13:14:00 EST, Height/Length Dosing, 135.2, kg, 12/17/24 13:14:00 EST, Weight Dosing Start Date: 12/17/24 Status: Ordered clomiPHENE citrate 50 mg oral tablet (7 sources) Estrogen Agonist/Antagoni st Start: 10-04-2021 clomiPHENE (CLOMID) 50 MG tablet [...] the cycle 10 tablet 3 08/04/2021 Active {21 (Desogestrel 0.15 MG / Ethinyl Estradiol 0.03 MG Oral Tablet) / 7 (Inert Ingredients 1 MG Oral Tablet) } Pack [Apri 28 Day] (1 source) Progestin, Estrogen Start: 12-17-2024 take 1 tablet by mouth once daily Apri oral tablet 1 tab(s), Oral, Daily, 84 tab(s), Refill(s) 0, [facility], 172.4, cm, 12/17/24 13:14:00 EST, Height/Length Dosing, 135.2, kg, 12/17/24 13:14:00 EST, Weight Dosing Start Date: 12/17/24 Status: Ordered diphenhydrAMINE hydrochloride 50 mg oral capsule (9 [...] mg oral tablet (20 sources) Biguanide Start: 12-17-2024 take 1 tablet by mouth twice daily metformin 500 mg Tab 500 mg = 1 tab(s), Oral, BID, # 180 tab(s), Refills(s) 0, Pharmacy: [facility], 172.4, cm, 12/17/24 13:14:00 EST, Height/Length Dosing, 135.2, kg, 12/17/24 13:14:00 EST, Weight Dosing Start Date: 12/17/24 Status: Ordered Start: 09-22-2022 End: 01-20-2023 take 1 tablet by mouth three times daily metFORMIN (GLUCOPHAGE) 500 MG tablet Indications: PCOS (polycystic ovarian syndrome) Take 1 tablet by mouth three times daily 90 tablet 5 09/22/2022 01/20/2023 Active Start: 06-12-2022 take 1 tablet by luz three times daily metFORMIN HCl ER 500 [...] Jeannie Jimenez Start : 12-Jun-2022 Active Start: 12-14-2020 End: 02-01-2022 take 1 tablet by mouth [...] days. 30 tablet 0 03/19/2020 04/18/2020 Active 0.25 mg, 0.5 mg dose 1.5 ml semaglutide 1.34 mg/ml pen injector (1 source) Start: 12-17-2024 inject 0.25 mg by subcutaneous injection every week semaglutide 2 mg/1.5 mL (0.25 mg or 0.5 mg dose) subcutaneous solution 0.25 mg, SubCutaneous, qWeek, 4 EA, Refill(s) 2, 0.25mg weekly for first 4 weeks then 0.50mg after rotate injection sites, [facility], 172.4, cm, 12/17/24 13:14:00 EST, Height/Length Dosing, 135.2, kg, 12/17/24 13:14:00 EST, Weight Dosing Start Date: 12/17/24 Status: Ordered Completed/Discontinued Medications Medication Drug Class(es) Dates Sig [...] Active Problems Problem Classification Problem Date Documented Date Episodic/Chronic Abdominal pain (1 source) Pain in female pelvis; Translations: [Pelvic pain in female] Episodic Contraceptive and procreative management (4 sources) Encounter for other procreative management; Translations: [Encounter for fertility testing] Onset: 07-03-2022 Episodic Female infertility (20 sources) Female infertility associated with anovulation; Translations: [Infertility, female, associated with anovulation] Onset: 01-01-2023 Chronic Headache; including migraine (1 source) Migraine 05-30-2015 Chronic Hypertension complicating ; childbirth and the puerperium (1 source) Unspecified pre-eclampsia, complicating the puerperium; Translations: [Unspecified pre-eclampsia, complicating the puerperium] Onset: 10-01-2023 Episodic Immunizations and screening for infectious disease (20 sources) Patient encounter status; Translations: [Screening examination for venereal disease] Onset: 07-03-2022 Episodic Menstrual disorders (20 sources) Irregular periods; Translations: [Irregular menstrual cycle] Onset: 07-03-2022 Chronic Other circulatory disease (1 source) Elevated blood-pressure reading without diagnosis of hypertension 01-31-2021 Episodic Other complications of (3 sources) Nausea and vomiting; Translations: [Unspecified vomiting of , unspecified as to episode of care or not applicable] Episodic Other complications of (1 source) with inconclusive viability, not applicable or unspecified; Translations: [ w inconclusive viability, unsp] Onset: 02-05-2023 Episodic Other endocrine disorders (11 sources) Polycystic ovary syndrome; Translations: [Polycystic ovarian syndrome] Onset: 06-14-2023 Chronic Other injuries and conditions due to external causes (2 sources) Unspecified injury of left wrist, hand and finger(s), initial encounter; Translations: [Unspecified injury of left wrist, hand and finger(s), initial encounter] Onset: 05-23-2025 Episodic Other lower respiratory disease (1 source) Cough 09-08-2021 Episodic Other lower respiratory disease (1 source) Dyspnea 09-08-2021 Episodic Other nervous system disorders (1 source) Impaired cognition; Translations: [Attention and concentration deficit] Onset: 12-17-2024 Chronic Other nervous system disorders (1 source) Disturbance of attention 12-17-2024 Chronic Other nutritional; endocrine; and metabolic disorders (3 sources) Body mass index 40+ - severely obese; Translations: [Body mass index (BMI) 45.0-49.9, adult] Onset: 12-17-2024 Chronic Other nutritional; endocrine; and metabolic disorders [...] [BMI] 45.0-49.9, adult] Onset: 06-12-2022 Chronic Other nutritional; endocrine; and metabolic disorders (1 source) Insulin resistance 12-17-2024 Chronic Other nutritional; endocrine; and metabolic disorders (1 source) Morbid obesity 02-27-2021 Chronic Other screening for suspected conditions (not mental disorders or infectious disease) (20 sources) Radiology result abnormal; Translations: [Other nonspecific (abnormal) findings on radiological and other examinations of body structure] Chronic Other screening for suspected conditions (not mental disorders or infectious disease) (8 sources) Encounter for screening for other suspected endocrine disorder; Translations: [Encounter for screening for diabetes mellitus] Onset: 07-03-2022 Episodic Unclassified (2 sources) Patient encounter status; Translations: [Routine Papanicolaou smear] 12-17-2024 Unclassified (4 sources) OB Reminders Onset: 05-12-2023 05-12-2023 Unclassified (1 source) Drug therapy finding 02-27-2021 Unclassified (1 source) First encounter by subject 12-17-2024 Unclassified (1 source) SARS-CoV-2 viremia 09-08-2021 Past or Other Problems Problem Classification Problem Date Documented Da te Episodic/Chronic Other and delivery including normal (20 sources) Urine test positive; Translations: [ examination or test, positive result] Onset: 01-25-2023 Episodic Unclassified (1 source) Insulin resistance; Translations: [Insulin resistance, unspecified] Onset: 12-17-2024 Results Test Name Value Interpretation Reference Range Facility ED Prov Noteon 05-23-2025 ED Prov Note ED PROVIDER NOTE [facility] NAME: Sandra Dean AGE: 30 y.o. : 1995 VISIT DATE: 05/23/2025 CSN: [id number] PCP: Fielmon Macario CNP Chief Complaint Patient presents with [...] Height Weight 05/23/25 1828 (!) 140/90 98.2 degrees F (36.8 degrees C) Temporal 94 16 99 % 5' 7 [...] the wrist due to pain that she is experiencing in the distal radial area. She also [...] thumb spica splint. She understands her PCP may want to order repeat imaging in a week [...] ED Disposition Discharge Condition Stable Comment Sandra Dean discharged to home/self care in stable condition. Follow-up Information 1. Filemon Macario, IAN. Specialty: Nurse Practitioner Why: Follow up within 1 week, Follow up sooner for any problems or concerns [address] [facility] [id number] Contact information for after-discharge care Follow-up information has not been specified. [1] Social History Socioeconomic History Marital status: Tobacco Use Smoking status: Never Smokeless tobacco: Never Substance and Sexual Activity Drug use: Never [2] No Known Allergies Ant Nielson MD 05/23/252021 AUTHENTICATED BY ANT NIELSON, ON 05/23/2025 20:22:51 [facility] XR WRIST LEFT 3+ VIEWS (ADALI DARD)on 05-23-2025 XR WRIST LEFT 3+ VIEWS (STANDARD) EXAMINATION: XR WRIST LEFT 3+ VIEWS (STANDARD) [...] preserved. The overlying soft tissues appear unremarkable. IMPRESSION: No acute osseous abnormality detected. Workstation ID: [id number] Dictated by: JENARO WHEELER on [facility] May 23, 2025 8:12:48 PM EDT Transcribed by: JENARO WHEELER on [facility] May 23, 2025 8:12:48 PM EDT Finalized by: JENARO WHEELER on [facility] May 23, 2025 8:12:48 PM EDT [facility] Comment on above: Order Comment: Injur y/Trauma or Illness?:Injury/Trauma How long have you had these symptoms (acute/chronic)?:Acute Reason for exam?:lt wrist pain History of cancer?:n Surgeries, chemotherapy, or radiation?:n Type of Exam?:Initial Mechanism of injury?:s/p fall. Ambulatory Visit Summaryon 0 05-13-2025 Ambulatory Visit Summary Ambulatory Visit Summary SANDRA DEAN :1995 Visit Date:05/13/2025 Ambulatory Visit Instructions Your Diagnosis BMI 40.0-44.9, adult, Body mass index [BMI] 40.0-44.9, adult Morbid obesity with BMI of 40.0-44.9, adult Non-smoker Your Care Team Attending Physician - Filemon Toussaint Primary Care Physician - Filemon Toussaint This Is Your Medications List amphetamine-dextroamphetami ne (Adderall XR 30 mg Cap-ER) desogestrel-ethinyl estradiol (Apri oral tablet) metformin (metformin 500 mg Tab) predniSONE (predniSONE 10 mg Tab) tirzepatide (tirzepatide 5 mg/0.5 mL subcutaneous solution) triamcinolone topical (triamcinolone Top 0.5% Crm) Procedures Performed section (09/25/2023), Tonsillectomy and adenoidectomy. Discharge Vitals Temperature (Temporal Artery) 36.8 ???C Heart Rate (Peripheral) 83 Respiratory Rate 18 Blood Pressure 122/78 Height 172.4 cm Height 68 in Weight 119.2 kg Weight 262.791 lb BMI 40.11 What to do next Scheduled Follow-Up Appointments Sunday 10:40 AM EDT With: Filemon Toussaint Where: [place] [id number]- Medications What How Much When Why Instructions New predniSONE (predniSONE 10 mg Tab) 1 Dose Separtor By Mouth As Directed BMI 40.0-44.9, adult Morbid obesity with BMI of 40.0-44.9, adult Non-smoker Take 3 tabs by mouth daily x3 days, then 2 tabs daily x3 days, then 1 tab daily x3 days. Pickup at [facility] New triamcinolone topical (triamcinolone Top 0.5% Crm) 1 Application Topical 2 times a day BMI 40.0-44.9, adult Morbid obesity with BMI of 40.0-44.9, adult Non-smoker Pickup at [facility] Unchanged amphetamine-dextroamphetami ne (Adderall XR 30 mg Cap-ER) 1 Capsules By Mouth Once a day (in the morning) Unchanged desogestrel-ethinyl estradiol (Apri oral tablet) 1 Tablets By Mouth Every day Establishing care with new doctor, encounter for Attention deficit control counseling Insulin resistance PCOS (polycystic ovarian syndrome) BMI 45.0-49.9, adult Non-smoker Unchanged metformin (metformin 500 mg Tab) 1 Tablets By Mouth 2 times a day Establishing care with new doctor, encounter for Attention deficit control counseling Insulin resistance PCOS (polycystic ovarian syndrome) BMI 45.0-49.9, adult Non-smoker Unchanged tirzepatide (tirzepatide 5 mg/ 0.5 mL subcutaneous solution) 5 Milligram Subcutaneous Every week Pharmacy Information [facility]: [address], [place] [id number] [phone] Allergies No Known Allergies Problems Ongoing - Any problem that you are currently receiving treatment for. Attention deficit control counseling Blood pressure elevated without history of HTN BMI 40.0-44.9, adult Cough COVID-19 viremia Establishing care with new doctor, encounter for Fluid level behind tympanic membrane of both ears High risk medication use Insulin resistance Morbid obesity Morbid obesity with BMI of 40.0-44.9, adult PCOS (polycystic ovarian syndrome) Shortness of breath Historical - Any problem that you are no longer receiving treatment for. Migraines Patient Survey You may receive a survey via text or e-mail asking about your office visit. Please share your experience with us by completing your survey. We appreciate your feedback and thank you for choosing us for your care. Patient Portal You may access all of your results and other medical record information on our secure patient portal. If you are not signed up for this yet, please contact [employer] at [phone] to get signed up today. Language Information Language assistance services are available as needed. [facility] Family Medicine Office/Clini c Noteon 05-13-2025 Family Medicine Office/Clinic Note Family Medicine Office/Clinic Note HPI Staff Patient is presenting for rash on back, hands, chest and neck Onset: yesterday (was pulling weeds a couple days ago, did not notice any poison catarino) Location: back, neck, hands, chest, face Characteristics: itchy Aggravated by: irritated by her clothes Relieved by: hydrocortisone cream, rash spray has helped with the itching History of Present Illness pt presents today with rash Review of Systems PHQ Score Initial Depression Screen Score: 0 SCORE Physical Exam Vitals & Measurements T: 36.8 ???C(Temporal Artery) HR: 83(Peripheral) RR: 18 BP: 122/78 SpO2: 99% HT: 68 in HT: 172.4 cm WT: 262.791 lb WT: 119.2 kg BMI: 40.11 General: alert, no acute distress ENMT: oral mucosa moist, no pharyngeal erythema or exudate Cardiovascular: regular rate and rhythm, normal peripheral perfusion Respiratory: Lungs CTA, respirations non labored Extremities: no deformity, no trauma Neurological: oriented x 4, LOC appropriate for age, CN II-XII intact, motor strength equal & normal bilaterally, speech normal Assessment/Plan 1. Contact dermatitis (L25.9: Unspecified contact dermatitis, unspecified cause) pt presents today with rash on face, arms chest, behind left ear and lower back. she pulled weeds a couple days ago. not sure what she got into. she recently had a kenalog shot so i will order oral steroids and a cream. 2. BMI 40.0-44.9, adult, (Z68.41: Body mass index [BMI] 40.0-44.9, adult)Body mass index [BMI] 40.0-44.9, adult BMI education given Ordered: predniSONE, = 1 -, Oral, As Directed, Take 3 tabs by mouth daily x3 days, then 2 tabs daily x3 days, then 1 tab daily x3 days., # 18 tab(s), Refills(s) 0, Pharmacy: [facility], 172.4, cm, 05/13/25 11:55:00 EDT, Height/Length Dosing, 119.2, kg, ... triamcinolone topical, 1 komal, Topical, BID, 20 gram, Refill(s) 0, [facility], 172.4, cm, 05/13/25 11:55:00 EDT, Height/Length Dosing, 119.2, kg, 05/13/25 11:55:00 EDT, Weight Dosing 3. Morbid obesity with BMI of 40.0-44.9, adult (E66.01: Morbid (severe) obesity due to excess calories) see above Ordered: predniSONE, = 1 -, Oral, As Directed, Take 3 tabs by mouth daily x3 days, then 2 tabs daily x3 days, then 1 tab daily x3 days., # 18 tab(s), Refills(s) 0, Pharmacy: [facility], 172.4, cm, 05/13/25 11:55:00 EDT, Height/Length Dosing, 119.2, kg, 07/... triamcinolone topical, 1 komal, Topical, BID, 20 gram, Refill(s) 0, [facility], 172.4, cm, 05/13/25 11:55:00 EDT, Height/Length Dosing, 119.2, kg, 05/13/25 11:55:00 EDT, Weight Dosing 4. Non-smoker (Z78.9: Other specified health status) continue not smoking Ordered: predniSONE, = 1 -, Oral, As Directed, Take 3 tabs by mouth daily x3 days, then 2 tabs daily x3 days, then 1 tab daily x3 days., # 18 tab(s), Refills(s) 0, Pharmacy: [facility], 172.4, cm, 05/13/25 11:55:00 EDT, Height/Length Dosing, 119.2, kg, 07/... triamcinolone topical, 1 komal, Topical, BID, 20 gram, Refill(s) 0, [facility], 172.4, cm, 05/13/25 11:55:00 EDT, Height/Length Dosing, 119.2, kg, 05/13/25 11:55:00 EDT, Weight Dosing Orders: tirzepatide, 5 mg, SubCutaneous, qWeek, # 4 EA, Refills(s) 1, Pharmacy: [facility], 172.4, cm, 05/13/25 11:55:00 EDT, Height/Length Dosing, 119.2, kg, 05/13/25 11:55:00 EDT, Weight Dosing tirzepatide, 5 mg, SubCutaneous, qWeek, # 4 EA, Refills(s) 1, Pharmacy: [facility], 172.4, cm, 05/04/25 13:30:00 EDT, Height/Length Dosing, 122.5, kg, 05/04/25 13:30:00 EDT, Weight Dosing Follow-up No qualifying data available Problem List/Past Medical History Ongoing Attention deficit control counseling Blood pressure elevated without history of HTN BMI 40.0-44.9, adult Contact dermatitis Cough COVID-19 viremia Establishing care with new doctor, encounter for Fluid level behind tympanic membrane of both ears High risk medication use Insulin resistance Morbid obesity Morbid obesity with BMI of 40.0-44.9, adult PCOS (polycystic ovarian syndrome) Shortness of breath Historical Migraines Procedure/Surgical History section (09/25/2023), Tonsillectomy and adenoidectomy. Medications Adderall XR 30 mg Cap-ER, 30 mg= 1 cap(s), Oral, qAM Apri oral tablet, 1 tab(s), Oral, Daily, 3 refills metformin 500 mg Tab, 500 mg= 1 tab(s), Oral, BID, 3 refills predniSONE 10 mg Tab, 1 -, Oral, As Directed tirzepatide 5 mg/0.5 mL subcutaneous solution, 5 mg, SubCutaneous, qWeek, 1 refills triamcinolone Top 0.5% Crm, 1 komal, Topical, BID Allergies No Known Allergies Social History Alcohol - Denies Alcohol Use, 07/29/2014 Never., 02/08/2025 Substance Abuse - Denies Substance Abuse, 07/29/2014 Never., 02/08/2025 Tobacco - Denies Tobacco Use, 07/29/2014 Never (less than 100 in lifetime) Tobacco Use:. Never Smokeless Tobacco Use:. Household tobacco concerns: No., 05/13/2025 Family History (more content not included)... [facility] Comment on above: Result Comment: Elec tronically Signed By: Filemon Toussaint\.br\Date and Time Signed: 05/13/25 12:38 EDT Family Medicine Office/Clini c Noteon 05-04-2025 Family Medicine Office/Clinic Note Family Medicine Office/Clinic Note Chief Complaint 3 month f/u on adderall HPI Staff Patient is presenting for 3 month follow up meds Has been on Adderall 20mg Sleeping well: yes Eating habits: Eating well, maintaining weight Side effects: every once in a while nausea Focused at home: yes, work is the hard part Concerns/complaints: wants to increase due to feeling like the medication is working but could be doing more Also wants to increase shot to 5mg Medication Consent: 01/13/25 Drug screen: 12/17/24 History of Present Illness pt presents today for med check. and c/o ear pressure Review of Systems PHQ Score Initial Depression Screen Score: 0 SCORE Physical Exam Vitals & Measurements HR: 97(Peripheral) BP: 124/78 SpO2: 98% HT: 68 in HT: 172.4 cm WT: 270.066 lb WT: 122.5 kg BMI: 41.22 General: alert, no acute distress ENMT: oral mucosa moist, no pharyngeal erythema or exudate Cardiovascular: regular rate and rhythm, normal peripheral perfusion Respiratory: Lungs CTA, respirations non labored Extremities: no deformity, no trauma Neurological: oriented x 4, LOC appropriate for age, CN II-XII intact, motor strength equal & normal bilaterally, speech normal Assessment/Plan 1. Attention deficit (R41.840: Attention and concentration deficit) pt would like to increase dose. will increase to 30mg. medication agreement updated. OARRS report reviewed. RTC 3 months 2. Fluid level behind tympanic membrane of both ears (H65.93: Unspecified nonsuppurative otitis media, bilateral) 40mg kenalog given in office today 3. PCOS (polycystic ovarian syndrome) (E28.2: Polycystic ovarian syndrome) increased tirzeptide to 5mg 4. Non-smoker (Z78.9: Other specified health status) continue not smoking 5. BMI 40.0-44.9, adult (Z68.41: Body mass index [BMI] 40.0-44.9, adult) BMI educaiton given Orders: amphetamine-dextroamphetami ne, 30 mg = 1 cap(s), Oral, qAM, # 30 cap(s), Refills(s) 0, Pharmacy: [facility], 172.4, cm, 05/04/25 13:30:00 EDT, Height/Length Dosing, 122.5, kg, 05/04/25 13:30:00 EDT, Weight Dosing amphetamine-dextroamphetami ne, 20 mg = 1 cap(s), Oral, qAM, 30 day supply DX R41.840, # 30 cap(s), Refills(s) 0, Pharmacy: [facility], 172.4, cm, 02/09/25 13:50:00 EDT, Height/Length Dosing, 128.3, kg, 02/09/25 13:50:00 EDT, Weight Dosing tirzepatide, 2.5 mg, SubCutaneous, qWeek, # 4 EA, Refills(s) 1, Pharmacy: [facility], 172.4, cm, 02/09/25 13:50:00 EDT, Height/Length Dosing, 128.3, kg, 02/09/25 13:50:00 EDT, Weight Dosing tirzepatide, 5 mg, SubCutaneous, qWeek, # 4 EA, Refills(s) 1, Pharmacy: [facility], 172.4, cm, 05/04/25 13:30:00 EDT, Height/Length Dosing, 122.5, kg, 05/04/25 13:30:00 EDT, Weight Dosing triamcinolone, 40 mg = 1 mL, Injection, IntraARTICULAR, Once, Stop date 05/04/25 14:24:00 EDT, Routine, Start date 05/04/25 14:24:00 EDT, 05/04/25 14:24:00 EDT Follow-up No qualifying data available Problem List/Past Medical History Ongoing Attention deficit control counseling Blood pressure elevated without history of HTN BMI 40.0-44.9, adult Cough COVID-19 viremia Establishing care with new doctor, encounter for Fluid level behind tympanic membrane of both ears High risk medication use Insulin resistance Morbid obesity Morbid obesity with BMI of 40.0-44.9, adult PCOS (polycystic ovarian syndrome) Shortness of breath Historical Migraines Procedure/Surgical History section (09/25/2023), Tonsillectomy and adenoidectomy. Medications Adderall XR 30 mg Cap-ER, 30 mg= 1 cap(s), Oral, qAM Apri oral tablet, 1 tab(s), Oral, Daily, 3 refills metformin 500 mg Tab, 500 mg= 1 tab(s), Oral, BID, 3 refills tirzepatide 5 mg/0.5 mL subcutaneous solution, 5 mg, SubCutaneous, qWeek, 1 refills Allergies No Known Allergies Social History Alcohol - Denies Alcohol Use, 07/29/2014 Never., 02/08/2025 Substance Abuse - Denies Substance Abuse, 07/29/2014 Never., 02/08/2025 Tobacco - Denies Tobacco Use, 07/29/2014 Never (less than 100 in lifetime) Tobacco Use:. Never Smokeless Tobacco Use:. Household tobacco concerns: No., 05/04/2025 Family History Alcoholism: Father. Asthma: Brother. Migraine: Mother and Brother. Immunizations Vaccine Date Status Comments influenza virus vaccine, inactivated - Not Given Patient Refuses SARS-CoV-2 (COVID-19) Ad26 vaccine - Not Given Postpone due to refusal influenza virus vaccine, inactivated - Not Given Patient Refuses [facility] Comment on above: Result Comment: Elec tronically Signed By: Filemon Toussaint\.br\Date and Time Signed: 05/04/25 14:40 EDT Ambulatory Visit Summaryon 0 02-09-2025 Ambulatory Visit Summary Ambulatory Visit Summary SANDRA DEAN :1995 Visit Date:02/09/2025 Ambulatory Visit Instructions Your Diagnosis Attention deficit BMI 40.0-44.9, adult Non-smoker Your Care Team Attending Physician - Filemon Toussaint Primary Care Physician - Filemon Toussaint This Is Your Medications List amphetamine-dextroamphetami ne (Adderall XR 20 mg Cap-ER) desogestrel-ethinyl estradiol (Apri oral tablet) metformin (metformin 500 mg Tab) tirzepatide (tirzepatide 2.5 mg/0.5 mL subcutaneous solution) Procedures Performed Tonsillectomy and adenoidectomy. Discharge Vitals Heart Rate (Peripheral) 86 Respiratory Rate 12 Blood Pressure 124/82 Height 172.4 cm Height 68 in Weight 128.3 kg Weight 282.853 lb BMI 43.17 What to do next Scheduled Follow-Up Appointments Sunday 1:20 PM EDT With: Filemon Toussaint Where: [facility] Medicine [address] [address]- Medications What How Much When Why Instructions New amphetamine-dextroamphetami ne (Adderall XR 20 mg Cap-ER) 1 Capsules By Mouth Once a day (in the morning) Pickup at [facility] Unchanged desogestrel-ethinyl estradiol (Apri oral tablet) 1 Tablets By Mouth Every day Establishing care with new doctor, encounter for Attention deficit control counseling Insulin resistance PCOS (polycystic ovarian syndrome) BMI 45.0-49.9, adult Non-smoker Unchanged metformin (metformin 500 mg Tab) 1 Tablets By Mouth 2 times a day Establishing care with new doctor, encounter for Attention deficit control counseling Insulin resistance PCOS (polycystic ovarian syndrome) BMI 45.0-49.9, adult Non-smoker Unchanged tirzepatide (tirzepatide 2.5 mg/ 0.5 mL subcutaneous solution) 2.5 Milligram Subcutaneous Every week Pharmacy Information [facility]: [address] [place], [place] [id number] [phone] Allergies No Known Allergies Problems Ongoing - Any problem that you are currently receiving treatment for. Attention deficit control counseling Blood pressure elevated without history of HTN BMI 40.0-44.9, adult Cough COVID-19 viremia Establishing care with new doctor, encounter for High risk medication use Insulin resistance Morbid obesity PCOS (polycystic ovarian syndrome) Shortness of breath Historical - Any problem that you are no longer receiving treatment for. Migraines Patient Survey You may receive a survey via text or e-mail asking about your office visit. Please share your experience with us by completing your survey. We appreciate your feedback and thank you for choosing us for your care. Normal [facility] Family Medicine Office/Clini c Noteon 02-09-2025 Family Medicine Office/Clinic Note Family Medicine Office/Clinic Note HPI Staff Sandra is a 29 year old female presenting for 1 month follow up RAINA 01/13/25 Increased Adderall to 20mg Has been on Adderall Sleeping well:yes Eating habits:Eating well, No decrease in appetite Blood pressure:_ Side effects: None Focused at home: yes Medication consent: 01/13/25 Drug screen: 12/17/24 Concerns/complaints: she needs a rerfill History of Present Illness pt presents today for 1 month med check follow up Review of Systems PHQ Score Initial Depression Screen Score: 0 SCORE Physical Exam Vitals & Measurements HR: 86(Peripheral) RR: 12 BP: 124/82 SpO2: 98% HT: 172.4 cm HT: 68 in WT: 128.3 kg WT: 282.853 lb BMI: 43.17 General: alert, no acute distress ENMT: oral mucosa moist, no pharyngeal erythema or exudate Cardiovascular: regular rate and rhythm, normal peripheral perfusion Respiratory: Lungs CTA, respirations non labored Extremities: no deformity, no trauma Neurological: oriented x 4, LOC appropriate for age, CN II-XII intact, motor strength equal & normal bilaterally, speech normal Assessment/Plan 1. Attention deficit (R41.840: Attention and concentration deficit) pt presents today for ADHD follow up. is doing well on current dose. all questions answered. RTC 3 months 2. BMI 40.0-44.9, adult (Z68.41: Body mass index [BMI] 40.0-44.9, adult) BMI education given 3. Non-smoker (Z78.9: Other specified health status) continue not smoking Orders: amphetamine-dextroamphetami ne, 20 mg = 1 cap(s), Oral, qAM, # 30 cap(s), Refills(s) 0, Pharmacy: [facility], 135.2, cm, 01/13/25 15:07:00 EST, Height/Length Dosing, 132.6, kg, 01/13/25 15:07:00 EST, Weight Dosing amphetamine-dextroamphetami ne, 20 mg = 1 cap(s), Oral, qAM, # 30 cap(s), Refills(s) 0, Pharmacy: [facility], 172.4, cm, 02/09/25 13:50:00 EDT, Height/Length Dosing, 128.3, kg, 02/09/25 13:50:00 EDT, Weight Dosing Follow-up No qualifying data available Problem List/Past Medical History Ongoing Attention deficit control counseling Blood pressure elevated without history of HTN BMI 40.0-44.9, adult Cough COVID-19 viremia Establishing care with new doctor, encounter for High risk medication use Insulin resistance Morbid obesity PCOS (polycystic ovarian syndrome) Shortness of breath Historical Migraines Procedure/Surgical History Tonsillectomy and adenoidectomy. Medications Adderall XR 20 mg Cap-ER, 20 mg= 1 cap(s), Oral, qAM Apri oral tablet, 1 tab(s), Oral, Daily, 3 refills metformin 500 mg Tab, 500 mg= 1 tab(s), Oral, BID, 3 refills tirzepatide 2.5 mg/0.5 mL subcutaneous solution, 2.5 mg, SubCutaneous, qWeek, 1 refills Allergies No Known Allergies Social History Alcohol - Denies Alcohol Use, 07/29/2014 Never., 02/08/2025 Substance Abuse - Denies Substance Abuse, 07/29/2014 Never., 02/08/2025 Tobacco - Denies Tobacco Use, 07/29/2014 Never (less than 100 in lifetime) Tobacco Use:., 02/09/2025 Family History Alcoholism: Father. Asthma: Brother. Migraine: Mother and Brother. Immunizations Vaccine Date Status Comments influenza virus vaccine, inactivated - Not Given Patient Refuses SARS-CoV-2 (COVID-19) Ad26 vaccine - Not Given Postpone due to refusal influenza virus vaccine, inactivated - Not Given Patient Refuses Normal [facility] Comment on above: Result Comment: Elec tronically Signed By: Filemon Toussaint\.br\Date and Time Signed: 02/09/25 14:00 EDT Ambulatory Visit Summaryon 0 01-13-2025 Ambulatory Visit Summary Ambulatory Visit Summary SANDRA DEAN :1995 Visit Date:01/13/2025 Ambulatory Visit Instructions Your Diagnosis Attention deficit Insulin resistance Your Care Team Attending Physician - Filemon Toussaint Primary Care Physician - Chey GOMEZ MD This Is Your Medications List amphetamine-dextroamphetami ne (Adderall XR 20 mg Cap-ER) desogestrel-ethinyl estradiol (Apri oral tablet) metformin (metformin 500 mg Tab) tirzepatide (tirzepatide 5 mg/0.5 mL subcutaneous solution) Procedures Performed Tonsillectomy and adenoidectomy. Discharge Vitals Heart Rate (Peripheral) 80 Respiratory Rate 18 Blood Pressure 128/78 Height 172.4 cm Height 68 in Weight 132.60 kg Weight 292.333 lb BMI 44.61 What to do next Scheduled Follow-Up Appointments Sunday 1:40 PM EDT With: Filemon Toussaint Where: [address] [address]- Medications What How Much When Why Instructions New amphetamine-dextroamphetami ne (Adderall XR 20 mg Cap-ER) 1 Capsules By Mouth Once a day (in the morning) Pickup at [facility] New tirzepatide (tirzepatide 5 mg/ 0.5 mL subcutaneous solution) 5 Milligram Subcutaneous Every week Refills: 2 Pickup at [facility] Unchanged desogestrel-ethinyl estradiol (Apri oral tablet) 1 Tablets By Mouth Every day Establishing care with new doctor, encounter for Attention deficit control counseling Insulin resistance PCOS (polycystic ovarian syndrome) BMI 45.0-49.9, adult Non-smoker Unchanged metformin (metformin 500 mg Tab) 1 Tablets By Mouth 2 times a day Establishing care with new doctor, encounter for Attention deficit control counseling Insulin resistance PCOS (polycystic ovarian syndrome) BMI 45.0-49.9, adult Non-smoker Pharmacy Information [facility]: [address] [place], [place] [id number] [phone] [facility]: [address] [phone] Allergies No Known Allergies Problems Ongoing - Any problem that you are currently receiving treatment for. Attention deficit control counseling Blood pressure elevated without history of HTN BMI 40.0-44.9, adult Cough COVID-19 viremia Establishing care with new doctor, encounter for High risk medication use Insulin resistance Morbid obesity PCOS (polycystic ovarian syndrome) Shortness of breath Historical - Any problem that you are no longer receiving treatment for. Migraines Patient Survey You may receive a survey via text or e-mail asking about your office visit. Please share your experience with us by completing your survey. We appreciate your feedback and thank you for choosing us for your care. Normal [facility] Family Medicine Office/Clini c Noteon 01-13-2025 Family Medicine Office/Clinic Note Family Medicine Office/Clinic Note Chief Complaint cccccc cccccccccccccccc HPI Staff Sandra is a 29 year old female presenting for 1 month follow up Has been on started on Adderall 10mg 12/17/24 Sleeping well:yes Eating habits:Eating well, No decrease in appetite Blood pressure:_ Side effects: None Focused at home: no Medication agreement: 12/17/24 Drug Screen: 12/17/24 Concerns/complaints: pt states she hasn't really noticed a difference since starting History of Present Illness pt presents today for ADHD follow up Review of Systems PHQ Score Initial Depression Screen Score: 0 SCORE Physical Exam Vitals & Measurements HR: 80(Peripheral) RR: 18 BP: 128/78 SpO2: 98% HT: 68 in HT: 172.4 cm WT: 132.60 kg WT: 292.333 lb BMI: 44.61 General: alert, no acute distress ENMT: oral mucosa moist, no pharyngeal erythema or exudate Cardiovascular: regular rate and rhythm, normal peripheral perfusion Respiratory: Lungs CTA, respirations non labored Extremities: no deformity, no trauma Neurological: oriented x 4, LOC appropriate for age, CN II-XII intact, motor strength equal & normal bilaterally, speech normal Assessment/Plan 1. Attention deficit (R41.840: Attention and concentration deficit) pt has not noticed a difference. will send in 20mg tabs. all questions answered. medication agreement updated. RTC 4 weeks 2. Insulin resistance (E88.819: Insulin resistance, unspecified) will send refill on tirzpetide 2.5mg. does not want to increase at this time. 3. BMI 40.0-44.9, adult (Z68.41: Body mass index [BMI] 40.0-44.9, adult) Orders: amphetamine-dextroamphetami ne, 20 mg = 1 cap(s), Oral, qAM, # 30 cap(s), Refills(s) 0, Pharmacy: [facility], 135.2, cm, 01/13/25 15:07:00 EST, Height/Length Dosing, 132.6, kg, 01/13/25 15:07:00 EST, Weight Dosing amphetamine-dextroamphetami ne, 10 mg = 1 cap(s), Oral, qAM, # 30 cap(s), Refills(s) 0, Pharmacy: [facility], 172.4, cm, 12/17/24 13:14:00 EST, Height/Length Dosing, 135.2, kg, 12/17/24 13:14:00 EST, Weight Dosing tirzepatide, 5 mg, SubCutaneous, qWeek, # 4 EA, Refills(s) 2, Pharmacy: [facility], 135.2, cm, 01/13/25 15:07:00 EST, Height/Length Dosing, 132.6, kg, 01/13/25 15:07:00 EST, Weight Dosing tirzepatide, 2.5 mg, SubCutaneous, qWeek, # 4 EA, Refills(s) 1, Pharmacy: [facility], 135.2, cm, 01/13/25 15:07:00 EST, Height/Length Dosing, 132.6, kg, 01/13/25 15:07:00 EST, Weight Dosing tirzepatide, 2.5 mg, SubCutaneous, qWeek, # 4 EA, Refills(s) 1, Pharmacy: [facility], 172.4, cm, 12/17/24 13:14:00 EST, Height/Length Dosing, 135.2, kg, 12/17/24 13:14:00 EST, Weight Dosing Follow-up No qualifying data available Problem List/Past Medical History Ongoing Attention deficit control counseling Blood pressure elevated without history of HTN BMI 40.0-44.9, adult Cough COVID-19 viremia Establishing care with new doctor, encounter for High risk medication use Insulin resistance Morbid obesity PCOS (polycystic ovarian syndrome) Shortness of breath Historical Migraines Procedure/Surgical History Tonsillectomy and adenoidectomy. Medications Adderall XR 20 mg Cap-ER, 20 mg= 1 cap(s), Oral, qAM Apri oral tablet, 1 tab(s), Oral, Daily, 3 refills metformin 500 mg Tab, 500 mg= 1 tab(s), Oral, BID, 3 refills tirzepatide 2.5 mg/0.5 mL subcutaneous solution, 2.5 mg, SubCutaneous, qWeek, 1 refills Allergies No Known Allergies Social History Alcohol [...] SARS-CoV-2 (COVID-19) Ad26 vaccine - Not Given Postpone due to refusal influenza virus vaccine, inactivated - Not Given Patient Refuses Normal [facility] Comment on above: Result Comment: Elec tronically Signed By: Rosendo SHANE, Filemon Fernandes\.br\Date and Time Signed: 01/13/25 15:23 EST Family Medicine Office/Clini c Noteon 12-17-2024 Family Medicine Office/Clinic Note Family Medicine Office/Clinic Note HPI Staff Sandra is a 29 year old female presenting to establish care Establish Care: History: Any previous diagnosis: PCOS, post preeclampsia History of seeing any specialist: fertility When was your last doctors visit: Last provider: Dr Gomez Any recent labs: only fertility labs Health Maintenance UTD: Colonoscopy: no Mammogram: no Pelvic/Pap: Due Acute: Current issues/complaints: pt would like to discuss weight loss pt has tried Adipex-P in the past makes her nauseated and making her jittery. Pt looked at her insurance and Ozempic would be around $70 a month Drug screen completed today, THC negative History of Present Illness pt presents today to establish care. discuss weight loss, control and ADHD Review of Systems PHQ Score Initial Depression Screen Score: 0 SCORE Physical Exam Vitals & Measurements HR: 88(Peripheral) RR: 18 BP: 136/84 SpO2: 98% HT: 68 in HT: 172.4 cm WT: 135.2 kg WT: 298.065 lb BMI: 45.49 General: alert, no acute distress ENMT: oral mucosa moist, no pharyngeal erythema or exudate Cardiovascular: regular rate and rhythm, normal peripheral perfusion Respiratory: Lungs CTA, respirations non labored Extremities: no deformity, no trauma Neurological: oriented x 4, LOC appropriate for age, CN II-XII intact, motor strength equal & normal bilaterally, speech normal Assessment/Plan 1. Establishing care with new doctor, encounter for (Z76.89: Persons encountering health services in other specified circumstances) pt was previously seen by Dr. gomez but has been over 3 years since last visit. Ordered: desogestrel-ethinyl estradiol, 1 tab(s), Oral, Daily, 84 tab(s), Refill(s) 0, [facility], 172.4, cm, 12/17/24 13:14:00 EST, Height/Length Dosing, 135.2, kg, 12/17/24 13:14:00 EST, Weight Dosing metformin, 500 mg = 1 tab(s), Oral, BID, # 180 tab(s), Refills(s) 0, Pharmacy: [facility], 172.4, cm, 12/17/24 13:14:00 EST, Height/Length Dosing, 135.2, kg, 12/17/24 13:14:00 EST, Weight Dosing semaglutide, 0.25 mg, SubCutaneous, qWeek, 4 EA, Refill(s) 2, 0.25mg weekly for first 4 weeks then 0.50mg after rotate injection sites, [facility], 172.4, cm, 12/17/24 13:14:00 EST, Height/Length Dosing, 135.2, kg, 12/17/24 13:14:00 EST, Weight Dosing Drug Screen POC 40246 HCG, Urine POC 00966 2. Attention deficit (R41.840: Attention and concentration deficit) pt took adderall as a child. and feels she is really struggling to stay on task. self assessment complete. will start adderall 10mg. medicaiton agreement signed drug screen negative RTC 4 weeks for follow up Ordered: desogestrel-ethinyl estradiol, 1 tab(s), Oral, Daily, 84 tab(s), Refill(s) 0, [facility], 172.4, cm, 12/17/24 13:14:00 EST, Height/Length Dosing, 135.2, kg, 12/17/24 13:14:00 EST, Weight Dosing metformin, 500 mg = 1 tab(s), Oral, BID, # 180 tab(s), Refills(s) 0, Pharmacy: [facility], 172.4, cm, 12/17/24 13:14:00 EST, Height/Length Dosing, 135.2, kg, 12/17/24 13:14:00 EST, Weight Dosing semaglutide, 0.25 mg, SubCutaneous, qWeek, 4 EA, Refill(s) 2, 0.25mg weekly for first 4 weeks then 0.50mg after rotate injection sites, [facility], 172.4, cm, 12/17/24 13:14:00 EST, Height/Length Dosing, 135.2, kg, 12/17/24 13:14:00 EST, Weight Dosing Drug Screen POC 51834 HCG, Urine POC 39567 3. control counseling (Z30.09: Encounter for other general counseling and advice on contraception) pt would like to start control. test negative. apri sent in Ordered: desogestrel-ethinyl estradiol, 1 tab(s), Oral, Daily, 84 tab(s), Refill(s) 0, [facility], 172.4, cm, 12/17/24 13:14:00 EST, Height/Length Dosing, 135.2, kg, 12/17/24 13:14:00 EST, Weight Dosing metformin, 500 mg = 1 tab(s), Oral, BID, # 180 tab(s), Refills(s) 0, Pharmacy: [facility], 172.4, cm, 12/17/24 13:14:00 EST, Height/Length Dosing, 135.2, kg, 12/17/24 13:14:00 EST, Weight Dosing semaglutide, 0.25 mg, SubCutaneous, qWeek, 4 EA, Refill(s) 2, 0.25mg weekly for first 4 weeks then 0.50mg after rotate injection sites, [facility], 172.4, cm, 12/17/24 13:14:00 EST, Height/Length Dosing, 135.2, kg, 12/17/24 13:14:00 EST, Weight Dosing Drug Screen POC 19613 HCG, Urine POC 58316 4. Insulin resistance (E88.819: Insulin resistance, unspecified) will restart metformin. semaglutide also sent to pharmacy. Ordered: desogestrel-ethinyl estradiol, 1 tab(s), Oral, Daily, 84 tab(s), Refill(s) 0, [facility], 172.4, cm, 12/17/24 13:14:00 EST, Height/Length Dosing, 135.2, kg, 12/17/24 13:14:00 EST, Weight Dosing metformin, 500 mg = 1 tab(s), Oral, BID, # 180 tab(s), Refills(s) 0, Pharmacy: [facility], 172.4, cm, 12/17/24 13:14:00 EST, Height/Length Dosing, 135.2, kg, 12/17/24 13:14:00 EST, Weight Dosing semaglutide, 0.25 mg, SubCutaneous, qWeek, 4 EA, Refill(s) 2, 0.25mg weekly for first 4 weeks then 0.50mg after rotate injection sites, (more content not included)... Normal [facility] Comment on above: Result Comment: Elec tronically Signed By: Rosendo SHANE, Filemon Fernandes\.br\Date and Time Signed: 12/17/24 14:12 EST ALL CBC WITH AUTO DIFFon BASOPHILS ABSOLUTE AUTO 0 [facility] Basophils/100 WBC (Bld) 0.4 % 0.2 - 2.0 % [facility] Eosinophils/100 WBC (Bld) 1.8 % 0.9 - 7.0 % [facility] Erythrocyte distribution width (RBC) [Ratio] 13.3 % 11.0 - 15.0 % [facility] Hematocrit (Bld) [Volume fraction] 37.7 % 36.0 - 48.0 % [facility] Hemoglobin (Bld) [Mass/Vol] 12.3 g/dL 12.0 - 16.0 g/dL [facility] IMMATURE GRANULOCYTES ABS AUTO 0.02 [facility] Immature granulocytes/100 WBC (Bld) 0.3 % 0.0 - 0.5 % [facility] LYMPHOCYTES ABSOLUTE [facility] Lymphocytes/100 WBC (Bld) 30.7 % 20.5 - 60.0 % [facility] MCH (RBC) [Entitic mass] 28.8 pg 26.7 - 34.0 pg [facility] MCHC (RBC) [Mass/Vol] 32.6 g/dL 29.9 - 35.2 g/dL [facility] MCV (RBC) [Entitic vol] 88.3 fL 81.0 - 99.0 fL [facility] MONOCYTES ABSOLUTE AUTO 0.4 [facility] Monocytes/100 WBC (Bld) 6 % 1.7 - 12.0 % [facility] NEUTROPHILS ABSOLUTE AUTO 4.4 [facility] Neutrophils/100 WBC (Bld) 60.8 % 43.0 - 75.0 % [facility] Platelet mean volume (Bld) [Entitic vol] 9.8 fL 9.5 - 13.5 fL [facility] EO # 0.1 [facility] PLT 249 [facility] RBC 4.27 [facility] WBC 7.2 [facility] HCG ( test) Ql (U)o n 08-26-2024 Interpretation and review of laboratory results Normal [facility] Preg Test, Ur Negative [facility] CBC with Diffon 10-01-2023 Abs. Basophil 0.01 k/uL Normal 0.00-0.20 [facility] Comment on above: Performed By: #### Nia POE CP CDP #### [facility] [address] [place] [address] [employer]: Garland Ji MD Abs.Imm.Granulocyte 0.01 k/uL Normal 0.00-0.30 [facility] Comment on above: Performed By: #### Nia POE CP CDP #### [facility] [address] [place] [phone] [employer]: Garland Ji MD Abs.Neutrophil (Seg) 4.63 k/uL Normal 2.5-7.0 [facility] Comment on above: Performed By: #### Nia POE CP, CDP #### [facility] [address] [place] [id number] [employer]: Garland Ji MD Basophils/100 WBC (Bld) 0 % Normal 0-2 [facility] Comment on above: Performed By: #### Nia POE CP, CDP #### [facility] [address] [place] [address] [employer]: Garland Ji MD Eosinophils (Bld) [#/Vol] 0.07 10*3/uL Normal 0.00-0.40 [facility] Comment on above: Performed By: #### Nia POE CP, CDP #### [facility] [address] [place] [address] [employer]: Garland Ji MD Eosinophils/100 WBC (Bld) 1 % Normal 0-5 [facility] Comment on above: Performed By: #### Nia POE CP, CDP #### [facility] [address] [place] [address] [employer]: Garland Ji MD Erythrocyte distribution width (RBC) [Ratio] 14.2 % Normal 12.1-15.2 [facility] Comment on above: Performed By: #### Nia POE CP, CDP #### [facility] [address] [place] [address] [employer]: Garland Ji MD Hematocrit (Bld) [Volume fraction] 27.3 % Low 36.0-46.0 [facility] Comment on above: Performed By: #### Nia POE CP, CDP #### [facility] [address] [place] [address] [employer]: Garland Ji MD Hemoglobin (Bld) [Mass/Vol] 8.9 g/dL Low 12.0-16.0 [facility] Comment on above: Performed By: #### Nia POE CP, CDP #### [facility] [address] [place] [phone] [employer]: Garland Ji MD Immature granulocytes/100 WBC (Bld) 0 % Normal 0-5 [facility] Comment on above: Performed By: #### Nia POE CP, CDP #### [facility] [address] [place] [phone] [employer]: Garland Ji MD Lymphocytes (Bld) [#/Vol] 1.52 10*3/uL Normal 1.00-4.80 [facility] Comment on above: Performed By: #### Nia POE CP, CDP #### [facility] [address] [place], [place] [phone] [employer]: Garland Ji MD Lymphocytes/100 WBC (Bld) 23 % Normal 15-40 [facility] Comment on above: Performed By: #### Nia POE CP, CDP #### [facility] [address] [place] [address] [employer]: Garland Ji MD MCH (RBC) [Entitic mass] 28.4 pg Normal 26.0-34.0 [facility] Comment on above: Performed By: #### Nia POE CP, CDP #### [facility] [address] [place] [address] [employer]: Garland Ji MD MCHC (RBC) [Mass/Vol] 32.6 g/dL Normal 31.0-37.0 [facility] Comment on above: Performed By: #### Nia POE CP, CDP #### [facility] [address] [place], [place] [phone] [employer]: Garland Ji MD MCV (RBC) [Entitic vol] 87.2 fL Normal 80.0-100.0 [facility] Comment on above: Performed By: #### Nia POE CP, CDP #### [facility] [address] [place] [address] [employer]: Garland Ji MD Monocytes (Bld) [#/Vol] 0.39 10*3/uL Normal 0.00-1.00 [facility] Comment on above: Performed By: #### Nia POE CP, CDP #### [facility] [address] [place] [id number] [employer]: Garland Ji MD Monocytes/100 WBC (Bld) 6 % Normal 4-8 [facility] Comment on above: Performed By: #### Nia POE CP, CDP #### [facility] [address] [place] [address] [employer]: Garland Ji MD Neutrophil (Seg) 70 % Normal 47-75 [facility] Comment on above: Performed By: #### Nia POE CP, CDP #### [facility] [address] [place], [place] [phone] [employer]: Garland Ji MD Platelet mean volume (Bld) [Entitic vol] 10.5 fL Normal 6.0-12.0 [facility] Comment on above: Performed By: #### Nia POE CP, CDP #### [facility] [address] [place] [address] Round Up Ring Hand: Garland Ji MD Platelets (Bld) [#/Vol] 271 10*3/uL Normal 140-450 [facility] Comment on above: Performed By: #### Nia POE CP, CDP #### [facility] [address] [place] [address] Round Up Ring Hand: Garland Ji MD RBC (Bld) [#/Vol] 3.13 10*6/uL Low 4.00-5.20 [facility] Comment on above: Performed By: #### Nia POE CP, CDP #### [facility] [address] [place] [address] [phone] Round Up Ring Hand: Garland Ji MD WBC (Bld) [#/Vol] 6.6 10*3/uL Normal 3.5-11.0 [facility] Comment on above: Performed By: #### Nia POE CP, CDP #### [facility] [address] [place] [address] Round Up Ring Hand: Garland Ji MD CT HEAD WO CONTRASTon [...] Garcia Jr., MD 10/01/23 Final result Normal [facility] Comp Metabolic Profon 2022 Albumin [Mass/Vol] 3.5 g/dL Normal 3.5-5.2 [facility] Comment on above: Performed By: #### T VANESSA POE CDP #### [facility] [address] [place] [address] Round Up Ring Hand: Garland Ji MD Alkaline Phos 97 U/L Normal 35-104 [facility] Comment on above: Performed By: #### Nia POE CP CDP #### [facility] [address] [place] [address] [employer] Up Ring Hand: Garland Ji MD ALT [Catalytic activity/Vol] 15 U/L Normal 5-33 [facility] Comment on above: Performed By: #### T VANESSA POE CDP #### [facility] [address] [place] [address] Round Up Ring Hand: Garland Ji MD Anion gap [Moles/Vol] 10 mmol/L Normal 9-17 [facility] Comment on above: Performed By: #### Nia POE CP CDP #### [facility] [address] [place] [address] Round Up Ring Hand: Garland Ji MD AST [Catalytic activity/Vol] 16 U/L Normal <32 [facility] Comment on above: Performed By: #### T VANESSA POE, CDP #### [facility] [address] [place], [place] [id number] Round Up Ring Hand: Garland Ji MD Bilirubin [Mass/Vol] 0.2 mg/dL Low 0.3-1.2 [facility] Comment on above: Performed By: #### T VANESSA POE, CDP #### [facility] [address] [place], [place] [id number] Round Up Ring Hand: Garland Ji MD BUN/CRE Ratio 13 Normal 9-20 [facility] Comment on above: Performed By: #### T VANESSA POE, CDP #### [facility] [address] [place] [address] [employer] Up Ring Hand: Garland Ji MD Calcium [Mass/Vol] 9.2 mg/dL Normal 8.6-10.4 [facility] Comment on above: Performed By: #### Nia POE CP, CDP #### [facility] [address] [place] [address] Round Up Ring Hand: Garland Ji MD Chloride [Moles/Vol] 103 mmol/L Normal 98-107 [facility] Comment on above: Performed By: #### Nia POE CP, CDP #### [facility] [address] [place] [address] Round Up Ring Hand: Garland Ji MD CO2 [Moles/Vol] 25 mmol/L Normal 20-31 [facility] Comment on above: Performed By: #### T VANESSA POE, CDP #### [facility] [address] [place] [address] Round Up Ring Hand: Garland Ji MD Creatinine [Mass/Vol] 0.6 mg/dL Normal 0.5-0.9 [facility] Comment on above: Performed By: #### Nia POE CP, CDP #### [facility] [address] [place], [place] [id number] Round Up Ring Hand: Garland Ji MD GFR/1.73 sq M.predicted among non-blacks MDRD (S/P/Bld) [Vol rate/Area] mL/min/{1.73_m2} Normal >60 [facility] Comment on above: Result Comment: These [...] tubular secretion. Performed By: #### T VANESSA POE CDP #### [facility] [address] [place] [address] Round Up Ring Hand: Garland Ji MD Glucose [Mass/Vol] 100 mg/dL High 70-99 [facility] Comment on above: Performed By: #### Nia POE CP CDP #### [facility] [address] [place] [address] Round Up Ring Hand: Garland Ji MD Potassium [Moles/Vol] 3.9 mmol/L Normal 3.7-5.3 [facility] Comment on above: Performed By: #### T VANESSA POE CDP #### [facility] [address] [place], [place] [id number] Round Up Ring Hand: Garland Ji MD Protein [Mass/Vol] 6.4 g/dL Normal 6.4-8.3 [facility] Comment on above: Performed By: #### T VANESSA POE, CDP #### [facility] [address] [place] [address] Round Up Ring Hand: Garland Ji MD Sodium [Moles/Vol] 138 mmol/L Normal 135-144 [facility] Comment on above: Performed By: #### T VANESSA POE CDP #### [facility] [address] [place], [place] [phone] Round Up Ring Hand: Garland Ji MD Urea nitrogen [Mass/Vol] 8 mg/dL Normal 6-20 [facility] Comment on above: Performed By: #### T VANESSA POE, CDP #### [facility] [address] [place], [place] [id number] Round Up Ring Hand: Garland Ji MD Troponinon 10-01-2023 Troponin, High Sens <6 Normal 0-14 [facility] Comment on above: Result Comment: High Sensitivity Troponin values cannot be compared with other Troponin methodologies. Performed By: #### T VANESSA POE, CDP #### [facility] [address] [place], [place] [id number] Round Up Ring Hand: Garland Ji MD Urinalysis, Routineon 2022 Bilirubin, SemiQt,Ur Negative Normal NEG [facility] Comment on above: Performed By: #### U MICAO, UA #### [facility] [address] [place] [address] Round Up Ring Hand: Garland Ji MD Blood, Urine TRACE Abnormal NEG [facility] Comment on above: Performed By: #### U MICAO, UA #### [facility] [address] [place] [address] [employer] Up Ring Hand: Garland Ji MD Clarity (U) Clear Normal CLEAR [facility] Comment on above: Performed By: #### U MICAO, UA #### [facility] [address] [place] [address] Round Up Ring Hand: Garland Ji MD Color (U) Yellow Normal YEL [facility] Comment on above: Performed By: #### U MICAO, UA #### [facility] [address] [place] [address] Round Up Ring Hand: Garland Ji MD Comment Normal [facility] Comment on above: Performed By: #### U MICAO, UA #### [facility] [address] [place] [address] Round Up Ring Hand: Garland Ji MD Glucose Ql (U) Negative Normal NEG [facility] Comment on above: Performed By: #### U MICAO, UA #### [facility] [address] [place] [address] Round Up Ring Hand: Garland Ji MD Ketones Ql (U) Negative Normal NEG [facility] Comment on above: Performed By: #### U MICAO, UA #### [facility] [address] [place] [address] Round Up Ring Hand: Garland Ji MD Leukocyte esterase Test strip Ql (U) Negative Normal NEG [facility] Comment on above: Performed By: #### U MICAO, UA #### [facility] [address] [place] [address] Round Up Ring Hand: Garland Ji MD Nitrite,Ur Negative Normal NEG [facility] Comment on above: Performed By: #### U MICAO, UA #### [facility] [address] [place] [address] Round Up Ring Hand: Garland Ji MD PH,Ur 6.5 Normal 5.0-8.0 [facility] Comment on above: Performed By: #### U MICAO, UA #### [facility] [address] [place] [address] Round Up Ring Hand: Garland Ji MD Protein Ql (U) TRACE Abnormal NEG [facility] Comment on above: Performed By: #### U MICAO, UA #### [facility] [address] [place] [address] Round Up Ring Hand: Garland Ji MD Spec. [place],Ur 1.015 Normal 1.005-1.030 [facility] Comment on above: Performed By: #### U BASIHRO, UA #### [facility] [address] [place], [place] [phone] Round Up Ring Hand: Garland Ji MD Urobilinogen,Ur Normal Normal 0.0-1.0 [facility] Comment on above: Performed By: #### U BASHIRO, UA #### [facility] [address] [place], [place] [phone] Round Up Ring Hand: Garland Ji MD Urinalysis,Microon 3 ----- Normal [facility] Comment on above: Performed By: #### U MAINE, UA #### [facility] [address] [place], [place] [phone] Round Up Ring Hand: Garland Ji MD Epithelial cells LM Ql (Urine sed) 0 TO 2 Normal [facility] Comment on above: Performed By: #### U MAINE, UA #### [facility] [address] [place], [place] [phone] Round Up Ring Hand: Garland Ji MD Urine RBC's 0 TO 2 Normal 0-2 [facility] Comment on above: Performed By: #### U BASHIRO, UA #### [facility] [address] [place], [place] [id number] Round Up Ring Hand: Garland Ji MD Urine WBC's NONE SEEN Normal 0 [facility] Comment on above: Performed By: #### U BASHIRO, UA #### [facility] [address] [place], [place] [phone] Round Up Ring Hand: Garland Ji MD BOX TEST SENT OUTon 03-28-20 SENT TO REF LAB 03/28/23 [facility] Comment on above: Performed By: #### B OX #### [facility] [address] [address] [address] Gaye Durand BOX TEST SENT OUTon 03-15-20 SENT TO REF LAB 03/15/2023 Normal [facility] Comment on above: Performed By: #### R PRQ #### [facility] [address] [address] [address] Gaye Durand US PREG <14 WKSon [...] GARLAND HEATH Date: 2023-03-03 13:53 Normal [facility] HEP B SURFACE ANTIGEN SCREEN on 02-27-2023 HBsAg Screen Negative Normal Negative [facility] Comment on above: Performed By: #### H BSANS #### [facility] [address] [address] [address] Gaye Durand HEPATITIS C VIRUS AB W/ REFL EX QUANTon 02-27-2023 HCV AB Non-Reactive Normal Non Reactive [facility] Comment on above: Performed By: #### H CVPCRR #### [facility] [address] [place] [address] Dr. Gaye Durand Interpretation: Comment Normal [facility] Comment on above: Result Comment: Not infected with HCV unless early or acute infection is suspected (which may be delayed in an immunocompromised individual), or other evidence exists to indicate HCV infection. Performed By: #### H CVPCRR #### [facility] [address] [place] [address] Dr. Gaye Durand HIV 1 AND 2 WITH REFLEXon HIV Screen 4th Generation wRfx Non-Reactive Normal Non Reactive [facility] Comment on above: Result Comment: HIV Negative HIV-1/HIV-2 antibodies and HIV-1 p24 antigen were NOT detected. There is no laboratory evidence of HIV infection. Performed By: #### H IV12 #### [facility] [address] [place] [address] Dr. Gaye Durand RPR QUANTon 02-27-2023 Rapid Plasma Reagin, Quant Non-Reactive Normal NonRea<1:1 [facility] Comment on above: Result Comment: Plea se Note: This test does not meet current guidelines for screening and diagnosis of syphilis. This test is intended for following treatment response in patients being treated for syphilis infection. To screen for syphilis infection, a reflex cascade that includes both RPR and a treponema-specific assay should be utilized, such as Treponema pallidum (Syphilis) Screening [place] (930428) or Rapid Plasma Reagin (RPR) Test With Reflex to Quantitative RPR and Confirmatory Treponema pallidum Antibodies (688674). Performed By: #### R PRQ #### [facility] [address] [place] [address] Dr. Gaye Durand RUBELLA AB IGGon 02-27-2023 Rubella Antibodies, IgG 5.32 index Normal Immune >0.99 [facility] Comment on above: Result Comment: Non- immune <0.90 Equivocal 0.90 - 0.99 Immune >0.99 Performed By: #### R UBIGG #### [facility] [address] [place] [address] Dr. Gaye Durand BOX TEST SENT OUTon 02-27-20 23 SENT TO REF LAB 02/26/2023 Normal [facility] Comment on above: Performed By: #### B OX #### [facility] [address] [place] [address] Dr. Gaye Durand CBC AUTO DIFFon 02-26-2023 BASO # 0.0 103/ul Normal 0.0-0.1 [facility] Comment on above: Performed By: #### C BC #### [facility] [address] [place] [address] Dr. Gaye Durand Basophils/100 WBC (Bld) 0.3 % Normal 0.2-2.0 [facility] Comment on above: Performed By: #### C BC #### [facility] [address] [place] [address] Dr. Gaye Durand EO # 0.1 103/ul Normal 0.0-0.7 [facility] Comment on above: Performed By: #### C BC #### [facility] [address] [place] [address] Dr. Gaye Durand Eosinophils/100 WBC (Bld) 0.8 % Critically low 0.9-7.0 [facility] Comment on above: Performed By: #### C BC #### [facility] [address] [place] [address] Dr. Gyae Durand Erythrocyte distribution width (RBC) [Ratio] 13.3 % Normal 11.0-15.0 [facility] Comment on above: Performed By: #### C BC #### [facility] [address] [place] [address] Dr. Gaye Durand Hematocrit (Bld) [Volume fraction] 35.8 % Critically low 36.0-48.0 [facility] Comment on above: Performed By: #### C BC #### [facility] [address] [place] [address] Dr. Gaye Durand Hemoglobin (Bld) [Mass/Vol] 12.0 g/dL Normal 12.0-16.0 [facility] Comment on above: Performed By: #### C BC #### [facility] [address] [place] [address] Dr. Gaye Durand IG # 0.02 10e3/ul Normal 0.00-0.03 [facility] Comment on above: Performed By: #### C BC #### [facility] [address] [place] [address] Dr. Gaye Durand IG % 0.3 % Normal 0.0-0.5 [facility] Comment on above: Performed By: #### C BC #### [facility] [address] [place] [address] Dr. Gaye Durand LYMPH # 1.8 103/ul Normal 1.2-3.8 [facility] Comment on above: Performed By: #### C BC #### [facility] [address] [place] [address] Dr. Gaye Durand Lymphocytes/100 WBC (Bld) 24.3 % Normal 20.5-60.0 [facility] Comment on above: Performed By: #### C BC #### [facility] [address] [place] [address] Dr. Gaye Durand MANUAL DIFF REQ NO Normal [facility] Comment on above: Performed By: #### C BC #### [facility] [address] [place] [address] Dr. Gaye Durand MCH (RBC) [Entitic mass] 29.2 pg Normal 26.7-34.0 [facility] Comment on above: Performed By: #### C BC #### [facility] [address] [place] [address] Dr. Gaey Durand MCHC (RBC) [Mass/Vol] 33.5 g/dL Normal 29.9-35.2 [facility] Comment on above: Performed By: #### C BC #### [facility] [address] [place] [address] Dr. Gaye Durand MCV (RBC) [Entitic vol] 87.1 fL Normal 81.0-99.0 [facility] Comment on above: Performed By: #### C BC #### [facility] [address] [place] [address] Dr. Gaye Durand MONO # 0.3 103/ul Normal 0.3-0.8 [facility] Comment on above: Performed By: #### C BC #### [facility] [address] [place] [address] Dr. Gaye Durand Monocytes/100 WBC (Bld) 4.2 % Normal 1.7-12.0 [facility] Comment on above: Performed By: #### C BC #### [facility] [address] [place] [address] Dr. Gaye Durand NEUT # 5.2 103/ul Normal 1.4-6.5 [facility] Comment on above: Performed By: #### C BC #### [facility] [address] [place] [address] Dr. Gaye Durand Neutrophils/100 WBC (Bld) 70.1 % Normal 43.0-75.0 [facility] Comment on above: Performed By: #### C BC #### [facility] [address] [address] [address] Gaye Durand Platelet mean volume (Bld) [Entitic vol] 9.8 fL Normal 9.5-13.5 [facility] Comment on above: Performed By: #### C BC #### [facility] [address] [place] [address] Dr. Gaye Durand PLT 246 103/ul Normal 150-450 [facility] Comment on above: Performed By: #### C BC #### [facility] [address] [place] [address] Dr. Gaye Durand RBC 4.11 106/ul Critically low 4.20-5.40 [facility] Comment on above: Performed By: #### C BC #### [facility] [address] [place] [address] Dr. Gaye Durand WBC 7.4 103/ul Normal 4.0-11.0 [facility] Comment on above: Performed By: #### C BC #### [facility] [address] [place] [address] Dr. Gaye Durand CULTURE URINEon 02-26-2023 CULTURE URINE Culture Observations : MODERATE GROWTH OF MIXED GENITAL GIGI. NO POTENTIAL PATHOGENS SEEN. Normal [facility] Comment on above: Performed By: #### R PRQ #### [facility] [address] [place] [address] Dr. Gaye Durand GLYCOHEMOGLOBIN A1Con 2022 ADA RECOMMENDATION SEE BELOW Normal [facility] Comment on above: Result Comment: ADA RECOMMENDED LIMIT 4.0 - 6.0 ADA THERAPEUTIC TARGET < 7.0 ACTION SUGGESTED > 7.0 Performed By: #### A 1C #### [facility] [address] [place] [address] Dr. Gaye Durand Glucose [Mass/Vol] 100 mg/dL Normal [facility] Comment on above: Performed By: #### A 1C #### [facility] [address] [place] [address] Dr. Gaye Durand HbA1c (Bld) [Mass fraction] 5.1 % Normal 4.5-6.2 [facility] Comment on above: Performed By: #### A 1C #### [facility] [address] [place] [address] Dr. Gaye Durand TSHon 02-26-2023 TSH 1.490 uIU/mL Normal 0.358-3.740 [facility] Comment on above: Performed By: #### T SH #### [facility] [address] [place] [address] Dr. Gaye Durand TYPE AND SCREENon 02-26-2023 TYPE AND SCREEN Negative Normal [facility] Comment on above: Performed By: #### R PRQ #### [facility] [address] [place] [address] Dr. Gaye Durand No Panel Informationon 02-05 [...] Electronically signed by: BOBBI FLOOD MD Normal [facility] GREEN MARKETING SPECIALIST - Office Visiton 01-11 GREEN MARKETING SPECIALIST - Office Visit Diagnoses/Problems Assessed Nausea and [...] Never a (more content not included)... Normal [facility] HCG, Quanton 01-25-2023 HCG, Quant 1895 mIU/mL High <5 [facility] Comment on above: Result Comment: Non-preg premeno <=5 Postmeno <=8 Male <=3 If HCG results do not concur with clinical observations, additional testing to confirm results is recommended. Performed By: #### B HCG #### [facility] [address] [place] [address] Round Up Ring Hand: Garland Ji MD HCG, Quantitative, on 01-25-2023 hCG Quant 1895 High [facility] Comment on above: Non-preg premeno <=5 Postmeno <=8 Male <=3 If HCG results do not concur with clinical observations, additional testing to confirm results is recommended. Interpretation and review of laboratory results Abnormal [facility] HCG, Quanton 01-18-2023 HCG, Quant 108 mIU/mL High <[address] [place] [address] Comment on above: Result Comment: Non-preg premeno <=5 Postmeno <=8 Male <=3 If HCG results do not concur with clinical observations, additional testing to confirm results is recommended. Performed By: #### B HCG #### [facility] [address] [place] [address] Round Up Ring Hand: Garland Ji MD HCG, Quantitative, on 01-18-2023 hCG Quant 108 High [facility] Comment on above: Non-preg premeno <=5 Postmeno <=8 Male <=3 If HCG results do not concur with clinical observations, additional testing to confirm results is recommended. Interpretation and review of laboratory results Abnormal [facility] HCG, Quanton 01-16-2023 HCG, Quant 37 mIU/mL High <[address] [place] [address] Comment on above: Result Comment: Non-preg premeno <=5 Postmeno <=8 Male <=3 If HCG results do not concur with clinical observations, additional testing to confirm results is recommended. Performed By: #### B HCG #### [facility] [address] [place] [address] Round Up Ring Hand: Garland Ji MD HCG, Quantitative, on 01-16-2023 hCG Quant 37 High [facility] Comment on above: Non-preg premeno <=5 Postmeno <=8 Male <=3 If HCG results do not concur with clinical observations, additional testing to confirm results is recommended. Interpretation and review of laboratory results Abnormal [facility] GREEN MARKETING SPECIALIST - Procedure Visiton 0 01-02-2023 GREEN MARKETING SPECIALIST - Procedure Visit Chief Complaint IUI-H Active [...] Verification performed with patient via electronic system DENTIST prior to insemination. All patient's questions were discussed and answered. Research Kennel Supervisor offered to pt for intimate exam: [X] Pt Declined business information manager [] Pt requested business information manager; Name of business information manager Patient was placed in dorsal lithotomy position [...] Touchworks ESTRADIOLon 01-01-2023 ESTRADIOL 88 pg/mL Normal [facility] Comment on above: Result Comment: Estr adiol measurement is performed using the [employer] Access Estradiol Immunoassay. Estradiol testing is performed using a different test methodology at [facility] than other [facility]. Direct result comparison should only be made within the same method. REF VALUES FOLLICULAR PHASE 20-144 MID CYCLE 64-357 LUTEAL PHASE 56-214 POSTMENOPAUSE < 32 PREPUBERTY < 20 FEMALE 10-18Y 8-110 MALE 10-18Y < 20 ADULT MALE < 40 Performed By: #### D [facility] #### [facility] [id number] [place] [address] Estradiol, Serumon 3 E2 [Mass/Vol] 88 pg/mL [id number] sman 310 IVF Work Phone: Comment on above: Estradiol measuremen t is performed using the [employer] Access Estradiol Immunoassay. Estradiol testing is performed using a different test methodology at [facility] than other [facility]. Direct result comparison should only be made [...] Electronically signed by: BOBBI FLOOD MD Normal [facility] LUTEINIZING HORMONEon 2022 LUTEINIZING HORMONE 80.8 IU/L Normal [facility] Comment on above: Result Comment: Lute inizing Hormone [LH] is performed using the [employer] Access Immunoassay. LH testing is performed using a different test methodology at [facility] than [facility]. Direct result comparison should only be made within the same method. REF VALUES FOLLICULAR PHASE 1.5-10.0 MID-CYCLE 13.0-72.0 LUTEAL PHASE 0.5-13.0 MENOPAUSE 15.0-65.0 PREPUBERTY 0- 3.0 CHILDREN 0- 6.0 ADULT MALE 1.0- 9.0 Performed By: #### D [facility] #### [facility] [address] [place] [address] Luteinizing Hormone, Serumon 01-01-2023 Lutropin Qn 80.8 {IU/L} MG-OBGYN-Ri sman 310 IVF Work Phone: Comment on above: Luteinizing Hormone [LH] is performed using the Arturo Rosi Access Immunoassay. LH testing is performed using a different test methodology at [facility] than other [facility]. Direct result comparison should only be made within the same method.REF VALUESFOLLICULAR PHASE 1.5-10.0MID-CYCLE 13.0-72.0LUTEAL PHASE 0.5-13.0MENOPAUSE 15.0-65.0PREPUBERTY 0- 3.0CHILDREN 0- 6.0ADULT MALE 1.0- 9.0 No Panel Informationon 01-01 Normal MG-OBGYN-Ri sman 310 IVF Work Phone: GREEN MARKETING SPECIALIST - Procedure Visiton 1 12-28-2021 GREEN MARKETING SPECIALIST - Procedure Visit Chief Complaint patient presents [...] Verification performed with patient via electronic system DENTIST prior to insemination. All patient's questions were discussed and answered. Research Kennel Supervisor offered to pt for intimate exam: [X] Pt Declined business information manager [] Pt requested business information manager; Name of business information manager Patient was placed in dorsal lithotomy position [...] of plan. Christina Leung CNP [facility] [address] [place] [address] [address] [place], [place] [id number] - [phone] Attending Note Comments/Additional Findings: Attestation statement: I [...] Touchworks ESTRADIOLon 10-24-2022 ESTRADIOL 77 pg/mL Normal [facility] Comment on above: Result Comment: Estr adiol measurement is performed using the Arturo Rosi Access Estradiol Immunoassay. Estradiol testing is performed using a different test methodology at [facility] than other [facility]. Direct result comparison should only be made within the same method. REF VALUES FOLLICULAR PHASE 20-144 MID CYCLE 64-357 LUTEAL PHASE 56-214 POSTMENOPAUSE < 32 PREPUBERTY < 20 FEMALE 10-18Y 8-110 MALE 10-18Y < 20 ADULT MALE < 40 Performed By: #### D HE #### [facility] [address] [place] [address] Estradiol, Serumon E2 [Mass/Vol] 77 pg/mL MG-OBGYN-Cr ocker 206A IVF Work Phone: Comment on above: Estradiol measuremen t is performed using the Arturo Rosi Access Estradiol Immunoassay. Estradiol testing is performed using a different test methodology at [facility] than other [facility]. Direct result comparison should only [...] Electronically signed by: KIM HAWTHORNE MD Normal [facility] LUTEINIZING HORMONEon 2021 LUTEINIZING HORMONE 10.8 IU/L Normal [facility] Comment on above: Result Comment: Lute inizing Hormone [LH] is performed using the Arturo Rosi Access Immunoassay. LH testing is performed using a different test methodology at [facility] than other [facility]. Direct result comparison should only be made within the same method. REF VALUES FOLLICULAR PHASE 1.5-10.0 MID-CYCLE 13.0-72.0 LUTEAL PHASE 0.5-13.0 MENOPAUSE 15.0-65.0 PREPUBERTY 0- 3.0 CHILDREN 0- 6.0 ADULT MALE 1.0- 9.0 Performed By: #### [facility] #### [facility] [address] [place] [address] Luteinizing Hormone, Serumon 10-24-2022 Lutropin Qn 10.8 {IU/L} MG-OBGYN-Cr ocker 206A IVF Work Phone: Comment on above: Luteinizing Hormone [LH] is performed using the Arturo Warren Access Immunoassay. LH testing is performed using a different test methodology at [facility] than other [facility]. Direct result comparison should only be made within the same method.REF VALUESFOLLICULAR PHASE 1.5-10.0MID-CYCLE 13.0-72.0LUTEAL PHASE 0.5-13.0MENOPAUSE 15.0-65.0PREPUBERTY 0- 3.0CHILDREN 0- 6.0ADULT MALE 1.0- 9.0 No Panel Informationon 10-24 Normal MG-OBGYN-Cr ocker 206A IVF Work Phone: GREEN MARKETING SPECIALIST - Procedure Visiton 1 11-24-2021 GREEN MARKETING SPECIALIST - Procedure Visit Chief Complaint Sandra is [...] Touchworks ESTRADIOLon 09-22-2022 ESTRADIOL 98 pg/mL Normal [facility] Comment on above: Result Comment: Estr adiol measurement is performed using the Arturo Warren Access Estradiol Immunoassay. Estradiol testing is performed using a different test methodology at [facility] than other [facility]. Direct result comparison should only be made within the same method. REF VALUES FOLLICULAR PHASE 20-144 MID CYCLE 64-357 LUTEAL PHASE 56-214 POSTMENOPAUSE < 32 PREPUBERTY < 20 FEMALE 10-18Y 8-110 MALE 10-18Y < 20 ADULT MALE < 40 Performed By: #### E [facility] #### [facility] [address] [place] [address] Estradiol, Serumon E2 [Mass/Vol] 98 pg/mL MG-OBGYN-Cr ocker 206A IVF Work Phone: Comment on above: Estradiol measuremen t is performed using the Arturo Warren Access Estradiol Immunoassay. Estradiol testing is performed using a different test methodology at [facility] than other [facility]. Direct result comparison should only be made [...] Electronically signed by: MATIAS PROCTOR MD Normal [facility] LUTEINIZING HORMONEon 2021 LUTEINIZING HORMONE 18.0 IU/L Normal [facility] Comment on above: Result Comment: Lute inizing Hormone [LH] is performed using the Arturo Rosi Access Immunoassay. LH testing is performed using a different test methodology at [facility] than other [facility]. Direct result comparison should only be made within the same method. REF VALUES FOLLICULAR PHASE 1.5-10.0 MID-CYCLE 13.0-72.0 LUTEAL PHASE 0.5-13.0 MENOPAUSE 15.0-65.0 PREPUBERTY 0- 3.0 CHILDREN 0- 6.0 ADULT MALE 1.0- 9.0 Performed By: #### L H #### [facility] [address] [place] [address] Luteinizing Hormone, Serumon 09-22-2022 Lutropin Qn 18.0 {IU/L} MG-OBGYN-Cr ocker 206A IVF Work Phone: Comment on above: Luteinizing Hormone [LH] is performed using the Arturo Rosi Access Immunoassay. LH testing is performed using a different test methodology at [facility] than other [facility]. Direct result comparison should only be made [...] Electronically signed by: KIM HAWTHORNE MD Normal [facility] No Panel Informationon 09-19 Normal [...] declined [employer] genetic screening waiver was signed. [facility] clearance on file. Jeannie Gomez CNP 08/11/2022 16:36 The following medications [facility] 09[facility]22 for the above treatment: Ovidrel 250mcg/0.5mL syringe for trigger Karoline Gonsalves, Kristin, [facility] Clinical Pharmacist with [facility] Current Orders [...] Sep 18 2022 12:19PM EST (Author) Normal [employer] GREEN MARKETING SPECIALIST - Office Visiton 07-13 GREEN MARKETING SPECIALIST - Office Visit Patient Discussion/Summary Partner was [...] BMI 48 - Weight loss consult with METAL DIE FINISHER -Plan: Once above complete will plan Letrozole [...] BMI 48 - Weight loss consult with METAL DIE FINISHER -Plan: Once above complete will plan Letrozole [...] Treatment to date: Dr. 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 Normal [employer] Tobacco Screening.on 022 Fall risk assessment a) No falls within the last year MG-OBGYN-Ri sman 320 Work Phone: Last menstrual period start date 23Jun2022 MG-OBGYN-Ri sman 320 Work Phone: Tobacco use status CPHS b) No MG-OBGYN-Ri sman 320 Work Phone: 17-HYDROXYPROGESTERONEon 17-HYDROXYPROGESTERO NE 28 ng/dL Normal [facility] Comment on above: Result Comment: [...] Endocrinol Metab. 1991;73:674-686; J Clin Endocrinol Metab. 1989;69;2019-1808; J Clin Endocrinol Metab. 1994;78:226-270. Pediatr Res 1988;23:525-529. MedLinePlus (accessed 04/27/14). This test was developed and its analytical performance characteristics have been determined by [employer] [place], [place]. It has not been cleared or approved by the U.S. Food and Drug Administration. This assay has been validated pursuant to the CLIA regulations and is used for clinical purposes. Performed By: #### 1 7OHP #### [facility] [place] [id number] [place], [place] TESTOST,FREE AND TOTALon TESTOSTERONE TOT.LC/MS/MS 23 ng/dL Normal 2-45 [facility] Comment on above: Result Comment: For additional information, please refer to http://education.[employer]/faq/ [email or web address] (This link is being provided for informational/ educational purposes only.) This test was developed and its analytical performance characteristics have been determined by [facility] [place], [place]. It has not been cleared or approved by the U.S. Food and Drug Administration. This assay has been validated pursuant to the CLIA regulations and is used for clinical purposes. Performed By: #### T ESFT #### [facility] [address] [place], [place] TESTOSTERONE,FREE 6.1 pg/mL Normal 0.1-6.4 [facility] Comment on above: Result Comment: This test was developed and its analytical performance characteristics have been determined by [facility] [place], [place]. It has not been cleared or approved by the U.S. Food and Drug Administration. This assay has been validated pursuant to the CLIA regulations and is used for clinical purposes. Performed By: #### T ESFT #### [facility] [address] [place], [place] ANTI MULLERIAN HORMONEon ANTI MULLERIAN HORMONE 4.71 ng/mL Normal [facility] Comment on above: Result Comment: For assays employing antibodies, the possibility exists for interference by heterophile antibodies in the samples.1 1.Lyle Gu Interferences in Immunoassays - still a threat. Clin. Chem. 2000; 46: 2588-1292. This test was developed and its performance characteristics determined by [employer]. It has not been cleared or approved by the Food and Drug Administration. Reference Range: Females 26 - 30y: 1.03 - 11.10 Median 4.20 AMH concentrations of >= 1.06 ng/mL is correlated with a better response to ovarian stimulation, produced more retrievable oocytes and higher odds of live according to Kip et al. Fertility and Sterility. 2010: 94:8695-7896. The current AMH test method correlates with [...] AMH-secreting ovarian tumor. Performed By: #### D HE #### [facility] [address] [place] [address] GC + CHLAMYDIA BY AMPLIFIED DETECTIONon 07-04-2022 CHLAMYDIA TRACH.,AMPLIFIED Negative Normal Negative [facility] Comment on above: Result Comment: The APTIMA Combo 2 assay is FDA-approved for Chlamydia trachomatis and Neisseria gonorrhoeae testing on female endocervical and vaginal swabs, ThinPrep liquid pap samples, male urine samples and urethral swabs. Performance characteristics for Chlamydia trachomatis and Neisseria gonorrhoeae testing on specific lha-GKK-thquespi sample types (female urine samples) have been validated by [facility]. This laboratory is certified by CLIA to perform high complexity testing. Samples from all other sites are not validated for this method. Performed By: #### G [facility] #### [facility] [address] [place] [address] N.GONORRHEA,AMPLIFIE D Negative Normal Negative [facility] Comment on above: Result Comment: The APTIMA Combo 2 assay is FDA-approved for Chlamydia trachomatis and Neisseria gonorrhoeae testing on female endocervical and vaginal swabs, ThinPrep liquid pap samples, male urine samples and urethral swabs. Performance characteristics for Chlamydia trachomatis and Neisseria gonorrhoeae testing on specific ltx-TTD-uutefgyg sample types (female urine samples) have been validated by [facility]. This laboratory is certified by CLIA to perform high complexity testing. Samples from all other sites are not validated for this method. Performed By: #### G [facility] #### [facility] [address] [place] [address] HEMOGLOBIN A1Con 07-04-2022 Glucose [Mass/Vol] 108 mg/dL Normal [facility] Comment on above: Performed By: #### D HEAS #### [facility] [address] [place] [address] HbA1c (Bld) [Mass fraction] 5.4 % Normal [facility] Comment on above: Result Comment: Diag nosis of Diabetes-Adults Non-Diabetic: < or = 5.6% Increased risk for developing diabetes: 5.7-6.4% Diagnostic of diabetes: > or = 6.5% . Monitoring of Diabetes Age (y) Therapeutic Goal (%) Adults: >18 <7.0 Pediatrics: 13-18 <7.5 7-12 <8.0 0- 6 7.5-8.5 [place] [employer]. Diabetes Care 33(S1), Nov 2009. Performed By: #### D HEAS #### [facility] [address] [place] [address] HEPATITIS B SURFACE AGon HEP.B SURFACE AG Non-Reactive Normal NONREACTIVE [facility] Comment on above: Result Comment: Biot in interference may cause falsely decreased results. Patients taking a Biotin dose of up to 5 mg/day should refrain from taking Biotin for 24 hours before sample collection. Providers may contact their local laboratory for further information. Performed By: #### H BSAG #### [facility] [address] [place] [address] HEPATITIS C ABon 07-04-2022 HEPATITIS C AB Non-Reactive Normal NONREACTIVE [facility] Comment on above: Result Comment: Resu lts from patients taking biotin supplements or receiving high-dose biotin therapy should be interpreted with caution due to possible interference with this test. Providers may contact their local laboratory for further information. Performed By: #### T HYDS #### [facility] [address] [place] [id number] HIV 1/2 ANTIGEN/ANTIBODY SCR EEN WITH REFLEX TO CONFIRMATIONon 07-04-2022 HIV 1/2 AG/AB SCREEN Non-Reactive Normal NONREACTIVE [facility] Comment on above: Result Comment: HIV Ag/Ab screen is performed using the Siemens Bespoke Post HIV Ag/Ab Combo assay which detects the presence of HIV p24 antigen as well as antibodies to HIV-1 (Group M and O) and HIV-2. . No laboratory evidence of HIV infection. If acute HIV infection is suspected, consider testing for HIV RNA by PCR (viral load). Performed By: #### T HYDS #### [facility] [address] [place] [id number] RUBELLA IGG ABon 07-04-2022 RUBELLA IGG AB Positive Normal [facility] Comment on above: Result Comment: [...] assays. Performed By: #### T HYDS #### [facility] [address] [place] [address] SYPHILIS SCREENING WITH REFL EXon 07-04-2022 SYPHILIS TOTAL AB Non-Reactive Normal NONREACTIVE [facility] Comment on above: Result Comment: No s ignificant level of Treponema pallidum antibody detected. Repeat testing in 2 to 4 weeks may be considered if early infection or incubating syphilis infection is suspected. Performed By: #### D LEE #### [facility] [address] [place] [address] TYPE AND SCREENon 07-04-2022 ABO/Rh Positive [facility] Arm Band Number HIDE [facility] Rally Fit Expiration Date 07/07/2022,2359 [facility] VARICELLA ZOSTER IGG ABon VARICELLA ZOSTER IGG AB Positive Normal NEGATIVE [facility] Comment on above: Result Comment: [...] in serological assays. Performed By: #### V ARPIERO #### [facility] [address] [place] [address] 17-Hydroxyprogesterone, Seru mon 07-03-2022 17-Hydroxyprogestero ne [Mass/Vol] [...] Endocrinol Metab. 1991;73:674-686; J Clin Endocrinol Metab. 1989;69;1064-9595; J Clin Endocrinol Metab. 1994;78:226-270. Pediatr Res 1988;23:525-529. MedLinePlus (accessed 04/27/14). This test was developed and its analytical performancecharacteristics have been determined by [employer] [place], [place]. It hasnot been cleared or approved by the U.S. Food and DrugAdministration. This assay has been validated pursuantto the CLIA regulations and is used for clinicalpurposes. CBCon 07-03-2022 Erythrocyte distribution width (RBC) [Ratio] 12.8 % Normal 11.5 - 14.5 [facility] Comment on above: Performed By: #### Murray HOWARD #### [facility] [address] [place] [address] Hematocrit (Bld) [Volume fraction] 37.8 % Normal 36.0 - 46.0 [facility] Comment on above: Performed By: #### Murray HOWARD #### [facility] [address] [place] [address] Hemoglobin (Bld) [Mass/Vol] 12.8 g/dL Normal 12.0 - 16.0 [facility] Comment on above: Performed By: #### Murray HOWARD #### [facility] [address] [place] [address] MCHC (RBC) [Mass/Vol] 33.9 g/dL Normal 32.0 - 36.0 [facility] Comment on above: Performed By: #### Murray HOWARD #### [facility] [address] [place] [address] MCV (RBC) [Entitic vol] 86 fL Normal 80 - 100 [facility] Comment on above: Performed By: #### Murray HOWARD #### [facility] [address] [place] [address] Platelets (Bld) [#/Vol] 283 10*3/uL Normal 150 - 450 [facility] Comment on above: Performed By: #### Murray HOWARD #### [facility] [address] [place] [address] RBC 4.41 x10E12/L Normal 4.00 - 5.20 [facility] Comment on above: Performed By: #### Murray HOWARD #### [facility] [address] [place] [address] WBC (Bld) [#/Vol] 7.5 10*3/uL Normal 4.4 - 11.3 [facility] Comment on above: Performed By: #### Murray HOWARD #### [facility] [address] [place] [address] COMPREHENSIVE PANELon 2021 Albumin [Mass/Vol] 4.7 g/dL Normal 3.4 - 5.0 [facility] Comment on above: Performed By: #### Murray HOWARD #### [facility] [address] [place] [address] ALP [Catalytic activity/Vol] 46 U/L Normal 33 - 110 [facility] Comment on above: Performed By: #### Murray HOWARD #### [facility] [address] [place] [address] ALT [Catalytic activity/Vol] 28 U/L Normal 7 - 45 [facility] Comment on above: Result Comment: Michelle ents treated with Sulfasalazine may generate falsely decreased results for ALT. Performed By: #### Murray HOWARD #### [facility] [address] [place] [address] Anion gap [Moles/Vol] 13 mmol/L Normal 10 - 20 [facility] Comment on above: Performed By: #### Murray HOWARD #### [facility] [address] [place] [address] AST [Catalytic activity/Vol] 18 U/L Normal 9 - 39 [facility] Comment on above: Performed By: #### Murray HOWARD #### [facility] [address] [place] [address] Bilirubin [Mass/Vol] 0.4 mg/dL Normal 0.0 - 1.2 [facility] Comment on above: Performed By: #### Murray HOWARD #### [facility] [address] [place] [address] Calcium [Mass/Vol] 9.5 mg/dL Normal 8.6 - 10.3 [facility] Comment on above: Performed By: #### Murray HOWARD #### [facility] [address] [place] [address] Chloride [Moles/Vol] 103 mmol/L Normal 98 - 107 [facility] Comment on above: Performed By: #### Murray HOWARD #### [facility] [address] [place] [address] Creatinine [Mass/Vol] 0.62 mg/dL Normal 0.50 - 1.05 [facility] Comment on above: Performed By: #### Murray HOWARD #### [facility] [address] [place] [address] eGFR FEMALE >90 Normal >90 [facility] Comment on above: Result Comment: CALC ULATIONS OF ESTIMATED GFR ARE PERFORMED USING THE 2020 CKD-EPI STUDY REFIT EQUATION WITHOUT THE RACE VARIABLE FOR THE IDMS-TRACEABLE CREATININE METHODS. https://jasn.asnjournals.org/content//ASN.2844324 988 Performed By: #### Murray HOWARD #### [facility] [address] [place] [address] Glucose [Mass/Vol] 82 mg/dL Normal 74 - 99 [facility] Comment on above: Performed By: ###Laura HOWARD #### [facility] [address] [place] [address] HCO3 (Bld) [Moles/Vol] 25 mmol/L Normal 21 - 32 [facility] Comment on above: Performed By: #### Murrya HOWARD #### [facility] [address] [place] [address] Potassium [Moles/Vol] 3.9 mmol/L Normal 3.5 - 5.3 [facility] Comment on above: Performed By: ###Laura HOWARD #### [facility] [address] [place] [address] Protein [Mass/Vol] 7.5 g/dL Normal 6.4 - 8.2 [facility] Comment on above: Performed By: #### Murray HOWARD #### [facility] [address] [place] [address] Sodium [Moles/Vol] 137 mmol/L Normal 136 - 145 [facility] Comment on above: Performed By: #### Murray HOWARD #### [facility] [address] [place], [place] Urea nitrogen [Mass/Vol] 11 mg/dL Normal 6 - 23 [facility] Comment on above: Performed By: #### Murray HOWARD #### [facility] [address] [place] DHEA SULFATEon 07-03-2022 DHEA SULFATE 233 ug/dL Normal 65 - 395 [facility] Comment on above: Result Comment: MATU RITY-BASED REFERENCE RANGES: PUBERTAL (AMADOR) STAGE MALE FEMALE [...] local laboratory for further information. Performed By: ###Laura HOWARD #### [facility] [address] [place], [place] Lab Specimen Source Normal [facility] Comment on above: Performed By: ###Laura HOWARD #### [facility] [address] [place], [place] Performed By: #### H CRISTINOG #### [facility] [address] [place], [place] Performed By: ###Laura CHRISTINE #### [facility] [address] [place] [address] DHEA Sulfate, Serumon 2021 DHEA-S [Mass/Vol] 233 ug/dL 65 - 395 MG-OBGY N-Ri sman 310 IVF Work Phone: Comment on above: SOURCE: [facility] ED REFERENCE RANGES: PUBERTAL (AMADOR) STAGE MALE [...] DETECTIONon 07-03-2022 Lab Specimen Source Urine Normal [facility] Comment on above: Performed By: #### G [facility] #### [facility] [address] [place] [address] GC + Chlamydia By Amplified Detectionon 07-03-2022 [...] trachomatis and Neisseria gonorrhoeae testing on specific uzr-LSN-bicmtotz sample types (female urine samples) have been validated by [facility]. This laboratory is certified by CLIA [...] trachomatis and Neisseria gonorrhoeae testing on specific lyx-WYL-bftxfzxq sample types (female urine samples) have been validated by [facility]. This laboratory is certified by CLIA to perform high complexity testing. Samples from all other sites are not validated for this method. HIV 1/2 ANTIGEN/ANTIBODY SCR EEN WITH REFLEX TO CONFIRMATIONon 07-03-2022 HIV 1+2 Ab Qn (S) Non-Reactive See Below MG-WILLOW WORKER-Ri sman 310 IVF Work Phone: Comment on above: SOURCE: Reference Ra nge: NONREACTIVE HIV Ag/Ab screen is performed using the Siemens [place] Post HIV Ag/Ab Combo assay which detects the [...] HbA1c (Bld) [Mass fraction] 5.4 % MG-OBGYN-Ri sman 310 IVF Work Phone: Comment on above: Diagnosis of Diabete s-Adults Non-Diabetic: < or = 5.6% Increased risk for developing diabetes: 5.7-6.4% Diagnostic of diabetes: > or = 6.5%. Monitoring of Diabetes Age (y) Therapeutic Goal (%) Adults: >18 <7.0 Pediatrics: 13-18 <7.5 7-12 <8.0 0- 6 7.5-8.5 [employer]. Diabetes Care 33(S1), Nov 2009. [...] [Mass/Vol] 145 mg/dL Normal 0 - 199 [facility] Comment on above: Result Comment: [...] dosing. Performed By: #### L IPID #### [employer] [facility] [address] [place] [address] Cholesterol in HDL [Mass/Vol] 46.2 mg/dL Normal [facility] Comment on above: Result Comment: . AGE VERY LOW LOW NORMAL HIGH 0-19 Y < 35 < 40 40-45 ---- 20-24 Y ---- < 40 >45 ---- >24 Y ---- < 40 40-60 >60 . Performed By: #### L IPID #### [facility] [address] [place] [address] Cholesterol in LDL [Mass/Vol] 70 mg/dL Normal 0 - 99 [facility] Comment on above: Result Comment: . NEAR BORD AGE DESIRABLE OPTIMAL HIGH HIGH VERY HIGH 0-19 Y 0 - 109 --- 110-129 >/= 130 ---- 20-24 Y 0 - 119 --- 120-159 >/= 160 ---- >24 Y 0 - 99 100-129 130-159 160-189 >/=190 . Performed By: #### L IPID #### [employer] [facility] [address] [place] [address] Cholesterol in VLDL [Mass/Vol] 29 mg/dL Normal 0 - 40 [facility] Comment on above: Performed By: #### L IPID #### [facility] [address] [place] [address] Cholesterol.total/Ch olesterol in HDL [Mass ratio] 3.1 {ratio} Normal [facility] Comment on above: Result Comment: REF VALUES DESIRABLE < 3.4 HIGH RISK > 5.0 Performed By: #### L IPID #### [facility] [address] [place] [address] Triglyceride [Mass/Vol] 144 mg/dL Normal 0 - 149 [facility] Comment on above: Result Comment: [...] dosing. Performed By: #### L IPID #### [facility] [address] [place] [address] Laboratory - Blood bankon ABO group Nom (Bld) Canceled MG-WILLOW WORKER-Ri sman 310 IVF Work Phone: Comment on [...] 5.0 MG-OBGYN-Ri sman 310 IVF Work Phone: [phone] ALP [Catalytic activity/Vol] 46 U/L 33 - 110 MG-OBGYN-Ri sman 310 IVF Work Phone: [phone] ALT With P-5'-P [Catalytic activity/Vol] 28 U/L 7 - 45 MG-OBGYN-Ri sman 310 IVF Work Phone: [phone] Comment on above: Patients treated wit h Sulfasalazine may generate falsely decreased results for ALT. Anion gap [Moles/Vol] 13 mmol/L 10 - 20 MG-OBGYN-Ri sman 310 IVF Work Phone: [phone] AST With P-5'-P [Catalytic activity/Vol] 18 U/L 9 - 39 MG-OBGYN-Ri sman 310 IVF Work Phone: [phone] Bilirubin [Mass/Vol] 0.4 mg/dL 0.0 - 1.2 MG-O BGYN-Ri sman 310 IVF Work Phone: [phone] Calcium [Mass/Vol] 9.5 mg/dL 8.6 - 10.3 MG-OBG YN-Ri sman 310 IVF Work Phone: [phone] Chloride [Moles/Vol] 103 mmol/L 98 - 107 MG-O BGYN-Ri sman 310 IVF Work Phone: [phone] CO2 [Moles/Vol] 25 mmol/L 21 - 32 MG-OBGYN- Ri sman 310 IVF Work Phone: [phone] Creatinine [Mass/Vol] 0.62 mg/dL See Below MG-OBGYN-Ri sman 310 IVF Work Phone: [phone] Comment on above: Reference Range: 0.5 0 - 1.05 Glucose [Mass/Vol] 82 mg/dL 74 - 99 MG-OBG YN-Ri sman 310 IVF Work Phone: [phone] Mullerian inhibiting substance [Mass/Vol] 4.71 ng/mL MG-OBGYN-Ri sman 320 Work Phone: [phone] Comment on above: For assays employing antibodies, the possibility exists forinterference by heterophile antibodies in the samples.11.Lyle Gu Interferences in Immunoassays - still a threat. Clin. Chem. 2000; 46: 6801-2533.This test was developed and its performance characteristicsdetermined by [employer]. It has not been cleared or approvedby the Food and Drug Administration.Reference Range:Females 26 - 30y: 1.03 - 11.10Median 4.20AMH concentrations of >= 1.06 ng/mL is correlated with abetter response to ovarian stimulation, produced moreretrievable oocytes and higher odds of live accordingto Kip et al. Fertility and Sterility. 2010:94:1568-8083. The current AMH test method correlates withthe [...] 5.3 MG-OBGYN-Ri sman 310 IVF Work Phone: [phone] Protein [Mass/Vol] 7.5 g/dL 6.4 - 8.2 MG-OBG YN-Ri sman 310 IVF Work Phone: [phone] Sodium [Moles/Vol] 137 mmol/L 136 - 145 MG-OBG YN-Ri sman 310 IVF Work Phone: [phone] Testosterone [Mass/Vol] 23 ng/dL 2-45 [facility] Work Phone: Comment on above: For additional infor jung, please refer tohttp://education.Newser.[employer]/faq/TotalTestosteroneLCMS SFQFA740(This link is being provided for informational/educational purposes only.) This test was developed and its analytical performancecharacteristics have been determined by [place] It hasnot been cleared or approved by the U.S. Food and DrugAdministration. This assay has been validated pursuantto the CLIA regulations and is used for clinicalpurposes. Testosterone Free [Mass/Vol] 6.1 pg/mL 0.1-6.4 MG-OBGYN-Ri sman 320 Work Phone: Comment on above: This test was develo ped and its analytical performancecharacteristics have been determined by [place]. It hasnot been cleared or approved by the U.S. Food and DrugAdministration. This assay has been validated pursuantto the CLIA regulations and is used for clinicalpurposes. TSH Qn 1.66 m[IU]/L See Below MG-OBGYN-Ri sman 310 IVF Work Phone: Comment on above: Reference Range: 0.4 4 - 3.98 TSH testing is performed using different testing methodology at [facility] than at other [facility]. Direct result comparisons should only be made [...] Below MG-OBGYN-Ri sman 310 IVF Work Phone: [phone] Comment on above: Reference Range: 32. 0 - 36.0 MCV (RBC) [Entitic vol] 86 fL 80 - 100 MG-OBGYN-Ri sman 310 IVF Work Phone: [phone] Platelets (Bld) [#/Vol] 283 10*3/uL 150 - 450 MG-OBGYN-Ri sman 310 IVF Work Phone: [phone] RBC (Bld) [#/Vol] 4.41 {x10E12/L} See Below MG -OBGYN-Ri sman 310 IVF Work Phone: [phone] Comment on above: Reference Range: 4.0 0 - 5.20 WBC (Bld) [#/Vol] 7.5 10*3/uL 4.4 - 11.3 MG-OBG YN-Ri sman 310 IVF Work Phone: [phone] Lipid Panelon 07-03-2022 Cholesterol [Mass/Vol] 145 mg/dL 0 - 199 MG-OBGYN-Ri sman 310 IVF Work Phone: [phone] Comment on above: . AGE DESIRABLE BORD [...] mg/dL MG-OBGYN-Ri sman 310 IVF Work Phone: [phone] Comment on above: . AGE VERY LOW [...] THE RACE VARIABLE FOR THE IDMS-TRACEABLE CREATININE METHODS.https://jasn.asnjournals.org/content/early//ASN .4379253085 GREEN MARKETING SPECIALIST - Procedure Visiton 0 07-03-2022 GREEN MARKETING SPECIALIST - Procedure Visit Diagnoses/Problems Abnormal radiograph (793.99) [...] right/left tubes per Dr. Proctor. Juanita Leung, [facility] Reproductive Endocrinology and Infertility 07-03-2022 @ [...] right/left tubes per Dr. Proctor. Juanita Leung, [facility] Reproductive Endocrinology and Infertility 07-03-2022 @ [...] [employer] PROGESTERONEon 07-03-2022 PROGESTERONE 0.4 ng/mL Normal [facility] Comment on above: Result Comment: Prog esterone is performed using the [employer] Access Immunoassay. Progesterone testing is performed using a different test methodology at [facility] than other [facility]. Direct result comparison should only be made within the same method. REF VALUES MALE <0.2-0.8 FOLLICULAR PHASE <0.2-1.5 LUTEAL PHASE 7.4-15.4 POSTMENOPAUSAL <0.2-0.2 1ST TRIMESTER 12.0-84.0 2ND TRIMESTER 10.2-58.8 3RD TRIMESTER 46.5-160 Performed By: #### T [facility] #### [facility] [address] [place] [address] PROLACTINon 07-03-2022 PROLACTIN 10.5 ug/L Normal 3.0 - 20.0 [facility] Comment on above: Performed By: #### D HE #### [facility] [address] [place] [address] Progesterone, Serumon 2021 Progesterone [Mass/Vol] 0.4 ng/mL MG-OBGYN-Ri sman 310 IVF Work Phone: Comment on above: Progesterone is perf ormed using the [employer] Access Immunoassay. Progesterone testing is performed using a different test methodology at [facility] than other [facility]. Direct result comparison should only be made within the same method.REF VALUESMALE <0.2-0.8 FOLLICULAR PHASE <0.2-1.5 LUTEAL PHASE 7.4-15.4 POSTMENOPAUSAL <0.2-0.2 1ST TRIMESTER 12.0-84.0 2ND TRIMESTER 10.2-58.8 3RD TRIMESTER 46.5-160 Prolactin, Serumon Prolactin [Mass/Vol] 10.5 ug/L 3.0 - 20.0 [...] Qn 1.66 m[IU]/L Normal 0.44 - 3.98 [facility] Comment on above: Result Comment: TSH testing is performed using different testing methodology at [facility] than at other [facility]. Direct result comparisons should only be made within the same method. Performed By: #### [facility] #### [facility] [address] [place] [address] TYPE + SCREENon 07-03-2022 ABO TYPE Canceled Normal [facility] Comment on above: Order Comment: NO PH LEB ID NOTIFIED BOBBI DUMONT AT DR SLAUGHTER OFFICE, 07/04/2022 09:19TEST TYPE + SCREEN WAS CANCELLED, 07/03/2022 21:17 no phleb id. Result Comment: NO P HLEB ID NOTIFIED BOBBI DUMONT AT DR SLAUGHTER OFFICE, 07/04/2022 09:19 Performed By: #### D LEE #### [facility] [address] [place] [address] RH TYPE Canceled Normal [facility] Comment on above: Order Comment: NO PH LEB ID NOTIFIED BOBBI DUMONT AT DR SLAUGHTER OFFICE, 07/04/2022 09:19TEST TYPE + SCREEN WAS CANCELLED, 07/03/2022 21:17 no phleb id. Result Comment: NO P HLEB ID NOTIFIED BOBBI DUMONT AT DR SLAUGHTER OFFICE, 07/04/2022 09:19 Performed By: #### D LEE #### [facility] [address] [place] [address] Varicella Zoster IgG Antibod yon 07-03-2022 VZV [...] IVIG may demonstrate alteredresults in serological assays. GREEN MARKETING SPECIALIST - Office Visiton GREEN MARKETING SPECIALIST - Office Visit Diagnoses/Problems Assessed Routine screening [...] BMI 48 [X] Weight loss consult with METAL DIE FINISHER [X] New infertility/PCOS packet [X ] Engaged [...] pt ag (more content not included)... Normal [employer] Tobacco Screening.on Fall risk assessment a) No falls within the last year MG-OBGYN-Ri sman 320 Work Phone: Last menstrual period start date [id number] MG-OBGYN-Ri sman 320 Work Phone: Tobacco use status CPHS b) No MG-OBGYN-Ri sman 320 Work Phone: Progesteroneon 10-23-2021 Progesterone 3.76 ng/mL [employer] Comment on above: FEMALE (healthy): Follicular phase 0.06-0.89 Ovulation phase 0.12-12.00 Luteal phase 1.83-23.90 Postmenopausal <0.13 [employer] Progesteroneon 09-21-2021 Progesterone 4.48 ng/mL [employer] Comment on above: FEMALE (healthy): Follicular phase 0.06-0.89 Ovulation phase 0.12-12.00 Luteal phase 1.83-23.90 Postmenopausal <0.13 [employer] ProgesteroneOrdered By: Olamide Perez on 08-18-2021 Progesterone 2.71 ng/mL [employer] Work Phone: Comment on above: FEMALE (healthy): Follicular phase 0.06-0.89 Ovulation phase 0.12-12.00 Luteal phase 1.83-23.90 Postmenopausal <0.13 [employer] Work Phone: Progesteroneon 08-23-2020 Progesterone 5.78 ng/mL Normal [facility] Comment on above: Result Comment: FEMALE (healthy): Follicular phase 0.06-0.89 Ovulation phase 0.12-12.00 Luteal phase 1.83-23.90 Postmenopausal <0.13 Performed By: #### P ANICETO #### [employer] [address] [place] [address] [employer] Up Ring Hand: Tyron Golden MD Chlamydia/GC DNA, TPon 03-23 Chlamydia Probe, TP Negative Normal NEG [facility] Comment on above: Result Comment: CHLA [...] target. Performed By: #### C YTCGP #### [facility] [address] [place] [address] [id number] [employer] Hand: Tyron Golden MD Gonorrhea Probe, TP Negative Normal NEG [facility] Comment on above: Result Comment: NEIS [...] target. Performed By: #### C YTCGP #### [facility] [place] [id number] [employer] Up Ring Hand: Tyron Golden MD Cytologyon 03-19-2020 Cytology (NOTE) INTERPRETATION Cervical material, (ThinPrep vial, Imaging-assisted review): Specimen Adequacy: Satisfactory for evaluation. - Endocervical/transformation zone component present. Descriptive Diagnosis: Negative for intraepithelial lesion or malignancy. Reactive cellular changes associated with inflammation. Cloth Grader: DEAN Samson M.D. Electronically Signed Out rdd/03/23/2020 Source: 1: Cervical material, (ThinPrep vial, Imaging-assisted review) Clinical History Z12.4 Encounter for screening for malignant neoplasm of cervix High Risk HPV DNA testing is requested if the diagnosis is ASC-US LMP: 11/19/2019 GYNECOLOGIC CYTOLOGY REPORT Patient Name: SANDRA BYRD [facility] Rec: [id number] Path Number: [id number] [facility] ANATOMIC PATHOLOGY [address] [place], [place] [address] [facility] Comment on above: Performed By: #### P PPVP #### [address] [id number] [employer] Hand: Tyron Golden MD Follicle Stim. Hormon 2019 Follicle Stim. Horm 6.0 U/L Normal 1.7-21.5 [facility] Comment on above: Result Comment: Refe rence Range: Male: 1.5-12.4 Ovulating Female: Follicular Phase 3.5-12.5 Ovulation Phase 4.7-21.5 Luteal Phase 1.7-7.7 Postmenopausal Female: 25.8-134.8 Performed By: #### G LYHGB #### [facility] [address] [place] [place] [address] Round Up Ring Hand: Bridger Samson MD #### FSH, LH, PROL #### [address] [id number] [employer]: Tyron Golden MD Follicle Stimulating Hormone on 03-19-2020 FSH 6 U/L 1.7 - 21.5 U/L [place], [place] Comment on above: Reference Range: Male: 1.5-12.4 Ovulating Female: Follicular Phase 3.5-12.5 Ovulation Phase 4.7-21.5 Luteal Phase 1.7-7.7 Postmenopausal Female: 25.8-134.8 Hemoglobin A1Con 03-19-2020 HbA1c (Bld) [Mass fraction] 5.6 % Normal 4.8-5.9 [facility] Comment on above: Performed By: #### G LYHGB #### [facility] [address] [place] [address] Round Up Ring Hand: Bridger Samson MD #### FSH, LH, PROL #### [address] [address] [employer] Hand: Tyron Golden MD HbA1c (Bld) [Mass fraction] 114 mg/dL Normal [facility] Comment on above: Result Comment: The ADA and AACC recommend providing the estimated average glucose result to permit better patient understanding of their HBA1c result. Performed By: #### G LYHGB #### [facility] [address] [place] [address] [place] [address] Round Up Ring Hand: Bridger Samson MD #### FSH, LH, PROL #### [facility] [employer] [facility] [place], [place] [phone] [employer] Up Ring Hand: Tyron Golden MD Glucose [Mass/Vol] 114 mg/dL [place], [place] Comment on above: The ADA and AACC rec ommend providing the estimated average glucose result to permit better patient understanding of their HBA1c result. HbA1c (Bld) [Mass fraction] 5.6 % 4.8 - 5.9 % [place], [place] Luteinizing Hormoneon 2019 Luteinizing Hormone 12.4 U/L Normal 1.0-95.6 [facility] Comment on above: Result Comment: Refe rence Range: Male: 1.7-8.6 Ovulating Female: Follicular Phase 2.4-12.6 Ovulation Phase 14.0-95.6 Luteal Phase 1.0-11.4 Postmenopausal Female: 7.7-58.5 Performed By: #### G LYHGB #### [facility] [address] [place] [address] [place] [address] Round Up Ring Hand: Bridger Samson MD #### FSH, LH, PROL #### [facility] [employer] [address] [place], [place] [id number] Round Up Ring Hand: Tyron Golden MD LH 12.4 U/L 1 - 95.6 U/L [place], [place] Comment on above: Reference Range: Male: 1.7-8.6 Ovulating Female: Follicular Phase 2.4-12.6 Ovulation Phase 14.0-95.6 Luteal Phase 1.0-11.4 Postmenopausal Female: 7.7-58.5 Prolactinon 03-19-2020 Prolactin 13.01 ug/L Normal 4.79-23.30 [facility] Comment on above: Result Comment: The presence of macroprolactin may cause interference in female patients with various endocrinological diseases or during . Performed By: #### G LYHGB #### [facility] [address] [place] [address] Round Up Ring Hand: Bridger Samson MD #### FSH, LH, PROL #### [facility] [address] [place] [address] Round Up Ring Hand: Tyron Golden MD Prolactin 13.01 ug/L 4.79 - 23.3 ug/L [place], [place] Comment on above: The presence of macr oprolactin may cause interference in female patients with various endocrinological diseases or during . TSH w/reflex to FT4on 2019 TSH Qn 2.55 m[IU]/L Normal 0.30-5.00 [facility] Comment on above: Performed By: #### T SHX #### [facility] [address] [place] [address] Round Up Ring Hand: Bridger Samson MD TSH with Reflexon 03-19-2020 TSH Qn 2.55 m[IU]/L [place], [place] Vital Signs Date Time Vital Sign Value Performing Clinician Facility 12-17-2024 13:03-0500 Diastolic blood pressure 84 mm[Hg] Filemon Rosendo [facility] 12-17-2024 13:03-0500 Heart rate 88 /min Filemon Rosendo [facility] 12-17-2024 13:03-0500 Respiratory rate 18 /min Filemon Rosendo [facility] 12-17-2024 13:03-0500 SaO2% (BldA) [Mass fraction] 98 % Filemon Rosendo [facility] 12-17-2024 13:03-0500 Systolic blood pressure 136 mm[Hg] Filemon Macario [facility] [place] 08-26-2024 11:57-0400 Body mass index (BMI) [Ratio] 46.74 kg/m2 Freedom Perez DO Work Phone: [facility] 08-26-2024 11:57-0400 Body weight 135.35 kg Freedom Perez DO Work Phone: [facility] 08-26-2024 11:57-0400 Diastolic blood pressure 80 mm[Hg] Freedom Perez DO Work Phone: [facility] 08-26-2024 11:57-0400 Systolic blood pressure 138 mm[Hg] Freedom Perez DO Work Phone: [facility] 07-24-2022 09:29-0400 Body height 170.18 cm Referring Provider Unknown HH-LIZJH-Cxhxvg 320 Work Phone: 07-24-2022 09:29-0400 Body mass index (BMI) [Ratio] 48.08 kg/m2 Referring Provider Unknown GT-PCDFT-Htpktj 320 Work Phone: 07-24-2022 09:29-0400 Body surface area Derived from formula 2.43 m2 Referring Provider Unknown SV-IRPJI-Bkuuhi 320 Work Phone: 07-24-2022 09:29-0400 Body weight 139.26 kg Referring Provider Unknown TN-ONFWN-Thgmtj 320 Work Phone: 07-24-2022 09:29-0400 0 1 Referring Provider Unknown MM-IFWHC-Yjdisr 320 Work Phone: Comment on above: GRAV PARA [employer] 06-12-2022 09:05-0400 Body height 170.18 cm Referring Provider Unknown MW-XEPUR-Srstht 320 Work Phone: 06-12-2022 09:05-0400 Body mass index (BMI) [Ratio] 48.08 kg/m2 Referring Provider Unknown KB-GOHRA-Uljidq 320 Work Phone: 06-12-2022 09:05-0400 Body surface area Derived from formula 2.43 m2 Referring Provider Unknown VP-JTSPN-Atbjks 320 Work Phone: 06-12-2022 09:05-0400 Body weight 139.26 kg Referring Provider Unknown ZM-SNJFF-Tbjqbm 320 Work Phone: 06-12-2022 09:05-0400 Diastolic blood pressure 83 mm[Hg] Referring Provider Unknown YN-WKULJ-Kzxgfo 320 Work Phone: 06-12-2022 09:05-0400 Heart rate 76 /min Referring Provider Unknown QC-NBWFP-Odopex 320 Work Phone: 06-12-2022 09:05-0400 Systolic blood pressure 141 mm[Hg] Referring Provider Unknown BW-YVKXK-Hoiwao 320 Work Phone: 06-12-2022 09:05-0400 0 1 Referring Provider Unknown OT-VOQEY-Eructp 320 Work Phone: Comment on above: GRAV PARA [employer] Encounters Encounter Date Encounter Type Care Provider Facility Start: 05-23-2025 End: 05-23-2025 [facility] Start: 05-13-2025 End: 05-13-2025 ambulatory CARPENTRY TEACHER Filemon L Rosendo Facility:[facility] [place] Start: 05-04-2025 End: 05-04-2025 ambulatory CARPENTRY TEACHER Filemon L Rosendo Facility:[facility] [place] Start: 02-09-2025 End: 02-09-2025 ambulatory CARPENTRY TEACHER Filemon L Rosendo Facility:[facility] [place] Start: 01-13-2025 End: 01-13-2025 ambulatory CARPENTRY TEACHER Filemon L Rosendo Facility:[facility] [place] Start: 12-17-2024 End: 12-17-2024 ambulatory CARPENTRY TEACHER Filemon L Rosendo Facility:[facility] [place] Start: 12-17-2024 End: 12-17-2024 Patient encounter procedure Filemon L Rosendo [facility] [place] Start: 12-12-2024 ambulatory CARPENTRY TEACHER Filemon Sánchez y:[facility] [place] Start: 08-26-2024 End: 08-26-2024 Bamboo flowsheet Freedom [...] Available Start: 10-08-2023 End: 10-08-2023 ambulatory FREEDOM PEREZ Not Available Start: 10-01-2023 End: 10-01-2023 Emergency department patient visit [facility] Start: 10-01-2023 End: 10-01-2023 ambulatory MIKAYLA TRAN Not Available Start: 09-24-2023 End: 09-24-2023 ambulatory FREEDOM PEREZ Not Available Start: 03-28-2023 End: 03-28-[address] FREEDOM TODD . Facility:[facility] Start: 03-28-2023 End: 03-29-[address] FREEDOM TODD . Facility:[facility] Start: 03-15-2023 End: 03-16-[address] FREEDOM TODD . Facility:[facility] Start: 03-03-2023 End: 03-04-[address] FREEDOM TODD . Facility:[facility] Start: 02-26-2023 End: 02-27-[address] FREEDOM TODD . Facility: Start: 02-05-2023 Office outpatient vi sit 10 minutes Referring Provider Unknown BQ-AEHSR-Jljolp 310 IVF Work Phone: Start: 02-05-2023 Patient encounter procedure Referring Provider Unknown LY-MSCRX-Twubcu 310 IVF Work Phone: Start: 02-05-2023 ambulatory PCP UNKNOWN Facility:[facility] Rowan Arnold Start: 02-05-2023 ambulatory PCP UNKNOWN Facility:1 5344 Start: 01-25-2023 AUDIT Referring Prov ider Unknown HG-BIFYC-Jvqyiqo 206A IVF Work Phone: Start: 01-25-2023 End: 01-26-2023 ambulatory [facility] Start: 01-25-2023 End: 01-25-2023 Subsequent hospital visit by physician Chey Gomez MD Work Phone: [facility] Start: 01-18-2023 Image Encounter Referring Prov ider Unknown IQ-GSEUZ-Zjuwxd 310 IVF Work Phone: Start: 01-18-2023 End: 01-19-2023 ambulatory [facility] Start: 01-18-2023 End: 01-18-2023 Subsequent hospital visit by physician Chey Gomez MD Work Phone: [facility] Start: 01-16-2023 End: 01-17-2023 ambulatory [facility] Start: 01-16-2023 AUDIT Referring Prov ider Unknown UG-PDYVS-Igpsse 310 IVF Work Phone: Start: 01-16-2023 End: 01-16-2023 Subsequent hospital visit by physician Chey Gomez MD Work Phone: [facility] Start: 01-02-2023 ambulatory IAN Rojas cility:[id number] Start: 02-21-2023 INSEMIN, Provider: Elvi Covarrubias Status: Leo, Time: 10:45 AM Referring Provider Unknown QF-DJNUK-Kbotni 310 IVF Work Phone: Start: 01-02-2023 Patient encounter procedure Referring Provider Unknown PU-VERVA-Wjafuf 310 IVF Work Phone: Start: 01-01-2023 ambulatory PCP UNKNOWN Facility:[facility] Start: 01-01-2023 Patient encounter procedure Referring Provider Unknown KM-UCNWM-Kqbisb 310 IVF Work Phone: Start: 12-14-2022 AUDIT Referring Prov ider Unknown MT-NCFBB-Seiavyn 206A IVF Work Phone: Start: 10-27-2022 Patient encounter procedure Referring Provider Unknown OY-YVNML-Lpbcja 310 IVF Work Phone: Start: 10-27-2022 ambulatory PCP UNKNOWN Facility:1 5344 Start: 10-24-2022 ambulatory PCP UNKNOWN Facility:[facility] Start: 10-24-2022 Patient encounter procedure Referring Provider Unknown MN-IJFYU-Eqpvlsb 206A IVF Work Phone: Start: 10-16-2022 AUDIT Referring Prov ider Unknown DG-JABEW-Cmrdtac 206A IVF Work Phone: Start: 09-25-2022 Chart Update Referring Prov ider Unknown EA-TNMXJ-Dckrbxq 206A IVF Work Phone: Start: 09-24-2022 INSEMIN, Provider: ADRI SAMPSON, Status: Leo, Time: 10:00 AM Referring Provider Unknown VE-ODUFR-Uvskdlk 206A IVF Work Phone: Start: 09-24-2022 Patient encounter procedure Referring Provider Unknown HI-REGPB-Woemyb 310 IVF Work Phone: Start: 09-24-2022 ambulatory PCP UNKNOWN Facility:1 5344 Start: 09-22-2022 ambulatory PCP UNKNOWN [facility] [facility] Start: 09-22-2022 Patient encounter procedure Referring Provider Unknown EX-DLIOL-Vgsxcbj 206A IVF Work Phone: Start: 09-19-2022 Chart Update Referring Prov ider Unknown KA-FTAVV-Vhngkw 310 IVF Work Phone: Start: 09-19-[address] [facility] Facility:[facility] Start: 09-19-2022 Patient encounter procedure Referring Provider Unknown KB-QZVBT-Gopmser 206A IVF Work Phone: Start: 09-15-2022 AUDIT Referring Prov ider Unknown XI-ZZHSV-Czwxcvv 206A IVF Work Phone: Start: 08-11-2022 Chart Update Referring Prov ider Unknown AB-ZHDGX-Urfhguj 206A IVF Work Phone: Start: 07-26-2022 Phys/qhp telephone evaluation 21-30 min Referring Provider Unknown BM-DJZRG-Crbjicb 1200 Work Phone: Start: 07-26-2022 CRISTINA, Provider : Garland Sherman, Status: Pen, Time: 2:00 PM Referring Provider Unknown EN-SUFKL-Ruviyk 320 Work Phone: Start: 07-26-[address] [facility] Facility:[facility] Start: 07-24-2022 Office outpatient vi sit 15 minutes Referring Provider Unknown AW-EALYM-Vovdtsh 206A IVF Work Phone: Start: 07-24-2022 Patient encounter procedure Referring Provider Unknown LG-NFLJM-Cronta 320 Work Phone: Start: 07-24-[address] [facility] Facility:[facility] Start: 07-04-2022 End: 07-04-2022 Subsequent hospital visit by physician Chey Gomez MD Work Phone: [facility] Start: 07-04-2022 AUDIT Referring Prov ider Unknown BR-LVKJJ-Namrcy 310 IVF Work Phone: Start: 07-03-2022 Patient encounter procedure Referring Provider Unknown ZM-DFNYU-Lnuxak 310 IVF Work Phone: Start: 07-03-2022 ambulatory PCP UNKNOWN Facility:1 [id number] Start: 06-12-2022 Encounter for blood typing MD BOBBI FLOOD [facility] Start: 06-12-2022 AUDIT Referring Prov ider Unknown [facility] Work Phone: Start: 06-12-2022 Patient encounter procedure Referring Provider Unknown WU-SMBGI-Bumnkm 320 Work Phone: Start: 06-12-2022 ambulatory MD BOBBI FLOOD Facility:[facility] Start: 10-23-2021 End: 10-23-2021 Subsequent hospital visit by physician Chey Gomez MD Work Phone: [facility] Comment on above: PCOS (polycystic ova juliane syndrome) Start: 09-21-2021 End: 09-21-2021 Subsequent hospital visit by physician Chey Gomez MD Work Phone: [facility] Comment on above: PCOS (polycystic ova juliane syndrome) Start: 08-18-2021 End: 08-18-2021 Subsequent hospital visit by physician Chey Gomez MD Work Phone: [facility] Comment on above: PCOS (polycystic ova juliane syndrome) Start: 08-23-2020 End: 08-24-2020 Patient encounter procedure [facility] Start: 03-19-2020 End: 03-20-2020 Patient encounter procedure [facility] Start: 03-19-2020 End: 03-19-2020 Patient encounter procedure [facility] Start: 03-19-2020 End: 03-19-2020 Subsequent hospital visit by physician Chey Gomez [facility] Start: 03-19-2020 End: 03-19-2020 Subsequent [facility] Comment on above: BMI 50.0-59.9, adult (HCC); Pelvic pain in female; Routine Papanicolaou smear Patient encounter status Referring Provider Unknown YQ-OQHAT-Fmkszx 320 Work Phone: Procedures Date Procedure Procedure Detail Performing Clinician Start: 08-26-2024 ALL CBC WITH AUTO DIFF Freedom Singho DO Work Phone: Start: 08-26-2024 Urine test visual color cmprsn meths Freedom Rojaszio DO Work Phone: Start: 01-25-2023 Gonadotropin chorion ic quantitative Jeannie Gomez [employer]BER YARD WORKER - RATE CLERK PASSENGER Work Phone: Start: 01-18-2023 Gonadotropin chorion ic quantitative Jeannie Gomez [employer]BER YARD WORKER - RATE CLERK PASSENGER Work Phone: Start: 01-16-2023 Gonadotropin chorion ic quantitative Jeannie Gomez [employer] TIMBER YARD WORKER - RATE CLERK PASSENGER Work Phone: Start: 07-04-2022 Antibody screen Reimgio Gomez MD Work Phone: Start: 07-04-2022 Blood typing serologic abo Chey Gomez MD Work Phone: Start: 07-03-2022 Antibody screen PCP EMMETTK ROBERTO Comment on above: Order Comment: NO PH LEB ID NOTIFIED BOBBI DUMONT AT DR SLAUGHTER OFFICE, 07/04/2022 09:19TEST TYPE + SCREEN WAS CANCELLED, 07/03/2022 21:17 no phleb id. Result Comment: NO P HLEB ID NOTIFIED BOBBI DUMONT AT DR SLAUGHTER OFFICE, 07/04/2022 09:19 Performed By: #### D LEE #### [facility] [id number] [place] [address] Start: 10-23-2021 Assay of progesterone Charmaine Perez MD Work Phone: Start: 09-21-2021 Assay of progesterone Charmaine Perez MD Work Phone: Start: 08-18-2021 Assay of progesterone Charmaine Perez MD Work Phone: Start: 08-23-2020 Assay of progesterone Charmaine PEREZ Start: 03-19-2020 Iaad ia chlamydia trachomatis DAVID PEREZ Start: 03-19-2020 Screen pap by oseas vasquez md supv DAVID PEREZ Start: 03-19-2020 Assay of prolactin OLAMIDE MATT PEREZ Start: 03-19-2020 Assay of thyroid stimulating hormone tsh DAVID PEREZ Start: 03-19-2020 Gonadotropin follicl e stimulating hormone DAVID PEREZ Start: 03-19-2020 Gonadotropin luteini zing hormone DAVID PEREZ Start: 03-19-2020 Hemoglobin glycosyla carol a1c DAVID PEREZ Start: 03-19-2020 Assay of prolactin Olamide Perez Work Phone: Start: 03-19-2020 Assay of thyroid stimulating hormone tsh David Perez Work Phone: Start: 03-19-2020 Gonadotropin follicl e stimulating hormone David Perez Work Phone: Start: 03-19-2020 Gonadotropin luteini zing hormone David Perez Work Phone: Start: 03-19-2020 Hemoglobin glycosyla carol a1c David Perez Work Phone: Start: 03-19-2020 Microscopic observat ion [Identifier] in Cervix by Cyto stain Chey Gomez MD Work Phone: Tonsillectomy and adenoidectomy Filemon Macario Plan of Treatment Date Care Activity Detail Author Start: 10-22-2027 DTaP/Tdap/Td vaccine (7 - Td or Tdap) DTaP/Tdap/Td vaccine (7 - Td or Tdap) [facility] Start: 07-27-2025 ambulatory Ambulatory Facility:[facility] Start: 08-26-2024 End: 08-26-2025 DHEA DHEA Lab Routine PCOS (polycystic ovarian syndrome) Expected: 08/26/2024 (Approximate), Expires: 08/26/2025 [facility] Comment on above: Expected: 08/26/2024 (Approximate), Expires: 08/26/2025 Start: 08-26-2024 End: 08-26-2025 US for US PELVIS-TRANSVAG IF INDICATED Imaging Routine PCOS (polycystic ovarian syndrome) Expected: 08/26/2024 (Approximate), Expires: 08/26/2025 [facility] Healthcare Comment on above: Expected: 08/26/2024 (Approximate), Expires: 08/26/2025 Start: 03-19-2023 Screening for malign ant neoplasm of cervix Pap smear [facility] Start: 02-05-2023 VIRFUVHEVER, Provider : Jeannie Gomez, Status: Pen, Time: 9:30 AM VIRFUVHOME, Provider: Jeannie Gomez, Status: Pen, Time: 9:30 AM RO-TEUNS-Vzssna 310 IVF Work Phone: Start: 02-05-2023 ULTRASOUND, Provider : OBGYN IVF RDMS FOREST 1,MG OBGYN, Status: Pen, Time: 9:10 AM ULTRASOUND, Provider: OBGYN IVF RDMS FOREST 1,MG OBGYN, Status: Pen, Time: 9:10 AM VP-EOYUL-Szryys 310 IVF Work Phone: Start: 10-27-2022 INSEMIN, Provider: Christina Leung, Status: Pen, Time: 9:00 AM INSEMIN, Provider: Christina Leung, Status: Pen, Time: 9:00 AM CB-QETPS-Yxilxda 206A IVF Work Phone: Start: 10-24-2022 ULTRALAB, Provider: OBGYN IVF RDMS FOREST 1,MG OBGYN, Status: Pen, Time: 7:40 AM ULTRALAB, Provider: OBGYN IVF RDMS FOREST 1,MG OBGYN, Status: Pen, Time: 7:40 AM AY-NMMFA-Fhfxrpm 206A IVF Work Phone: Start: 09-22-2022 ULTRALAB, Provider: OBGYN IVF RDMS FOREST 1,MG OBGYN, Status: Pen, Time: 8:00 AM ULTRALAB, Provider: OBGYN IVF RDMS FOREST 1,MG OBGYN, Status: Pen, Time: 8:00 AM HR-DTVYB-Kovhevz 206A IVF Work Phone: Start: 09-19-2022 ULTRALAB, Provider: OBGYN IVF RDMS FOREST 1,MG OBGYN, Status: Pen, Time: 7:10 AM ULTRALAB, Provider: OBGYN IVF RDMS FOREST 1,MG OBGYN, Status: Pen, Time: 7:10 AM BS-KWQPD-Eykdkhm 206A IVF Work Phone: Start: 07-24-2022 VIRFUVHOME, Provider : Jeannie Gomez, Status: Pen, Time: 9:30 AM VIRFUVHOME, Provider: Jeannie Gomez, Status: Pen, Time: 9:30 AM PG-BSGRQ-Kobyvy 320 Work Phone: Start: 07-13-2022 Influenza vaccination Flu vaccine (# 1) [facility] Start: 06-12-2022 Influenza vaccination Flu vaccine (# 1) [facility] Start: 07-13-2021 Influenza vaccination Flu vaccine (# 1) [facility] Start: 07-13-2020 Influenza vaccination Flu vacc ine (Season Ended) [place], [place] Start: 04-15-2020 End: 04-15-2020 Office Visit 04/15/2020 Office Visit Obstetrics and Gynecology Blanca Hess, SAWMILL OR [employer]BER YARD WORKER - [address] [place] [address] [phone] [facility] Start: 2017 Screening for malign ant neoplasm of cervix Cervical cancer screen [place], [place] Start: 2015 DTaP/Tdap/Td vaccine (1 - Tdap) DTaP/Tdap/Td vaccine (1 - Tdap) [place] Start: 2014 Hepatitis C screening Hepatitis C sc reen [facility] Start: 2012 Screening for Chlamy rosi trachomatis Chlamydia screen [place], [place] Start: 2011 HIV screening HIV screen [facility] Start: 2008 COVID-19 Vaccine (1) COVID-19 Vaccin e (1) [facility] Start: 2008 Depression Screen Depression Screen [facility] Start: 2007 HPV vaccine (1 - 2-d ose series) HPV vaccine (1 - 2-dose series) [place], [place] Start: 1997 Varicella vaccine (1 of 2 - 2-dose childhood series) Varicella vaccine (1 of 2 - 2-dose childhood series) [facility] Start: 1996 COVID-19 Vaccine (#1) COVID-19 Vacci ne (#1) [facility] Start: 1996 Hepatitis C screening Hepatitis C sc reen [facility] End: 03-19-2020 C.trachomatis N.gonorrhoeae DNA, Thin Prep C.trachomatis N.gonorrhoeae DNA, Thin Prep Microbiology Routine Pelvic pain in female 1 Occurrences starting 03/19/2020 until 03/19/2020 [place] Comment on above: 1 Occurrences starti ng 03/19/2020 until 03/19/2020 C.trachomatis N.gonorrhoeae DNA, Thin Prep C.trachomatis N.gonorrhoeae DNA, Thin Prep Microbiology Routine Pelvic pain in female 03/19/2020 11:49 AM EDT [place], [place] CBC W Auto Different ial panel - Blood CBC and differential Lab Routine PCOS (polycystic ovarian syndrome) Ordered: 08/26/2024 [facility] Comment on above: Ordered: 08/26/2024 End: 03-19-2020 Cytopathology procedure, preparation of smear, genital source PAP SMEAR Lab Routine Routine Papanicolaou smear 1 Occurrences starting 03/19/2020 until 03/19/2020 [place], [place] Comment on above: 1 Occurrences starti ng 03/19/2020 until 03/19/2020 DHEA-sulfate DHEA-sulfate Lab Routine PCOS (polycystic ovarian syndrome) Ordered: 08/26/2024 [facility] Comment on above: Ordered: 08/26/2024 Follicle stimulating hormone Follicle stimulating hormone Lab Routine PCOS (polycystic ovarian syndrome) Ordered: 08/26/2024 [facility] Comment on above: Ordered: 08/26/2024 hCG, quantitative, hCG, quantitative, Lab Routine PCOS (polycystic ovarian syndrome) Ordered: 08/26/2024 [facility] Work Phone: Comment on above: Ordered: 08/26/2024 Hemoglobin A1c/Hemoglobin.total in Blood Hemoglobin A1c Lab Routine Amenorrhea Ordered: 08/26/2024 [facility] Comment on above: Ordered: 08/26/2024 Luteinizing hormone Luteinizing hormone Lab Routine PCOS (polycystic ovarian syndrome) Ordered: 08/26/2024 [facility] Comment on above: Ordered: 08/26/2024 Prolactin Prolactin Lab Ro utine Amenorrhea Ordered: 08/26/2024 [facility] Comment on above: Ordered: 08/26/2024 Thyrotropin [Units/volume] in Serum or Plasma TSH Lab Routine PCOS (polycystic ovarian syndrome) Ordered: 08/26/2024 [facility] Comment on above: Ordered: 08/26/2024 Thyroxine (T4) free [Mass/volume] in Serum or Plasma T4, free Lab Routine PCOS (polycystic ovarian syndrome) Ordered: 08/26/2024 [facility] Comment on above: Ordered: 08/26/2024 Immunizations Immunization Date Immunization Notes Care Provider Bob rosas NEGATED: Highlighted row has not occurred!09-08-2021 influenza virus vaccine, unspecified formulation Filemon Rosendo [facility] NEGATED: Highlighted row has not occurred!09-08-2021 SARS-CoV-2 (COVID-19) Ad26 vaccine, recombinant Filemon Rosendo [facility] NEGATED: Highlighted row has not occurred!12-14-2020 influenza virus vaccine, unspecified formulation Filemon Rosendo [facility] Payers Date Payer Category Payer Private Health Insurance [employer] [id number] 2019 Unknown [employer] [address] xxxxxxxx 2019-Present [phone] [address] [place] [address] xxxxxxxx [id number] 1996 Unknown [id number] 2.16.840.1.679897.3.579. 2.173 1996 Unknown [id number] 2.16.840.1.295036.3.579. 2.173 1996 Unknown [id number] 2.16.840.1.900487.3.579. 2.173 1996 Unknown [id number] 2.16.840.1.172275.3.579. 2.356 1996 Unknown [id number] 2.16840.1.828503.3.579. 2.356 1996 Unknown [id number] 2.16840.1.986968.3.579. 2.356 1996 Unknown [id number] 2.840.1.905965.3.579. 2.356 1996 Unknown [id number] 2.16840.1.238361.3.579. 2.356 1996 Unknown [id number] 2.840.1.723484.3.579. 2.356 1996 Unknown [id number] 2.16840.1.800288.3.579. 2.356 1996 Unknown [id number] 2.840.1.605969.3.579. 2.356 1996 Unknown [id number] 2.16840.1.093673.3.579. 2.356 1996 Unknown [id number] 2.16840.1.399790.3.579. 2.356 1996 Unknown [id number] 2.16840.1.174572.3.579. 2.356 1996 Unknown [id number] 2.16840.1.503791.3.579. 2.356 1996 Unknown [id number] 2.16840.1.829438.3.579. 2.356 1996 Unknown [id number] 2.16.840.1.442209.3.579. 2.593 1996 Unknown [id number] 2.16.840.1.285190.3.579. 2.593 1996 Unknown [id number] 2.16.840.1.353303.3.579. 2.593 1996 Unknown [id number] 2.16.840.1.399981.3.579. 2.593 1996 Unknown [id number] 2.16.840.1.682346.3.579. 2.593 1996 Unknown [id number] 2.16.840.1.822124.3.579. 2.174 1996 Unknown [id number] 2.16.840.1.994879.3.579. 2.174 1996 Unknown [id number] 2.16.840.1.653711.3.579. 2.174 1996 Unknown [id number] 2.16.840.1.208999.3.579. 2.174 1996 Unknown [id number] 2.16.840.1.334459.3.579. 2.1259 1996 Unknown [id number] 2.16.840.1.550397.3.579. 2.1259 1996 Unknown [id number] 2.16.840.1.572874.3.579. 2.1259 1996 Unknown [id number] 2.16.840.1.622191.3.579. 2.1259 1996 Unknown [id number] 2.16.840.1.685822.3.579. 2.9 1996 Unknown [id number] 2.16.840.1.240894.3.579. 2.1259 1996 Unknown [id number] 2.16.840.1.737574.3.579. 2.727 1996 Unknown [id number] 2.16.840.1.209241.3.579. 2.727 1996 Unknown [id number] 2.16.840.1.216932.3.579. 2.727 1996 Unknown [id number] 2.16.840.1.503874.3.579. 2.727 1996 Unknown [id number] 2.16.840.1.767023.3.579. 2.727 1996 Unknown [id number] 2.16.840.1.549975.3.579. 2.727 1996 Unknown [id number] 2.16.840.1.045804.3.579. 2.903 1959 Unknown [id number] Unknown Unknown Social History Date Type Detail Facility Start: 03-19-2020 End: 09-08-2021 Tobacco smoking status HIIS Never smoker [employer] Start: 03-19-2020 End: 10-31-2021 Alcohol intake Current non-drinker of alcohol (finding) [facility] [place] Sex Assigned At Not on file [facility] [place] Start: 03-19-2020 End: 08-04-2021 Tobacco use and exposure Never used [employer] Start: 1996 Sex Assigned At Female [employer] Work Phone: 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 [facility] Tobacco smoking consumption unknown [facility] Start: 04-25-2023 Gender identity Identifies as female gender (finding) [facility] Start: 04-25-2023 Sexual orientation Heterosexual (fin ding) [facility] Tobacco smoking status Never [facility] Sex Assigned At Female [facility] Goals Date Patient Goal Desired Activity /State Personal health goal Functional Status Date Assessment Result Facility 12-17-2024 Functional Status N/A [facility] [place] Clinical Notes 07-26-2021 to 08-26-2024 Anabel Van [...] nursing note reviewed. Exam conducted with a business information manager present. Vitals: Estimated body mass index is 46.74 kg/m as calculated from the following: Height as of 12/4/23: 5' 7 . Weight as of this [...] Freedom Todd DO documented in this encounter [facility] 12-19-2022 History of Present illness Narrative Pt is a 27 year old female conceived via Letrozole 5 mg and partner IUI presenting today for OB ultrasound to assess for viabilityLMP 12/19/22IUI 01/02/23Pt denies pelvic pain or vaginal bleeding Kiet 310 IVF Work Phone: 07-26-2022 Note Diagnoses/Problems [...] consultation of which greater than 50% was xkul-ib-meeb counseling. There is no contraindication to conception [...] BMI >40 History of Present IllnessDear Mrs. Gomez, We had the opportunity to see your [...] MD; Aug 06 2022 2:57PM EST (Author) [employer] 07-24-2022 Chief complaint Narrative - Reported An [...] Follow Up Visit to review testing results. YV-NTLJK-Ijzrlm 320 Work Phone: 07-24-2022 Chief complaint Narrative [...] testing results. Dilia 206A IVF Work Phone: 08-12-2021 History of Present illness Narrative New Patient FertilityReferred by: [facility]. perez [facility] today by: , Jonel Olmos DATE OF COVID VACCINE: not vaccinated, had COVID in August 2021, fully discussed not interested in vaccinationHistory of present illness: Patient is a 27 year old female who presents withPRIOR EVALUATION / TREATMENTDr. 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 , Jonel Olmos DATE OF COVID VACCINE: not vaccinated, had COVID in August 2021, fully discussed not interested in vaccination, discussed recommendation for vaccination and increased risks of being unvaccinated in pregnancyHistory of present illness: Patient is a 27 year old female who presents with primary infertility.PRIOR EVALUATION / TREATMENTDr. 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 Charleen 1200 Work Phone: Chief complaint Narrative - Reported The patient is being seen today for New Patient fertility Consultation. DY-GXZNO-Sipcep 320 Work Phone: Chief complaint Narrative - Reported The patient is being seen today for New Patient fertility Consultation. LB-NWNSE-Kwiwgpi IVF Work Phone: Chief complaint Narrative - Reported An interactive audio and video telecommunication system which permits real time communications between the patient (at the originating site) and provider (at the distant site) was utilized to provide this telehealth service.Preconception consultation requested by Jeannie Gomez for BMI >40 LZ-GGQOZ-Vkzbqso 1200 Work Phone: Evaluation + Plan note Future Appointments Appointment Date:01/15/2025 01:40:00 PM Scheduled Provider:Filemon Toussaint Location:[facility] Appointment Type:[facility] Evaluation note Diagnosis PCOS (polycystic ovarian syndrome) Polycystic ovaries documented in this encounter [employer] Phone: evaluation note* Diagnosis PCOS (polycystic ovarian syndrome) Polycystic ovaries documented in this encounter [employer] Phone: evalzsyusq note* Diagnosis Amenorrhea Absence of menstruation PCOS (polycystic ovarian syndrome) Polycystic ovaries [facility] Narrative* Patient is a 27 year old female with primary infertility presenting today for follow up visit. * Diagnosis to date: primary infertility * Treatment to date: * Dr. 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[employer]) * Prior fertility history: 2 children in [...] % Normal4.8%=4% Dilia 206A IVF Work Phone: Hospital course Narrative No data available for this section [facility] Hospital Discharge instructions No data available for this section [facility] Progress note No data available for this section [facility] Assessments Diagnosis BMI 50.0-59.9, adult (HCC) Body Mass Index 50.0-59.9, adult Pelvic pain in female Unspecified symptom associated with female genital organs Routine Papanicolaou smear Screening for malignant neoplasm of the cervix Advance Directives No Advanced Directives Records FoundDocuments on File Type Date Recorded Patient Air Brush Decorator Expl anation Advance Directives and Living Will Power of Analytics Lead Documents on File Type Date Recorded Patient Air Brush Decorator Expl anation ACP-Advance Directive ACP-Power of Analytics Lead Summary Purpose Family History No Family History Records FoundNo Family History Records FoundNo Family History Records FoundNo Family History Records FoundNo Family History Records FoundNo Family History Records Found No data available for this section No Family History Records FoundNo Family History Records Found Chief Complaint patient presents for an HSGKylie is here for partner IUI #1Kylie is here for partner IUI #1patient presents for an IUI-H # 2IUI-H* A telephone visit (audio only) between the [...] pital DATE CREATED AUTHOR AUTHOR'S ORGANIZ ATION 02/08/2023 [employer] DATE CREATED AUTHOR AUTHOR'S ORGANIZ ATION 02/17/2023 [facility] DATE CREATED AUTHOR AUTHOR'S ORGANIZ ATION 03/29/2023 [facility] DATE CREATED AUTHOR AUTHOR'S ORGANIZ ATION 10/03/2023 [facility] DATE CREATED AUTHOR AUTHOR'S ORGANIZ ATION 08/28/[address] [facility] EPIC DATE CREATED AUTHOR AUTHOR'S ORGANIZ ATION 05/15/2025 [facility] DATE CREATED AUTHOR AUTHOR'S ORGANIZ ATION 05/27/2025 [facility] Care Teams (unrecognized sec tion and content) Pca Relationship Specialty Start Date End Date Chey Gomez MD PCP - General 07/28/14 Pca Relationship Specialty Start Date End Date Chey Gomez MD PCP - General 07/28/14 Pca Relationship Specialty Start Date End Date Chey [...] BE BASED ON THE PRIMARY CLINICAL RECORDS. [employer]. provides no warranty or guarantee of the accuracy or completeness of information in this document.
== END 2025-05-29 10:02 | disposition home or self-care (01) ==
LOC: RAD 10:03
PROVIDERS: PCP Nurse Practitioner; Visit Provider Nurse Practitioner Family
DX: M25.532 Pain in left wrist (principal)
CPT/HCPCS: 73110

== ENCOUNTER 2025-06-10 20:06 | Outpatient (REF) | payer OTHER, SELFPAY ==
--- OUTSIDE RECORDS SUMMARY | 2025-06-01 14:15 | XMS_ITS | Encounter Summary ---
Author Organization [facility] Address [address] [place] [place] [address] Care Team Providers Care Coffee Sampler Name Role Phone Ellen Macariodi POST ACUTE CARE NURSE PRACTITIONER Unavailable Reason for Visit * Reason Comments Fracture Encounter Details Date Type Department Care Team (Late st Contact Info) Description 06/01/2025 2:15 PM EDT Office Visit [facility] [address] [place] [phone] Jos Michael DO [address] [place] [address] Other closed extra-articular fracture of distal end of left radius, initial encounter (Primary Dx); Acute wrist pain, left Social History Tobacco Use Types Packs/Day Years Used Date Smoking Tobacco: Never Smokeless Tobacco: Never Tobacco Cessation:Counseling Given: Not Answered Alcohol Use Standard Drinks/Week Comments Never 0 (1 standard drink = 0.6 oz pur e alcohol) Comments Unknown Sex and Gender Information Value Date Recorded Sex Assigned at Female 04/25/2023 7:30 PM EDT Legal Sex Female 12:16 PM EDT Gender Identity Female 04/25/2023 7:30 PM EDT Sexual Orientation Straight 04/25/2023 7: 30 PM EDT documented as of this encounter Last Filed Vital Signs Vital Sign Reading Time Taken Comments Blood Pressure - - Pulse - - Temperature - - Respiratory Rate - - Oxygen Saturation - - Inhaled Oxygen Concentration - - Weight 117 kg (259 lb) 06/01/2025 2:15 PM EDT Height 170.2 cm (5' 7 ) 06/01/2025 2:15 PM EDT Body Mass Index 40.57 06/01/2025 2:15 PM EDT documented in this encounter Progress Notes * Aylin Jauregui - 06/01/2025 2:15 PM EDT Images from the original note were not included. Sandra Vicente is a 30 y.o. female presents with chief complaint of left wrist fracture. HPI: Sandra is a 30-year-old right hand dominant white female who presents after a mechanical fall. She was canoeing, fell back on an outstretched hand. This happened on 05-23-2025. She did initially have x-rays, did have a follow up with primary care through the [facility] and had a re-x-ray. Sheis referred here. She does call for an appointment. She is accommodated as an urgent add-on appointment here today. She has been in the wrist splint. This wrist splint has actually fractured on her. 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 SUBJECTIVE: MEDICATIONS: Current Outpatient Medications Medication Instructions Adderall XR 30 MG 24 hr capsule 30 mg Apri 0.15-30 MG-MCG tablet Take by mouth metFORMIN (Glucophage) 500 MG tablet Mounjaro 5 MG/0.5ML solution auto-injector ALLERGIES: No Known Allergies SURGICAL HISTORY: Past Surgical History: Procedure Laterality Date SECTION, LOW TRANSVERSE 09/25/23 TONSILECTOMY, ADENOIDECTOMY, BILATERAL MYRINGOTOMY AND TUBES FAMILY HISTORY: Family History Problem Relation Name Age of Onset Migraines Mother Kate anastasiya Thyroid disease Mother Kate anastasiya Diabetes Maternal Grandfather Jonel anastasiya Hyperlipidemia Maternal Grandfather Jonel anastasiya Hypertension Maternal Grandfather Jonel anastasiya Rheum arthritis Maternal Grandmother Alanna anastasiya Osteoarthritis Maternal Grandmother Alanna anastasiya Heart failure Maternal Grandmother Alanna anastasiya Heart failure Paternal Grandfather Cruzito anastasiya Hyperlipidemia Paternal Grandmother Lu gunderson Asthma Brother Otoniel talbert SOCIAL HISTORY: Social History Tobacco Use Smoking status: Never Smokeless tobacco: Never Vaping Use Vaping status: Never Used Substance Use Topics Alcohol use: Never Drug use: Never Depression: Not at risk (05/20/2020) Received from [facility] PHQ-2 PHQ-9 Total Score: 0 REVIEW OF SYMPTOMS: The review of systems, history and current medications list are all reviewed today. OBJECTIVE: Visit Vitals Ht 5' 7 Wt 259 lb BMI 40.57 kg/m?? OB Status Unknown Smoking Status Never BSA 2.35 m?? Physical Exam Her orthopedic exam here today reveals tenderness right over the distal radius fracture site, nothing over the ulna. Nothing over the scapholunate area. No swelling. Her radial and ulnar pulses are brisk. She does have a permanent chain bracelet over the wrist area. Examination of the contralateral right wrist reveals arc of motion without difficulty. No tenderness to palpation. Neurocirculatory status is overall grossly intact. X-rays from the [facility] AP, lateral and obliques of the left wrist and do show a small distal radius fracture seen best on the lateral. She does have some apparent scapholunate widening, but this does not correlate clinically. There is no evidence of an instability pattern. Bone quality is appropriate for age and gender. ASSESSMENT AND PLAN: Assessment/Plan Left distal radius fracture, status post fall with pain. The findings are discussed. We will fit her with an [id number] wrist splint. We did discuss appropriate post splinting care and fracture care in general. We will see her back in two weeks around the one month kimberly for x-ray and recheck. All of her questions are otherwise answered this day. She is discharged in stable condition. She will call with any problems, questions or concerns in the meantime. 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 Follow up letter sent to Carin Macario. Cosigned by Jos Michael DO at 06/02/2025 3:50 PM EDT documented in this encounter Plan of Treatment Upcoming Encounters Date Type Department Care Team (Late st Contact Info) Description 06/15/2025 10:30 AM EDT [facility] [address] [facility] [place] [address] Jos Michael, DO [address] [place] [address] documented as of this encounter Goals Goal Patient Goal Type Associated Problems Recent Progress Patient-Stated? Author Reminders Care Plan OB Reminders No Open Scheduling, Background documented as of this encounter Visit Diagnoses Diagnosis Other closed extra-articular fracture of distal end of left radius, initial encounter- Primary Acute wrist pain, left documented in this encounter Additional Health Concerns Active Problems Noted Date Diagnosed Date OB Reminders 05/12/2023 documented as of this encounter Care Teams Coffee Sampler Relationship Specialty Start Date End Date Carin Macario NP [address] [place] [address] Referring Physician Family Medicine 06/01/25 documented as of this encounter
--- OUTSIDE RECORDS SUMMARY | 2025-06-10 11:00 | XMS_ITS | Encounter Summary ---
Author Organization [facility] Address [address] [place] [place] [address] Care Team Providers Care Hand Stitcher Name Role Phone Renaldo, Carin EDITOR FARM JOURNAL Unavailable Reason for Visit * Reason Comments Gynecologic Exam Encounter Details Date Type Department Care Team (Late Contact Info) Description 06/10/2025 11:00 AM EDT Office Visit [facility] [address] [place] [address] Kesha Dc, MATI [address] [place] [address] Well woman exam with routine gynecological exam Social History Tobacco Use Types Packs/Day Years Used Date Smoking Tobacco: Never Smokeless Tobacco: Never Tobacco Cessation:Counseling Given: Not Answered Alcohol Use Standard Drinks/Week Comments Never 0 (1 standard drink = 0.6 oz pur e alcohol) Comments No Sex and Gender Information Value Date Recorded Sex Assigned at Female 04/25/2023 7:30 PM EDT Legal Sex Female 12:16 PM EDT Gender Identity Female 04/25/2023 7:30 PM EDT Sexual Orientation Straight 04/25/2023 7: 30 PM EDT documented as of this encounter Last Filed Vital Signs Vital Sign Reading Time Taken Comments Blood Pressure 124/76 06/10/2025 11:15 AM EDT Pulse - - Temperature - - Respiratory Rate - - Oxygen Saturation - - Inhaled Oxygen Concentration - - Weight 116 kg (255 lb) 06/10/2025 11:15 AM EDT Height - - Body Mass Index 39.94 06/01/2025 2:15 PM EDT documented in this encounter Progress Notes * Kesha Dc NP - 06/10/2025 11:00 AM EDT Reason for Appointment: Patient ID: Sandra Vicente is a 30 y.o. female who presents for Gynecologic Exam Patient presents today for Annual Exam. MEDICATIONS Current Outpatient Medications Medication Instructions Adderall XR 30 MG 24 hr capsule 30 mg Apri 0.15-30 MG-MCG tablet Take by mouth metFORMIN (Glucophage) 500 MG tablet Mounjaro 5 MG/0.5ML solution auto-injector ALLERGIES No Known Allergies PROBLEMS Active Ambulatory Problems Diagnosis Date Noted PCOS (polycystic ovarian syndrome) 06/14/2023 Resolved Ambulatory Problems Diagnosis Date Noted No Resolved Ambulatory Problems Past Medical History: Diagnosis Date Diabetes mellitus (HCC) Infertility, female 01/02/2023 HISTORY PAST MEDICAL HISTORY SOCIAL HISTORY Past Medical History: Diagnosis Date Diabetes mellitus (HCC) Infertility, female 01/02/2023 IUI PCOS (polycystic ovarian syndrome) Social History Tobacco Use Smoking status: Never Smokeless tobacco: Never Vaping Use Vaping status: Never Used Substance Use Topics Alcohol use: Never Drug use: Never FAMILY HISTORY Family History Problem Relation Name Age of Onset Migraines Mother Kate anastasiya Thyroid disease Mother Kate anastasiya Diabetes Maternal Grandfather Jonel anastasiya Hyperlipidemia Maternal Grandfather Jonel anastasiya Hypertension Maternal Grandfather Jonel anastasiya Rheum arthritis Maternal Grandmother Alanna anastasiya Osteoarthritis Maternal Grandmother Alanna anastasiya Heart failure Maternal Grandmother Alanna anastasiya Heart failure Paternal Grandfather Cruzito anastasiya Hyperlipidemia Paternal Grandmother Lu stockton Asthma Brother Otoniel talbert SURGICAL HISTORY Past Surgical History: Procedure Laterality Date SECTION, LOW TRANSVERSE 09/25/23 TONSILECTOMY, ADENOIDECTOMY, BILATERAL MYRINGOTOMY AND TUBES REVIEW OF SYSTEMS Review of Systems: Review of Systems Constitutional: Negative. HENT: Negative. Eyes: Negative. Respiratory: Negative. Cardiovascular: Negative. Gastrointestinal: Negative. Genitourinary: Negative. Musculoskeletal: Negative. Skin: Negative. Neurological: Negative. All other systems reviewed and are negative. Hematological: Negative. Endocrine: Negative. Allergic/Immunologic: Negative. OBJECTIVE Objective: Physical Exam Constitutional: Appearance: Normal appearance. She is well-developed. Genitourinary: Vulva normal. Cardiovascular: Rate and Rhythm: Normal rate and [...] nursing note reviewed. Exam conducted with a integrated circuit layout designer present. Vitals: Estimated body mass index is 39.94 kg/m?? as calculated from the following: Height as of 06/01/25: 5' 7 . Weight as of this encounter: 255 lb. BP: 124/76 Patient's last menstrual period was 05/25/2025 (approximate). ASSESSMENT & PLAN ICD-10-CM 1. Well woman exam with routine gynecological exam Z01.419 Pap Smear Annual Exam: Patient presents today for an annual exam. Patient states she is doing well and has no complaints. Pap was obtained without difficulty. No orders of the defined types were placed in this encounter. Follow Up: Patient is to return in one year for annual unless needed otherwise. Documented by Bernarda Fonseca MA on behalf of: Kesha Dc NP documented in this encounter Plan of Treatment Upcoming Encounters Date Type Department Care Team (Late st Contact Info) Description 06/15/2025 10:30 AM EDT Office Visit [facility] [address] [place] [phone] Jos Michael DO [address] [place] [address] Scheduled Orders Name Type Priority Associated Diagnoses Orde r Schedule Pap Smear Pathology and Cytology Routine Well woman exam with routine gynecological exam Ordered: 06/10/2025 documented as of this encounter Goals Goal Patient Goal Type Associated Problems Recent Progress Patient-Stated? Author Reminders Care Plan OB Reminders No Open Scheduling, Background documented as of this encounter Visit Diagnoses Diagnosis Well woman exam with routine gynecological exam Routine gynecological examination documented in this encounter Additional Health Concerns Active Problems Noted Date Diagnosed Date OB Reminders 05/12/2023 documented as of this encounter Care Teams Hand Stitcher Relationship Specialty Start Date End Date Carin Macario NP [address] [place] [address] Referring Physician Family Medicine 06/01/25 documented as of this encounter
--- OUTSIDE RECORDS SUMMARY | 2025-06-10 20:10 | XMS_ITS | Encounter Summary ---
Author Organization De[facility]re Cameron[facility]n [facility] Address [address], [address] [place] [address] Care Team Providers Care Filtering Machine Tender Helper Name Role Phone Gio Abdi MD Primary Care Provider [phone] Reason for Visit * Reason Onset Date Comments Medication Refill 08/04/2020 Encounter Details Date Type Department Care Team (Late st Contact Info) Description 08/04/2020 Refill [facility] [address] [place] [address] [address] [place] [address] Ga Perez MD [address] [place] [address] Medication Refill Social History Tobacco [...] ovaries documented in this encounter Care Teams Filtering Machine Tender Helper Relationship Specialty Start Date End Date Gio Abdi MD PCP - General 07/28/14 documented as of this encounter
--- OUTSIDE RECORDS SUMMARY | 2025-06-10 20:10 | XMS_ITS | Encounter Summary ---
Author Organization [facility] Address [address] [place] [address] Care Team Providers Care Software Project Manager Name Role Phone Carin Macario [employer] COORDINATOR Unavailable Encounter Details Date Type Department Care Team ([facility] Contact Info) Description 04/28/2023 Abstract [facility] [address] [place] [phone] Rosenda Puente PA [address] [place] [address] Social History Tobacco Use Types Packs/Day [...] Upcoming Encounters Date Type Department Care Team ([facility] Contact Info) Description 06/15/2025 10:30 AM EDT Office Visit [facility] [address] [place] [address] Jos Michael, DO [address] [place] [address] documented as of this encounter Visit Diagnoses Not on filedocumented in this encounter Care Teams Software Project Manager Relationship Specialty Start Date End Date Carin Macario NP [address] [place] [address] Referring Physician Family Medicine 06/01/25 documented as of this encounter
--- OUTSIDE RECORDS SUMMARY | 2025-06-10 20:10 | XMS_ITS | Encounter Summary ---
Author Organization [facility] Address [address] [place] [place] [address] Care Team Providers Care Forest Pathology Associate Professor Name Role Phone Carin Macario VETERINARY MICROBIOLOGIST Unavailable Encounter Details Date Type Department Care Team (Late Contact Info) Description 04/19/2023 Abstract [facility] [address] [place] [address] Freedom Todd [address] [place], [place] [phone] Social History Tobacco Use Types Packs/Day Years [...] Department Care Team (Late Contact Info) Description 06/15/2025 10:30 AM EDT Office Visit [facility] [address] [place] [phone] Jos Michael DO [address] [place] [address] documented as of this encounter Visit Diagnoses Not on filedocumented in this encounter Care Teams Forest Pathology Associate Professor Relationship Specialty Start Date End Date Carin Macario NP [address] [place] [address] Referring Physician Family Medicine 06/01/25 documented as of this encounter
--- OUTSIDE RECORDS SUMMARY | 2025-06-10 20:10 | XMS_ITS | Encounter Summary ---
Author Organization [facility] Address [address] [place] [place] [address] Care Team Providers Care Family Development Specialist Name Role Phone Carin Macario ACTIVITY LEADER Unavailable Encounter Details Date Type Department Care Team (Late Contact Info) Description 06/10/2025 Bamboo flowsheet [facility] [address] [place] [address] Kesha Dc, MATI [address] [place] [address] Social History Tobacco Use Types Packs/Day Years Used Date Smoking Tobacco: Never Smokeless Tobacco: Never Alcohol Use Standard Drinks/Week Comments Never 0 [...] Office Visit [facility] [address] [place] [phone] Jos Michael DO [address] [place] [address] documented as of this encounter Goals Goal Patient Goal Type Associated Problems Recent Progress Patient-Stated? Author Reminders Care Plan OB Reminders No Open Scheduling, Background documented as of this encounter Visit Diagnoses Not on filedocumented in this encounter Additional Health Concerns Active Problems Noted Date Diagnosed Date OB Reminders 05/12/2023 documented as of this encounter Care Teams Family Development Specialist Relationship Specialty Start Date End Date Carin Macario NP [address] [place] [address] Referring Physician Family Medicine 06/01/25 documented as of this encounter
--- OUTSIDE RECORDS SUMMARY | 2025-06-10 20:10 | XMS_ITS | Encounter Summary ---
Author Organization [facility] Address [address] [place] [address] Care Team Providers Care Law Enforcement Director Name Role Phone Carin Macario EFFICIENCY ANALYST Unavailable Encounter Details Date Type Department Care Team (Late Contact Info) Description 06/01/2025 Bamboo flowsheet [facility] [address] [place] [address] Jos Michael DO [address] [place] [address] Social History Tobacco Use Types Packs/Day Years [...] Visit [facility] [address] [facility] [place] [address] Jos Michael DO [address] [place] [address] documented as of this encounter Goals Goal Patient Goal Type Associated Problems Recent Progress Patient-Stated? Author Reminders Care Plan OB Reminders No Open Scheduling, Background documented as of this encounter Visit Diagnoses Not on filedocumented in this encounter Additional Health Concerns Active Problems Noted Date Diagnosed Date OB Reminders 05/12/2023 documented as of this encounter Care Teams Law Enforcement Director Relationship Specialty Start Date End Date Carin Macario NP [address] [place] [address] Referring Physician Family Medicine 06/01/25 documented as of this encounter
--- OUTSIDE RECORDS SUMMARY | 2025-06-10 20:10 | XMS_ITS | Clinical Summary ---
Author Organization [facility] Address [address] [place] [address] Care Team Providers Care Steel Loader Name Role Phone Carin Macario IAN Primary Care Provider [phone] Allergies No known active allergies Medications No known medications Encounters Date Type Department Care Team Description 05/23/2025 6:28 PM EDT - 05/23/2025 8:33 PM EDT Emergency [facility] Emergency Department [address] [place] [address] Jourdan Avila MD Discharge Disposition: Home 05/23/2025 [...] Final Result from Last [address] [facility] Care Teams Steel Loader Relationship Specialty Start Date End Date Carin Macario CNP [address] [place] [address] PCP - General Nurse Practitioner 05/23/25
--- OUTSIDE RECORDS SUMMARY | 2025-06-10 20:10 | XMS_ITS | Encounter Summary ---
Author Organization [facility] Address [address] [place] [address] Care Team Providers Care Geographic Information Scientist Name Role Phone Carin Macario READING INTERVENTIONIST Unavailable Encounter Details Date Type Department Care Team (Latest Contact Info) Description 06/01/2025 Travel Social History Tobacco Use Types Packs/Day [...] Visit [facility] [address] [facility] [place] [phone] Jos Michael DO [address] [place] [address] documented as of this encounter Goals Goal Patient Goal Type Associated Problems Recent Progress Patient-Stated? Author Reminders Care Plan OB Reminders No Open Scheduling, Background documented as of this encounter Visit Diagnoses Not on filedocumented in this encounter Additional Health Concerns Active Problems Noted Date Diagnosed Date OB Reminders 05/12/2023 documented as of this encounter Care Teams Geographic Information Scientist Relationship Specialty Start Date End Date Carin Macario NP [address] [place] [address] Referring Physician Family Medicine 06/01/25 documented as of this encounter
--- OUTSIDE RECORDS SUMMARY | 2025-06-10 20:10 | XMS_ITS | Encounter Summary ---
Author Organization [facility] Address [address] [place] [address] Care Team Providers Care Linux Kernel Developer Name Role Phone Carin Macario SLASHER OPERATOR Unavailable Encounter Details Date Type Department Care Team (Late Contact Info) Description 07/23/2023 Clinisync Result Encounter [facility] External Department Unsolicited Armin Todd, DO [address] [place], [place] [phone] Social History Tobacco Use Types Packs/Day Years [...] EDT Office Visit [facility] [address] [place] [phone] Garland Michael DO [address] [place] [address] documented as of this encounter Goals Goal [...] PM EDT Narrative 07/23/2023 5:07 PM EDT [address] [address] Ultrasound Report Signed Patient: SANDRA DEAN MR#: [id number] : 1995 Acct:[id number] Age/Sex: 28 / F ADM Date: 07/23/23 Loc: US Attending Dr: Armin Todd D.O. Ordering Physician: Armin Todd D.O. Date of Service: 07/23/23 Procedure(s): US OB growth Accession Number(s): [id number] cc: Armin Todd D.O.; Physician,Non-Staff M.DJeremias The [address] [address] Patient Name: SANDRA DEAN MRN: [facility]:[id number] date: 1995 Sex: F Assigned Patient Location: US Current Patient Location: US Accession/Order Number: [id number] Exam Date: 07/23/2023 08:04 Report Date: 07/23/2023 [...] M.D. Signed By: 07/23/231709 DD/ 06 TD/TT: Technology Administrator: Procedure Note Radiology, Radiologist, MD - 08/03/2023 [place] [address] Ultrasound Report Signed Patient: SAMI DEAN#: [id number] : 1995Acct:[id number] Age/Sex: 28 / FADM Date: 07/23/23 Loc: US Attending Dr: Armin Todd D.O. Ordering Physician: Armin Todd D.O. Date of Service: 07/23/23 Procedure(s): US OB growth Accession Number(s): [id number] cc: Armin Todd D.O.; Physician,Non-Staff Tommy The [address] [address] Patient Name: SANDRA DEAN MRN: [id number] date: 1995 Sex: F Assigned Patient Location: US Current Patient Location: US Accession/Order Number: [id number] Exam Date: 07/23/2023 08:04 Report Date: 07/23/2023 [...] Heath M.D. Signed By:07/23/231709 DD/ 06 TD/TT: Technology Administrator: us Armin Todd DO [facility] Final Result documented in this encounter Visit Diagnoses Not on filedocumented in this encounter Additional Health Concerns Active Problems Noted Date Diagnosed Date OB Reminders 05/12/2023 documented as of this encounter Care Teams Linux Kernel Developer Relationship Specialty Start Date End Date Carin Macario NP [address] [place] [address] Referring Physician Family Medicine 06/01/25 documented as of this encounter
--- OUTSIDE RECORDS SUMMARY | 2025-06-10 20:10 | XMS_ITS | Encounter Summary ---
Author Organization Deandre Cameronryan Lawrencetonio [facility] Address [address], [address] [place] [address] Care Team Providers Care Network Account Manager Name Role Phone Gio Abdi MD Primary Care Provider [phone] Reason for Visit * Reason Onset Date Comments Medication Refill 06/23/2020 Encounter Details Date Type Department Care Team (Late st Contact Info) Description 06/23/2020 [facility] OBSTETRICS & GYNECOLOGY [address] [place] [address] [address] [place] [address] Ga Perez MD [address] [place] [address] Medication Refill Social History Tobacco [...] on filedocumented in this encounter Care Teams Network Account Manager Relationship Specialty Start Date End Date Gio Abdi MD PCP - General 07/28/14 documented as of this encounter
--- OUTSIDE RECORDS SUMMARY | 2025-06-10 20:10 | XMS_ITS | Encounter Summary ---
Author Organization [facility] Address [address] [place] [address] Phone Care Team Providers Care Telesales Consultant Name Role Phone Jeannie Abdi COUNTY NURSE-CABLE MAINTAINER Unavailable [phone] Encounter Details Date Type Department Care Team (Late st Contact Info) Description 01/18/2023 Orders Only [facility] [address] [place] [address] Conversion, Onbase Social History Tobacco Use Types [...] on filedocumented in this encounter Care Teams Telesales Consultant Relationship Specialty Start Date End Date Jeannie Abdi, COUNTY NURSE-CABLE MAINTAINER [address] [place] [address] PCP - MMO ACO PCP 07/13/22 03/11/23 documented as of this encounter
--- OUTSIDE RECORDS SUMMARY | 2025-06-10 20:10 | XMS_ITS | Encounter Summary ---
Author Organization [facility] Address [address] [place] [address] Phone Care Team Providers Care Rn Assessment Name Role Phone Jeannie Abdi BUTTON FACING MACHINE OPERATOR-SLOT FLOOR SUPERVISOR Unavailable [phone] Encounter Details Date Type Department Care Team (Late st Contact Info) Description 02/06/2023 Orders Only [facility] [address] [place] [address] Conversion, Onbase Social History Tobacco Use Types [...] filedocumented in this encounter Care Teams Rn Assessment Relationship Specialty Start Date End Date Jeannie Abdi, BUTTON FACING MACHINE OPERATOR-SLOT FLOOR SUPERVISOR [address] [place] [address] PCP - MMO ACO PCP 07/13/22 03/11/23 documented as of this encounter
--- OUTSIDE RECORDS SUMMARY | 2025-06-10 20:10 | XMS_ITS | Clinical Summary ---
Author Organization [facility] Address [address] [place] [address] Care Team Providers Care Personnel Consultant Name Role Phone Renaldo, Carin ENTOMOLOGY TEACHER Unavailable Allergies No known active allergies Medications Adderall XR 30 MG 24 hr capsule Take 30 mg by mouth 05/04/20 25 Active Apri 0.15-30 MG-MCG tablet Take by mouth 05/21/20 25 Active metFORMIN (Glucophage) 500 MG tablet 02/24/20 25 Active Mounjaro 5 MG/0.5ML solution auto-injector 05/14/20 25 Active medroxyPROGEST ERone (Provera) 10 MG tabletIndicati ons:Amenorrhea Take 1 tablet (10 mg) by mouth Daily Take 1 tablet by mouth daily for 7 days beginning on day 16 of the menstrual cycle. 14 tablet 3 08/26/20 24 025 Discontinued TIRZEPATIDE SC Inject 5 mg under the skin 05/13/20 25 025 Discontinued Active Problems Problem Noted Date Diagnosed Date PCOS (polycystic ovarian syndrome) 06/14/2023 Encounters Date Type Department Care Team Description 06/10/2025 11:00 AM EDT Office Visit [facility] [address] [place], [place] [address] [phone] Kesha Dc NP Well woman exam with routine gynecological exam 06/10/2025 Bamboo flowsheet [facility] [address] [place] [address] Kesha Dc NP 06/01/2025 2:15 PM EDT Office Visit [facility] [address] [place] [address] Jos Michael, Other closed extra-articular fracture of distal end of left radius, initial encounter (Primary Dx); Acute wrist pain, left 06/01/2025 Bamboo flowsheet [facility] [address] [place] [address] Jos Michael DO 06/01/2025 Travel from Last 3 Months Family History Medical History Relation Name Comments Asthma Brother Otoniel talbert Diabetes Maternal Grandfather Jonel anastasiya Hyperlipidemia Maternal Grandfather Jonel anastasiya Hypertension Maternal Grandfather Jonel anastasiya Heart failure Maternal Grandmother Alanna anastasiya Osteoarthritis Maternal Grandmother Alanna anastasiya Rheum arthritis Maternal Grandmother Alanna anastasiya Migraines Mother Kate anastasiya Thyroid disease Mother Kate anastasiya Heart failure Paternal Grandfather Cruzito anastasiya Hyperlipidemia Paternal Grandmother Lu gunderson Relation Name Status Comments Brother Otoniel talbert Alive Daughter Alive Maternal Grandfather Jonel anastasiya Alive Maternal Grandmother Alanna anastasiya Alive Mother Kate anastasiya Alive Paternal Grandfather Cruzito anastasiya Alive Paternal Grandmother Lu gunderson Alive Social History Tobacco Use Types Packs/Day [...] (255 lb) 06/10/2025 11:15 AM EDT Height 170.2 cm (5' 7 ) 06/01/2025 2:15 PM EDT Body Mass Index 39.94 06/01/2025 2:15 PM EDT Plan of Treatment Upcoming Encounters Date Type Department Care Team (Late st Contact Info) Description 06/15/2025 10:30 AM EDT Office Visit [facility] [address] [place] [phone] PocJos galo DO [address] [place] [address] Goals Goal Patient Goal Type Associated Problems Recent Progress Patient-Stated? Author Reminders Care Plan OB Reminders No Open Scheduling, Background Additional Health Concerns Active Problems Noted Date Diagnosed Date OB Reminders 05/12/2023 Insurance [employer] Care Teams Personnel Consultant Relationship Specialty Start Date End Date Carin Macario NP [address] [place] [address] Referring Physician Family Medicine 06/01/25
--- OUTSIDE RECORDS SUMMARY | 2025-06-10 20:10 | XMS_ITS | Clinical Summary ---
Author Organization [facility] Address [address] [place] [address] Phone Care Team Providers Care Piecer Up Name Role Phone Unavailable Primary Care Provider [...] of 1 - Stand nichole series) 1997 Hepatitis B Vaccines (1 of 3 - 19+ 3-dose series) 2015 Cervical Cancer Screening 2017 HPV/Cotest 2017 Pap Smear 2017 DTaP/Tdap/Td Vaccines (1 - Tdap) 2018 HPV Vaccines (1 - 3-dose sta ndard series) 2023 COVID-19 Vaccine (1 - 2023-2 5 season) 2024 Influenza Vaccine [...] AM EDT) Hepatitis C Ab NONREACTIVE NONREACTIVE [facility] Comment: Results from patients taking biotin supplements or receiving high-dose biotin therapy should be interpreted with caution due to possible interference with this test. Providers may contact their local laboratory for further information. 07/03/2022 11:2 6 AM EDT 07/03/2022 9:33 PM EDT us Jeannie Abdi RECREATION PROGRAMMER-DIRECTOR FUNDRAISING LAB BLOOD ORDERABLES Fin al Result [facility] [address] [place] [address] * HIV 1/2 Antigen/Antibody Screen with Reflex to Confirmation (07/03/2022 11:26 AM EDT) HIV 1 and 2 Screen NONREACTIVE NONREACTIVE [facility] Comment: HIV Ag/Ab screen is performed using the Siemens [employer] HIV Ag/Ab Combo assay which detects the presence of HIV p24 antigen as well as antibodies to HIV-1 (Group M and O) and HIV-2. . No laboratory evidence of HIV infection. If acute HIV infection is suspected, consider testing for HIV RNA by PCR (viral load). 07/03/2022 11:2 6 AM EDT 07/03/2022 10:12 PM EDT us Jeannie Abdi RECREATION PROGRAMMER-DIRECTOR FUNDRAISING LAB BLOOD ORDERABLES Fin al Result [facility] [address] [phone] * Lipid Panel (07/03/2022 11:26 AM EDT) Cholesterol 145 0 - 199 mg/dL [facility] Comment: . AGE DESIRABLE BORDERLINE HIGH [...] prior to Metamizole dosing. HDL 46.2 mg/dL [facility] Comment: . AGE VERY LOW LOW NORMAL HIGH 0-19 Y < 35 < 40 40-45 ---- 20-24 Y ---- < 40 >45 ---- >24 Y ---- < 40 40-60 >60 . Cholesterol/HDL Ratio 3.1 [facility] Comment: REF VALUES DESIRABLE < 3.4 HIGH RISK > 5.0 LDL 70 0 - 99 mg/dL [facility] Comment: . NEAR BORD AGE DESIRABLE OPTIMAL HIGH HIGH VERY HIGH 0-19 Y 0 - 109 --- 110-129 >/= 130 ---- 20-24 Y 0 - 119 --- 120-159 >/= 160 ---- >24 Y 0 - 99 100-129 130-159 160-189 >/=190 . VLDL 29 0 - 40 mg/dL [facility] Triglycerides 144 0 - 149 mg/dL [facility] Comment: . AGE DESIRABLE BORDERLINE HIGH [...] 07/03/2022 12:15 PM EDT us Jeannie Abdi RECREATION PROGRAMMER-DIRECTOR FUNDRAISING LAB BLOOD ORDERABLES Fin al Result [facility] [address] [place] [address] from Last 3 Months or Most Recently Relevant to Health Maintenance
--- OUTSIDE RECORDS SUMMARY | 2025-06-10 20:10 | XMS_ITS | Encounter Summary ---
Author Organization [facility] Address [address] [place] [address] Phone Care Team Providers Care Accounts Receivable Coordinator Name Role Phone Jeannie Abdi FOOD GENERAL MANAGER-NONPROFIT FUNDRAISER Unavailable [phone] Encounter Details Date Type Department Care Team (Late st Contact Info) Description 07/04/[address] [facility] [address] [place] [address] Conversion, Onbase Social History Tobacco Use Types [...] on filedocumented in this encounter Care Teams Accounts Receivable Coordinator Relationship Specialty Start Date End Date Jeannie Abdi, FOOD GENERAL MANAGER-NONPROFIT FUNDRAISER [address] [place] [address] PCP - MMO ACO PCP 07/13/22 03/11/23 documented as of this encounter
--- OUTSIDE RECORDS SUMMARY | 2025-06-10 20:10 | XMS_ITS | Encounter Summary ---
Author Organization [facility] Address [address] [place] [address] Care Team Providers Care Parking Regulation Enforcement Officer Name Role Phone Carin Macario AIRCRAFT BODY REPAIRER Unavailable Encounter Details Date Type Department Care Team (Late Contact Info) Description 09/18/2023 Clinisync Result Encounter N[facility] External Department Unsolicited Armin Todd, DO [address] [place], [place] [phone] Social History Tobacco Use Types Packs/Day Years [...] Office Visit [facility] [address] [place] [address] Jos Michael DO [address] [place] [address] documented as of this encounter Goals Goal [...] AM EST Narrative 09/18/2023 10:08 AM EST [address] [address] Ultrasound Report Signed Patient: SANDRA DEAN MR#: [id number] : 1995 Acct:[id number] Age/Sex: 28 / F ADM Date: 09/18/23 Loc: [facility] [address]: Armin Todd D.O. Ordering Physician: Armin Todd D.O. Date of Service: 09/18/23 Procedure(s): US OB BPP wo non-stress Accession Number(s): [id number] cc: Armin Todd D.O.; Physician,Non-Staff M.DJeremias The [address] [address] Patient Name: SANDRA DEAN MRN: [id number] date: 1995 Sex: F [place] [facility] Current Patient Location: [facility] Accession/Order Number: [id number] Exam Date: 09/18/2023 09:20 Report Date: 09/18/2023 [...] Signed By: 09/18/23 1010 DD/ 1008 TD/TT: Throw Out Clerk: Procedure Note Radiology, Radiologist, MD - 09/18/2023 [place] [address] Ultrasound Report Signed Patient: SANDRA DEAN SMR#: [id number] : 1995Acct:[id number] Age/Sex: 28 / FADM Date: 09/18/23 Loc: [facility] [address]: Armin Todd D.O. Ordering Physician: Armin Todd D.O. Date of Service: 09/18/23 Procedure(s): US OB BPP wo non-stress Accession Number(s): [id number] cc: Armin Todd D.O.; Physician,Non-Staff M.Juanita The [place] [address] Patient Name: SANDRA DEAN MRN: [id number] date: 1995 Sex: F Assigned [place] [facility] Current Patient Location: [facility] Accession/Order Number: [id number] Exam Date: 09/18/2023 09:20 Report Date: 09/18/2023 [...] M.D. Signed By:09/18/23 1010 DD/ 1008 TD/TT: Throw Out Clerk: us Armin Perez DO [facility] Final Result documented in this encounter Visit Diagnoses Not on filedocumented in this encounter Additional Health Concerns Active Problems Noted Date Diagnosed Date OB Reminders 05/12/2023 documented as of this encounter Care Teams Parking Regulation Enforcement Officer Relationship Specialty Start Date End Date Carin Macario NP [address] [place] [address] Referring Physician Family Medicine 06/01/25 documented as of this encounter
--- OUTSIDE RECORDS SUMMARY | 2025-06-10 20:10 | XMS_ITS | Clinical Summary ---
Author Organization [facility] Address [address], [address] [place] [address] Care Team Providers Care Recycling Attendant Name Role Phone Gio Abdi MD Primary Care Provider [phone] Allergies No known active allergies Medications diphenhydrAMINE [...] 11:49 AM EDT Pelvic pain in female SAP FICO ARCHITECT CYTOLOGY Routine 03/19/2020 9:12 AM EDT from Last 3 Months or Most Recently Relevant to Health Maintenance Results * C.trachomatis N.gonorrhoeae DNA, Thin Prep (03/19/2020 11:49 AM EDT) Specimen Description .CERVIX 03/19/2020 11:49 AM EDT [facility] Chlamydia By Thin Prep NEGATIVE NEGATIVE 03/19/2020 11:49 AM EDT [facility] Comment: CHLAMYDIA TRACHOMATIS DNA not detected by [...] Prep NEGATIVE NEGATIVE 03/19/2020 11:49 AM EDT [facility] Comment: NEISSERIA GONORRHOEAE DNA not detected by [...] MICROBIOLOGY - GENERAL ORDERA BLES Final Result [facility] [address] [place] [address], [facility] [phone] [phone] * SAP FICO ARCHITECT Cytology (03/19/2020 9:12 AM EDT) Cytology Report INTERPRETATION Cervical material, (ThinPrep vial, Imaging-assisted review): Specimen Adequacy: Satisfactory for evaluation. - Endocervical/trans formation zone component present. Descriptive Diagnosis: Negative for intraepithelial lesion or malignancy. Reactive cellular changes associated with inflammation. Sealing Machine Operator: DEAN Samson M.D. Electronically Signed Out rdd/03/23/2020 Source: 1: Cervical material, (ThinPrep vial, Imaging-assisted review) Clinical History Z12.4 Encounter for screening for malignant neoplasm of cervix High Risk HPV DNA testing is requested if the diagnosis is ASC-US LMP: 11/19/2019 GYNECOLOGIC CYTOLOGY REPORT Patient Name: SANDRA BYRD [facility] Rec: [id number] Path Number: [id number] [facility] ANATOMIC PATHOLOGY [address] [place] [phone] [facility] 03/19/2020 9:12 AM EDT 03/22/2020 9:12 AM EDT us Ga Perez MD PATHOLOGY/CYTOLOGY ORDERABLES Final Result [facility] [address] [place] [address], [facility] [phone] [facility] [address] [place] [address], [facility] [phone] from Last 3 Months or Most Recently Relevant to Health Maintenance [place] [address] [employer] Care Teams Recycling Attendant Relationship Specialty Start Date End Date Gio Abdi MD PCP - General 07/28/14
--- OUTSIDE RECORDS SUMMARY | 2025-06-10 20:10 | XMS_ITS | Encounter Summary ---
Author Organization [facility] Address [address] [place] [address] Care Team Providers Care Used Car Make Ready Mechanic Name Role Phone Carin Macario FARM CROPS TEACHER Unavailable Encounter Details Date Type Department Care Team (Late st Contact Info) Description 09/03/2024 Clinisync Result Encounter NOM[facility] External Department Unsolicited Armin Todd, DO [address] [facility] [address] [place], [place] [id number] Social History Tobacco Use Types Packs/Day Years [...] Office Visit [facility] [address] [facility] [place] [address] Jos Michael DO [address] [place] [address] documented as of this encounter Goals Goal [...] AM EDT Narrative 09/03/2024 11:39 [place] [address] Ultrasound Report Signed Patient: SANDRA DEAN MR#: [id number] : 1995 Acct:[id number] Age/Sex: 29 / F ADM Date: 09/03/24 Loc: US Attending Dr: Armin Todd D.O. Ordering Physician: Armin Todd D.O. Date of Service: 09/03/24 Procedure(s): US pelvis w/ transvaginal Accession Number(s): [id number] cc: Armin Todd D.O.; Physician,Non-Staff M.D. [address] [address] Patient Name: SANDRA DEAN MRN: [id number] date: 1995 Sex: F Assigned Patient Location: US Current Patient Location: US Accession/Order Number: [id number] Exam Date: 09/03/2024 11:01 Report Date: 09/03/2024 [...] Signed By: 09/03/24 1139 DD/ 1136 TD/TT: Supply Clerk: Procedure Note Radiology, Radiologist, MD - 09/03/2024 [place] [address] Ultrasound Report Signed Patient: SANDRA DEAN SMR#: [id number] : 1995Acct:[id number] Age/Sex: 29 / FADM Date: 09/03/24 Loc: US Attending Dr: Armin Todd D.O. Ordering Physician: Armin Todd D.O. Date of Service: 09/03/24 Procedure(s): US pelvis w/ transvaginal Accession Number(s): [id number] cc: Armin Todd D.O.; Physician,Non-Staff Tommy The [place] [id number] Patient Name: SANDRA DEAN MRN: [id number] date: 1995 Sex: F Assigned Patient Location: US Current Patient Location: US Accession/Order Number: [id number] Exam Date: 09/03/2024 11:01 Report Date: 09/03/2024 [...] M.D. Signed By:09/03/24 1139 DD/ 1136 TD/TT: Supply Clerk: us Armin Perez DO [facility] Final Result documented in this encounter Visit Diagnoses Not on filedocumented in this encounter Additional Health Concerns Active Problems Noted Date Diagnosed Date OB Reminders 05/12/2023 documented as of this encounter Care Teams Used Car Make Ready Mechanic Relationship Specialty Start Date End Date Carin Macario NP [address] [place] [address] Referring Physician Family Medicine 06/01/25 documented as of this encounter
--- OUTSIDE RECORDS SUMMARY | 2025-06-10 20:10 | XMS_ITS | Encounter Summary ---
Author Organization [facility] Address [address] [place] [address] Care Team Providers Care Field Professional Name Role Phone Carin Macario SUPERVISOR BEAM DEPARTMENT Unavailable Encounter Details Date Type Department Care Team (Late Contact Info) Description 05/02/2023 Abstract [facility] [place] [facility] [address] [place] [phone] [place] Todd [address] [place], [place] [phone] Social History Tobacco Use Types Packs/Day Years [...] Upcoming Encounters Date Type Department Care Team ([facility] Contact Info) Description 06/15/2025 10:30 AM EDT Office Visit [facility] [address] [place] [address] Jos Michael, DO [address] [place] [address] documented as of this encounter Visit Diagnoses Not on filedocumented in this encounter Care Teams Field Professional Relationship Specialty Start Date End Date Carin Macairo NP [address] [place] [address] Referring Physician Family Medicine 06/01/25 documented as of this encounter
--- OUTSIDE RECORDS SUMMARY | 2025-06-10 20:11 | XMS_ITS | CCD ---
Author Organization [facility] Care Team Providers Care Schedule Announcer Name Role Phone Chey Gomez Primary Care Provider [phone] DAVID PEREZ Referring Unavailable CHEY GOMEZ Primary [...] Unavailable PEREZ ., DR FUNEZ Admitting Unavailable TISHOMINGO, DR GARLAND German Consulting Unavailable PEREZ ., DR FUNEZ Attending Unavailable PEREZ ., DR FUNEZ Consulting Unavailable CHEY GOMEZ Primary Care Unavailable PATRICIA, JEANNIE Referring Unavailable PATRICIA, CHEY Padron Primary Care Unavailable PATRICIA, JEANNIE Referring Unavailable PATRICIA, CHEY Padron Primary Care Unavailable AUGUSTUS SALAZAR Attending Unavailable PATRICIA, CHEY Padron Primary Care Unavailable PATRICIA, JEANNIE Referring Unavailable Unavailable Primary Care Provider UnavailChey Hernandez Primary Care Physician [phone] Rosendo, EMR SPECIALIST Filemon L Attending Unavailable Rosendo, EMR SPECIALIST Filemon L Attending Unavailable KITCHRISTOPH Attending Unavailable Rosendo, EMR SPECIALIST Filemon L Attending Unavailable Rosendo, EMR SPECIALIST Filemon L Attending Unavailable Rosendo, EMR SPECIALIST Filemon L Attending Unavailable Rosendo, EMR SPECIALIST Filemon L Attending Unavailable NISREENANT Attending U navailable ROSENDO, FILEMON SWIFT Primary Care Unavailable Rosendo BUTTON RECLAIMER, Filemon Unavailable GARLAND NORRIS Attending Unavailable GARLAND NORRIS Referring Unavailable FREEDOM TODD Attending Unavailable Medications Current Medications Medication Drug Class(es) Dates Sig (Normalized) Sig (Original) 24 hr amphetamine aspartate 7.5 mg / amphetamine sulfate 7.5 mg / dextroamphetamine saccharate 7.5 mg / dextroamphetamine sulfate 7.5 mg extended release oral capsule (6 sources) Central Nervous System Stimulant Start: 05-04-2025 take 1 capsule by mouth every twenty-four hours Adderall XR 30 MG 24 hr capsule Take 30 mg by mouth 05/04/2025 Active Start: 12-17-2024 take 1 capsule by [facility] once daily in the morning Adderall XR 10 mg Cap-ER 10 mg = 1 cap(s), Oral, qAM, # 30 cap(s), Refills(s) 0, Pharmacy: [facility], 172.4, cm, 12/17/24 13:14:00 EST, Height/Length [...] the cycle 10 tablet 3 08/04/2021 Active desogestrel 0.15 mg / ethinyl estradiol 0.03 mg oral tablet (6 sources) Progestin, Estrogen Start: 05-21-2025 Apri 0.15- 30 MG-MCG tablet Take by mouth 05/21/2025 Active Start: 12-17-2024 take 1 tablet by luz th once daily Apri oral tablet 1 tab(s), [...] mg oral tablet (20 sources) Biguanide Start: 02-23-2025 metFORMIN (Glu cophage) 500 MG tablet 02/23/2025 Active Start: 12-17-2024 take 1 tablet by luz th twice daily metformin 500 mg Tab 500 mg = 1 tab(s), Oral, BID, # 180 tab(s), Refills(s) 0, Pharmacy: [facility], 172.4, cm, 12/17/24 13:14:00 EST, Height/Length [...] 2 times daily (with meals). 0 Active Mounjaro 5 MG/0.5ML solution auto-injector (5 sources) Start: 05-14-2025 Mounjaro 5 MG/0.5ML solution auto-injector 05/14/2025 Active phentermine hydrochloride 37.5 mg oral tablet [...] oral tablet (3 sources) Vitamin D End: 4 take 1 tablet by mouth in the morning cholecalciferol (Vitamin D3) 25 MCG (1000 UT) tablet Take 1 tablet by mouth in the morning. 08/26/2024 Discontinued 0.5 ml choriogonadotropin david 0.5 mg/ml prefilled syringe (20 sources) Gonadotropin Start: 2 Ovidrel 250 MCG/0.5ML Subcutaneous Injectable INJECT SUBCUTANEOUSLY DIRECTED. Quantity: 1 Refills: 2 Ordered: 15-Sep-2022 Jeannie Jimenez Start : 11-Sep-2022 Active doxycycline hyclate 100 mg oral capsule (2 sources) Tetracycline-cla ss Drug Start: 2 take 1 capsule by mouth once daily Doxycycline Hyclate 100 MG Oral Capsule TAKE 1 CAPSULE EVERY 12 HOURS DAILY. Quantity: 10 Refills: 0 Ordered: 03-Jul-2022 Christina Adamson Start : 03-Jul-2022 Active doxylamine succinate 10 mg / pyridoxine hydrochloride 10 mg delayed release oral tablet (3 sources) Start: 3 take 1 tablet by mouth at bedtime Doxylamine-Pyridoxine 10-10 MG Oral Tablet Delayed Release TAKE 1 TABLET Bedtime one tablet daily at bedtime if no relief increase to one tablet BID if no relief increase to one table TID Quantity: 30 Refills: 0 Ordered: 05-Feb-2023 Jeannie Jimenez Start : 05-Feb-2023 Active folic acid 0.8 mg oral capsule (3 sources) End: 4 take 1 capsule by mouth in the morning Folic Acid 0.8 MG capsule Take 1 capsule by mouth in the morning. 08/26/2024 Discontinued ibuprofen 800 mg oral tablet (3 sources) Nonsteroidal Anti-inflammator y Drug Start: 3 End: 4 ibuprofen 800 MG tablet Take by mouth 09/27/2023 08/26/2024 Discontinued labetalol hydrochloride 200 mg oral tablet (3 sources) beta-Adrenergic Eulalia Start: 3 End: 4 take 1 tablet by mouth in the morning labetalol (Normodyne) 200 MG tablet Take 1 tablet by mouth in the morning and 1 tablet before bedtime. 10/03/2023 08/26/2024 Discontinued letrozole 2.5 mg oral tablet (20 sources) Aromatase Inhibitor Start: 1 Letrozole 2.5 MG Oral Tablet TAKE 2 TABLET Daily for cycle days 3-7 and must have negative urine test prior to starting Quantity: 10 Refills: 1 Ordered: 14-Dec-2022 Jeannie Jimenez Start : 11-Aug-2022 Active medroxyPROGESTERone acetate 10 mg oral tablet (6 sources) Progestin Start: 4 End: 5 take 1 tablet by mouth once daily medroxyPROGESTERone (Provera) 10 MG tablet Indications: Amenorrhea Take 1 tablet (10 mg) by mouth Daily Take 1 tablet by mouth daily for 7 days beginning on day 16 of the menstrual cycle. 14 tablet 3 08/26/2024 06/01/2025 Discontinued Vit-Fe Fumarate-FA ( 1+1 PO) (3 sources) End: 4 Vit-Fe Fumarate-FA ( 1+1 PO) 08/26/2024 Discontinued Vit-Fe Fumarate-FA ( 1+1 PO) Active progesterone 100 mg oral capsule (20 sources) Progesterone Start: 09-11-2022 take 1 capsule by mouth twice daily Progesterone 100 MG Oral Capsule TAKE 1 CAPSULE Twice daily insert vaginally starting 3 days post IUI Quantity: 60 Refills: 2 Ordered: 13-Sep-2022 Jeannie Jimenez Start : 11-Sep-2022 Active TIRZEPATIDE SC (2 sources) Start: 05-13-2025 End: 06-01-2025 TIRZEPATIDE SC Inject 5 mg under the skin 05/13/2025 06/01/2025 Discontinued Problems Active Problems Problem Classification Problem Date Documented Date Episodic/Chronic Abdominal pain (1 source) Pain in female pelvis; Translations: [Pelvic pain in female] Episodic Contraceptive and procreative management (4 sources) Encounter for other procreative management; Translations: [Encounter for fertility testing] Onset: 07-03-2022 Episodic Female infertility (20 sources) Female infertility associated with anovulation; Translations: [Infertility, female, associated with anovulation] Onset: 01-01-2023 Chronic Fracture of upper limb (2 sources) Closed fracture of distal end of radius; Translations: [Other extraarticular fracture of lower end of left radius, initial encounter for closed fracture] 06-01-2025 Episodic Headache; including migraine (1 source) Migraine 05-30-2015 [...] unsp] Onset: 02-05-2023 Episodic Other endocrine disorders (17 sources) Polycystic ovary syndrome; Translations: [Polycystic ovarian [...] source) Disturbance of attention 12-17-2024 Chronic Other non-traumatic joint disorders (2 sources) Pain in wrist; Translations: [Pain in left wrist] 06-01-2025 Episodic Other nutritional; endocrine; and metabolic disorders (3 [...] status; Translations: [Routine Papanicolaou smear] 12-17-2024 Unclassified (10 sources) OB Reminders Onset: 05-12-2023 05-12-2023 Unclassified [...] Test Name Value Interpretation Reference Range Facility Ambulatory Visit Summaryon 0 05-29-2025 Ambulatory Visit Summary Ambulatory Visit Summary SANDRA DEAN :1995 Visit Date:05/29/2025 Ambulatory Visit Instructions Your Diagnosis Wrist pain, left BMI 40.0-44.9, adult Severe obesity (BMI >= 40) Nonsmoker Tests Performed XR Wrist 3+ Views Left -- Results Pending -- Please visit your patient portal for your results or contact your primary care physician. Your Care Team Attending Physician - CHRISTOPH PANTOJA CNP Primary Care Physician - Filemon Toussaint This Is Your Medications List amphetamine-dextroamphetami ne (Adderall XR 30 mg Cap-ER) desogestrel-ethinyl estradiol (Apri oral tablet) metformin (metformin 500 mg Tab) tirzepatide (tirzepatide 5 mg/0.5 mL subcutaneous solution) Procedures Performed section (09/25/2023), Tonsillectomy and adenoidectomy. Discharge Vitals Temperature (Oral) 36.8 ???C Heart Rate (Peripheral) 84 Respiratory Rate 18 Blood Pressure 128/84 Height 172.4 cm Height 68 in Weight 119.2 kg Weight 262.791 lb BMI 40.11 What to do next Scheduled Follow-Up Appointments Sunday 10:40 AM EDT With: Filemon Toussaint Where: [place] [phone]- Medications What How Much When Why Instructions Unchanged amphetamine-dextroamphetami ne (Adderall XR 30 mg [...] subcutaneous solution) 5 Milligram Subcutaneous Every week Allergies No Known Allergies Problems Ongoing - Any problem that you are currently receiving treatment for. Attention deficit control counseling Blood pressure elevated without history of HTN BMI 40.0-44.9, adult Contact dermatitis Cough COVID-19 viremia Establishing care with new doctor, encounter for Fluid level behind tympanic membrane of both ears High risk medication use Insulin resistance Nonsmoker PCOS (polycystic ovarian syndrome) Severe obesity (BMI >= 40) Shortness of breath Historical - Any problem [...] signed up for this yet, please contact VULCUN at [phone] to get signed up today. Language Information Language assistance services are available as needed. Dee Pascual [facility] Family Medicine Office/Clini c Noteon 05-29-2025 Family Medicine Office/Clinic Note Family Medicine Office/Clinic Note Chief Complaint ER follow up The patient complains of left wrist pain. HPI Staff Filemon Macario pt. Presents today for ER follow up. Hospital: [facility] Visit date: 05/23/25 Symptoms the patient presented with: Lt wrist pain Current concerns: Pain has not gotten better. 02/19. ER did do XR pt was told if it's broke in a certain place it may not show up. Has been taking naproxen. I have reviewed and verified the staff HPI to be accurate for this encounter. History of Present Illness 30-year-old female presenting of IAN [place] presenting with with left wrist pain. The pain began following a slip when pulling a raft and she fell backwards and fell onto her outstretched left hand, leading to an emergency room visit where an x-ray was performed. The patient reports significant swelling initially, which has since decreased, but she continues to experience pain and limited range of motion. The patient describes the pain as severe, preventing her from lifting objects such as a gallon of milk. She notes that the wrist cracks with certain movements and that ice application exacerbates the pain, while heat has not been tried. The patient has been using a prescribed naproxen, although it may be , and wears a brace that causes skin irritation. The patient also has a history of severe obesity, with a BMI of 40 or greater, which was not directly addressed in this visit. Review of Systems PHQ Score Initial Depression Screen Score: 0 SCORE - Musculoskeletal: Reports severe pain in the left wrist, limited range of motion, and audible crepitus. - Integumentary: Reports rash and bruising on the left wrist. Physical Exam Vitals & Measurements T: 36.8 ???C(Oral) HR: 84(Peripheral) RR: 18 BP: 128/84 SpO2: 97% HT: 68 in HT: 172.4 cm WT: 262.791 lb WT: 119.2 kg BMI: 40.11 General: alert, no acute distress Skin: Bruising and rash observed on the left wrist. Cardiovascular: regular rate and rhythm, normal peripheral perfusion Respiratory: Lungs CTA, respirations non labored Extremities: no deformity, no trauma Musculoskeletal: Limited range of motion in the left wrist with audible crepitus upon movement. Neurological: oriented x 4, LOC appropriate for age speech normal Psychiatric: cooperative, affect appropriate for age, normal judgement, normal psychiatric thoughts. Assessment/Plan 1. Wrist pain, left (M25.532: Pain in left wrist) - Reviewed the ED discharge document from [facility] - Plan to obtain a new x-ray of the left wrist to assess for any fractures or other abnormalities. - Continue wearing the brace for support, but consider using an Mychal wrap to reduce skin irritation. - Evaluate the effectiveness of current naproxen medication and consider obtaining a new prescription if necessary. - Awaiting Xray result- may refer to ortho Ordered: XR Wrist 3+ Views Left 2. BMI 40.0-44.9, adult (Z68.41: Body mass index [BMI] 40.0-44.9, adult) 40.11 3. Severe obesity (BMI >= 40) (E66.01: Morbid (severe) obesity due to excess calories) The standard range for ages 18 and older is >=18.5 and < 25 kg/m2. Your BMI today was above this range, this falls in the overweight to obese category and there are medical benefits to weight loss. We can offer counselling, referral, and/or medical support in addressing this problem. Your BMI and weight management will be followed at subsequent visits. - No specific plan discussed during this visit. 4. Nonsmoker (Z78.9: Other specified health status) Encouraged to continue as a non-smoker Follow-up No qualifying data available Problem List/Past Medical History Ongoing Attention deficit control counseling Blood pressure elevated without history of HTN BMI 40.0-44.9, adult Contact dermatitis Cough COVID-19 viremia Establishing care with new doctor, encounter for Fluid level behind tympanic membrane of both ears High risk medication use Insulin resistance Nonsmoker PCOS (polycystic ovarian syndrome) Severe obesity (BMI >= 40) Shortness of breath Historical Migraines Procedure/Surgical History section (09/25/2023), Tonsillectomy and adenoidectomy. Medications Adderall XR 30 mg Cap-ER, 30 mg= 1 cap(s), Oral, qAM Apri oral tablet, 1 tab(s), Oral, Daily, 4 refills metformin 500 mg Tab, 500 mg= 1 tab(s), Oral, BID, 3 refills tirzepatide 5 mg/0.5 mL subcutaneous solution, 5 mg, SubCutaneous, qWeek, 1 refills Allergies No Known Allergies Social History Alcohol - Denies Alcohol Use, 07/29/2014 Never., 02/08/2025 Substance Abuse - Denies Substance Abuse, 07/29/2014 Never., 02/08/2025 Tobacco - Denies Tobacco Use, 07/29/2014 Never (less than 100 in lifetime) Tobacco Use:. Household tobacco concerns: No., 05/29/2025 Family History Alcoholism: Father. Asthma: Brother. Migraine: Mother and Brother. Immunizations Vaccine Date Status Comments influenza virus vaccine, inac (more content not included)... Normal [facility] Comment on above: Result Comment: Elec tronically Signed By: CHRISTOPH PANTOJA CNP\avery\Date and Time Signed: 05/29/25 10:20 EDT ED Prov Noteon 05-23-2025 ED Prov Note ED PROVIDER NOTE [facility] EMERGENCY DEPARTMENT NAME: Sandra Dean AGE: 30 y.o. : 1995 VISIT DATE: 05/23/2025 CSN: [id number] PCP: Filemon Macario CNP Chief Complaint Patient presents with [...] in stable condition. Follow-up Information 1. Filemon Macario CNP. Specialty: Nurse Practitioner Why: Follow up within 1 week, Follow up sooner for any problems or concerns [address] [place] [address] Contact information for after-discharge care Follow-up information has not been specified. [1] Social History Socioeconomic History Marital status: Tobacco Use Smoking status: Never Smokeless tobacco: Never Substance and Sexual Activity Drug use: Never [2] No Known Allergies Ant Nielson MD 05/23/252021 AUTHENTICATED BY ANT NIELSON, ON 05/23/2025 20:22:51 Normal [facility] XR WRIST LEFT 3+ VIEWS (ADALI VAZQUEZ)on 05-23-2025 XR WRIST LEFT 3+ VIEWS (STANDARD) [...] ID: [id number] Dictated by: JENARO WHEELER on Sat May 23, 2025 8:12:48 PM EDT Transcribed by: JENARO WHEELER on [facility] May 23, 2025 8:12:48 PM EDT Finalized by: JENARO WHEELER on [facility] May 23, 2025 8:12:48 PM EDT [facility] Comment on above: Order Comment: Injur y/Trauma [...] 10:40 AM EDT With: Filemon Toussaint Where: [address] [address]- Medications What How Much When Why Instructions New predniSONE (predniSONE 10 mg Tab) 1 Dose Separtor By Mouth As Directed BMI 40.0-44.9, adult Morbid obesity with BMI of 40.0-44.9, adult Non-smoker Take 3 tabs by mouth daily x3 days, then 2 tabs daily x3 days, then 1 tab daily x3 days. Pickup at [facility] New triamcinolone topical (triamcinolone Top 0.5% Crm) 1 Application Topical 2 times a day BMI 40.0-44.9, adult Morbid obesity with BMI of 40.0-44.9, adult Non-smoker Pickup at [facility] Unchanged amphetamine-dextroamphetami ne (Adderall XR [...] 5 Milligram Subcutaneous Every week Pharmacy Information [facility]: [address], [place] [id number] [phone] Allergies No Known Allergies Problems Ongoing - [...] signed up for this yet, please contact VULCUN at [phone] to get signed up today. Language Information Language assistance services are available as needed. Normal Pascual [facility] Family Medicine Office/Clini c Noteon 05-13-2025 [...] days., # 18 tab(s), Refills(s) 0, Pharmacy: [facility], 172.4, cm, 05/13/25 11:55:00 EDT, Height/Length Dosing, 119.2, kg, 07/... triamcinolone topical, 1 komal, Topical, BID, 20 gram, Refill(s) 0, [facility], 172.4, cm, 05/13/25 11:55:00 EDT, Height/Length [...] days., # 18 tab(s), Refills(s) 0, Pharmacy: [facility], 172.4, cm, 05/13/25 11:55:00 EDT, Height/Length Dosing, 119.2, kg, 07/... triamcinolone topical, 1 komal, Topical, BID, 20 gram, Refill(s) 0, [facility], 172.4, cm, 05/13/25 11:55:00 EDT, Height/Length Dosing, 119.2, kg, 05/13/25 11:55:00 EDT, Weight Dosing 4. Non-smoker (Z78.9: Other specified health status) continue not smoking Ordered: predniSONE, = 1 -, Oral, As Directed, Take 3 tabs by mouth daily x3 days, then 2 tabs daily x3 days, then 1 tab daily x3 days., # 18 tab(s), Refills(s) 0, Pharmacy: [facility], 172.4, cm, 05/13/25 11:55:00 EDT, Height/Length Dosing, 119.2, kg, ... triamcinolone topical, 1 komal, Topical, BID, 20 gram, Refill(s) 0, [facility], 172.4, cm, 05/13/25 11:55:00 EDT, Height/Length Dosing, 119.2, kg, 05/13/25 11:55:00 EDT, Weight Dosing Orders: tirzepatide, 5 mg, SubCutaneous, qWeek, # 4 EA, Refills(s) 1, Pharmacy: [facility], 172.4, cm, 05/13/25 11:55:00 EDT, Height/Length Dosing, 119.2, kg, 05/13/25 11:55:00 EDT, Weight Dosing tirzepatide, 5 mg, SubCutaneous, qWeek, # 4 EA, Refills(s) 1, Pharmacy: [facility], 172.4, cm, 05/04/25 13:30:00 EDT, Height/Length [...] Family History (more content not included)... Normal [facility] Comment on above: Result Comment: Elec [...] qAM, # 30 cap(s), Refills(s) 0, Pharmacy: [facility], 172.4, cm, 05/04/25 13:30:00 EDT, Height/Length Dosing, 122.5, kg, 05/04/25 13:30:00 EDT, Weight Dosing amphetamine-dextroamphetami ne, 20 mg = 1 cap(s), Oral, qAM, 30 day supply DX R41.840, # 30 cap(s), Refills(s) 0, Pharmacy: [facility], 172.4, cm, 02/09/25 13:50:00 EDT, Height/Length Dosing, 128.3, kg, 02/09/25 13:50:00 EDT, Weight Dosing tirzepatide, 2.5 mg, SubCutaneous, qWeek, # 4 EA, Refills(s) 1, Pharmacy: [facility], 172.4, cm, 02/09/25 13:50:00 EDT, Height/Length Dosing, 128.3, kg, 02/09/25 13:50:00 EDT, Weight Dosing tirzepatide, 5 mg, SubCutaneous, qWeek, # 4 EA, Refills(s) 1, Pharmacy: [facility], 172.4, cm, 05/04/25 13:30:00 EDT, Height/Length [...] inactivated - Not Given Patient Refuses Normal [facility] Comment on above: Result Comment: Elec tronically Signed By: Filemon Toussaint.gaston\Date and Time Signed: 05/04/25 14:40 EDT Ambulatory [...] 1:20 PM EDT With: Filemon Toussaint Where: [place] [phone]- Medications What How Much When Why Instructions New amphetamine-dextroamphetami ne (Adderall XR 20 mg Cap-ER) 1 Capsules By Mouth Once a day (in the morning) Pickup at [facility] Unchanged desogestrel-ethinyl estradiol (Apri oral tablet) [...] 2.5 Milligram Subcutaneous Every week Pharmacy Information [facility]: [address], [place] [id number] [phone] Allergies No Known Allergies Problems Ongoing - [...] choosing us for your care. Normal Pascual [facility] Family Medicine Office/Clini c Noteon 02-09-2025 [...] qAM, # 30 cap(s), Refills(s) 0, Pharmacy: [facility], 135.2, cm, 01/13/25 15:07:00 EST, Height/Length Dosing, 132.6, kg, 01/13/25 15:07:00 EST, Weight Dosing amphetamine-dextroamphetami ne, 20 mg = 1 cap(s), Oral, qAM, # 30 cap(s), Refills(s) 0, Pharmacy: [facility], 172.4, cm, 02/09/25 13:50:00 EDT, Height/Length [...] inactivated - Not Given Patient Refuses Normal [facility] Comment on above: Result Comment: Elec [...] 1:40 PM EDT With: Filemon Toussaint Where: [place] [address]- Medications What How Much When Why Instructions New amphetamine-dextroamphetami ne (Adderall XR 20 mg Cap-ER) 1 Capsules By Mouth Once a day (in the morning) Pickup at [facility] New tirzepatide (tirzepatide 5 mg/ 0.5 [...] syndrome) BMI 45.0-49.9, adult Non-smoker Pharmacy Information [facility]: [address], [place] [phone] [facility]: [address] [place], [place] [phone] Allergies No Known Allergies Problems Ongoing - [...] you for choosing us for your care. Dee [facility] Family Medicine Office/Clini c Noteon 01-13-2025 [...] qAM, # 30 cap(s), Refills(s) 0, Pharmacy: [facility], 135.2, cm, 01/13/25 15:07:00 EST, Height/Length Dosing, 132.6, kg, 01/13/25 15:07:00 EST, Weight Dosing amphetamine-dextroamphetami ne, 10 mg = 1 cap(s), Oral, qAM, # 30 cap(s), Refills(s) 0, Pharmacy: [facility], 172.4, cm, 12/17/24 13:14:00 EST, Height/Length [...] inactivated - Not Given Patient Refuses Normal [facility] Comment on above: Result Comment: Elec tronically Signed By: Filemon Toussaint\.br\Date and Time Signed: 01/13/25 15:23 EST Family [...] 13:14:00 EST, Weight Dosing Drug Screen POC 06859 HCG, Urine POC 39897 2. Attention deficit (R41.840: Attention and concentration [...] 13:14:00 EST, Weight Dosing Drug Screen POC 72951 HCG, Urine POC 84166 3. control counseling (Z30.09: Encounter for other [...] 13:14:00 EST, Weight Dosing Drug Screen POC 81621 HCG, Urine POC 41284 4. Insulin resistance (E88.819: Insulin resistance, unspecified) [...] injection sites, (more content not included)... Normal [facility] Comment on above: Result Comment: Elec tronically Signed By: Rosendo SHANE, Filemon Fernandes\.br\Date and Time Signed: 12/17/24 14:12 EST ALL CBC WITH AUTO DIFFon BASOPHILS ABSOLUTE AUTO 0 [facility] Basophils/100 WBC (Bld) 0.4 % 0.2 - 2.0 % [facility] Eosinophils/100 WBC (Bld) 1.8 % 0.9 - 7.0 % [facility] Erythrocyte distribution width (RBC) [Ratio] 13.3 % 11.0 - 15.0 % [facility] Hematocrit (Bld) [Volume fraction] 37.7 % 36.0 - 48.0 % [facility] Hemoglobin (Bld) [Mass/Vol] 12.3 g/dL 12.0 - 16.0 g/dL [facility] IMMATURE GRANULOCYTES ABS AUTO 0.02 [facility] Immature granulocytes/100 WBC (Bld) 0.3 % 0.0 - 0.5 % [facility] LYMPHOCYTES ABSOLUTE AUTO 2.2 [facility] Lymphocytes/100 WBC (Bld) 30.7 % 20.5 - 60.0 % [facility] MCH (RBC) [Entitic mass] 28.8 pg 26.7 - 34.0 pg [facility] MCHC (RBC) [Mass/Vol] 32.6 g/dL 29.9 - 35.2 g/dL [facility] MCV (RBC) [Entitic vol] 88.3 fL 81.0 - 99.0 fL [facility] MONOCYTES ABSOLUTE AUTO 0.4 [facility] Monocytes/100 WBC (Bld) 6 % 1.7 - 12.0 % [facility] NEUTROPHILS ABSOLUTE AUTO 4.4 [facility] Neutrophils/100 WBC (Bld) 60.8 % 43.0 - 75.0 % [facility] Platelet mean volume (Bld) [Entitic vol] 9.8 fL 9.5 - 13.5 fL [facility] TB EO # 0.1 [facility] PLT 249 [facility] RBC 4.27 [facility] WBC 7.2 [facility] HCG ( test) Ql (U)o n 08-26-2024 Interpretation and review of laboratory results Normal [facility] Preg Test, Ur Negative [facility] CBC with Diffon 10-01-2023 Abs. Basophil 0.01 k/uL Normal 0.00-0.20 [facility] Comment on above: Performed By: #### T VANESSA POE CDP #### [facility] [address] [place] [address] Dairy Nutritionist: Garland Ji MD Abs.Imm.Granulocyte 0.01 k/uL Normal 0.00-0.30 [facility] Comment on above: Performed By: #### T VANESSA POE CDP #### [facility] [address] [place] [address] Dairy Nutritionist: Garland Ji MD Abs.Neutrophil (Seg) 4.63 k/uL Normal 2.5-7.0 [facility] Comment on above: Performed By: #### Nia POE CP, CDP #### [facility] [address] [place] [phone] Dairy Nutritionist: Garland Ji MD Basophils/100 WBC (Bld) 0 % Normal 0-2 [facility] Comment on above: Performed By: #### Nia POE CP, CDP #### [facility] [address] [place] [address] Dairy Nutritionist: Garland Ji MD Eosinophils (Bld) [#/Vol] 0.07 10*3/uL Normal 0.00-0.40 [facility] Comment on above: Performed By: #### Nia POE CP, CDP #### [facility] [address] [place] [phone] Dairy Nutritionist: Garland Ji MD Eosinophils/100 WBC (Bld) 1 % Normal 0-5 [facility] Comment on above: Performed By: #### Nia POE CP, CDP #### [facility] [address] [place] [phone] Dairy Nutritionist: Garland Ji MD Erythrocyte distribution width (RBC) [Ratio] 14.2 % Normal 12.1-15.2 [facility] Comment on above: Performed By: #### Nia POE CP, CDP #### [facility] [address] [place] [phone] Dairy Nutritionist: Garland Ji MD Hematocrit (Bld) [Volume fraction] 27.3 % Low 36.0-46.0 [facility] Comment on above: Performed By: #### Nia POE CP, CDP #### [facility] [address] [place], [place] [phone] Dairy Nutritionist: Garland Ji MD Hemoglobin (Bld) [Mass/Vol] 8.9 g/dL Low 12.0-16.0 [facility] Comment on above: Performed By: #### Nia POE CP, CDP #### [facility] [address] [place] [phone] Dairy Nutritionist: Garland Ji MD Immature granulocytes/100 WBC (Bld) 0 % Normal 0-5 [facility] Comment on above: Performed By: #### Nia POE CP, CDP #### [facility] [address] [place] [address] Dairy Nutritionist: Garland Ji MD Lymphocytes (Bld) [#/Vol] 1.52 10*3/uL Normal 1.00-4.80 [facility] Comment on above: Performed By: #### Nia POE CP, CDP #### [facility] [address] [place] [address] Dairy Nutritionist: Garland Ji MD Lymphocytes/100 WBC (Bld) 23 % Normal 15-40 [facility] Comment on above: Performed By: #### Nia POE CP, CDP #### [facility] [address] [place] [phone] Dairy Nutritionist: Garland Ji MD MCH (RBC) [Entitic mass] 28.4 pg Normal 26.0-34.0 [facility] Comment on above: Performed By: #### Nia POE CP, CDP #### [facility] [address] [place] [address] Dairy Nutritionist: Garland Ji MD MCHC (RBC) [Mass/Vol] 32.6 g/dL Normal 31.0-37.0 [facility] Comment on above: Performed By: #### Nia POE CP, CDP #### [facility] [address] [place], [place] [phone] Dairy Nutritionist: Garland Ji MD MCV (RBC) [Entitic vol] 87.2 fL Normal 80.0-100.0 [facility] Comment on above: Performed By: #### Nia POE CP, CDP #### [facility] [address] [place], [place] [phone] Dairy Nutritionist: Garland Ji MD Monocytes (Bld) [#/Vol] 0.39 10*3/uL Normal 0.00-1.00 [facility] Comment on above: Performed By: #### Nia POE CP, CDP #### [facility] [address] [place] [address] [phone] Dairy Nutritionist: Garland Ji MD Monocytes/100 WBC (Bld) 6 % Normal 4-8 [facility] Comment on above: Performed By: #### Nia POE CP, CDP #### [facility] [address] [place] [address] ([phone] Dairy Nutritionist: Garland Ji MD Neutrophil (Seg) 70 % Normal 47-75 [facility] Comment on above: Performed By: #### Nia POE CP, CDP #### [facility] [address] [place] [address] ([phone] Dairy Nutritionist: Garland Ji MD Platelet mean volume (Bld) [Entitic vol] 10.5 fL Normal 6.0-12.0 [facility] Comment on above: Performed By: #### Nia POE CP, CDP #### [facility] [address] [place] [address] [phone] Dairy Nutritionist: Garland Ji MD Platelets (Bld) [#/Vol] 271 10*3/uL Normal 140-450 [facility] Comment on above: Performed By: #### Nia POE CP, CDP #### [facility] [address] [place] [address] Dairy Nutritionist: Garland Ji MD RBC (Bld) [#/Vol] 3.13 10*6/uL Low 4.00-5.20 [facility] Comment on above: Performed By: #### T VANESSA POE CDP #### [facility] [address] [place] [address] Dairy Nutritionist: Garland Ji MD WBC (Bld) [#/Vol] 6.6 10*3/uL Normal 3.5-11.0 [facility] Comment on above: Performed By: #### T VANESSA POE CDP #### [facility] [address] [place] [address] Dairy Nutritionist: Garland Ji MD CT HEAD WO CONTRASTon [...] Garcia Jr., MD 10/01/23 Final result Normal [facility] Comp Metabolic Profon 2022 Albumin [Mass/Vol] 3.5 g/dL Normal 3.5-5.2 [facility] Comment on above: Performed By: #### T VANESSA POE, CDP #### [facility] [address] [place] [address] Dairy Nutritionist: Garland Ji MD Alkaline Phos 97 U/L Normal 35-104 [facility] Comment on above: Performed By: #### T VANESSA POE, CDP #### [facility] [address] [place], [place] [phone] Dairy Nutritionist: Garland Ji MD ALT [Catalytic activity/Vol] 15 U/L Normal 5-33 [facility] Comment on above: Performed By: #### Nia POE CP, CDP #### [facility] [address] [place], [place] [phone] Dairy Nutritionist: Garland Ji MD Anion gap [Moles/Vol] 10 mmol/L Normal 9-17 [facility] Comment on above: Performed By: #### Nia POE CP, CDP #### [facility] [address] [place], [place] [phone] Dairy Nutritionist: Garland Ji MD AST [Catalytic activity/Vol] 16 U/L Normal <32 [facility] Comment on above: Performed By: #### Nia POE CP, CDP #### [facility] [address] [place], [place] [phone] Dairy Nutritionist: Garland Ji MD Bilirubin [Mass/Vol] 0.2 mg/dL Low 0.3-1.2 [facility] Comment on above: Performed By: #### Nia POE CP, CDP #### [facility] [address] [place], [place] [phone] Dairy Nutritionist: Garland Ji MD BUN/CRE Ratio 13 Normal 9-20 [facility] Comment on above: Performed By: #### Nia POE CP, CDP #### [facility] [address] [place], [place] [phone] Dairy Nutritionist: Garland Ji MD Calcium [Mass/Vol] 9.2 mg/dL Normal 8.6-10.4 [facility] Comment on above: Performed By: #### Nia POE CP, CDP #### [facility] [address] [place], [place] [phone] Dairy Nutritionist: Garland Ji MD Chloride [Moles/Vol] 103 mmol/L Normal 98-107 [facility] Comment on above: Performed By: #### T VANESSA POE CDP #### [facility] [address] [place], [place] [phone] Dairy Nutritionist: Garland Ji MD CO2 [Moles/Vol] 25 mmol/L Normal 20-31 [facility] Comment on above: Performed By: #### Nia POE CP, CDP #### [facility] [address] [place], [place] [phone] Dairy Nutritionist: Garland Ji MD Creatinine [Mass/Vol] 0.6 mg/dL Normal 0.5-0.9 [facility] Comment on above: Performed By: #### Nia POE CP CDP #### [facility] [address] [place] [address] Dairy Nutritionist: Garland Ji MD GFR/1.73 sq M.predicted among non-blacks MDRD (S/P/Bld) [Vol rate/Area] mL/min/{1.73_m2} Normal >60 [facility] Comment on above: Result [...] By: #### T VANESSA POE CDP #### [facility] [address] [place] [address] Dairy Nutritionist: Garland Ji MD Glucose [Mass/Vol] 100 mg/dL High 70-99 [facility] Comment on above: Performed By: #### T VANESSA POE, CDP #### [facility] [address] [place], [place] [phone] Dairy Nutritionist: Garland Ji MD Potassium [Moles/Vol] 3.9 mmol/L Normal 3.7-5.3 [facility] Comment on above: Performed By: #### Nia POE CP, CDP #### [facility] [address] [place], [place] [phone] Dairy Nutritionist: Garland Ji MD Protein [Mass/Vol] 6.4 g/dL Normal 6.4-8.3 [facility] Comment on above: Performed By: #### Nia POE CP, CDP #### [facility] [address] [place] [address] Dairy Nutritionist: Garland Ji MD Sodium [Moles/Vol] 138 mmol/L Normal 135-144 [facility] Comment on above: Performed By: #### Nia POE CP, CDP #### [facility] [address] [place], [place] [phone] Dairy Nutritionist: Garland Ji MD Urea nitrogen [Mass/Vol] 8 mg/dL Normal 6-20 [facility] Comment on above: Performed By: #### Nia POE CP, CDP #### [facility] [address] [place], [place] [phone] Dairy Nutritionist: Garland Ji MD Troponinon 10-01-2023 Troponin, High Sens <6 Normal 0-14 [facility] Comment on above: Result Comment: High Sensitivity Troponin values cannot be compared with other Troponin methodologies. Performed By: #### Nia POE CP, CDP #### [facility] [address] [place], [place] [phone] Dairy Nutritionist: Garland Ji MD Urinalysis, Routineon 2022 Bilirubin, SemiQt,Ur Negative Normal NEG [facility] Comment on above: Performed By: #### U BASHIRO, UA #### [facility] [address] [place], [place] [phone] Dairy Nutritionist: Garland Ji MD Blood, Urine TRACE Abnormal NEG [facility] Comment on above: Performed By: #### U BASHIRO, UA #### [facility] [address] [place] [address] Dairy Nutritionist: Garland Ji MD Clarity (U) Clear Normal CLEAR [facility] Comment on above: Performed By: #### U MICAO, UA #### [facility] [address] [place], [place] [phone] Dairy Nutritionist: Garland Ji MD Color (U) Yellow Normal YEL [facility] Comment on above: Performed By: #### U MICAO, UA #### [facility] [address] [place], [place] [phone] Dairy Nutritionist: Garland Ji MD Comment Normal [facility] Comment on above: Performed By: #### U MICAO, UA #### [facility] [address] [place] [address] Dairy Nutritionist: Garland Ji MD Glucose Ql (U) Negative Normal NEG [facility] Comment on above: Performed By: #### U MICAO, UA #### [facility] [address] [place], [place] [phone] Dairy Nutritionist: Garland Ji MD Ketones Ql (U) Negative Normal NEG [facility] Comment on above: Performed By: #### U MICAO, UA #### [facility] [address] [place] [address] Dairy Nutritionist: Garland Ji MD Leukocyte esterase Test strip Ql (U) Negative Normal NEG [facility] Comment on above: Performed By: #### U MICAO, UA #### [facility] [address] [place], [place] [phone] Dairy Nutritionist: Garland Ji MD Nitrite,Ur Negative Normal NEG [facility] Comment on above: Performed By: #### U MICAO, UA #### [facility] [address] [place] [address] Dairy Nutritionist: Garland Ji MD PH,Ur 6.5 Normal 5.0-8.0 [facility] Comment on above: Performed By: #### U BASHIRO, UA #### [facility] [address] [place] [phone] Dairy Nutritionist: Garland Ji MD Protein Ql (U) TRACE Abnormal NEG [facility] Comment on above: Performed By: #### U BASHIRO, UA #### [facility] [address] [place] [address] Dairy Nutritionist: Garland Ji MD Spec. Bath,Ur 1.015 Normal 1.005-1.030 [facility] Comment on above: Performed By: #### U BASHIRO UA #### [facility] [address] [place] [phone] Dairy Nutritionist: Garland Ji MD Urobilinogen,Ur Normal Normal 0.0-1.0 [facility] Comment on above: Performed By: #### U BASHIRO, UA #### [facility] [address] [place] [phone] Dairy Nutritionist: Garland Ji MD Urinalysis,Microon 3 ----- Normal [facility] Comment on above: Performed By: #### U BASHIRO, UA #### [facility] [address] [place] [address] Dairy Nutritionist: Garland Ji MD Epithelial cells LM Ql (Urine sed) 0 TO 2 Normal [facility] Comment on above: Performed By: #### U BASHIRO, UA #### [facility] [address] [place] [phone] Dairy Nutritionist: Garland Ji MD Urine RBC's 0 TO 2 Normal 0-2 [facility] Comment on above: Performed By: #### U BASHIRO, UA #### [facility] [address] [place] [address] Dairy Nutritionist: Garland Ji MD Urine WBC's NONE SEEN Normal 0 [facility] Comment on above: Performed By: #### U MICAO, UA #### [facility] [address] [place] [address] Dairy Nutritionist: Garland Ji MD BOX TEST SENT OUTon 03-28-20 SENT TO REF LAB 03/28/23 Normal [facility] Comment on above: Performed By: #### B OX #### [facility] [address] [place] [address] Dr. Gaye Durand BOX TEST SENT OUTon 03-15-20 SENT TO REF LAB 03/15/2023 Normal [facility] Comment on above: Performed By: #### R PRQ #### [facility] [address] [place] [address] Dr. Gaye Durand US PREG <14 WKSon [...] GARLAND HEATH Date: 2023-03-03 13:53 Normal [facility] HEP B SURFACE ANTIGEN SCREEN on 02-27-2023 HBsAg Screen Negative Normal Negative [facility] Comment on above: Performed By: #### H BSANS #### [facility] [address] [place] [address] Dr. Gaye Durand HEPATITIS C VIRUS AB W/ REFL EX QUANTon 02-27-2023 HCV AB Non-Reactive Normal Non Reactive [facility] Comment on above: Performed By: #### H CVPCRR #### [facility] [address] [place] [address] Dr. Gaye Durand Interpretation: Comment Normal [facility] Comment on above: Result Comment: Not infected with HCV unless early or acute infection is suspected (which may be delayed in an immunocompromised individual), or other evidence exists to indicate HCV infection. Performed By: #### H CVPCRR #### [facility] [address] [place] [address] Dr. Gaye Durand HIV 1 AND 2 WITH REFLEXon HIV Screen 4th Generation wRfx Non-Reactive Normal Non Reactive [facility] Comment on above: Result Comment: HIV Negative HIV-1/HIV-2 antibodies and HIV-1 p24 antigen were NOT detected. There is no laboratory evidence of HIV infection. Performed By: #### H IV12 #### [facility] [address] [place] [address] Dr. Gaye Durand RPR QUANTon 02-27-2023 Rapid Plasma Reagin, Quant Non-Reactive Normal NonRea<1:1 [facility] Comment on above: Result Comment: Plea se Note: This test does not meet current guidelines for screening and diagnosis of syphilis. This test is intended for following treatment response in patients being treated for syphilis infection. To screen for syphilis infection, a reflex cascade that includes both RPR and a treponema-specific assay should be utilized, such as Treponema pallidum (Syphilis) Screening [facility] (738949) or Rapid Plasma Reagin (RPR) Test With Reflex to Quantitative RPR and Confirmatory Treponema pallidum Antibodies (860835). Performed By: #### R PRQ #### [facility] [address] [place] [address] Dr. Gaye Durand RUBELLA AB IGGon 02-27-2023 Rubella Antibodies, IgG 5.32 index Normal Immune >0.99 [facility] Comment on above: Result Comment: Non- immune <0.90 Equivocal 0.90 - 0.99 Immune >0.99 Performed By: #### R UBIGG #### [facility] [address] [place] [address] Dr. Gaye Durand BOX TEST SENT OUTon 04-17-20 23 SENT TO REF LAB 02/26/2023 Normal [facility] Comment on above: Performed By: #### B OX #### [facility] [address] [place] [address] Dr. Gaye Durand CBC AUTO DIFFon 02-26-2023 BASO # 0.0 103/ul Normal 0.0-0.1 [facility] Comment on above: Performed By: #### C BC #### [facility] [address] [place] [address] Dr. Gaye Durand Basophils/100 WBC (Bld) 0.3 % Normal 0.2-2.0 [facility] Comment on above: Performed By: #### C BC #### [facility] [address] [place] [address] Dr. Gaye Durand EO # 0.1 103/ul Normal 0.0-0.7 [facility] Comment on above: Performed By: #### C BC #### [facility] [address] [place] [address] Dr. Gaye Durand Eosinophils/100 WBC (Bld) 0.8 % Critically low 0.9-7.0 [facility] Comment on above: Performed By: #### C BC #### [facility] [address] [place] [address] Dr. Gaye Durand Erythrocyte distribution width (RBC) [Ratio] 13.3 % Normal 11.0-15.0 [facility] Comment on above: Performed By: #### C BC #### [facility] [address] [place] [address] Dr. Gaye Durand Hematocrit (Bld) [Volume fraction] 35.8 % Critically low 36.0-48.0 [facility] Comment on above: Performed By: #### C BC #### [facility] [address] [place] [address] Dr. Gaye Durand Hemoglobin (Bld) [Mass/Vol] 12.0 g/dL Normal 12.0-16.0 [facility] Comment on above: Performed By: #### C BC #### [facility] [address] [place] [address] Dr. Gaye Durand IG # 0.02 10e3/ul Normal 0.00-0.03 [facility] Comment on above: Performed By: #### C BC #### [facility] [address] [place] [address] Dr. Gaye Durand IG % 0.3 % Normal 0.0-0.5 [facility] Comment on above: Performed By: #### C BC #### [facility] [address] [place] [address] Dr. Gaey Durand LYMPH # 1.8 103/ul Normal 1.2-3.8 [facility] Comment on above: Performed By: #### C BC #### [facility] [address] [place] [address] Dr. Gaye Durand Lymphocytes/100 WBC (Bld) 24.3 % Normal 20.5-60.0 [facility] Comment on above: Performed By: #### C BC #### [facility] [address] [place] [address] Dr. Gaye Durand MANUAL DIFF REQ NO Normal [facility] Comment on above: Performed By: #### C BC #### [facility] [address] [place] [address] Dr. Gaye Durand MCH (RBC) [Entitic mass] 29.2 pg Normal 26.7-34.0 [facility] Comment on above: Performed By: #### C BC #### [facility] [address] [place] [address] Dr. Gaye Durand MCHC (RBC) [Mass/Vol] 33.5 g/dL Normal 29.9-35.2 [facility] Comment on above: Performed By: #### C BC #### [facility] [address] [place] [address] Dr. Gaye Durand MCV (RBC) [Entitic vol] 87.1 fL Normal 81.0-99.0 [facility] Comment on above: Performed By: #### C BC #### [facility] [address] [place] [address] Dr. Gaye Durand MONO # 0.3 103/ul Normal 0.3-0.8 [facility] Comment on above: Performed By: #### C BC #### [facility] [address] [place] [address] Dr. Gaye Durand Monocytes/100 WBC (Bld) 4.2 % Normal 1.7-12.0 [facility] Comment on above: Performed By: #### C BC #### [facility] [address] [place] [address] Dr. Gaye Durand NEUT # 5.2 103/ul Normal 1.4-6.5 [facility] Comment on above: Performed By: #### C BC #### [facility] [address] [place] [address] Dr. Gaye Durand Neutrophils/100 WBC (Bld) 70.1 % Normal 43.0-75.0 [facility] Comment on above: Performed By: #### C BC #### [facility] [address] [place] [address] Dr. Gaye Durand Platelet mean volume (Bld) [Entitic vol] 9.8 fL Normal 9.5-13.5 [facility] Comment on above: Performed By: #### C BC #### [facility] [address] [place] [address] Dr. Gaye Durand PLT 246 103/ul Normal 150-450 [facility] Comment on above: Performed By: #### C BC #### [facility] [address] [place] [address] Dr. Gaye Durand RBC 4.11 106/ul Critically low 4.20-5.40 [facility] Comment on above: Performed By: #### C BC #### [facility] [address] [place] [address] Dr. Gaye Durand WBC 7.4 103/ul Normal 4.0-11.0 [facility] Comment on above: Performed By: #### C BC #### [facility] [address] [place] [address] Dr. Gaye Durand CULTURE URINEon 02-26-2023 CULTURE URINE Culture Observations : MODERATE GROWTH OF MIXED GENITAL GIGI. NO POTENTIAL PATHOGENS SEEN. Normal [facility] Comment on above: Performed By: #### R PRQ #### [facility] [address] [place] [address] Dr. Gaye Durand GLYCOHEMOGLOBIN A1Con 2022 ADA RECOMMENDATION SEE BELOW Normal [facility] Comment on above: Result Comment: ADA RECOMMENDED LIMIT 4.0 - 6.0 ADA THERAPEUTIC TARGET < 7.0 ACTION SUGGESTED > 7.0 Performed By: #### A 1C #### [facility] [address] [place] [address] Dr. Gaye Durand Glucose [Mass/Vol] 100 mg/dL Normal [facility] Comment on above: Performed By: #### A 1C #### [facility] [address] [place] [address] Dr. Gaye Durand HbA1c (Bld) [Mass fraction] 5.1 % Normal 4.5-6.2 [facility] Comment on above: Performed By: #### A 1C #### [facility] [address] [place] [address] Dr. Gaye Durand TSHon 02-26-2023 TSH 1.490 uIU/mL Normal 0.358-3.740 [facility] Comment on above: Performed By: #### T SH #### [facility] [address] [place] [address] Dr. Gaye Durand TYPE AND SCREENon 02-26-2023 TYPE AND SCREEN Negative Normal [facility] Comment on above: Performed By: #### R PRQ #### [facility] [address] [place] [address] Dr. Gaye Durand No Panel Informationon 02-05 [...] Electronically signed by: BOBBI FLOOD MD Normal [facility] [employer]ER - Office Visiton 01-11 [employer]ATING [employer]SEM[employer]ER - Office Visit Diagnoses/Problems Assessed Nausea and [...] Never a (more content not included)... Normal [facility] HCG, Quanton 01-25-2023 HCG, Quant 1895 mIU/mL High <5 [facility] Comment on above: Result Comment: Non-preg premeno <=5 Postmeno <=8 Male <=3 If HCG results do not concur with clinical observations, additional testing to confirm results is recommended. Performed By: #### B HCG #### [facility] [address] [place] [address] Dairy Nutritionist: Garland Ji MD HCG, Quantitative, on 01-25-2023 hCG Quant 1895 High [facility] Comment on above: Non-preg premeno <=5 Postmeno <=8 Male <=3 If HCG results do not concur with clinical observations, additional testing to confirm results is recommended. Interpretation and review of laboratory results Abnormal [facility] HCG, Quanton 01-18-2023 HCG, Quant 108 mIU/mL High <5 [facility] Comment on above: Result Comment: Non-preg premeno <=5 Postmeno <=8 Male <=3 If HCG results do not concur with clinical observations, additional testing to confirm results is recommended. Performed By: #### B HCG #### [facility] [address] [place] [address] Dairy Nutritionist: Garland Ji MD HCG, Quantitative, on 01-18-2023 hCG Quant 108 High [facility] Comment on above: Non-preg premeno <=5 Postmeno <=8 Male <=3 If HCG results do not concur with clinical observations, additional testing to confirm results is recommended. Interpretation and review of laboratory results Abnormal [facility] HCG, Quanton 01-16-2023 HCG, Quant 37 mIU/mL High <5 [facility] Comment on above: Result Comment: Non-preg premeno <=5 Postmeno <=8 Male <=3 If HCG results do not concur with clinical observations, additional testing to confirm results is recommended. Performed By: #### B HCG #### [facility] [address] [place] [address] Dairy Nutritionist: Garland Ji MD HCG, Quantitative, on 01-16-2023 hCG Quant 37 High [facility] Comment on above: Non-preg premeno <=5 Postmeno <=8 Male <=3 If HCG results do not concur with clinical observations, additional testing to confirm results is recommended. Interpretation and review of laboratory results Abnormal [facility] ROTATING FIELD ASSEMBLER - Procedure Visiton 0 01-02-2023 ROTATING FIELD ASSEMBLER - Procedure Visit Chief Complaint IUI-H Active [...] Verification performed with patient via electronic system ROTARY SHEAR CUTTER prior to insemination. All patient's questions were discussed and answered. Supervisor Loading offered to pt for intimate exam: [X] Pt Declined client service coordinator [] Pt requested client service coordinator; Name of client service coordinator Patient was placed in dorsal lithotomy position [...] Touchworks ESTRADIOLon 01-01-2023 ESTRADIOL 88 pg/mL Normal [facility] Comment on above: Result Comment: Estr adiol measurement is performed using the [employer] Access Estradiol Immunoassay. Estradiol testing is performed using a different test methodology at [facility] than other [facility]. Direct result comparison should only be made within the same method. REF VALUES FOLLICULAR PHASE 20-144 MID CYCLE 64-357 LUTEAL PHASE 56-214 POSTMENOPAUSE < 32 PREPUBERTY < 20 FEMALE 10-18Y 8-110 MALE 10-18Y < 20 ADULT MALE < 40 Performed By: #### D HE #### [facility] [address] [address] Estradiol, Serumon E2 [Mass/Vol] 88 pg/mL MG-OBGYN-Ri sman 310 IVF Work Phone: Comment on above: Estradiol measuremen t is performed using the [employer] Access Estradiol Immunoassay. Estradiol testing is performed using a different test methodology at [facility] than other [facility]. Direct result comparison should only be [...] Electronically signed by: BOBBI FLOOD MD Normal [facility] LUTEINIZING HORMONEon 2022 LUTEINIZING HORMONE 80.8 IU/L Normal [facility] Comment on above: Result Comment: Lute inizing Hormone [LH] is performed using the [employer] Access Immunoassay. LH testing is performed using a different test methodology at [facility] than [facility]. Direct result comparison should only be made within the same method. REF VALUES FOLLICULAR PHASE 1.5-10.0 MID-CYCLE 13.0-72.0 LUTEAL PHASE 0.5-13.0 MENOPAUSE 15.0-65.0 PREPUBERTY 0- 3.0 CHILDREN 0- 6.0 ADULT MALE 1.0- 9.0 Performed By: #### D MOISES #### [facility] [address] [address] Luteinizing Hormone, Serumon 01-01-2023 Lutropin Qn 80.8 {IU/L} [facility]-OBGYN-Ri sman 310 IVF Work Phone: Comment on above: Luteinizing Hormone [LH] is performed using the [employer] Access Immunoassay. LH testing is performed using a different test methodology at [facility] than other [facility]. Direct result comparison should only be made within the same method.REF VALUESFOLLICULAR PHASE 1.5-10.0MID-CYCLE 13.0-72.0LUTEAL PHASE 0.5-13.0MENOPAUSE 15.0-65.0PREPUBERTY 0- 3.0CHILDREN 0- 6.0ADULT MALE 1.0- 9.0 No Panel Informationon 01-01 Normal [facility]OB[facility]-Ri sman 310 IVF Work Phone: ROTATING FIELD ASSEMBLER - Procedure Visiton 1 12-28-2021 ROTATING FIELD ASSEMBLER - Procedure Visit Chief Complaint patient presents [...] Verification performed with patient via electronic system ROTARY SHEAR CUTTER prior to insemination. All patient's questions were discussed and answered. Supervisor Loading offered to pt for intimate exam: [X] Pt Declined client service coordinator [] Pt requested client service coordinator; Name of client service coordinator Patient was placed in dorsal lithotomy position [...] of plan. Christina Leung CNP [facility] [address] [place] [address] [address] [place] [phone] p- [phone] f- [phone] Attending Note Comments/Additional Findings: Attestation statement: I was present and readily available in the clinic during this procedure. I agree with the procedure note as seen above. Matias Proctor MD Reproductive Endocrinology and Infertility 10/27/2022 10:12 . Signatures Electronically signed by : Christina Leung APRN-IAN; Oct 27 2022 9:46AM EST (Author) Electronically signed by : Matias Proctor MD; Oct 28 2022 10:12AM EST (Author) Normal Touchworks ESTRADIOLon 10-24-2022 ESTRADIOL 77 pg/mL Normal [facility] Comment on above: Result Comment: Estr adiol measurement is performed using the [employer] Access Estradiol Immunoassay. Estradiol testing is performed using a different test methodology at [facility] than other [facility]. Direct result comparison should only be made within the same method. REF VALUES FOLLICULAR PHASE 20-144 MID CYCLE 64-357 LUTEAL PHASE 56-214 POSTMENOPAUSE < 32 PREPUBERTY < 20 FEMALE 10-18Y 8-110 MALE 10-18Y < 20 ADULT MALE < 40 Performed By: #### D LEE #### [facility] [address] [address] Estradiol, Serumon E2 [Mass/Vol] 77 pg/mL MG-OBGYN-Cr ocker 206A IVF Work Phone: Comment on above: Estradiol measuremen t is performed using the [employer] Access Estradiol Immunoassay. Estradiol testing is performed using a different test methodology at [facility] than other [facility]. Direct result comparison should only be [...] Electronically signed by: KIM HAWTHORNE MD Normal [facility] LUTEINIZING HORMONEon 2021 LUTEINIZING HORMONE 10.8 IU/L Normal [facility] Comment on above: Result Comment: Lute inizing Hormone [LH] is performed using the [employer] Access Immunoassay. LH testing is performed using a different test methodology at [facility] than other [facility]. Direct result comparison should only be made within the same method. REF VALUES FOLLICULAR PHASE 1.5-10.0 MID-CYCLE 13.0-72.0 LUTEAL PHASE 0.5-13.0 MENOPAUSE 15.0-65.0 PREPUBERTY 0- 3.0 CHILDREN 0- 6.0 ADULT MALE 1.0- 9.0 Performed By: #### T [facility] #### [facility] [address] [place] [address] Luteinizing Hormone, Serumon 10-24-2022 Lutropin Qn 10.8 {IU/L} MG-OBGYN-Cr ocker 206A IVF Work Phone: Comment on above: Luteinizing Hormone [LH] is performed using the [employer] Access Immunoassay. LH testing is performed using a different test methodology at [facility] than other [facility]. Direct result comparison should only be made within the same method.REF VALUESFOLLICULAR PHASE 1.5-10.0MID-CYCLE 13.0-72.0LUTEAL PHASE 0.5-13.0MENOPAUSE 15.0-65.0PREPUBERTY 0- 3.0CHILDREN 0- 6.0ADULT MALE 1.0- 9.0 No Panel Informationon 10-24 Normal [facility] 206A IVF Work Phone: ROTATING FIELD ASSEMBLER - Procedure Visiton 1 11-24-2021 ROTATING FIELD ASSEMBLER - Procedure Visit Chief Complaint Sandra is [...] Touchworks ESTRADIOLon 09-22-2022 ESTRADIOL 98 pg/mL Normal [facility] Comment on above: Result Comment: Estr adiol measurement is performed using the [employer] Access Estradiol Immunoassay. Estradiol testing is performed using a different test methodology at [facility] than other [facility]. Direct result comparison should only be made within the same method. REF VALUES FOLLICULAR PHASE 20-144 MID CYCLE 64-357 LUTEAL PHASE 56-214 POSTMENOPAUSE < 32 PREPUBERTY < 20 FEMALE 10-18Y 8-110 MALE 10-18Y < 20 ADULT MALE < 40 Performed By: #### E [facility] #### [facility] [address] [place] [address] Estradiol, Serumon 2 E2 [Mass/Vol] 98 pg/mL MG-OBGYN-Cr ocker 206A IVF Work Phone: Comment on above: Estradiol measuremen t is performed using the [employer] Access Estradiol Immunoassay. Estradiol testing is performed using a different test methodology at [facility] than other [facility]. Direct result comparison should only be [...] Electronically signed by: MATIAS PROCTOR MD Normal [facility] LUTEINIZING HORMONEon 2021 LUTEINIZING HORMONE 18.0 IU/L Normal [facility] Comment on above: Result Comment: Lute inizing Hormone [LH] is performed using the [employer] Access Immunoassay. LH testing is performed using a different test methodology at [facility] than other [facility]. Direct result comparison should only be made within the same method. REF VALUES FOLLICULAR PHASE 1.5-10.0 MID-CYCLE 13.0-72.0 LUTEAL PHASE 0.5-13.0 MENOPAUSE 15.0-65.0 PREPUBERTY 0- 3.0 CHILDREN 0- 6.0 ADULT MALE 1.0- 9.0 Performed By: #### L H #### [facility] [address] [place] [address] Luteinizing Hormone, Serumon 09-22-2022 Lutropin Qn 18.0 {IU/L} [facility]-OBGYN-Cr ocker 206A IVF Work Phone: Comment on above: Luteinizing Hormone [LH] is performed using the [employer] Access Immunoassay. LH testing is performed using a different test methodology at [facility] than other [facility]. Direct result comparison should only [...] Electronically signed by: KIM HAWTHORNE MD Normal [facility] No Panel Informationon 09-19 Normal [facility]-OBGYN-Ri sman [...] declined Myriad genetic screening waiver was signed. MFM clearance on file. Jeannie Gomez CNP 08/11/2022 16:36 The following [facility]22 for the above treatment: Ovidrel 250mcg/0.5mL syringe for trigger Karoline Gonsalves PharmD, [facility] Clinical Pharmacist with [facility] [...] Requested for: 12Jun2022 Pt scheduled for virtual [facility] preconception consult with Dr. Garland Sherman on Sun07/26/22 Encounter for blood typing Type and Screen; Requested for:04Jul2022; Female infertility associated with anovulation Estradiol, Serum; Requested for:[id number]; Luteinizing Hormone, Serum; Requested for:[id number]; Fertility testing Follicle Endometrium Scan; Requested for:19Sep2022; Radiologist to Determine Optimal Study : Y What are the patient's signs and symptoms? : testing Signatures Electronically signed by : Karoline Gonsalves PharmD; Sep 18 2022 12:19PM EST (Author) Normal ncyclo ROTATING FIELD ASSEMBLER - Office Visiton 07-13 ROTATING FIELD ASSEMBLER - Office Visit Patient Discussion/Summary Partner was [...] BMI 48 - Weight loss consult with BUTTON RECLAIMER -Plan: Once above complete will plan Letrozole [...] BMI 48 - Weight loss consult with BUTTON RECLAIMER -Plan: Once above complete will plan Letrozole [...] Treatment to date: Dr. 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 Normal ncyclo Tobacco Screening.on 022 Fall risk assessment a) No falls within the last year [facility]i sman [address] Work Phone: Last menstrual period start date [id number] MG-OBGYN-Ri sman 320 Work Phone: Tobacco use status [facility] b) No MG-OBGYN-Ri sman 320 Work Phone: 17-HYDROXYPROGESTERONEon 17-HYDROXYPROGESTERO NE 28 ng/dL Normal [facility] Comment on above: Result Comment: Unable to [...] Endocrinol Metab. 1991;73:674-686; J Clin Endocrinol Metab. 1989;69;1734-7894; J Clin Endocrinol Metab. 1994;78:226-270. Pediatr Res 1988;23:525-529. MedLinePlus (accessed 04/27/14). This test was developed and its analytical performance characteristics have been determined by [place]. It has not been cleared or approved by the U.S. Food and Drug Administration. This assay has been validated pursuant to the CLIA regulations and is used for clinical purposes. Performed By: #### 1 7OHP #### [facility] [address] [place], [place] TESTOST,FREE AND TOTALon TESTOSTERONE TOT.LC/MS/MS 23 ng/dL Normal 2-45 [facility] Comment on above: Result Comment: For additional information, please refer to http://education.[employer]/faq/ EffnrYtdmsljkdsqaSJUBHPNTX463 (This link is being provided for informational/ educational purposes only.) This test was developed and its analytical performance characteristics have been determined by [facility] [place], [place]. It has not been cleared or approved by the U.S. Food and Drug Administration. This assay has been validated pursuant to the CLIA regulations and is used for clinical purposes. Performed By: #### T ESFT #### [facility] [address] [place], [place] TESTOSTERONE,FREE 6.1 pg/mL Normal 0.1-6.4 [facility] Comment on above: Result Comment: This test was developed and its analytical performance characteristics have been determined by [facility] [place], [place]. It has not been cleared or approved by the U.S. Food and Drug Administration. This assay has been validated pursuant to the CLIA regulations and is used for clinical purposes. Performed By: #### T ESFT #### [facility] [address] ANTI MULLERIAN HORMONEon ANTI MULLERIAN HORMONE 4.71 ng/mL Normal [facility] Comment on above: Result Comment: For assays employing antibodies, the possibility exists for interference by heterophile antibodies in the samples.1 1.Lyle Fernandes. Interferences in Immunoassays - still a threat. Clin. Chem. 2000; 46: 1693-3485. This test was developed and its performance characteristics determined by [facility]. It has not been cleared or approved by the Food and Drug Administration. Reference Range: Females 26 - 30y: 1.03 - 11.10 Median 4.20 AMH concentrations of >= 1.06 ng/mL is correlated with a better response to ovarian stimulation, produced more retrievable oocytes and higher odds of live according to Helener et al. Fertility and Sterility. 2010: 94:7402-1068. The current AMH test method correlates with [...] AMH-secreting ovarian tumor. Performed By: #### D [facility] #### [facility] [address] [place] [address] GC + CHLAMYDIA BY AMPLIFIED DETECTIONon 07-04-2022 CHLAMYDIA TRACH.,AMPLIFIED Negative Normal Negative [facility] Comment on above: Result Comment: The APTIMA Combo 2 assay is FDA-approved for Chlamydia trachomatis and Neisseria gonorrhoeae testing on female endocervical and vaginal swabs, ThinPrep liquid pap samples, male urine samples and urethral swabs. Performance characteristics for Chlamydia trachomatis and Neisseria gonorrhoeae testing on specific uxw-TUM-bermcsrl sample types (female urine samples) have been validated by [facility]. This laboratory is certified by CLIA to perform high complexity testing. Samples from all other sites are not validated for this method. Performed By: #### G [facility] #### [facility] [address] [place] [address] N.GONORRHEA,AMPLIFIE D Negative Normal Negative [facility] Comment on above: Result Comment: The APTIMA Combo 2 assay is FDA-approved for Chlamydia trachomatis and Neisseria gonorrhoeae testing on female endocervical and vaginal swabs, ThinPrep liquid pap samples, male urine samples and urethral swabs. Performance characteristics for Chlamydia trachomatis and Neisseria gonorrhoeae testing on specific ncn-SXZ-knbpuejn sample types (female urine samples) have been validated by [facility]. This laboratory is certified by CLIA to perform high complexity testing. Samples from all other sites are not validated for this method. Performed By: #### Felicity [facility] #### [facility] [address] [place] [address] HEMOGLOBIN A1Con 07-04-2022 Glucose [Mass/Vol] 108 mg/dL Normal [facility] Comment on above: Performed By: #### Murray [facility] #### [facility] [address] [place] [address] HbA1c (Bld) [Mass fraction] 5.4 % Normal [facility] Comment on above: Result Comment: Diag nosis of Diabetes-Adults Non-Diabetic: < or = 5.6% Increased risk for developing diabetes: 5.7-6.4% Diagnostic of diabetes: > or = 6.5% . Monitoring of Diabetes Age (y) Therapeutic Goal (%) Adults: >18 <7.0 Pediatrics: 13-18 <7.5 7-12 <8.0 0- 6 7.5-8.5 [place] [employer]. Diabetes Care 33(S1), Nov 2009. Performed By: #### D HEAS #### [facility] [address] [place] [address] HEPATITIS B SURFACE AGon HEP.B SURFACE AG Non-Reactive Normal NONREACTIVE [facility] Comment on above: Result Comment: Biot in interference may cause falsely decreased results. Patients taking a Biotin dose of up to 5 mg/day should refrain from taking Biotin for 24 hours before sample collection. Providers may contact their local laboratory for further information. Performed By: #### H BSAG #### [facility] [address] [place] [address] HEPATITIS C ABon 07-04-2022 HEPATITIS C AB Non-Reactive Normal NONREACTIVE [facility] Comment on above: Result Comment: Resu lts from patients taking biotin supplements or receiving high-dose biotin therapy should be interpreted with caution due to possible interference with this test. Providers may contact their local laboratory for further information. Performed By: #### Nia CHRISTINE #### [facility] [address] [place] [address] HIV 1/2 ANTIGEN/ANTIBODY SCR EEN WITH REFLEX TO CONFIRMATIONon 07-04-2022 HIV 1/2 AG/AB SCREEN Non-Reactive Normal NONREACTIVE [facility] Comment on above: Result Comment: HIV Ag/Ab screen is performed using the [employer]ens [employer] HIV Ag/Ab Combo assay which detects the presence of HIV p24 antigen as well as antibodies to HIV-1 (Group M and O) and HIV-2. . No laboratory evidence of HIV infection. If acute HIV infection is suspected, consider testing for HIV RNA by PCR (viral load). Performed By: #### T EMMETT #### [facility] [address] [place] [address] RUBELLA IGG ABon 07-04-2022 RUBELLA IGG AB Positive Normal [facility] Comment on above: Result Comment: INTE RPRETATIVE [...] assays. Performed By: #### T HYDS #### [facility] [address] [place] [address] SYPHILIS SCREENING WITH REFL EXon 07-04-2022 SYPHILIS TOTAL AB Non-Reactive Normal NONREACTIVE [facility] Comment on above: Result Comment: No s ignificant level of Treponema pallidum antibody detected. Repeat testing in 2 to 4 weeks may be considered if early infection or incubating syphilis infection is suspected. Performed By: #### D HEAS #### [facility] [address] [place] [address] TYPE AND SCREENon 07-04-2022 ABO/Rh Positive [facility] Arm Band Number [facility] Expiration Date 07/07/2022,2359 [facility] VARICELLA ZOSTER IGG ABon VARICELLA ZOSTER IGG AB Positive Normal NEGATIVE [facility] Comment on above: Result Comment: INTE RPRETATIVE [...] results in serological assays. Performed By: #### Maxi WRIGHTG #### [facility] [address] [place] [address] 17-Hydroxyprogesterone, Seru mon 07-03-2022 17-Hydroxyprogestero ne [Mass/Vol] [...] Endocrinol Metab. 1991;73:674-686; J Clin Endocrinol Metab. 1989;69;3360-7129; J Clin Endocrinol Metab. 1994;78:226-270. Pediatr Res 1988;23:525-529. MedLinePlus (accessed 04/27/14). This test was developed and its analytical performancecharacteristics have been determined by [facility] [place], [place]. It hasnot been cleared or approved by the U.S. Food and DrugAdministration. This assay has been validated pursuantto the CLIA regulations and is used for clinicalpurposes. CBCon 07-03-2022 Erythrocyte distribution width (RBC) [Ratio] 12.8 % Normal 11.5 - 14.5 [facility] Comment on above: Performed By: #### Murray HOWARD #### [facility] [address] [place] [address] Hematocrit (Bld) [Volume fraction] 37.8 % Normal 36.0 - 46.0 [facility] Comment on above: Performed By: #### D LEE #### [facility] [address] [place] [address] Hemoglobin (Bld) [Mass/Vol] 12.8 g/dL Normal 12.0 - 16.0 [facility] Comment on above: Performed By: #### Murray HOWARD #### [facility] [address] [place] [address] MCHC (RBC) [Mass/Vol] 33.9 g/dL Normal 32.0 - 36.0 [facility] Comment on above: Performed By: #### Murray HOWARD #### [facility] [address] [place] [address] MCV (RBC) [Entitic vol] 86 fL Normal 80 - 100 [facility] Comment on above: Performed By: #### Murray HOWARD #### [facility] [address] [place] [address] Platelets (Bld) [#/Vol] 283 10*3/uL Normal 150 - 450 [facility] Comment on above: Performed By: #### Murray HOWARD #### [facility] [address] [place] [address] RBC 4.41 x10E12/L Normal 4.00 - 5.20 [facility] Comment on above: Performed By: #### Murray HOWARD #### [facility] [address] [place] [address] WBC (Bld) [#/Vol] 7.5 10*3/uL Normal 4.4 - 11.3 [facility] Comment on above: Performed By: #### Murray HOWARD #### [facility] [address] [place] [address] COMPREHENSIVE PANELon 2021 Albumin [Mass/Vol] 4.7 g/dL Normal 3.4 - 5.0 [facility] Comment on above: Performed By: #### Murray HOWARD #### [facility] [address] [place] [address] ALP [Catalytic activity/Vol] 46 U/L Normal 33 - 110 [facility] Comment on above: Performed By: #### Murray HOWARD #### [facility] [address] [place] [address] ALT [Catalytic activity/Vol] 28 U/L Normal 7 - 45 [facility] Comment on above: Result Comment: Michelle ents treated with Sulfasalazine may generate falsely decreased results for ALT. Performed By: #### D JOHNNIEAS #### [facility] [address] [place] [address] Anion gap [Moles/Vol] 13 mmol/L Normal 10 - 20 [facility] Comment on above: Performed By: #### D JOHNNIEAS #### [facility] [address] [place] [address] AST [Catalytic activity/Vol] 18 U/L Normal 9 - 39 [facility] Comment on above: Performed By: #### D JOHNNIEAS #### [facility] [facility] [address] [place] [address] Bilirubin [Mass/Vol] 0.4 mg/dL Normal 0.0 - 1.2 [facility] Comment on above: Performed By: #### D JOHNNIEAS #### [facility] [address] [place] [address] Calcium [Mass/Vol] 9.5 mg/dL Normal 8.6 - 10.3 [facility] Comment on above: Performed By: #### D JOHNNIEAS #### [facility] [address] [place] [address] Chloride [Moles/Vol] 103 mmol/L Normal 98 - 107 [facility] Comment on above: Performed By: #### D JOHNNIEAS #### [facility] [address] [place] [address] Creatinine [Mass/Vol] 0.62 mg/dL Normal 0.50 - 1.05 [facility] Comment on above: Performed By: #### D LEE #### [facility] [address] [place] [address] eGFR FEMALE >90 Normal >90 [facility] Comment on above: Result Comment: CALC ULATIONS OF ESTIMATED GFR ARE PERFORMED USING THE 2020 CKD-EPI STUDY REFIT EQUATION WITHOUT THE RACE VARIABLE FOR THE IDMS-TRACEABLE CREATININE METHODS. https://jasn.asnjournals.org/content/early/ASN.2583282 988 Performed By: #### Murray HOWARD #### [facility] [address] [place] [address] Glucose [Mass/Vol] 82 mg/dL Normal 74 - 99 [facility] Comment on above: Performed By: #### Murray HOWARD #### [facility] [address] [place] [address] HCO3 (Bld) [Moles/Vol] 25 mmol/L Normal 21 - 32 [facility] Comment on above: Performed By: #### Murray HOWARD #### [facility] [address] [place] [address] Potassium [Moles/Vol] 3.9 mmol/L Normal 3.5 - 5.3 [facility] Comment on above: Performed By: #### Murray HOWARD #### [facility] [address] [place] [address] Protein [Mass/Vol] 7.5 g/dL Normal 6.4 - 8.2 [facility] Comment on above: Performed By: #### Murray HOWARD #### [facility] [address] [place] [address] Sodium [Moles/Vol] 137 mmol/L Normal 136 - 145 [facility] Comment on above: Performed By: #### Murray HOWARD #### [facility] [address] [place] [address] Urea nitrogen [Mass/Vol] 11 mg/dL Normal 6 - 23 [facility] Comment on above: Performed By: #### Murray HOWARD #### [facility] [address] [place] [address] DHEA SULFATEon 07-03-2022 DHEA SULFATE 233 ug/dL Normal 65 - 395 [facility] Comment on above: Result Comment: MATLudivina SHANNON-BASED REFERENCE RANGES: PUBERTAL (AMADOR) STAGE MALE FEMALE [...] for further information. Performed By: #### Murray HEMOISES #### [facility] [address] [place] Lab Specimen Source Normal [facility] Comment on above: Performed By: #### Murray HEAS #### [facility] [address] [place] Performed By: #### H BSAG #### [facility] [address] [place] Performed By: #### T HYDS #### [facility] [address] [place] [address] DHEA Sulfate, Serumon 2021 DHEA-S [Mass/Vol] 233 ug/dL 65 - 395 MG-OBGY N-Ri sman 310 IVF Work Phone: Comment on above: SOURCE: [facility] ED REFERENCE RANGES: PUBERTAL (AMADOR) STAGE [...] DETECTIONon 07-03-2022 Lab Specimen Source Urine Normal [facility] Comment on above: Performed By: #### G CCHA #### [facility] [address] [place], [place] GC + Chlamydia By Amplified Detectionon [...] trachomatis and Neisseria gonorrhoeae testing on specific asw-PLN-cxepkkpn sample types (female urine samples) have been validated by [facility]. This laboratory is certified by CLIA [...] trachomatis and Neisseria gonorrhoeae testing on specific pvl-CQA-gvutdgoc sample types (female urine samples) have been validated by [facility]. This laboratory is certified by CLIA to perform high complexity testing. Samples from all other sites are not validated for this method. HIV 1/2 ANTIGEN/ANTIBODY SCR EEN WITH REFLEX TO CONFIRMATIONon 07-03-2022 HIV 1+2 Ab Qn (S) Non-Reactive See Below MG-WIND INSTRUMENT REPAIRER-Ri sman 310 IVF Work Phone: Comment on above: SOURCE: Reference Ra nge: NONREACTIVE HIV Ag/Ab screen is performed using the Siemens [employer] HIV Ag/Ab Combo assay which detects the [...] 13-18 <7.5 7-12 <8.0 0- 6 7.5-8.5 [place] [employer]. Diabetes Care 33(S1), Nov 2009. Hepatitis B Surface Antigeno n 07-03-2022 Hepatitis B Surface Antigen Non-Reactive See Below -OBGEORGESN-Matt sman 310 IVF Work Phone: Comment on [...] [Mass/Vol] 145 mg/dL Normal 0 - 199 [facility] Comment on above: Result Comment: . AGE [...] Performed By: #### L IPID #### [facility] [address] [place] [address] Cholesterol in HDL [Mass/Vol] 46.2 mg/dL Normal [facility] Comment on above: Result Comment: . AGE VERY LOW LOW NORMAL HIGH 0-19 Y < 35 < 40 40-45 ---- 20-24 Y ---- < 40 >45 ---- >24 Y ---- < 40 40-60 >60 . Performed By: #### L IPID #### [facility] [address] [place] [address] Cholesterol in LDL [Mass/Vol] 70 mg/dL Normal 0 - 99 [facility] Comment on above: Result Comment: . NEAR BORD AGE DESIRABLE OPTIMAL HIGH HIGH VERY HIGH 0-19 Y 0 - 109 --- 110-129 >/= 130 ---- 20-24 Y 0 - 119 --- 120-159 >/= 160 ---- >24 Y 0 - 99 100-129 130-159 160-189 >/=190 . Performed By: #### L IPID #### [facility] [address] [place] [address] Cholesterol in VLDL [Mass/Vol] 29 mg/dL Normal 0 - 40 [facility] Comment on above: Performed By: #### L IPID #### [facility] [address] [place] [address] Cholesterol.total/Ch olesterol in HDL [Mass ratio] 3.1 {ratio} Normal [facility] Comment on above: Result Comment: REF VALUES DESIRABLE < 3.4 HIGH RISK > 5.0 Performed By: #### L IPID #### [facility] [address] [place] [address] Triglyceride [Mass/Vol] 144 mg/dL Normal 0 - 149 [facility] Comment on above: Result Comment: . AGE [...] dosing. Performed By: #### L IPID #### [facility] [address] [place] [address] Laboratory - Blood bankon ABO group Nom (Bld) Canceled MG-WIND INSTRUMENT REPAIRER-Ri sman 310 IVF Work Phone: [phone] Comment on above: NO PHLEB ID NOTIFIED BOBBI DUMONT AT DR SLAUGHTER OFFICE, 07/04/2022 09:19 Blood group antibody screen Ql Canceled MG-OBGYN-Ri sman 310 IVF Work Phone: [phone] Comment on above: NO PHLEB ID NOTIFIED BOBBI DUMONT AT DR SLAUGHTER OFFICE, 07/04/2022 09:19 Rh immune globulin screen (Bld) [Interp] Canceled MG-OBGYN-Ri sman 310 IVF Work Phone: [phone] Comment on above: NO PHLEB ID NOTIFIED BOBBI DUMONT AT DR SLAUGHTER OFFICE, 07/04/2022 09:19 Laboratory - Chemistry and C hemistry - challengeon 07-03-2022 Albumin BCP dye [Mass/Vol] 4.7 g/dL 3.4 - 5.0 [facility]-OBGYN-Ri sman 310 IVF Work Phone: [phone] ALP [Catalytic activity/Vol] 46 U/L 33 - 110 [facility]-OBGYN-Ri sman 310 IVF Work Phone: [phone] ALT With P-5'-P [Catalytic activity/Vol] 28 U/L 7 - 45 MG-OBGYN-Ri sman 310 IVF Work Phone: [phone] Comment on above: Patients treated wit h Sulfasalazine may generate falsely decreased results for ALT. Anion gap [Moles/Vol] 13 mmol/L 10 - 20 MG-OBGYN-Ri sman 310 IVF Work Phone: [phone] AST With P-5'-P [Catalytic activity/Vol] 18 U/L 9 - 39 MG-OBGYN-Ri sman 310 IVF Work Phone: [phone] Bilirubin [Mass/Vol] 0.4 mg/dL 0.0 - 1.2 MG-O BGYN-Ri sman 310 IVF Work Phone: [phone] Calcium [Mass/Vol] 9.5 mg/dL 8.6 - 10.3 MG-OBG YN-Ri sman 310 IVF Work Phone: [phone] Chloride [Moles/Vol] 103 mmol/L 98 - 107 MG-O BGYN-Ri sman 310 IVF Work Phone: [phone] CO2 [Moles/Vol] 25 mmol/L 21 - 32 MG-OBGYN- Ri sman 310 IVF Work Phone: [phone] Creatinine [Mass/Vol] 0.62 mg/dL See Below MG-OBGYN-Ri sman 310 IVF Work Phone: [phone] Comment on above: Reference Range: 0.5 0 - 1.05 Glucose [Mass/Vol] 82 mg/dL 74 - 99 MG-OBG YN-Ri sman 310 IVF Work Phone: [phone] Mullerian inhibiting substance [Mass/Vol] 4.71 ng/mL MG-OBGYN-Ri sman 320 Work Phone: [phone] Comment on above: For assays employing antibodies, the possibility exists forinterference by heterophile antibodies in the samples.11.Lyle Gu Interferences in Immunoassays - still a threat. Clin. Chem. 2000; 46: 3439-6664.This test was developed and its performance characteristicsdetermined by [facility]. It has not been cleared or approvedby the Food and Drug Administration.Reference Range:Females 26 - 30y: 1.03 - 11.10Median 4.20AMH concentrations of >= 1.06 ng/mL is correlated with abetter response to ovarian stimulation, produced moreretrievable oocytes and higher odds of live accordingto Kip et al. Fertility and Sterility. 2010:94:7678-5784. The current AMH test method correlates withthe [...] 5.3 MG-OBGYN-Ri sman 310 IVF Work Phone: Protein [Mass/Vol] 7.5 g/dL 6.4 - 8.2 MG-OBG YN-Ri sman 310 IVF Work Phone: [phone] Sodium [Moles/Vol] 137 mmol/L 136 - 145 MG-OBG YN-Ri sman 310 IVF Work Phone: Testosterone [Mass/Vol] 23 ng/dL 2-45 MG-OBGYN-Ri sman 320 Work Phone: Comment on above: For additional infor mation, please refer tohttp://education.[employer]/faq/TotalTestosteroneLCMS [email or web address](This link is being provided for informational/educational purposes only.) This test was developed and its analytical performancecharacteristics have been determined by [place] It hasnot been cleared or approved by the U.S. Food and DrugAdministration. This assay has been validated pursuantto the CLIA regulations and is used for clinicalpurposes. Testosterone Free [Mass/Vol] 6.1 pg/mL 0.1-6.4 MG-OBGYN-Ri sman 320 Work Phone: Comment on above: This test was develo ped and its analytical performancecharacteristics have been determined by [place]. It hasnot been cleared or approved by the U.S. Food and DrugAdministration. This assay has been validated pursuantto the CLIA regulations and is used for clinicalpurposes. TSH Qn 1.66 m[IU]/L See Below MG-OBGYN-Ri sman 310 IVF Work Phone: Comment on above: Reference Range: 0.4 4 - 3.98 TSH testing is performed using different testing methodology at [facility] than at other [facility] hospitals. Direct result comparisons should only be made within the same method. Urea nitrogen [Mass/Vol] 11 mg/dL 6 - 23 MG-OBGYN-Ri sman 310 IVF Work Phone: Laboratory - Hematology and Cell countson 07-03-2022 Erythrocyte distribution width (RBC) [Ratio] 12.8 % See Below MG-OBGYN-Ri sman 310 IVF Work Phone: [phone] Comment on above: Reference Range: 11. 5 - 14.5 Hematocrit (Bld) [Volume fraction] 37.8 % See Below MG-OBGYN-Ri sman 310 IVF Work Phone: [phone] Comment on above: Reference Range: 36. 0 - 46.0 Hemoglobin (Bld) [Mass/Vol] 12.8 g/dL See Below MG-OBGYN-Ri sman 310 IVF Work Phone: [phone] Comment on above: Reference Range: 12. 0 - 16.0 MCHC (RBC) [Mass/Vol] 33.9 g/dL See Below MG-OBGYN-Ri sman 310 IVF Work Phone: [phone] Comment on above: Reference Range: 32. 0 - 36.0 MCV (RBC) [Entitic vol] 86 fL 80 - 100 [facility]-OBGYN-Ri sman 310 IVF Work Phone: [phone] Platelets (Bld) [#/Vol] 283 10*3/uL 150 - 450 MG-OBGYN-Ri sman 310 IVF Work Phone: [phone] RBC (Bld) [#/Vol] 4.41 {x10E12/L} See Below MG -OBGYN-Ri sman 310 IVF Work Phone: [phone] Comment on above: Reference Range: 4.0 0 - 5.20 WBC (Bld) [#/Vol] 7.5 10*3/uL 4.4 - 11.3 MG-OBG YN-Ri sman 310 IVF Work Phone: [phone] Lipid Panelon 07-03-2022 Cholesterol [Mass/Vol] 145 mg/dL 0 - 199 MG-OBGYN-Ri sman 310 IVF Work Phone: [phone] Comment on above: . AGE DESIRABLE BORD [...] RACE VARIABLE FOR THE IDMS-TRACEABLE CREATININE METHODS.https://jasn.asnjournals.org/content/early//ASN .3362253576 ROTATING FIELD ASSEMBLER - Procedure Visiton 0 07-03-2022 ROTATING FIELD ASSEMBLER - Procedure Visit Diagnoses/Problems Abnormal radiograph (793.99) [...] right/left tubes per Dr. Proctor. Juanita Leung, [facility] [place] Reproductive Endocrinology and Infertility 07-03-2022 @ 1413 [...] right/left tubes per Dr. Proctor. Juanita Leung COMPENSATION AND BENEFITS MANAGER Reproductive Endocrinology and Infertility 07-03-2022 @ 1413 [...] procedure . (more content not included)... Normal [facility] PROGESTERONEon 07-03-2022 PROGESTERONE 0.4 ng/mL Normal [facility] Comment on above: Result Comment: Prog esterone is performed using the [employer] Access Immunoassay. Progesterone testing is performed using a different test methodology at [facility] than other [facility]. Direct result comparison should only be made within the same method. REF VALUES MALE <0.2-0.8 FOLLICULAR PHASE <0.2-1.5 LUTEAL PHASE 7.4-15.4 POSTMENOPAUSAL <0.2-0.2 1ST TRIMESTER 12.0-84.0 2ND TRIMESTER 10.2-58.8 3RD TRIMESTER 46.5-160 Performed By: #### T HYDS #### [facility] [address] [place] [address] PROLACTINon 07-03-2022 PROLACTIN 10.5 ug/L Normal 3.0 - 20.0 [facility] Comment on above: Performed By: #### D HEAS #### [facility] [address] [place] [address] Progesterone, Serumon 2021 Progesterone [Mass/Vol] 0.4 ng/mL MG-OBGYN-Ri sman 310 IVF Work Phone: Comment on above: Progesterone is perf ormed using the [employer] Solar Access Immunoassay. Progesterone testing is performed using a different test methodology at [facility] than other [facility]. Direct result comparison should only be made within the same method.REF VALUESMALE <0.2-0.8 FOLLICULAR PHASE <0.2-1.5 LUTEAL PHASE 7.4-15.4 POSTMENOPAUSAL <0.2-0.2 1ST TRIMESTER 12.0-84.0 2ND TRIMESTER 10.2-58.8 3RD TRIMESTER 46.5-160 Prolactin, Serumon 2 Prolactin [Mass/Vol] 10.5 ug/L 3.0 - 20.0 MG-O BGYN-Ri sman 310 IVF Work Phone: Comment on above: SOURCE: Rubella IgG Antibodyon 07-03 Rubella virus IgG IA Ql Positive MG-OBGYN-Ri [facility] 310 IVF Work Phone: Comment on above: [...] Qn 1.66 m[IU]/L Normal 0.44 - 3.98 [facility] Comment on above: Result Comment: TSH testing is performed using different testing methodology at [facility] than at other [facility]. Direct result comparisons should only be made within the same method. Performed By: #### T CECES #### [facility] [address] [place] [address] TYPE + SCREENon 07-03-2022 ABO TYPE Canceled Normal [facility] Comment on above: Order Comment: NO PH LEB ID NOTIFIED BOBBI RN AT [place] OFFICE, 07/04/2022 09:19TEST TYPE + SCREEN WAS CANCELLED, 07/03/2022 21:17 no phleb id. Result Comment: NO P HLEB ID NOTIFIED BOBBI DUMONT AT [place] [facility]ICE, 07/04/2022 09:19 Performed By: #### D LEE #### [facility] [address] [place] [address] RH TYPE Canceled Normal [facility] Comment on above: Order Comment: NO PH LEB ID NOTIFIED BOBBI DUMONT AT [facility] OFFICE, 07/04/2022 09:19TEST TYPE + SCREEN WAS CANCELLED, 07/03/2022 21:17 no phleb id. Result Comment: NO P HLEB ID NOTIFIED BOBBI DUMONT AT [facility] OFFICE, 07/04/2022 09:19 Performed By: #### D LEE #### [facility] [address] [place] [address] Varicella Zoster IgG Antibod yon 07-03-2022 VZV [...] IVIG may demonstrate alteredresults in serological assays. ROTATING FIELD ASSEMBLER - Office Visiton 080 ROTATING FIELD ASSEMBLER - Office Visit Diagnoses/Problems Assessed Routine screening [...] Requested for:12Jun2022; Rubella IgG Antibody; Status:Active; Requested for:[id number]; Varicella Zoster IgG Antibody; Status:Active; Requested for:[id number]; Anti Mullerian Hormone; Status:Active; Requested for:[id number]; Xray Hysterosalpingogram; Status:Hold For - Scheduling; Requested [...] BMI 48 [X] Weight loss consult with BUTTON RECLAIMER [X] New infertility/PCOS packet [X ] Engaged [...] pt ag (more content not included)... Normal [employer] Tobacco Screening.on 022 Fall risk assessment a) No falls within the last year MG-OBGYN-Ri sman 320 Work Phone: Last menstrual period start date [id number] MG-OBGYN-Ri sman 320 Work Phone: Tobacco use status CPHS b) No MG-OBGYN-Ri sman 320 Work Phone: Progesteroneon 10-23-2021 Progesterone 3.76 ng/mL [facility] Comment on above: FEMALE (healthy): Follicular phase 0.06-0.89 Ovulation phase 0.12-12.00 Luteal phase 1.83-23.90 Postmenopausal <0.13 [facility] Progesteroneon 09-21-2021 Progesterone 4.48 ng/mL [facility] Comment on above: FEMALE (healthy): Follicular phase 0.06-0.89 Ovulation phase 0.12-12.00 Luteal phase 1.83-23.90 Postmenopausal <0.13 [facility] ProgesteroneOrdered By: Gaviota Perez on 08-18-2021 Progesterone 2.71 ng/mL [employer] Phone: Comment on above: FEMALE (healthy): Follicular phase 0.06-0.89 Ovulation phase 0.12-12.00 Luteal phase 1.83-23.90 Postmenopausal <0.13 [employer] Phone: Progesteroneon 08-23-2020 Progesterone 5.78 ng/mL [facility] Comment on above: Result Comment: FEMALE (healthy): Follicular phase 0.06-0.89 Ovulation phase 0.12-12.00 Luteal phase 1.83-23.90 Postmenopausal <0.13 Performed By: #### P ANICETO #### [employer] [address] [place] [address] [id number] Dairy Nutritionist: Tyron Golden MD Chlamydia/GC DNA, [facility] Chlamydia Probe, TP Negative Normal NEG [facility] Comment on above: Result Comment: CHLA [...] target. Performed By: #### C YTCGP #### [facility] [address] [place] [address] [id number] Dairy Nutritionist: Tyron Golden MD Gonorrhea Probe, TP Negative Normal NEG [facility] Comment on above: Result Comment: NEIS [...] target. Performed By: #### C YTCGP #### [employer] [address] [place] [address] [id number] Dairy Nutritionist: Tyron Golden MD Cytologyon 03-19-2020 Cytology (NOTE) INTERPRETATION Cervical material, (ThinPrep vial, Imaging-assisted review): Specimen Adequacy: Satisfactory for evaluation. - Endocervical/transformation zone component present. Descriptive Diagnosis: Negative for intraepithelial lesion or malignancy. Reactive cellular changes associated with inflammation. Muskrat Trapper: DEAN Samson M.D. Electronically Signed Out rdd/03/23/2020 Source: 1: Cervical material, (ThinPrep vial, Imaging-assisted review) Clinical History Z12.4 Encounter for screening for malignant neoplasm of cervix High Risk HPV DNA testing is requested if the diagnosis is ASC-US LMP: 11/19/2019 GYNECOLOGIC CYTOLOGY REPORT Patient Name: SANDRA LANGFORD [facility] Rec: [id number] Path Number: [id number] [facility] CONSULTING PATHOLOGISTS [facility] ANATOMIC PATHOLOGY [address] [place] [address]. [place], [place] [address] Normal [facility] Comment on above: Performed By: #### P PPVP #### [facility] [employer] [facility] [place], [place] [phone] Dairy Nutritionist: Tyron Golden MD Follicle Stim. Hormon 2019 Follicle Stim. Horm 6.0 U/L Normal 1.7-21.5 [facility] Comment on above: Result Comment: Refe rence Range: Male: 1.5-12.4 Ovulating Female: Follicular Phase 3.5-12.5 Ovulation Phase 4.7-21.5 Luteal Phase 1.7-7.7 Postmenopausal Female: 25.8-134.8 Performed By: #### G LYHGB #### [facility] [address] [place] [address] Dairy Nutritionist: Bridger Samson MD #### FSH, LH, PROL #### [facility] [employer] [facility] [place], [place] [id number] Dairy Nutritionist: Tyron Golden MD Follicle Stimulating Hormone on 03-19-2020 FSH 6 U/L 1.7 - 21.5 U/L [place], [place] Comment on above: Reference Range: Male: 1.5-12.4 Ovulating Female: Follicular Phase 3.5-12.5 Ovulation Phase 4.7-21.5 Luteal Phase 1.7-7.7 Postmenopausal Female: 25.8-134.8 Hemoglobin A1Con 03-19-2020 HbA1c (Bld) [Mass fraction] 5.6 % Normal 4.8-5.9 [facility] Comment on above: Performed By: #### G LYHGB #### [facility] [address] [place], [place] [phone] Dairy Nutritionist: Bridger Samson MD #### FSH, LH, PROL #### [facility] [address] [place], [place] [phone] Dairy Nutritionist: Tyron Golden MD HbA1c (Bld) [Mass fraction] 114 mg/dL Normal [facility] Comment on above: Result Comment: The ADA and AACC recommend providing the estimated average glucose result to permit better patient understanding of their HBA1c result. Performed By: #### G LYHGB #### [facility] [address] [place], [place] [phone] Dairy Nutritionist: Bridger Samson MD #### FSH, LH, PROL #### [facility] [employer] [address] [place], [place] [phone] Dairy Nutritionist: Tyron Golden MD Glucose [Mass/Vol] 114 mg/dL [place], [place] Comment on above: The ADA and AACC rec ommend providing the estimated average glucose result to permit better patient understanding of their HBA1c result. HbA1c (Bld) [Mass fraction] 5.6 % 4.8 - 5.9 % [place] Luteinizing Hormoneon 2019 Luteinizing Hormone 12.4 U/L Normal 1.0-95.6 [facility] Comment on above: Result Comment: Refe rence Range: Male: 1.7-8.6 Ovulating Female: Follicular Phase 2.4-12.6 Ovulation Phase 14.0-95.6 Luteal Phase 1.0-11.4 Postmenopausal Female: 7.7-58.5 Performed By: #### G LYHGB #### [address] [place], [place] [id number] Dairy Nutritionist: Bridger Samson MD #### FSH, LH, PROL #### [facility] [address] [place], [place] [id number] Dairy Nutritionist: Tyron Golden MD LH 12.4 U/L 1 - 95.6 U/L [place], [place] Comment on above: Reference Range: Male: 1.7-8.6 Ovulating Female: Follicular Phase 2.4-12.6 Ovulation Phase 14.0-95.6 Luteal Phase 1.0-11.4 Postmenopausal Female: 7.7-58.5 Prolactinon 03-19-2020 Prolactin 13.01 ug/L Normal 4.79-23.30 [facility] Comment on above: Result Comment: The presence of macroprolactin may cause interference in female patients with various endocrinological diseases or during . Performed By: #### G LYHGB #### [address] [place] [phone] Dairy Nutritionist: Bridger Samson MD #### FSH, LH, PROL #### [facility] [address] [place], [place] [phone] Dairy Nutritionist: Tyron Godlen MD Prolactin 13.01 ug/L 4.79 - 23.3 ug/L [place], [place] Comment on above: The presence of macr oprolactin may cause interference in female patients with various endocrinological diseases or during . TSH w/reflex to FT4on 2019 TSH Qn 2.55 m[IU]/L Normal 0.30-5.00 [facility] Comment on above: Performed By: #### T SHX #### [address] [place] [address] Dairy Nutritionist: Bridger Samson MD TSH with Reflexon 03-19-2020 TSH Qn 2.55 m[IU]/L [place] Vital Signs Date Time Vital Sign Value Performing Clinician Facility 06-10-2025 11:15-0400 Body mass index (BMI) [Ratio] 39.94 kg/m2 Kesha Leongerly BUTTON RECLAIMER Work Phone: [facility] 06-10-2025 11:15-0400 Body weight 115.67 kg Kesha Leongerly BUTTON RECLAIMER Work Phone: [facility] 06-10-2025 11:15-0400 Diastolic blood pressure 76 mm[Hg] Kesha Leongerly BUTTON RECLAIMER Work Phone: [facility] 06-10-2025 11:15-0400 Systolic blood pressure 124 mm[Hg] Kesha Leongerly BUTTON RECLAIMER Work Phone: [facility] 06-01-2025 14:15-0400 Body height 170.2 cm Garland Pocos DO Work Phone: [facility] 06-01-2025 14:15-0400 Body mass index (BMI) [Ratio] 40.57 kg/m2 Garland Pocos DO Work Phone: [facility] 06-01-2025 14:15-0400 Body weight 117.48 kg Garland Pocos DO Work Phone: [facility] 12-17-2024 13:03-0500 Diastolic blood pressure 84 mm[Hg] Filemon Rosendo [facility] 12-17-2024 13:03-0500 Heart rate 88 /min Filemon Rosendo [facility] 12-17-2024 13:03-0500 Respiratory rate 18 /min Filemon Rosendo [facility] 12-17-2024 13:03-0500 SaO2% (BldA) [Mass fraction] 98 % Filemon Rosendo [facility] 12-17-2024 13:03-0500 Systolic blood pressure 136 mm[Hg] [facility] 08-26-2024 11:57-0400 Body mass index (BMI) [Ratio] 46.74 kg/m2 Freedom Perez DO Work Phone: [facility] 08-26-2024 11:57-0400 Body weight 135.35 kg Freedom Perez DO Work Phone: [facility] 08-26-2024 11:57-0400 Diastolic blood pressure 80 mm[Hg] Freedom Perez DO Work Phone: [facility] 08-26-2024 11:57-0400 Systolic blood pressure 138 mm[Hg] Freedom Perez DO Work Phone: [facility] 07-24-2022 09:29-0400 Body height 170.18 cm Referring Provider Unknown NE-VZNAT-Wpfddk 320 Work Phone: 07-24-2022 09:29-0400 Body mass index (BMI) [Ratio] 48.08 kg/m2 Referring Provider Unknown MR-JPOZT-Ffksha 320 Work Phone: 07-24-2022 09:29-0400 Body surface area Derived from formula 2.43 m2 Referring Provider Unknown HQ-OVQIM-Pcajzt 320 Work Phone: 07-24-2022 09:29-0400 Body weight 139.26 kg Referring Provider Unknown LP-SZRHA-Dnnxuh 320 Work Phone: 07-24-2022 09:29-0400 0 1 Referring Provider Unknown DL-GRXKF-Udpzmf 320 Work Phone: Comment on above: GRAV PARA [facility] 06-12-2022 09:05-0400 Body height 170.18 cm Referring Provider Unknown ZB-VPTNP-Enokjq 320 Work Phone: 06-12-2022 09:05-0400 Body mass index (BMI) [Ratio] 48.08 kg/m2 Referring Provider Unknown CA-IJFCL-Vnokud 320 Work Phone: 06-12-2022 09:05-0400 Body surface area Derived from formula 2.43 m2 Referring Provider Unknown ID-PCLYH-Qidazn 320 Work Phone: 06-12-2022 09:05-0400 Body weight 139.26 kg Referring Provider Unknown KR-SXECZ-Kdhraw 320 Work Phone: 06-12-2022 09:05-0400 Diastolic blood pressure 83 mm[Hg] Referring Provider Unknown NT-ABUPV-Tllswz 320 Work Phone: 06-12-2022 09:05-0400 Heart rate 76 /min Referring Provider Unknown OM-NESZW-Hrocso 320 Work Phone: 06-12-2022 09:05-0400 Systolic blood pressure 141 mm[Hg] Referring Provider Unknown KY-CNMVN-Tqrxrs 320 Work Phone: 06-12-2022 09:05-0400 0 1 Referring Provider Unknown KY-TPOFL-Kkcabu 320 Work Phone: Comment on above: GRAV PARA [employer] Encounters Encounter Date Encounter Type Care Provider Facility Start: 06-10-2025 End: 06-10-2025 Bamboo flowsheet Kesha Dc NP Work Phone: [facility] Start: 06-10-2025 End: 06-10-2025 Bamboo flowsheet Kesha Dc BUTTON RECLAIMER Work Phone: [facility] OBCHRISTOP[facility] Start: 06-10-2025 End: 06-10-2025 Patient encounter procedure Kesha Dc NP Work Phone: [facility] Start: 06-10-2025 End: 06-10-2025 Periodic preventive med est patient 18-39 yrs Kesha Dc NP Work Phone: [facility] Comment on above: Well woman exam with routine gynecological exam Start: 06-01-2025 End: 06-01-2025 Patient encounter procedure Sy Pocos DO Work Phone: [facility] Comment on above: Other closed extra-a rticular fracture of distal end of left radius, initial encounter (Primary Dx); Acute wrist pain, left Start: 06-01-2025 End: 06-01-2025 ambulatory SY JR Not Available Start: 06-01-2025 End: 06-01-2025 Bamboo flowsheet Sy Pocos DO Work Phone: [facility] Start: 06-01-2025 End: 06-01-2025 Bamboo flowsheet Sy Pocos DO Work Phone: [facility] Start: 05-29-2025 End: 05-29-2025 ambulatory CHRISTOPH PANTOJA Facility:[facility] Start: 05-23-2025 End: 05-23-2025 Emergency department patient visit ANT [facility] Start: 05-13-2025 End: 05-13-2025 ambulatory EMR SPECIALIST Filemon L Rosendo Facility: [facility] Start: 05-04-2025 End: 05-04-2025 ambulatory EMR SPECIALIST Filemon L Rosendo Facility: [facility] Start: 02-09-2025 End: 02-09-2025 ambulatory EMR SPECIALIST Filemon L Rosendo Facility: [facility] Start: 01-13-2025 End: 01-13-2025 ambulatory EMR SPECIALIST Filemon L Rosendo Facility: [facility] Start: 12-17-2024 End: 12-17-2024 ambulatory EMR SPECIALIST Filemon L Rosendo Facility: [facility] Start: 12-17-2024 End: 12-17-2024 Patient encounter procedure Filemon L Rosendo [facility] Start: 12-12-2024 ambulatory EMR SPECIALIST Filemon Rosendo Facilit y:[facility] Start: 08-26-2024 End: 08-26-2024 Bamboo flowsheet Freedom Perez DO Work Phone: [facility] Start: 08-26-2024 End: 08-26-2024 Bamboo flowsheet Freedom Perez DO Work Phone: [facility] Start: 08-26-2024 End: 08-26-2024 Clinisync Result Encounter Freedom Todd DO Work Phone: [facility] Unsolicited Start: 08-26-2024 End: 08-26-2024 ambulatory FREEDOM TODD Not Available Start: 08-26-2024 End: 08-26-2024 Office outpatient visit 15 minutes Freedom Todd DO Work Phone: [facility] Comment on above: Amenorrhea; PCOS (polycystic ovarian syndrome) Start: 10-01-2023 End: 10-01-2023 Emergency department patient visit [facility] Start: 03-28-2023 End: 03-28-[address] FREEDOM TODD . Facility: Start: 03-28-2023 End: 03-29-[address] FREEDOM TODD . Facility: Start: 03-15-2023 End: 03-16-[address] FREEDOM TODD . Facility: Start: 03-03-2023 End: 03-04-[address] FREEDOM TODD . Facility:[facility] Start: 02-26-2023 End: 02-27-[address] FREEDOM TODD . Facility: Start: 02-05-2023 Office outpatient vi sit 10 minutes Referring Provider Unknown RG-KBPRT-Svpyvk 310 IVF Work Phone: Start: 02-05-2023 Patient encounter procedure Referring Provider Unknown LC-ERKLP-Hlybwf 310 IVF Work Phone: Start: 02-05-2023 ambulatory PCP UNKNOWN Facility:[facility] Rowan Arnold Start: 02-05-2023 ambulatory PCP UNKNOWN Facility:1 5344 Start: 01-25-2023 AUDIT Referring Prov ider Unknown UE-FRWQX-Dnopxty 206A IVF Work Phone: Start: 01-25-2023 End: 01-26-2023 ambulatory [facility] Start: 01-25-2023 End: 01-25-2023 Subsequent hospital visit by physician Chey Gomez MD Work Phone: [facility] Start: 01-18-2023 Image Encounter Referring Prov ider Unknown PT-TSJGH-Qsheek 310 IVF Work Phone: Start: 01-18-2023 End: 01-19-2023 ambulatory [facility] Start: 01-18-2023 End: 01-18-2023 Subsequent hospital visit by physician Chey Gomez MD Work Phone: [facility] Start: 01-16-2023 End: 01-17-2023 ambulatory [facility] Start: 01-16-2023 AUDIT Referring Prov ider Unknown ZR-EATCQ-Sydnfs 310 IVF Work Phone: Start: 01-16-2023 End: 01-16-2023 Subsequent hospital visit by physician Chey Gomez MD Work Phone: [facility] Start: 01-02-2023 ambulatory COMPENSATION AND BENEFITS MANAGER ELVI SWIFT SANTY Fa cility:[id number] Start: 01-02-2023 INSEMIN, Provider: Elvi Covarrubias, Status: Pen, Time: 10:45 AM Referring Provider Unknown NG-RADVV-Ffzken 310 IVF Work Phone: Start: 01-02-2023 Patient encounter procedure Referring Provider Unknown YL-GKGIH-Dgqtwr 310 IVF Work Phone: Start: 01-01-2023 ambulatory PCP UNKNOWN Facility:[facility] Start: 01-01-2023 Patient encounter procedure Referring Provider Unknown EO-XPBUU-Mkiobc 310 IVF Work Phone: Start: 12-14-2022 AUDIT Referring Prov ider Unknown ZI-OZXJV-Qegwjqz 206A IVF Work Phone: Start: 10-27-2022 Patient encounter procedure Referring Provider Unknown FV-HAXYZ-Iptpqa 310 IVF Work Phone: Start: 10-27-2022 ambulatory PCP UNKNOWN Facility:1 5344 Start: 10-24-2022 ambulatory PCP UNKNOWN Facility:[facility] Start: 10-24-2022 Patient encounter procedure Referring Provider Unknown PS-EVRMD-Oyqyjju 206A IVF Work Phone: Start: 10-16-2022 AUDIT Referring Prov ider Unknown JT-CXUMF-Nneyzhl 206A IVF Work Phone: Start: 09-25-2022 Chart Update Referring Prov ider Unknown TW-GQFFY-Wpwqbvr 206A IVF Work Phone: Start: 09-24-2022 INSEMIN, Provider: Liu BOSWELL NURSE ADRI SOTOMAYOR, Status: Pen, Time: 10:00 AM Referring Provider Unknown FD-CDQDE-Foueqee 206A IVF Work Phone: Start: 09-24-2022 Patient encounter procedure Referring Provider Unknown DO-WTVAY-Qgzmdx 310 IVF Work Phone: Start: 09-24-2022 ambulatory PCP UNKNOWN Facility: [id number] Start: 09-22-2022 ambulatory PCP UNKNOWN Facility:[facility] Start: 09-22-2022 Patient encounter procedure Referring Provider Unknown JX-HEQFH-Lrsnuod 206A IVF Work Phone: Start: 09-19-2022 Chart Update Referring Prov ider Unknown SF-MXPWB-Eyjreg 310 IVF Work Phone: Start: 09-19-2022 ambulatory [facility] Facility:[facility] Start: 09-19-2022 Patient encounter procedure Referring Provider Unknown DX-CWQZW-Uwlkpfn 206A IVF Work Phone: Start: 09-15-2022 AUDIT Referring Prov ider Unknown GC-VKSGA-Xpustnn 206A IVF Work Phone: Start: 08-11-2022 Chart Update Referring Prov ider Unknown KV-ZRZOF-Exsldcy 206A IVF Work Phone: Start: 07-26-2022 Phys/qhp telephone evaluation 21-30 min Referring Provider Unknown BN-JXXWX-Iqqghpl 1200 Work Phone: Start: 07-26-2022 CRISTINA, Provider : Garland Sherman, Status: Pen, Time: 2:00 PM Referring Provider Unknown OI-MBLKC-Dqpwom 320 Work Phone: Start: 07-26-2022 ambulatory [facility] Facility:U Start: 07-24-2022 Office outpatient vi sit 15 minutes Referring Provider Unknown YH-UDPYA-Ghamojs 206A IVF Work Phone: Start: 07-24-2022 Patient encounter procedure Referring Provider Unknown SA-UYNJM-Airjkl 320 Work Phone: Start: 07-24-2022 ambulatory [facility] Facility:U Rowan Jiménezcker Start: 07-04-2022 End: 07-04-2022 Subsequent hospital visit by physician Chey Gomez MD Work Phone: [facility] Start: 07-04-2022 AUDIT Referring Prov ider Unknown LW-ZWRGN-Ttykde 310 IVF Work Phone: Start: 07-03-2022 Patient encounter procedure Referring Provider Unknown CN-YKWOX-Rajaxd 310 IVF Work Phone: Start: 07-03-2022 ambulatory PCP UNKNOWN Facility:1 5344 Start: 06-12-2022 Encounter for blood typing MD BOBBI FLOOD [facility] Start: 06-12-2022 AUDIT Referring Prov ider Unknown [facility] Work Phone: Start: 06-12-2022 Patient encounter procedure Referring Provider Unknown ST-AGMBF-Kdmems 320 Work Phone: Start: 06-12-2022 ambulatory MD BOBBI FLOOD Facility:[facility] Rowan Arnold Start: 10-23-2021 End: 10-23-2021 Subsequent [...] by physician Chey Gomez MD Work Phone: [facility] Laboratory Comment on above: PCOS (polycystic ova juliane syndrome) Start: 08-23-2020 End: 08-24-2020 Patient encounter procedure [facility] Start: 03-19-2020 End: 03-20-2020 Patient encounter procedure [facility] Start: 03-19-2020 End: 03-19-2020 Patient encounter procedure [facility] Start: 03-19-2020 End: 03-19-2020 Subsequent hospital visit by physician Chey Gomez [facility] Start: 03-19-2020 End: 03-19-2020 Subsequent hospital visit by physician Chey BLACK Laboratory Comment on above: BMI 50.0-59.9, adult (HCC); Pelvic pain in female; Routine Papanicolaou smear Patient encounter status Referri Provider Unknown NX-WTRZJ-Upjmpv 320 Work Phone: Procedures Date Procedure Procedure Detail Performing Clinician Start: 08-26-2024 ALL CBC WITH AUTO DIFF Freedom Perez DO Work Phone: Start: 08-26-2024 Urine test visual color cmprsn meths Freedom Perez DO Work Phone: Start: 01-25-2023 Gonadotropin chorion ic quantitative Jeannie Gomez COFFEE BREAK ATTENDANT - COMPENSATION AND BENEFITS MANAGER Work Phone: Start: 01-18-2023 Gonadotropin chorion ic quantitative Jeannie Gomez COFFEE BREAK ATTENDANT - COMPENSATION AND BENEFITS MANAGER Work Phone: Start: 01-16-2023 Gonadotropin chorion ic quantitative Jeannie Gomez COFFEE BREAK ATTENDANT - COMPENSATION AND BENEFITS MANAGER Work Phone: Start: 07-04-2022 Antibody screen Remigio Gomez MD Work Phone: Start: 07-04-2022 Blood typing serologic abo Chey Gomez MD Work Phone: Start: 07-03-2022 Antibody screen PCP UNK NOWN Comment on above: Order Comment: NO PH LEB ID NOTIFIED BOBBI RN AT DR SLAUGHTER OFFICE, 07/04/2022 09:19TEST TYPE + SCREEN WAS CANCELLED, 07/03/2022 21:17 no phleb id. Result Comment: NO P HLEB ID NOTIFIED BOBBI DUMONT AT DR SLAUGHTER OFFICE, 07/04/2022 09:19 Performed By: #### D HEMOISES #### [facility] [id number] [address] Start: 10-23-2021 Assay of progesterone W vivienne [...] PEREZ Start: 03-19-2020 Assay of prolactin EMMANUELL MATT ELPIDIO Start: 03-19-2020 Assay of thyroid stimulating hormone tsh DAVIDJANICE PEREZ Start: 03-19-2020 Gonadotropin follicl e stimulating hormone DAVID JUAN MANUELBrittney Start: 03-19-2020 Gonadotropin luteini zing hormone DAVID JUAN MANUELBrittney Start: 03-19-2020 Hemoglobin glycosyla carol a1c DAVID JUAN MANUELBrittney Start: 03-19-2020 Assay of prolactin Emmanuell ey Charmaine Alvesbrittney Work Phone: Start: 03-19-2020 Assay of thyroid stimulating hormone tsh David Charmaine Alvesbrittney Work Phone: Start: 03-19-2020 Gonadotropin follicl e stimulating hormone David Alvesbrittney Work Phone: Start: 03-19-2020 Gonadotropin luteini zing hormone David Alvesbrittney Work Phone: Start: 03-19-2020 Hemoglobin glycosyla carol a1c David Charmaine Alvesbrittney Work Phone: Start: 03-19-2020 Microscopic observat ion [Identifier] in Cervix by Cyto stain Chey Gomez MD Work Phone: Tonsillectomy and adenoidectomy Filemon Macario Plan of Treatment Date Care Activity Detail Author Start: 10-22-2027 DTaP/Tdap/Td vaccine (7 - Td or Tdap) DTaP/Tdap/Td vaccine (7 - Td or Tdap) [facility] Start: 07-27-2025 ambulatory Ambulatory Facility:[facility] FABIAN [place] Start: 06-15-2025 End: 06-15-2025 Patient encounter procedure [facility] Start: 06-10-2025 End: 06-10-2025 Patient encounter procedure 06/10/2025 11:00 AM EDT Office Visit [facility] [address] [phone] Kesha Dc, BUTTON RECLAIMER [address] [place] [phone] [facility] Start: 06-01-2025 End: 06-01-2025 Patient encounter procedure 06/01/2025 2:15 PM EDT Office Visit [facility] [address] [facility] [place] [phone] Garland Norris DO [address] [place] [address] Arrived [facility] Comment on above: Arrived Start: 08-26-2024 End: 08-26-2025 DHEA DHEA Lab Routine PCOS (polycystic ovarian syndrome) Expected: 08/26/2024 (Approximate), Expires: 08/26/2025 [facility] Comment on above: Expected: 08/26/2024 (Approximate), Expires: 08/26/2025 Start: 08-26-2024 End: 08-26-2025 US for US PELVIS-TRANSVAG IF INDICATED Imaging Routine PCOS (polycystic ovarian syndrome) Expected: 08/26/2024 (Approximate), Expires: 08/26/2025 [facility] Comment on above: Expected: 08/26/2024 (Approximate), Expires: 08/26/2025 Start: 03-19-2023 Screening for malign ant neoplasm of cervix Pap smear [facility] Start: 02-05-2023 VIRFUVHEVER, Provider : Jeannie Gomez, Status: Pen, Time: 9:30 AM VIRFUVHOME, Provider: Jeannie Gomez, Status: Pen, Time: 9:30 AM KT-SVUZI-Dbkbxx 310 IVF Work Phone: Start: 02-05-2023 ULTRASOUND, Provider : OBGYN IVF RDMS FOREST 1,[facility] OBG[facility], Status: Pen, Time: 9:10 AM ULTRASOUND, Provider: OBGYN IVF RDMS FOREST 1,MG OBGYN, Status: Pen, Time: 9:10 AM XM-IYSHU-Msisnh 310 IVF Work Phone: Start: 10-27-2022 INSEMIN, Provider: Christina Leung, Status: Pen, Time: 9:00 AM INSEMIN, Provider: Christina Leung, Status: Pen, Time: 9:00 AM NU-QWTCE-Aaekjje 206A IVF Work Phone: Start: 10-24-2022 ULTRALAB, Provider: OBGYN IVF RDMS FOREST 1,MG OBGYN, Status: Pen, Time: 7:40 AM ULTRALAB, Provider: OBGYN IVF RDMS FOREST 1,MG OBGYN, Status: Pen, Time: 7:40 AM WT-EJRGV-Qhstsrj 206A IVF Work Phone: Start: 09-22-2022 ULTRALAB, Provider: OBGYN IVF RDMS FOREST 1,MG OBGYN, Status: Pen, Time: 8:00 AM ULTRALAB, Provider: OBGYN IVF RDMS FOREST 1,MG OBGYN, Status: Pen, Time: 8:00 AM FO-MRAQR-Splfxjr 206A IVF Work Phone: Start: 09-19-2022 ULTRALAB, Provider: OBGYN IVF RDMS FOREST 1,MG OBGYN, Status: Pen, Time: 7:10 AM ULTRALAB, Provider: OBGYN IVF RDMS FOREST 1,MG OBGYN, Status: Pen, Time: 7:10 AM WU-PJVID-Lxuaneq 206A IVF Work Phone: Start: 07-24-2022 VIRFUVKIMBERLEYE, Provider : Jeannie Gomez, Status: Pen, Time: 9:30 AM VIRFUVHEVER, Provider: Jeannie Gomez, Status: Pen, Time: 9:30 AM UD-XOFSK-Okzwyn 320 Work Phone: Start: 07-13-2022 Influenza vaccination Flu vaccine (# 1) [facility] Start: 06-12-2022 Influenza vaccination Flu vaccine (# 1) [facility] Start: 07-13-2021 Influenza vaccination Flu vaccine (# 1) [facility] Start: 07-13-2020 Influenza vaccination Flu vacc ine (Season Ended) [place] Start: 04-15-2020 End: 04-15-2020 Office Visit 04/15/2020 Office Visit Obstetrics and Gynecology Blanca Hess, CHILO - [address] Johnson [address] [place] [id number] [facility]YNECOLOGY Start: 2017 Screening for malign ant neoplasm of cervix Cervical cancer screen [place], [place] Start: 2015 DTaP/Tdap/Td vaccine (1 - Tdap) DTaP/Tdap/Td vaccine (1 - Tdap) [place] Start: 2014 Hepatitis C screening Hepatitis C sc reen [facility] Start: 2012 Screening for Chlamy rosi trachomatis Chlamydia screen [place] Start: 2011 HIV screening HIV screen [facility] Start: 2008 COVID-19 Vaccine (1) COVID-19 Vaccin e (1) [facility] Start: 2008 Depression Screen Depression Screen [facility] Start: 2007 HPV vaccine (1 - 2-d ose series) HPV vaccine (1 - 2-dose series) [place] Start: 1997 Varicella vaccine (1 of 2 - 2-dose childhood series) Varicella vaccine (1 of 2 - 2-dose childhood series) [facility] Start: 1996 COVID-19 Vaccine (#1) COVID-19 Vacci ne (#1) [facility] Start: 1996 Hepatitis C screening Hepatitis C sc reen [facility] End: 03-19-2020 C.trachomatis N.gonorrhoeae DNA, Thin Prep C.trachomatis N.gonorrhoeae DNA, Thin Prep Microbiology Routine Pelvic pain in female 1 Occurrences starting 03/19/2020 until 03/19/2020 [facility] [place] Comment on above: 1 Occurrences starti ng 03/19/2020 until 03/19/2020 C.trachomatis N.gonorrhoeae DNA, Thin Prep C.trachomatis N.gonorrhoeae DNA, Thin Prep Microbiology Routine Pelvic pain in female 03/19/2020 11:49 AM EDT [place] CBC W Auto Different ial panel - Blood CBC and differential Lab Routine PCOS (polycystic ovarian syndrome) Ordered: 08/26/2024 [facility] Comment on above: Ordered: 08/26/2024 Cytology Cervical or vaginal smear or scraping study Pap Smear Pathology and Cytology Routine Well woman exam with routine gynecological exam Ordered: 06/10/2025 [facility] [employer] Work Phone: Comment on above: Ordered: 06/10/2025 End: 03-19-2020 Cytopathology procedure, preparation of smear, genital source PAP SMEAR Lab Routine Routine Papanicolaou smear 1 Occurrences starting 03/19/2020 until 03/19/2020 [facility] [place] Comment on above: 1 Occurrences starti ng 03/19/2020 until 03/19/2020 DHEA-sulfate DHEA-sulfate Lab Routine PCOS (polycystic ovarian syndrome) Ordered: 08/26/2024 [facility] Comment on above: Ordered: 08/26/2024 Follicle stimulating hormone Follicle stimulating hormone Lab Routine PCOS (polycystic ovarian syndrome) Ordered: 08/26/2024 [facility] Comment on above: Ordered: 08/26/2024 hCG, quantitative, hCG, quantitative, Lab Routine PCOS (polycystic ovarian syndrome) Ordered: 08/26/2024 [facility] Work Phone: Comment on above: Ordered: 08/26/2024 Hemoglobin A1c/Hemoglobin.total in Blood Hemoglobin A1c Lab Routine Amenorrhea Ordered: 08/26/2024 [facility] Comment on above: Ordered: 08/26/2024 Luteinizing hormone Luteinizing hormone Lab Routine PCOS (polycystic ovarian syndrome) Ordered: 08/26/2024 [facility] Comment on above: Ordered: 08/26/2024 Prolactin Prolactin Lab Ro utine Amenorrhea Ordered: 08/26/2024 [facility] Comment on above: Ordered: 08/26/2024 Thyrotropin [Units/volume] in Serum or Plasma TSH Lab Routine PCOS (polycystic ovarian syndrome) Ordered: 08/26/2024 [facility] Comment on above: Ordered: 08/26/2024 Thyroxine (T4) free [Mass/volume] in Serum or Plasma T4, free Lab Routine PCOS (polycystic ovarian syndrome) Ordered: 08/26/2024 [facility] Comment on above: Ordered: 08/26/2024 Immunizations Immunization Date Immunization Notes Care Provider Bob rosas NEGATED: Highlighted row has not occurred!09-08-2021 influenza virus vaccine, unspecified formulation Filemon Rosendo [facility] NEGATED: Highlighted row has not occurred!09-08-2021 SARS-CoV-2 (COVID-19) Ad26 vaccine, recombinant [facility] NEGATED: Highlighted row has not occurred!12-14-2020 influenza virus vaccine, unspecified formulation Filemon Rosendo [facility] Payers Date Payer Category Payer Private Health Insurance [employer] [id number] 2019 Unknown [employer] [address] xxxxxxxx 2019-Present [phone] [address] [place] [address] xxxxxxxx [id number] 1996 Unknown [id number] 2.16.840.1.904489.3.579. 2.173 1996 Unknown [id number] 2.16.840.1.471201.3.579. 2.173 1996 Unknown [id number] 2.16.840.1.065060.3.579. 2.173 1996 Unknown [id number] 2.16840.1.006617.3.579. 2.356 1996 Unknown [id number] 2.16840.1.816203.3.579. 2.356 1996 Unknown [id number] 2.16840.1.857840.3.579. 2.356 1996 Unknown [id number] 2.16.840.1.881308.3.579. 2.356 1996 Unknown [id number] 2.16.840.1.490773.3.579. 2.356 1996 Unknown [id number] 2.16840.1.330123.3.579. 2.356 1996 Unknown [id number] 2.16840.1.811813.3.579. 2.356 1996 Unknown [id number] 2.16840.1.674766.3.579. 2.356 1996 Unknown [id number] 2.16840.1.265182.3.579. 2.356 1996 Unknown [id number] 2.16.840.1.722107.3.579. 2.356 1996 Unknown [id number] 2.16840.1.322711.3.579. 2.356 1996 Unknown [id number] 2.16.840.1.783982.3.579. 2.356 1996 Unknown [id number] 2.16.840.1.102827.3.579. 2.356 1996 Unknown [id number] 2.16.840.1.949104.3.579. 2.593 1996 Unknown [id number] 2.16.840.1.479923.3.579. 2.593 1996 Unknown [id number] 2.16.840.1.900015.3.579. 2.593 1996 Unknown [id number] 2.16.840.1.124293.3.579. 2.593 1996 Unknown [id number] 2.16.840.1.240299.3.579. 2.593 1996 Unknown [id number] 2.16.840.1.299689.3.579. 2.174 1996 Unknown [id number] 2.16.840.1.460522.3.579. 2.174 1996 Unknown [id number] 2.16.840.1.846873.3.579. 2.174 1996 Unknown [id number] 2.16.840.1.571883.3.579. 2.174 1996 Unknown [id number] 2.16.840.1.942625.3.579. 2.727 1996 Unknown [id number] 2.16.840.1.284787.3.579. 2.727 1996 Unknown [id number] 2.16.840.1.103366.3.579. 2.727 1996 Unknown [id number] 2.16.840.1.515339.3.579. 2.727 1996 Unknown [id number] 2.16.840.1.428205.3.579. 2.727 1996 Unknown [id number] 2.16.840.1.733215.3.579. 2.727 1996 Unknown [id number] 2.16.840.1.063102.3.579. 2.727 1996 Unknown [id number] 2.16.840.1.073870.3.579. 2.903 1996 Unknown [id number] 2.16.840.1.400623.3.579. 2.1259 1996 Unknown [id number] 2.16.840.1.188545.3.579. 2.1259 1959 Unknown [id number] Unknown Unknown Social History Date Type Detail Facility Start: 03-19-2020 End: 06-01-2025 Tobacco smoking status KYIS Never smoker [facility] Start: 03-19-2020 End: 10-31-2021 Alcohol intake Current non-drinker of alcohol (finding) [employer] Sex Assigned At Not on file [employer] Start: 08-04-2021 End: 06-01-2025 Tobacco use and exposure Never used [facility] Start: 1996 Sex Assigned At Female [employer] Work Phone: Start: 06-01-2025 End: 06-10-2025 Kiet Lamas Work Phone: Comment on above: Nurse; Tobacco smoking stat [facility] Tobacco smoking consumption unknown [facility] Start: 04-25-2023 Gender identity Identifies as female gender (finding) [facility] Start: 04-25-2023 Sexual orientation Heterosexual (fin ding) [facility] Tobacco smoking status Never [facility] Start: 06-01-2025 End: 06-10-2025 Sex Assigned At Female [facility] Start: 06-01-2025 End: 06-10-2025 Alcoholic beverage intake Lifetime non-drinker (finding) [facility] Goals Date Patient Goal Desired Activity /State Personal health goal Functional Status Date Assessment Result Facility 12-17-2024 Functional Status N/A [facility] [place] Clinical Notes 07-26-2021 to 06-10-2025 Kesha Dc NP - 06/10/2025 11:00 AM Avtar Jauregui - 06/01/2025 2:15 PM Evans Van LPN - 08/26/2024 11:40 AM EDT Note Date & Type Note Facility 06-10-2025 History of Present illness Narrative Reason for Appointment: Patient ID: Sandra Dean is a 30 y.o. female who presents [...] Relation Name Age of Onset Migraines Mother Ktae anastasiya Thyroid disease Mother Kate anastasiya Diabetes Maternal Grandfather Jonel anastasiya Hyperlipidemia Maternal Grandfather Jonel anastasiya Hypertension Maternal Grandfather Jonel anastasiya Rheum arthritis Maternal Grandmother Alanna anastasiya Osteoarthritis Maternal Grandmother Alanna anastasiya Heart failure Maternal Grandmother Alanna anastasiya Heart failure Paternal Grandfather Cruzito anastasiya Hyperlipidemia Paternal Grandmother Lu neptali Asthma Brother Otoniel talbert SURGICAL HISTORY Past [...] nursing note reviewed. Exam conducted with a client service coordinator present. Vitals: Estimated body mass index is 39.94 kg/m as calculated from the following: Height [...] Kesha Dc NP documented in this encounter [facility] 06-01-2025 History of Present illness Narrative Images from the original note were not included. Sandra Dean is a 30 y.o. female presents with chief complaint of left wrist fracture. HPI: Sandra is a 30-year-old right hand dominant white female who presents after a mechanical fall. She was canoeing, fell back on an outstretched hand. This happened on 05-23-2025. She did initially have x-rays, did have a follow up with primary care through the [facility] and had a re-x-ray. She is referred here. She does call for an appointment. She is accommodated as an urgent add-on appointment here today. She has been in the wrist splint. This wrist splint has actually fractured on her. 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 SUBJECTIVE: MEDICATIONS: Current Outpatient Medications Medication Instructions [...] Relation Name Age of Onset Migraines Mother Kateguadalupe frostum Thyroid disease Mother Kateguadalupe langford Diabetes Maternal Grandfather Jonel anastasiya Hyperlipidemia Maternal Grandfather Jonel anastasiay Hypertension Maternal Grandfather Jonel langford Rheum arthritis Maternal Grandmother Alanna anastasiya Osteoarthritis Maternal Grandmother Alanna frostum Heart failure Maternal Grandmother Alanna frostum Heart failure Paternal Grandfather Cruzito langford Hyperlipidemia Paternal Grandmother Lu valenzuleaarland Asthma Brother Otoniel talbert SOCIAL HISTORY: Social History Tobacco Use Smoking status: Never Smokeless tobacco: Never Vaping Use Vaping status: Never Used Substance Use Topics Alcohol use: Never Drug use: Never Depression: Not at risk (05/20/2020) Received from [facility] PHQ-2 PHQ-9 Total Score: 0 REVIEW OF SYMPTOMS: The review of systems, history and current medications list are all reviewed today. OBJECTIVE: Visit Vitals Ht 5' 7 Wt 259 lb BMI 40.57 kg/m OB Status Unknown Smoking Status Never BSA 2.35 m Physical Exam Her orthopedic exam here today [...] is overall grossly intact. X-rays from the [facility] AP, lateral and obliques of the [...] without issue. Follow up letter sent to Filemon Macario. Cosigned by Garland Norris DO at 06/02/2025 3:50 PM EDT documented in this encounter [facility] 08-26-2024 History of Present illness Narrative Reason [...] nursing note reviewed. Exam conducted with a client service coordinator present. Vitals: Estimated body mass index is [...] Freedom Todd DO documented in this encounter [facility] 12-19-2022 History of Present illness Narrative Pt is a 27 year old female conceived via Letrozole 5 mg and partner IUI presenting today for OB ultrasound to assess for viabilityLMP 12/19/22IUI 01/02/23Pt denies pelvic pain or vaginal bleeding [id number] IVF Work Phone: 07-26-2022 Note Diagnoses/Problems [...] consultation of which greater than 50% was [id number] counseling. There is no contraindication to conception [...] MD; Aug 06 2022 2:57PM EST (Author) [employer] 07-24-2022 Chief complaint Narrative - Reported An [...] Follow Up Visit to review testing results. [id number] IVF Work Phone: 08-12-2021 History of Present illness Narrative New Patient FertilityReferred by: [facility] , Jonel Olmos DATE OF COVID VACCINE: not vaccinated, had COVID in August 2021, fully discussed not interested in vaccinationHistory of present illness: Patient is a 27 year old female who presents withPRIOR EVALUATION / TREATMENTDr. 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 , Jonel Olmos DATE OF COVID VACCINE: not vaccinated, had COVID in August 2021, fully discussed not interested in vaccination, discussed recommendation for vaccination and increased risks of being unvaccinated in pregnancyHistory of present illness: Patient is a 27 year old female who presents with primary infertility.PRIOR EVALUATION / TREATMENTDr. 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 [id number] 320 Work Phone: Chief complaint Narrative - Reported The patient is being seen today for New Patient fertility Consultation. [id number] 206A IVF Work Phone: Chief complaint Narrative - Reported An interactive audio and video telecommunication system which permits real time communications between the patient (at the originating site) and provider (at the distant site) was utilized to provide this telehealth service.Preconception consultation requested by Jeannie Gomez for BMI >40 Charleen 1200 Work Phone: Evaluation + Plan note Future Appointments Appointment Date:01/15/2025 01:40:00 PM Scheduled Provider:Filemon Toussaint Location:[facility] Appointment Type:[facility] Evaluation note Diagnosis PCOS (polycystic ovarian syndrome) Polycystic ovaries documented in this encounter [employer] Phone: evaluation note* Diagnosis PCOS (polycystic ovarian syndrome) Polycystic ovaries documented in this encounter [employer] Phone: evaluation note* Diagnosis Amenorrhea Absence of menstruation PCOS (polycystic ovarian syndrome) Polycystic ovaries [facility] Diagnosis Other closed extra-articular fracture of distal end of left radius, initial encounter- Primary Acute wrist pain, left [facility] Diagnosis Well woman exam with routine gynecological exam Routine gynecological examination documented [facility] of Present illness Narrative* Patient is a 27 year old female with primary infertility presenting today for follow up visit. * Diagnosis to date: primary infertility * Treatment to date: * Dr. 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[employer]) * Prior fertility history: 2 children in [...] rate (%) * Morphology * % Normal4.8%=4% [id number] [id number] IVF Work Phone: Hospital course Narrative No data available for this section [facility] Hospital Discharge instructions No data available for this section [facility] Progress note No data available for this section [facility] Assessments Diagnosis BMI 50.0-59.9, adult (HCC) Body Mass Index 50.0-59.9, adult Pelvic pain in female Unspecified symptom associated with female genital organs Routine Papanicolaou smear Screening for malignant neoplasm of the cervix Advance Directives Documents on File Type Date Recorded Patient Roll Form Operator Expl anation Advance Directives and Living Will Power of [place] Curtain Machine Tender Documents on File Type Date Recorded Patient Roll Form Operator Expl anation ACP-Advance Directive ACP-Power of [place] Curtain Machine Tender Summary Purpose Family History No Family History [...] consent was requested and obtained from SANDRA JAECKIN on this date, 02/05/2023 09:30 AM , for a telehealth visit. * pt presents for OB ultrasound Additional Source Comments INFORMATION SOURCE (unrecogn ized section and content) DATE CREATED AUTHOR 08/24/2020 [facility] DATE CREATED AUTHOR AUTHOR'S ORGANIZ ATION 02/08/2023 [employer] DATE CREATED AUTHOR AUTHOR'S ORGANIZ ATION 02/17/2023 [facility] DATE CREATED AUTHOR AUTHOR'S ORGANIZ ATION 03/29/2023 [facility] DATE CREATED AUTHOR AUTHOR'S ORGANIZ ATION 10/03/2023 [facility] DATE CREATED AUTHOR AUTHOR'S ORGANIZ ATION 05/31/2025 [facility] DATE CREATED AUTHOR AUTHOR'S ORGANIZ ATION 06/01/2025 [facility] DATE CREATED AUTHOR AUTHOR'S ORGANIZ ATION 06/03/2025 [facility] EPIC Care Teams (unrecognized sec tion and content) Schedule Announcer Relationship Specialty Start Date End Date Chey Gomez MD PCP - General 07/28/14 Schedule Announcer Relationship Specialty Start Date End Date Chey Gomez MD PCP - General 07/28/14 Schedule Announcer Relationship Specialty Start Date End Date Chey Gomez MD PCP - General 07/28/14 Schedule Announcer Relationship Specialty Start Date End Date Filemon Macario NP [address] [place] [address] Referring Physician Family Medicine 06/01/25 Schedule Announcer Relationship Specialty Start Date End Date Filemon Macario NP [address] [place] [address] Referring Physician Family Medicine 06/01/25 Schedule Announcer Relationship Specialty Start Date End Date Filemon Macario NP [address] [place] [id number] Referring Physician Family Medicine 06/01/25 Schedule Announcer Relationship Specialty Start Date End Date Filemon Macario NP [address] [place] [address] Referring Physician Family Medicine 06/01/25 Reason for Visit (unrecogniz ed section and content) Reason Comments Amenorrhea Reason Comments Fracture Reason Comments Gynecologic Exam FOR RECORDS PERTAINING TO PATIENTS WHO ARE [...] BE BASED ON THE PRIMARY CLINICAL RECORDS. [facility] [employer] provides no warranty or guarantee of the accuracy or completeness of information in this document.
[2025-06-16 12:09] LABS: Age Gdln ACOG Testing Note (.); IGP, rfx Aptima HPV ASCU Note (.)
== END 2025-06-10 20:07 | disposition home or self-care (01) ==
LOC: LAB 20:06
PROVIDERS: PCP Nurse Practitioner; Visit Provider Nurse Practitioner Family
DX: Z01.419 Encounter for gynecological examination (general) (routine) without abnormal findings (principal)
CPT/HCPCS: 88175